=== PATIENT | male | born 1955 | race African-American/Black ===

== ENCOUNTER 2017-02-22 09:25 | Inpatient (IN) | payer MEDICAID, OTHER ==
[2017-02-22] VITALS (8 sets, daily range): BP systolic 102–149; BP diastolic 75–90
[~2017-02-22] VITALS: Ht 188 cm; Wt 90.7 kg
[~2017-02-22 09:25] MED LIST: ACETAMINOPHEN120 MG RECTAL; ASPIR 8181 MG ORAL; COLACE100 MG ORAL; Mylanta ORAL
--- NOTE | 2017-02-22 09:38 | Emergency Room Report ---
History of Present Illness General Chief Complaint: Dyspnea/Respdistress Source: EMS Present Illness HPI 61-year-old male [facility] for alleged and hypoxia [facility] also states patient has "a lot of congestion." Per EMS, upon arrival the patient's O2 sat was 100% on submental oxygen Patient not providing the history of present illness, history of recent CVA However does respond to commands, but is nonverbal See ER and triage notes for list of medical problems Allergies: Coded Allergies: No Known Allergies (Unverified , 11/15/15) Patient History Past Medical History: see triage record, CVA/TIA - see history of present illness, other Past Surgical History: none, unable to obtain Pertinent Family History: none, unable to obtain Social History: Denies: smoking, alcohol use, drug use Immunizations: UTD Reviewed Nursing Documentation: PMH: Agreed, PSxH: Agreed Nursing Documentation-PMH Hx Pacemaker: Yes Hx Diabetes: Yes Hx Cerebrovascular Accident: Yes Review of Systems All Other Systems: negative except mentioned in HPI Physical Exam Vital Signs Date Time Temp Pulse Resp B/P (MAP) Pulse Ox O2 Delivery O2 Flow Rate FiO2 02/22/17 09:27 Non-Rebreather Sp02 EP Interpretation: reviewed, normal, abnormal General Appearance: normal inspection, well appearing, no apparent distress, alert, GCS 15, non-toxic Head: atraumatic Eyes: bilateral eye PERRL, bilateral eye EOMI ENT: normal ENT inspection, hearing grossly normal, normal voice Neck: normal inspection, full range of motion, supple, no bony tend Respiratory: other Cardiovascular #1: regular rate, rhythm, no edema Gastrointestinal: normal inspection, normal bowel sounds, non tender, soft, no guarding, no hernia Genitourinary: no CVA tenderness Musculoskeletal: normal inspection, back normal, normal range of motion, Layton' s Sign negative Neurologic: normal inspection, alert, responsive, target trimmer III-XII nml as tested, speech normal, other - right-sided atrophy, weakness Psychiatric: normal inspection, judgement/insight normal, mood/affect normal Skin: normal inspection, normal color, no rash Medical Decision Making Diagnostic Impression: Primary Impression: Hypoxia Additional Impressions: Sepsis Qualified Codes: A41.9 - Sepsis, unspecified organism Hypernatremia SHANTE (acute kidney injury) CKD (chronic kidney disease) Qualified Codes: N18.9 - Chronic kidney disease, unspecified Hyperglycemia Elevated troponin ER Course In [facility] with hypoxia and congestion congestion found to meet sepsis criteria Febrile, hypoxic, with history of hypoxia and chest congestion Patient has poor respiratory effort We'll treat empirically for pneumonia cause for sepsis Blood cultures pending 1 L NS given only as patient's ejection fraction and cardiac output unknown Rectal Tylenol given for fever Labs significant for leukocytosis of 13 and elevated lactate, consistent with sepsis diagnosis Chest x-ray negative for pneumonia however UA grossly infected In addition patient has hypernatremia and SHANTE on CKD Likely cause is dehydration, prerenal failure Elevated troponin likely demand ischemia as EKG does not show any ischemia Endorsed to as the primary care doctor Telemetry admission 11 AM EKG Diagnostic Results Rate: normal Rhythm: NSR ST Segments: no acute changes ASA given to the pt in ED: No Rhythm Strip Diag. Results EP Interpretation: yes Rate: 96 Rhythm: NSR, other - PVCs Chest X-Ray Diagnostic Results Chest X-Ray Diagnostic Results : Chest X-Ray Ordered: Yes # of Views/Limited/Complete: 1 View Indication: Shortness of Breath EP Interpretation: Yes Interpretation: no consolidation, no effusion, no pneumothorax, no acute cardiopulmonary disease Impression: No acute disease Electronically Signed by: Dr Karen Dolan MD Last Vital Signs Date Time Temp Pulse Resp B/P (MAP) Pulse Ox O2 Delivery O2 Flow Rate FiO2 02/22/17 09:27 Non-Rebreather Status: improved Disposition: ADMITTED INPATIENT Condition: Serious KAREN DOLAN M.D. Feb 22, 2017 09:38
[2017-02-22] MEDS ORDERED: Acetaminophen 650 MG SUPP RECTAL ONE (09:45)
[2017-02-22] MEDS ORDERED: Azithromycin 500 MG in NS 275 ML IV ONE (09:45)
[2017-02-22] MEDS: cefTRIAXone 2 GM in NS 110 ML IV SCH ×2 (10:04→23:28)
[2017-02-22] MEDS ORDERED: ACETAMINOPHEN325 M1 ORAL (10:12)
[2017-02-22] MEDS ORDERED: METFORMIN HCL1000 M1 ORAL (10:12)
[2017-02-22] MEDS ORDERED: COLACE100 MG ORAL (10:12)
[2017-02-22] MEDS ORDERED: ASPIR 8181 MG ORAL (10:12)
[2017-02-22] MEDS ORDERED: NOVOLOG SS (10:12)
[2017-02-22 10:19] LABS: MEAN CORPUSCULAR HEMOGLOBIN 27.5 PG (27.0-31.0); MEAN CORPUSCULAR HGB CONC 29.9 G/DL (32.0-36.0); MEAN CORPUSCULAR VOLUME 92 FL (80-99); MEAN PLATELET VOLUME 7.2 FL (6.5-10.1); PLATELET COUNT 290 K/UL (150-450); RED BLOOD COUNT 6.55 M/UL (4.70-6.10); RED CELL DISTRIBUTION WIDTH 13.8 % (11.6-14.8); WHITE BLOOD COUNT 13.3 K/UL (4.8-10.8)
[2017-02-22 10:26] LABS: APPEARANCE,URINE CLOUDY; KETONES,URINE 1+ (NEGATIVE); LEUKOCYTE ESTERASE ,URINE NEGATIVE (NEGATIVE); NITRITE,URINE NEGATIVE (NEGATIVE); PH,URINE 5 (4.5-8.0); PROTEIN,URINE 4+ (NEGATIVE); UROBILINOGEN,URINE 1 MG/DL (0.0-1.0)
[2017-02-22 10:36] LABS: ANISOCYTOSIS 2+; BAND NEUTROPHILS % (MANUAL) 0 % (0-8); BASOPHILS % (MANUAL) 1 % (0-2); EOSINOPHILS % (MANUAL) 0 % (0-3); LYMPHOCYTES % (MANUAL) 18 % (20-45); NEUTROPHILS % (MANUAL) 80 % (45-75); NUCLEATED RED BLOOD CELLS 4 /100 WBC; PLATELET ESTIMATE ADEQUATE; PLATELET MORPHOLOGY NORMAL; TOTAL CELLS COUNTED 100
[2017-02-22 10:43] LABS: SQUAMOUS EPITHELIAL CELL,UR MODERATE /LPF (NONE/OCC)
[2017-02-22 10:44] LABS: BACTERIA,URINE FEW /HPF; ICTOTEST NEGATIVE
[2017-02-22 10:45] LABS: ALANINE AMINOTRANSFERASE 12 U/L (12-78); ALBUMIN/GLOBULIN RATIO 0.3 (1.0-2.7); ANION GAP 15 mmol/L (5-15); ASPARTATE AMINO TRANSFERASE 14 U/L (15-37); CARBON DIOXIDE 21 MMOL/L (21-32); CHLORIDE 130 MMOL/L (98-107); CKMB 3.9 NG/ML (0.0-3.6); CREATININE 3.7 MG/DL (0.55-1.30); GLOMERULAR FILTRATION RATE 20.5 mL/min (>60); POTASSIUM 4.6 MMOL/L (3.5-5.1); TOTAL PROTEIN 7.2 G/DL (6.4-8.2)
[2017-02-22 10:45] LABS: MUCUS,URINE FEW /LPF (NONE/OCC)
[2017-02-22] MEDS ORDERED: Azithromycin 500mg Inj IV ONE (10:45)
[2017-02-22 10:46] LABS: SODIUM 165 MMOL/L (136-145)
[2017-02-22 10:53] LABS: REFLEX LACTIC ACID YES OR NO YES
--- NOTE | 2017-02-22 14:39 | Diagnostic Imaging Report ---
Indication: Shortness of breath Technique: One view of the chest Comparison: 11/15/2015 Findings: Left chest bifocal AICD is again demonstrated. There is some atelectasis at the left lung base. Lungs and pleural spaces are otherwise clear. Heart size is normal Impression: Left basilar atelectasis. No acute process otherwise
[2017-02-23] VITALS: BP 100/69
[2017-02-23] MEDS ORDERED: METFORMIN HCL500 M1 ORAL (00:26)
[2017-02-23 04:00] VITALS: BP 138/82
[2017-02-23] MEDS ORDERED: Albuterol/Ipratropium 3ml neb HHN PRN (06:30)
[2017-02-23] MEDS ORDERED: NovoLOG Insulin Flexpen SUBQ SCH ×2 (06:30→16:30)
[2017-02-23 08:00] VITALS: BP 125/51
[2017-02-23 08:46] LABS: MEAN CORPUSCULAR HEMOGLOBIN 28.4 PG (27.0-31.0); MEAN CORPUSCULAR HGB CONC 29.8 G/DL (32.0-36.0); MEAN CORPUSCULAR VOLUME 95 FL (80-99); MEAN PLATELET VOLUME 6.4 FL (6.5-10.1); PLATELET COUNT 208 K/UL (150-450); RED BLOOD COUNT 5.41 M/UL (4.70-6.10); RED CELL DISTRIBUTION WIDTH 14.2 % (11.6-14.8)
[2017-02-23 08:54] LABS: ANION GAP 20 mmol/L (5-15); CALCIUM 8.2 MG/DL (8.5-10.1); CARBON DIOXIDE 18 MMOL/L (21-32); CHLORIDE 131 MMOL/L (98-107); CREATININE 3.8 MG/DL (0.55-1.30); GLOMERULAR FILTRATION RATE 19.9 mL/min (>60)
[2017-02-23] MEDS ORDERED: metFORMIN 500mg tab ORAL SCH (09:00)
[2017-02-23 09:16] LABS: SODIUM 168 MMOL/L (136-145)
[2017-02-23] MEDS: Docusate 100mg cap ORAL SCH ×2 (10:52→18:18)
[2017-02-23] MEDS: Aspirin EC 81mg tab ORAL SCH (10:52)
[2017-02-23] MEDS: Cefepime HCl 1 GM in D5W 55 ML IVPB SCH (10:55)
[2017-02-23] MEDS: Heparin 5000 units/ml inj SUBQ SCH ×2 (11:12→20:29)
[2017-02-23 11:38] LABS: LYMPHOCYTES % (MANUAL) 8 % (20-45); NEUTROPHILS % (MANUAL) 89 % (45-75); TOTAL CELLS COUNTED 100
[2017-02-23 11:39] LABS: BAND NEUTROPHILS % (MANUAL) 0 % (0-8); BASOPHILS % (MANUAL) 0 % (0-2); EOSINOPHILS % (MANUAL) 0 % (0-3); PLATELET ESTIMATE ADEQUATE; PLATELET MORPHOLOGY NORMAL
[2017-02-23 12:00] VITALS: BP 114/60
[2017-02-23] MEDS: Levemir Flexpen SUBQ SCH ×2 (13:02→20:35)
[2017-02-23] MEDS: NovoLOG Insulin Flexpen SUBQ SCH ×3 (13:14→20:36)
--- NOTE | 2017-02-23 14:53 | Infectious Diseases Prog Note ---
Assessment/Plan Problems: (1) HCAP (healthcare-associated pneumonia) Assessment & Plan: with hypoxemia and leukocytosis , will continue cefepime and add clindamycin empiric coverage, and send blood culture (2) UTI (urinary tract infection) Assessment & Plan: continue cefepime and send urine culture (3) Sepsis Assessment & Plan: due to the above, will start clindamycin and continue cefepime pending culture result (4) Acute kidney injury Assessment & Plan: due to sepsis , continue hydrations, avoid nephrotoxic, monitor renal function (5) Hyperglycemia Assessment & Plan: due to sepsis, recomend tight glycemic control to keep blood glucose between 80-120 Subjective Allergies: Coded Allergies: No Known Allergies (Unverified , 11/15/15) Objective Vital Signs Last 24 Hour Vital Signs Date Time Temp Pulse Resp B/P (MAP) Pulse Ox O2 Delivery O2 Flow Rate FiO2 02/23/17 12:00 97.2 86 20 114/60 90 02/23/17 08:00 78 02/23/17 08:00 97.0 87 21 125/51 93 02/23/17 04:00 77 02/23/17 04:00 98.0 63 20 138/82 95 Non-Rebreather 02/23/17 00:05 24 98 Non-Rebreather 15.0 100 02/23/17 00:00 98.0 77 24 100/69 98 Non-Rebreather 02/23/17 00:00 80 02/22/17 20:00 97.5 78 22 122/86 97 Non-Rebreather 15.0 100 02/22/17 20:00 92 02/22/17 16:18 96.3 80 20 135/90 97 02/22/17 16:00 83 Height (Feet): 6 Height (Inches): 2.00 Weight (Pounds): 200 Laboratory Tests Test 02/23/17 07:50 White Blood Count 15.0 K/UL (4.8-10.8) H Red Blood Count 5.41 M/UL (4.70-6.10) Hemoglobin 15.4 G/DL (14.2-18.0) Hematocrit 51.7 % (42.0-52.0) Mean Corpuscular Volume 95 FL (80-99) Mean Corpuscular Hemoglobin 28.4 PG (27.0-31.0) Mean Corpuscular Hemoglobin Concent 29.8 G/DL (32.0-36.0) L Red Cell Distribution Width 14.2 % (11.6-14.8) Platelet Count 208 K/UL (150-450) Mean Platelet Volume 6.4 FL (6.5-10.1) L Neutrophils (%) (Auto) % (45.0-75.0) Lymphocytes (%) (Auto) % (20.0-45.0) Monocytes (%) (Auto) % (1.0-10.0) Eosinophils (%) (Auto) % (0.0-3.0) Basophils (%) (Auto) % (0.0-2.0) Differential Total Cells Counted 100 Neutrophils % (Manual) 89 % (45-75) H Lymphocytes % (Manual) 8 % (20-45) L Monocytes % (Manual) 3 % (1-10) Eosinophils % (Manual) 0 % (0-3) Basophils % (Manual) 0 % (0-2) Band Neutrophils 0 % (0-8) Platelet Estimate Adequate Platelet Morphology Normal Sodium Level 168 MMOL/L (136-145) *H Potassium Level 5.0 MMOL/L (3.5-5.1) Chloride Level 131 MMOL/L (98-107) H Carbon Dioxide Level 18 MMOL/L (21-32) L Anion Gap 20 mmol/L (5-15) H Blood Urea Nitrogen 112 mg/dL (7-18) H Creatinine 3.8 MG/DL (0.55-1.30) H Estimat Glomerular Filtration Rate 19.9 mL/min (>60) Glucose Level 560 MG/DL (74-106) *H Calcium Level 8.2 MG/DL (8.5-10.1) L Current Medications Medications (Trade) Dose Ordered Sig/Megan Route PRN Reason Start Time Stop Time Status Last Admin Dose Admin Acetaminophen (Tylenol) 650 mg Q4H PRN ORAL Mild Pain (Pain Scale 1-3) 02/23/17 06:30 03/25/17 06:29 Albuterol/ Ipratropium (Albuterol/ Ipratropium) 3 ml Q4HR PRN HHN Shortness of Breath 02/23/17 06:30 02/28/17 06:29 Aspirin (Ecotrin) 81 mg DAILY ORAL 02/23/17 09:00 03/25/17 08:59 02/23/17 10:52 Cefepime HCl 1 gm/ Dextrose 55 ml @ 110 mls/hr Q24H IVPB 02/23/17 09:00 03/02/17 08:59 02/23/17 10:55 Dextrose 1,000 ml @ 100 mls/hr Q10H IV 02/23/17 07:15 03/25/17 07:14 02/23/17 10:55 Dextrose (Dextrose 50%) STAT PRN IV Hypoglycemia 02/23/17 12:15 03/25/17 12:14 Docusate Sodium (Colace) 100 mg TWICE A DAY ORAL 02/23/17 09:00 03/25/17 08:59 02/23/17 10:52 Heparin Sodium (Porcine) (Heparin 5000 units/ml) 5,000 units EVERY 12 HOURS SUBQ 02/23/17 09:00 03/25/17 08:59 02/23/17 11:12 Insulin Aspart (NovoLOG) BEFORE MEALS AND HS SUBQ 02/23/17 13:30 03/25/17 13:29 02/23/17 13:14 Insulin Detemir (Levemir) 15 units Q12HR SUBQ 02/23/17 13:00 03/25/17 12:59 02/23/17 13:02 Kamala Leon M.D. Feb 23, 2017 14:53
[2017-02-23] MEDS ORDERED: NS 500ML ONE (15:46)
[2017-02-23] MEDS ORDERED: 1/2 NS 1000ml IV ONE (15:46)
[2017-02-23] MEDS ORDERED: Tubing IV Secondary IV ONE (15:46)
[2017-02-23 16:00] VITALS: BP 96/73
--- NOTE | 2017-02-23 16:15 | Consultation ---
DATE OF CONSULTATION: 02/23/2017 INFECTIOUS DISEASE CONSULTATION CONSULTING PHYSICIAN: Kamala Leon M.D. REQUESTING PHYSICIAN: Yoandy Zurita M.D. REASON FOR CONSULTATION: Healthcare-acquired pneumonia, sepsis, and urinary tract infection. Recommendation for antibiotics treatment HISTORY OF PRESENT ILLNESS: The patient is a 61-year-old male with past medical history of CVA, diabetes, status post pacemaker, and [facility] resident, was sent to [facility] emergency room for hypoxia and chest congestion. The patient was saturating 100% on supplemental oxygen mask when he arrived, but he drops his O2 saturation once he is off oxygen quickly. Chest x-ray in the emergency room showed basilar atelectases suspicious for pneumonia so, he was started on intravenous cefepime by the admitting physician and I was consulted for antibiotics treatment and further management of his sepsis, pneumonia, and urinary tract infection. As of note, the patient is a poor historian, demented, and cannot provide any history. History was mainly obtained from the medical record. PAST MEDICAL HISTORY: Significant for CVA, TIA, diabetes, and possible dementia. PAST SURGICAL HISTORY: He had a pacemaker placement. MEDICATIONS: He is on cefepime 1 g IV q.24 hours. For the rest of his medications, please refer to [facility]. ALLERGIES: No known drug allergy. SOCIAL HISTORY: The patient is a [facility] resident. No recent drugs, tobacco, or alcohol. FAMILY HISTORY: Unable to obtain at this point. REVIEW OF SYSTEMS: Unable to obtain at this point. The patient is a poor historian. PHYSICAL EXAMINATION: VITAL SIGNS: Temperature 97.2, pulse 86, respirations 20, blood pressure 114/60, and saturation 90% on non-rebreather mask with FiO2 of 100%. GENERAL: A middle-aged male, up in bed, alert, awake, nonverbal, does not follow command, not in acute distress. HEENT: Normocephalic and atraumatic. Pupils are reactive to light bilaterally. Dry oral mucosa. No exudate. With dry bloody secretion in his mouth and poor dental hygiene. NECK: Supple. No lymphadenopathy. CARDIOVASCULAR: Regular rate and rhythm. No murmur or gallop. LUNGS: He had crackles and wheezing at the bases. Normal breathing effort. No rales. ABDOMEN: Soft, nontender, and nondistended. Supraumbilical ventral hernia reducible. Normal bowel sounds. No rebound or ascites. EXTREMITY: No edema or cyanosis. LABORATORY DATA: Laboratories showed white count of 15,000 hemoglobin of 15.4, and platelet count of 208,000. BUN of 112, creatinine of 3.8, and glucose of 560. Lactic acid of 2.9. Troponin 0.091. Urinalysis showed negative leukocyte esterase, WBC 5 to 10, and few bacteria. IMAGING: Chest x-ray showed left basilar atelectasis, no acute process. ASSESSMENT AND RECOMMENDATION: 1. Healthcare-acquired pneumonia with hypoxemia and leukocytosis. We will continue cefepime empiric treatment and add clindamycin, empiric coverage for pneumonia and send blood culture. 2. Urinary tract infection. We will continue cefepime and send urine culture. 3. Sepsis due to the above. We will start clindamycin and continue cefepime pending culture results. 4. Acute kidney failure due to sepsis. Continue hydration. Avoid nephrotoxic medicine. Renal team is following already. 5. Hyperglycemia due to sepsis. Recommend tight glycemic control to keep blood glucose between 80 to 120. Thank you for the consult. ID will continue to follow. Kamala Leon M.D. DR: MESHA JOB#: [id number] CC:
[2017-02-23] MEDS: Clindamycin 600mg 50 ML IV SCH ×2 (16:58→23:06)
[2017-02-23 20:00] VITALS: BP 102/76
--- NOTE | 2017-02-23 22:18 | History and Physical ---
History of Present Illness General Date patient seen: Feb 23, 2017 Reason for Hospitalization: Dyspnea/Respdistress Present Illness HPI 61 y/o male with a history of DM and CVA who presented to the ED from [facility]F with SOB and chest congestion. History obtained from chart as patient is nonverbal. Patient noted to be severely dehydrated with Na 165 and elev BUN /Cr. He was admitted for further care. Allergies: Coded Allergies: No Known Allergies (Unverified , 11/15/15) Medication History Scheduled Aspirin* (Aspir 81*), 81 MG ORAL DAILY, (Reported) Docusate Sodium* (Colace*), 100 MG ORAL TWICE A DAY, (Reported) Metformin Hcl* (Metformin Hcl*), 1,000 MG ORAL BID, (Reported) Metformin Hcl* (Metformin Hcl*), 500 MG ORAL TWICE A DAY, (Reported) Scheduled PRN Acetaminophen* (Acetaminophen 325MG Tablet*), 650 MG ORAL Q6H PRN for Mild Pain (Pain Scale 1-3), (Reported) Miscellaneous Medications [Novolog SS], (Reported) Patient History History Provided By: Medical Record Healthcare decision maker Resuscitation status Advanced Directive on File No Past Medical/Surgical History Past Medical/Surgical History: (1) DM (diabetes mellitus) (2) CKD (chronic kidney disease) Review of Systems ROS Narrative limited due to patient's mental status. Physical Exam General Appearance: WD/WN, no apparent distress HEENT: normocephalic, atraumatic Respiratory/Chest: lungs clear Cardiovascular/Chest: normal rate, regular rhythm Abdomen: non tender, soft Neurologic: alert Last 24 Hour Vital Signs Date Time Temp Pulse Resp B/P (MAP) Pulse Ox O2 Delivery O2 Flow Rate FiO2 02/23/17 20:18 Venturi Mask 8.0 40 02/23/17 20:18 95 Venturi Mask 8.0 40 02/23/17 20:00 80 02/23/17 20:00 96.8 88 20 102/76 96 02/23/17 16:00 87 02/23/17 16:00 97.0 89 21 96/73 94 02/23/17 12:00 97.2 86 20 114/60 90 02/23/17 08:00 78 02/23/17 08:00 97.0 87 21 125/51 93 02/23/17 04:00 77 02/23/17 04:00 98.0 63 20 138/82 95 Non-Rebreather 02/23/17 00:05 24 98 Non-Rebreather 15.0 100 02/23/17 00:00 98.0 77 24 100/69 98 Non-Rebreather 02/23/17 00:00 80 Intake and Output 02/23/17 02/24/17 19:00 07:00 Output Total 700 ml Balance -700 ml Output Urine Total 700 ml Laboratory Tests Test 02/23/17 07:50 White Blood Count 15.0 K/UL (4.8-10.8) H Red Blood Count 5.41 M/UL (4.70-6.10) Hemoglobin 15.4 G/DL (14.2-18.0) Hematocrit 51.7 % (42.0-52.0) Mean Corpuscular Volume 95 FL (80-99) Mean Corpuscular Hemoglobin 28.4 PG (27.0-31.0) Mean Corpuscular Hemoglobin Concent 29.8 G/DL (32.0-36.0) L Red Cell Distribution Width 14.2 % (11.6-14.8) Platelet Count 208 K/UL (150-450) Mean Platelet Volume 6.4 FL (6.5-10.1) L Neutrophils (%) (Auto) % (45.0-75.0) Lymphocytes (%) (Auto) % (20.0-45.0) Monocytes (%) (Auto) % (1.0-10.0) Eosinophils (%) (Auto) % (0.0-3.0) Basophils (%) (Auto) % (0.0-2.0) Differential Total Cells Counted 100 Neutrophils % (Manual) 89 % (45-75) H Lymphocytes % (Manual) 8 % (20-45) L Monocytes % (Manual) 3 % (1-10) Eosinophils % (Manual) 0 % (0-3) Basophils % (Manual) 0 % (0-2) Band Neutrophils 0 % (0-8) Platelet Estimate Adequate Platelet Morphology Normal Sodium Level 168 MMOL/L (136-145) *H Potassium Level 5.0 MMOL/L (3.5-5.1) Chloride Level 131 MMOL/L (98-107) H Carbon Dioxide Level 18 MMOL/L (21-32) L Anion Gap 20 mmol/L (5-15) H Blood Urea Nitrogen 112 mg/dL (7-18) H Creatinine 3.8 MG/DL (0.55-1.30) H Estimat Glomerular Filtration Rate 19.9 mL/min (>60) Glucose Level 560 MG/DL (74-106) *H Calcium Level 8.2 MG/DL (8.5-10.1) L Height (Feet): 6 Height (Inches): 2.00 Weight (Pounds): 200 Medications Current Medications Medications (Trade) Dose Ordered Sig/Megan Route PRN Reason Start Time Stop Time Status Last Admin Dose Admin Acetaminophen (Tylenol) 650 mg Q4H PRN ORAL Mild Pain (Pain Scale 1-3) 02/23/17 06:30 03/25/17 06:29 Albuterol/ Ipratropium (Albuterol/ Ipratropium) 3 ml Q4HR PRN HHN Shortness of Breath 02/23/17 06:30 02/28/17 06:29 Aspirin (Ecotrin) 81 mg DAILY ORAL 02/23/17 09:00 03/25/17 08:59 02/23/17 10:52 Cefepime HCl 1 gm/ Dextrose 55 ml @ 110 mls/hr Q24H IVPB 02/23/17 09:00 03/02/17 08:59 02/23/17 10:55 Clindamycin HCl/ Dextrose 50 ml @ 100 mls/hr Q8HR IV 02/23/17 16:00 03/02/17 15:59 02/23/17 16:58 Dextrose 1,000 ml @ 100 mls/hr Q10H IV 02/23/17 07:15 03/25/17 07:14 02/23/17 16:58 Dextrose (Dextrose 50%) STAT PRN IV Hypoglycemia 02/23/17 12:15 03/25/17 12:14 Docusate Sodium (Colace) 100 mg TWICE A DAY ORAL 02/23/17 09:00 03/25/17 08:59 02/23/17 18:18 Heparin Sodium (Porcine) (Heparin 5000 units/ml) 5,000 units EVERY 12 HOURS SUBQ 02/23/17 09:00 03/25/17 08:59 02/23/17 20:29 Insulin Aspart (NovoLOG) BEFORE MEALS AND HS SUBQ 02/23/17 13:30 03/25/17 13:29 02/23/17 20:36 Insulin Detemir (Levemir) 15 units Q12HR SUBQ 02/23/17 13:00 03/25/17 12:59 02/23/17 20:35 Assessment/Plan Problem List: (1) Hyperglycemia due to type 2 diabetes mellitus ICD Codes: E11.65 - Type 2 diabetes mellitus with hyperglycemia SNOMED: 250240562585762 (2) Hypernatremia ICD Codes: E87.0 - Hyperosmolality and hypernatremia SNOMED: 74738776 (3) CKD (chronic kidney disease) ICD Codes: N18.9 - Chronic kidney disease, unspecified SNOMED: 033867522 Qualifiers: Qualified Codes: N18.9 - Chronic kidney disease, unspecified (4) SHANTE (acute kidney injury) ICD Codes: N17.9 - Acute kidney failure, unspecified SNOMED: 01369067, 575454515 (5) Hypoxia ICD Codes: R09.02 - Hypoxemia SNOMED: 840860278 (6) Sepsis ICD Codes: A41.9 - Sepsis, unspecified organism SNOMED: 21398221 Qualifiers: Qualified Codes: A41.9 - Sepsis, unspecified organism (7) UTI (urinary tract infection) ICD Codes: N39.0 - Urinary tract infection, site not specified SNOMED: 08119875 (8) HCAP (healthcare-associated pneumonia) ICD Codes: J18.9 - Pneumonia, unspecified organism SNOMED: 360516768 Assessment/Plan empiric abx. ID consult. BG control. IVF. CHange to d5w given higher Na. Monitor renal function. Monitor UOP. Consider HD if low UOP. DVT ppx. JJ RAYMOND Feb 23, 2017 22:18
[2017-02-24 00:20] VITALS: BP 111/84
[2017-02-24 04:15] VITALS: BP 100/78
[2017-02-24] MEDS: Clindamycin 600mg 50 ML IV SCH ×3 (06:00→22:10)
[2017-02-24] MEDS: NovoLOG Insulin Flexpen SUBQ SCH ×4 (06:46→21:00)
[2017-02-24 08:00] VITALS: BP 110/59
[2017-02-24 09:00] LABS: MEAN CORPUSCULAR HEMOGLOBIN 25.7 PG (27.0-31.0); MEAN CORPUSCULAR HGB CONC 28.2 G/DL (32.0-36.0); MEAN CORPUSCULAR VOLUME 91 FL (80-99); MEAN PLATELET VOLUME 6.8 FL (6.5-10.1); PLATELET COUNT 196 K/UL (150-450); RED BLOOD COUNT 5.77 M/UL (4.70-6.10); RED CELL DISTRIBUTION WIDTH 13.8 % (11.6-14.8); WHITE BLOOD COUNT 16.7 K/UL (4.8-10.8)
[2017-02-24 09:26] LABS: ANION GAP 12 mmol/L (5-15); CALCIUM 8.2 MG/DL (8.5-10.1); CARBON DIOXIDE 24 MMOL/L (21-32); CHLORIDE 133 MMOL/L (98-107); CREATININE 3.8 MG/DL (0.55-1.30); GLOMERULAR FILTRATION RATE 19.9 mL/min (>60); POTASSIUM 3.6 MMOL/L (3.5-5.1)
[2017-02-24 09:37] LABS: SODIUM 168 MMOL/L (136-145)
[2017-02-24 09:50] LABS: BAND NEUTROPHILS % (MANUAL) 0 % (0-8); BASOPHILS % (MANUAL) 0 % (0-2); EOSINOPHILS % (MANUAL) 0 % (0-3); LYMPHOCYTES % (MANUAL) 9 % (20-45); NEUTROPHILS % (MANUAL) 89 % (45-75); PLATELET ESTIMATE ADEQUATE; PLATELET MORPHOLOGY NORMAL; TOTAL CELLS COUNTED 100
[2017-02-24] MEDS: Docusate 100mg cap ORAL SCH ×2 (09:51→18:00)
[2017-02-24] MEDS: Cefepime HCl 1 GM in D5W 55 ML IVPB SCH (09:51)
[2017-02-24] MEDS: Aspirin EC 81mg tab ORAL SCH (09:51)
[2017-02-24] MEDS: Levemir Flexpen SUBQ SCH ×2 (09:58→21:00)
[2017-02-24] MEDS: Heparin 5000 units/ml inj SUBQ SCH ×2 (10:08→21:00)
[2017-02-24 12:00] VITALS: BP 99/71
--- NOTE | 2017-02-24 12:37 | Nephrology Progress Note ---
Assessment/Plan Problem List: (1) Hypernatremia (2) SHANTE (acute kidney injury) (3) Hyperglycemia (4) Hypoxia (5) Sepsis (6) UTI (urinary tract infection) (7) HCAP (healthcare-associated pneumonia) (8) DM (diabetes mellitus) (9) Dysphagia due to recent stroke Plan Continue d5w to correct sodium Free water flushes Renally dose meds, avoid nephrotoxins Strict glycemic control Dysphagia, NG tube inserted, GI consult Abx per ID DVT prophylaxis, PPI Subjective ROS Limited/Unobtainable: Yes Subjective In bed, in no apparent distress, non verbal Objective Objective Last 24 Hour Vital Signs Date Time Temp Pulse Resp B/P (MAP) Pulse Ox O2 Delivery O2 Flow Rate FiO2 02/24/17 08:00 97.0 86 20 110/59 94 02/24/17 08:00 91 02/24/17 07:49 94 Venturi Mask 8.0 40 02/24/17 07:49 87 20 Venturi Mask 8.0 40 02/24/17 07:49 Venturi Mask 8.0 40 02/24/17 04:15 99.0 92 20 100/78 90 02/24/17 04:00 91 02/24/17 00:20 97.0 84 20 111/84 94 02/24/17 00:00 81 02/23/17 20:18 Venturi Mask 8.0 40 02/23/17 20:18 95 Venturi Mask 8.0 40 02/23/17 20:00 80 02/23/17 20:00 96.8 88 20 102/76 96 02/23/17 16:00 87 02/23/17 16:00 97.0 89 21 96/73 94 Laboratory Tests 02/24/17 08:50: White Blood Count 16.7H, Red Blood Count 5.77, Hemoglobin 14.8, Hematocrit 52.7H , Mean Corpuscular Volume 91, Mean Corpuscular Hemoglobin 25.7L, Mean Corpuscular Hemoglobin Concent 28.2L, Red Cell Distribution Width 13.8, Platelet Count 196, Mean Platelet Volume 6.8, Neutrophils (%) (Auto) , Lymphocytes (%) (Auto) , Monocytes (%) (Auto) , Eosinophils (%) (Auto) , Basophils (%) (Auto) , Differential Total Cells Counted 100, Neutrophils % ( Manual) 89H, Lymphocytes % (Manual) 9L, Monocytes % (Manual) 2, Eosinophils % ( Manual) 0, Basophils % (Manual) 0, Band Neutrophils 0, Platelet Estimate Adequate, Platelet Morphology Normal, Red Blood Cell Morphology Normal, Sodium Level 168*H, Potassium Level 3.6, Chloride Level 133H, Carbon Dioxide Level 24, Anion Gap 12, Blood Urea Nitrogen 110H, Creatinine 3.8H, Estimat Glomerular Filtration Rate 19.9, Glucose Level 246#H, Calcium Level 8.2L, Pro-B-Type Natriuretic Peptide 967H Height (Feet): 6 Height (Inches): 2.00 Weight (Pounds): 200 General Appearance: no apparent distress EENT: normal ENT inspection Neck: normal alignment Cardiovascular: normal rate, no JVD Respiratory/Chest: decreased breath sounds Abdomen: non tender, soft Neurologic: motor weakness, disoriented Mary Barboza N.P. Feb 24, 2017 12:37
--- NOTE | 2017-02-24 12:48 | GI Initial Consult Note ---
History of Present Illness General Date patient seen: Feb 24, 2017 Time patient seen: 12:37 Reason for Hospitalization: Dyspnea/Respdistress Referring physician: JJ MILNER Reason for Consultation: DYSPHAGIA Present Illness HPI 61-year-old male brought in by EMS from [place] for alleged and hypoxia long-term also states patient has "a lot of congestion." Per EMS, upon arrival the patient's O2 sat was 100% on submental oxygen Patient not providing the history of present illness, history of recent CVA However does respond to commands, but is nonverbal GI consulted for dysphagia with possible PEG placement. HPI as noted above. ROS limited, patient non verbal NAD currently with NGTs. Pt presents today with leukocytosis, hypernatremia, elevated lactic acid Home Meds Reported Medications Metformin Hcl* (METFORMIN HCL*) 500 Mg Tablet, 500 MG ORAL TWICE A DAY, TAB 02/23/17 Acetaminophen* (ACETAMINOPHEN 325MG TABLET*) 325 Mg Tablet, 650 MG ORAL Q6H Y for Mild Pain (Pain Scale 1-3), TAB 02/22/17 Docusate Sodium* (COLACE*) 100 Mg Capsule, 100 MG ORAL TWICE A DAY, CAP 02/22/17 Aspirin* (ASPIR 81*) 81 Mg Tablet.dr, 81 MG ORAL DAILY, TAB 02/22/17 [Novolog SS] No Conflict Check 02/22/17 Metformin Hcl* (METFORMIN HCL*) 1,000 Mg Tablet, 1000 MG ORAL BID, TAB 02/22/17 Med list reviewed/reconciled: Yes Allergies: Coded Allergies: No Known Allergies (Unverified , 11/15/15) Patient History Limited by: medical condition History Provided By: Medical Record PMH Narrative Past Medical History: see triage record, CVA/TIA - see history of present illness, other Past Surgical History: none, unable to obtain Pertinent Family History: none, unable to obtain Social History: Denies: smoking, alcohol use, drug use Immunizations: UTD Reviewed Nursing Documentation: PMH: Agreed, PSxH: Agreed Nursing Documentation-PM Hx Pacemaker: Yes Hx Diabetes: Yes Hx Cerebrovascular Accident: Yes Review of Systems All Other Systems: limited Physical Exam Vital Signs Date Time Temp Pulse Resp B/P (MAP) Pulse Ox O2 Delivery O2 Flow Rate FiO2 02/22/17 09:27 101.5 91 28 101/86 93 Nasal Cannula 3.0 02/22/17 20:00 100 Sp02 EP Interpretation: reviewed, normal Labs Laboratory Tests Test 02/24/17 08:50 White Blood Count 16.7 K/UL (4.8-10.8) H Red Blood Count 5.77 M/UL (4.70-6.10) Hemoglobin 14.8 G/DL (14.2-18.0) Hematocrit 52.7 % (42.0-52.0) H Mean Corpuscular Volume 91 FL (80-99) Mean Corpuscular Hemoglobin 25.7 PG (27.0-31.0) L Mean Corpuscular Hemoglobin Concent 28.2 G/DL (32.0-36.0) L Red Cell Distribution Width 13.8 % (11.6-14.8) Platelet Count 196 K/UL (150-450) Mean Platelet Volume 6.8 FL (6.5-10.1) Neutrophils (%) (Auto) % (45.0-75.0) Lymphocytes (%) (Auto) % (20.0-45.0) Monocytes (%) (Auto) % (1.0-10.0) Eosinophils (%) (Auto) % (0.0-3.0) Basophils (%) (Auto) % (0.0-2.0) Differential Total Cells Counted 100 Neutrophils % (Manual) 89 % (45-75) H Lymphocytes % (Manual) 9 % (20-45) L Monocytes % (Manual) 2 % (1-10) Eosinophils % (Manual) 0 % (0-3) Basophils % (Manual) 0 % (0-2) Band Neutrophils 0 % (0-8) Platelet Estimate Adequate Platelet Morphology Normal Red Blood Cell Morphology Normal Sodium Level 168 MMOL/L (136-145) *H Potassium Level 3.6 MMOL/L (3.5-5.1) Chloride Level 133 MMOL/L (98-107) H Carbon Dioxide Level 24 MMOL/L (21-32) Anion Gap 12 mmol/L (5-15) Blood Urea Nitrogen 110 mg/dL (7-18) H Creatinine 3.8 MG/DL (0.55-1.30) H Estimat Glomerular Filtration Rate 19.9 mL/min (>60) Glucose Level 246 MG/DL (74-106) #H Calcium Level 8.2 MG/DL (8.5-10.1) L Pro-B-Type Natriuretic Peptide 967 pg/mL (0-125) H General Appearance: no apparent distress Head: normocephalic EENT: PERRL/EOMI, normal ENT inspection Neck: supple Respiratory: normal breath sounds, no respiratory distress Cardiovascular: normal rate Gastrointestinal: normal inspection, non tender, soft, normal bowel sounds, non -distended Rectal: deferred Genitourinary: deferred Musculoskeletal: normal inspection, back normal Neurologic: alert, responsive Skin: normal inspection, normal color, no rash, warm/dry, palpation normal, well hydrated Lymphatic: normal inspection, no adenopathy Current Medications Current Medications Medications (Trade) Dose Ordered Sig/Megan Route PRN Reason Start Time Stop Time Status Last Admin Dose Admin Acetaminophen (Tylenol) 650 mg Q4H PRN ORAL Mild Pain (Pain Scale 1-3) 02/23/17 06:30 03/25/17 06:29 Albuterol/ Ipratropium (Albuterol/ Ipratropium) 3 ml Q4HR PRN HHN Shortness of Breath 02/23/17 06:30 02/28/17 06:29 Aspirin (Ecotrin) 81 mg DAILY ORAL 02/23/17 09:00 03/25/17 08:59 02/24/17 09:51 Cefepime HCl 1 gm/ Dextrose 55 ml @ 110 mls/hr Q24H IVPB 02/23/17 09:00 03/02/17 08:59 02/24/17 09:51 Clindamycin HCl/ Dextrose 50 ml @ 100 mls/hr Q8HR IV 02/23/17 16:00 03/02/17 15:59 02/24/17 06:00 Dextrose 1,000 ml @ 100 mls/hr Q10H IV 02/23/17 07:15 03/25/17 07:14 02/24/17 12:26 Dextrose (Dextrose 50%) STAT PRN IV Hypoglycemia 02/23/17 12:15 03/25/17 12:14 Docusate Sodium (Colace) 100 mg TWICE A DAY ORAL 02/23/17 09:00 03/25/17 08:59 02/24/17 09:51 Heparin Sodium (Porcine) (Heparin 5000 units/ml) 5,000 units EVERY 12 HOURS SUBQ 02/23/17 09:00 03/25/17 08:59 02/24/17 10:08 Insulin Aspart (NovoLOG) BEFORE MEALS AND HS SUBQ 02/23/17 13:30 03/25/17 13:29 02/24/17 11:27 Insulin Detemir (Levemir) 15 units Q12HR SUBQ 02/23/17 13:00 03/25/17 12:59 02/24/17 09:58 GI: Plan Problems: (1) Encounter for PEG (percutaneous endoscopic gastrostomy) (2) Dysphagia due to recent stroke (3) DM (diabetes mellitus) (4) Hypernatremia Plan consider PEG after work up if indicated and stable. ST evaluation noted >> HOLD PO TRIALS UNTIL PATIENT READY FOR VIDEOSWALLOW STUDY. okay to start NGTFs after CXR confirmation. >> Glucerna 1.5 @ 65ml/hr ordered KUB r/o ischemia given elevated lactic acid ppi daily monitor H&H, prn transfusions. electrolyte correction bowel regime >> colace + miralax abx fu labs Discussed with Dr. Olmedo. Thank you for this patient referral, we will follow. Mariaa Winters N.P. Feb 24, 2017 12:48
--- NOTE | 2017-02-24 13:32 | Wound Care Consultation ---
Wound Assessment Wound Assessment : Wound Number: 1 Wound Present on Admission: Yes New Wound: No Status Change of Wound: No Wound Location Body Site Modif: mid Wound Location Body Site: other - sacrococcygeal Wound Type: pressure ulcer Ezio Test: Does not Ezio Pressure Ulcer Stage: II Wound Thickness: Partial Thickness Wound Length: 4.5 Wound Width: 4.0 Wound Depth: 0.1 Percent of Wound [place]/Red: 100 Wound Drainage Description: Serosanguineous Wound Drainage Amount: Moderate Wound Drainage Odor: None/Absent Tissue Surrounding Wound: Macerated Wound General Appearance: Reddened, Draining Wound Comment #1 Sacrococcygeal stage II pressure ulcer Recommendation -Local wound care per protocol -Optimize nutrition -Low air loss mattress -Heel protector on both heels -Offload both heels -Keep clean and dry -Turn and reposition -Assess and f/u accordingly for any changes MARIO VU RN Feb 24, 2017 13:32
--- NOTE | 2017-02-24 14:41 | Cardiac Electrophysiology PN ---
Subjective Subjective Cardiology consult dictated [id number] Objective Last 24 Hour Vital Signs Date Time Temp Pulse Resp B/P (MAP) Pulse Ox O2 Delivery O2 Flow Rate FiO2 02/24/17 12:00 97.2 96 21 99/71 94 02/24/17 08:00 97.0 86 20 110/59 94 02/24/17 08:00 91 02/24/17 07:49 94 Venturi Mask 8.0 40 02/24/17 07:49 87 20 Venturi Mask 8.0 40 02/24/17 07:49 Venturi Mask 8.0 40 02/24/17 04:15 99.0 92 20 100/78 90 02/24/17 04:00 91 02/24/17 00:20 97.0 84 20 111/84 94 02/24/17 00:00 81 02/23/17 20:18 Venturi Mask 8.0 40 02/23/17 20:18 95 Venturi Mask 8.0 40 02/23/17 20:00 80 02/23/17 20:00 96.8 88 20 102/76 96 02/23/17 16:00 87 02/23/17 16:00 97.0 89 21 96/73 94 Laboratory Tests Test 02/24/17 08:50 White Blood Count 16.7 K/UL (4.8-10.8) H Red Blood Count 5.77 M/UL (4.70-6.10) Hemoglobin 14.8 G/DL (14.2-18.0) Hematocrit 52.7 % (42.0-52.0) H Mean Corpuscular Volume 91 FL (80-99) Mean Corpuscular Hemoglobin 25.7 PG (27.0-31.0) L Mean Corpuscular Hemoglobin Concent 28.2 G/DL (32.0-36.0) L Red Cell Distribution Width 13.8 % (11.6-14.8) Platelet Count 196 K/UL (150-450) Mean Platelet Volume 6.8 FL (6.5-10.1) Neutrophils (%) (Auto) % (45.0-75.0) Lymphocytes (%) (Auto) % (20.0-45.0) Monocytes (%) (Auto) % (1.0-10.0) Eosinophils (%) (Auto) % (0.0-3.0) Basophils (%) (Auto) % (0.0-2.0) Differential Total Cells Counted 100 Neutrophils % (Manual) 89 % (45-75) H Lymphocytes % (Manual) 9 % (20-45) L Monocytes % (Manual) 2 % (1-10) Eosinophils % (Manual) 0 % (0-3) Basophils % (Manual) 0 % (0-2) Band Neutrophils 0 % (0-8) Platelet Estimate Adequate Platelet Morphology Normal Red Blood Cell Morphology Normal Sodium Level 168 MMOL/L (136-145) *H Potassium Level 3.6 MMOL/L (3.5-5.1) Chloride Level 133 MMOL/L (98-107) H Carbon Dioxide Level 24 MMOL/L (21-32) Anion Gap 12 mmol/L (5-15) Blood Urea Nitrogen 110 mg/dL (7-18) H Creatinine 3.8 MG/DL (0.55-1.30) H Estimat Glomerular Filtration Rate 19.9 mL/min (>60) Glucose Level 246 MG/DL (74-106) #H Calcium Level 8.2 MG/DL (8.5-10.1) L Pro-B-Type Natriuretic Peptide 967 pg/mL (0-125) H Microbiology Date/Time Source Procedure Growth Status 02/22/17 10:05 Blood Blood Culture - Preliminary NO GROWTH AFTER 24 HOURS Resulted 02/22/17 09:50 Blood Blood Culture - Preliminary NO GROWTH AFTER 24 HOURS Resulted GAGAN JUNIOR Feb 24, 2017 14:41
[2017-02-24 16:00] VITALS: BP 112/89
--- NOTE | 2017-02-24 16:02 | Diagnostic Imaging Report ---
Indication: Status post nasogastric tube placement Technique: Supine view of the abdomen Comparison: Produce Team Lead image from CT scan of 11/15/2015 Findings: No nasogastric tube is demonstrated. Bowel gas pattern is unremarkable. No unusual masses or calcifications. AICD wires are noted in the heart Impression: Nonvisualization of nasogastric tube. Presumably malpositioned, tip well above the distal esophagus Patient's nurse notified of this at the time of interpretation
--- NOTE | 2017-02-24 19:09 | General Progress Note ---
Assessment/Plan Problem List: (1) Encounter for PEG (percutaneous endoscopic gastrostomy) ICD Codes: Z43.1 - Encounter for attention to gastrostomy SNOMED: 394807316, 396185003 (2) Dysphagia due to recent stroke ICD Codes: I69.391 - Dysphagia following cerebral infarction SNOMED: 87377467, 906221936 (3) Hyperglycemia due to type 2 diabetes mellitus ICD Codes: E11.65 - Type 2 diabetes mellitus with hyperglycemia SNOMED: 733511498526821 (4) Hypernatremia ICD Codes: E87.0 - Hyperosmolality and hypernatremia SNOMED: 85663607 Assessment/Plan reduce Levemir 15 to 9 units bid continue SSI follow with GI recommendations Subjective ROS Limited/Unobtainable: Yes Allergies: Coded Allergies: No Known Allergies (Unverified , 11/15/15) Subjective events noted NPO - pending swallow evaluation Objective Last 24 Hour Vital Signs Date Time Temp Pulse Resp B/P (MAP) Pulse Ox O2 Delivery O2 Flow Rate FiO2 02/24/17 16:00 94 02/24/17 16:00 97.0 95 22 112/89 98 02/24/17 12:00 97.2 96 21 99/71 94 02/24/17 08:00 97.0 86 20 110/59 94 02/24/17 08:00 91 02/24/17 07:49 94 Venturi Mask 8.0 40 02/24/17 07:49 87 20 Venturi Mask 8.0 40 02/24/17 07:49 Venturi Mask 8.0 40 02/24/17 04:15 99.0 92 20 100/78 90 02/24/17 04:00 91 02/24/17 00:20 97.0 84 20 111/84 94 02/24/17 00:00 81 02/23/17 20:18 Venturi Mask 8.0 40 02/23/17 20:18 95 Venturi Mask 8.0 40 02/23/17 20:00 80 02/23/17 20:00 96.8 88 20 102/76 96 Intake and Output 02/24/17 02/25/17 19:00 07:00 Intake Total 605 ml Output Total 500 ml Balance 105 ml Intake IV Total 605 ml Output Urine Total 500 ml # Bowel Movements 1 Laboratory Tests 02/24/17 08:50: White Blood Count 16.7H, Red Blood Count 5.77, Hemoglobin 14.8, Hematocrit 52.7H , Mean Corpuscular Volume 91, Mean Corpuscular Hemoglobin 25.7L, Mean Corpuscular Hemoglobin Concent 28.2L, Red Cell Distribution Width 13.8, Platelet Count 196, Mean Platelet Volume 6.8, Neutrophils (%) (Auto) , Lymphocytes (%) (Auto) , Monocytes (%) (Auto) , Eosinophils (%) (Auto) , Basophils (%) (Auto) , Differential Total Cells Counted 100, Neutrophils % ( Manual) 89H, Lymphocytes % (Manual) 9L, Monocytes % (Manual) 2, Eosinophils % ( Manual) 0, Basophils % (Manual) 0, Band Neutrophils 0, Platelet Estimate Adequate, Platelet Morphology Normal, Red Blood Cell Morphology Normal, Sodium Level 168*H, Potassium Level 3.6, Chloride Level 133H, Carbon Dioxide Level 24, Anion Gap 12, Blood Urea Nitrogen 110H, Creatinine 3.8H, Estimat Glomerular Filtration Rate 19.9, Glucose Level 246#H, Calcium Level 8.2L, Pro-B-Type Natriuretic Peptide 967H Height (Feet): 6 Height (Inches): 2.00 Weight (Pounds): 200 General Appearance: lethargic Neck: normal alignment Cardiovascular: normal rate Respiratory/Chest: decreased breath sounds Abdomen: normal bowel sounds Objective Current Medications Medications (Trade) Dose Ordered Sig/Megan Route PRN Reason Start Time Stop Time Status Last Admin Dose Admin Acetaminophen (Tylenol) 650 mg Q4H PRN ORAL Mild Pain (Pain Scale 1-3) 02/23/17 06:30 03/25/17 06:29 Albuterol/ Ipratropium (Albuterol/ Ipratropium) 3 ml Q4HR PRN HHN Shortness of Breath 02/23/17 06:30 02/28/17 06:29 Aspirin (Ecotrin) 81 mg DAILY ORAL 02/23/17 09:00 03/25/17 08:59 02/24/17 09:51 Cefepime HCl 1 gm/ Dextrose 55 ml @ 110 mls/hr Q24H IVPB 02/23/17 09:00 03/02/17 08:59 02/24/17 09:51 Clindamycin HCl/ Dextrose 50 ml @ 100 mls/hr Q8HR IV 02/23/17 16:00 03/02/17 15:59 02/24/17 15:25 Dextrose 1,000 ml @ 100 mls/hr Q10H IV 02/23/17 07:15 03/25/17 07:14 02/24/17 12:26 Dextrose (Dextrose 50%) STAT PRN IV Hypoglycemia 02/23/17 12:15 03/25/17 12:14 Docusate Sodium (Colace) 100 mg TWICE A DAY ORAL 02/23/17 09:00 03/25/17 08:59 02/24/17 09:51 Heparin Sodium (Porcine) (Heparin 5000 units/ml) 5,000 units EVERY 12 HOURS SUBQ 02/23/17 09:00 03/25/17 08:59 02/24/17 10:08 Insulin Aspart (NovoLOG) BEFORE MEALS AND HS SUBQ 02/23/17 13:30 03/25/17 13:29 02/24/17 11:27 Insulin Detemir (Levemir) 15 units Q12HR SUBQ 02/23/17 13:00 03/25/17 12:59 02/24/17 09:58 Pantoprazole (Protonix) 40 mg DAILY ORAL 02/25/17 09:00 03/27/17 08:59 Polyethylene Glycol (Miralax) 17 gm BEDTIME ORAL 02/24/17 21:00 03/26/17 20:59 Item Value Date Time Bedside Blood Glucose 87 mg/dl 02/24/17 1600 Bedside Blood Glucose 207 mg/dl H 02/24/17 1127 Bedside Blood Glucose 169 mg/dl H 02/24/17 0958 Bedside Blood Glucose 211 mg/dl H 02/24/17 0646 Bedside Blood Glucose 153 mg/dl H 02/24/17 0000 MARIA VICTORIA GOMEZ Feb 24, 2017 19:09
--- NOTE | 2017-02-24 19:30 | Infectious Diseases Prog Note ---
Assessment/Plan Problems: (1) HCAP (healthcare-associated pneumonia) Assessment & Plan: with hypoxemia and leukocytosis , continue cefepime and add clindamycin empiric coverage, pending blood culture (2) UTI (urinary tract infection) Assessment & Plan: continue cefepime pending urine culture (3) Sepsis Assessment & Plan: due to the above, continue clindamycin and cefepime pending culture result (4) Acute kidney injury Assessment & Plan: due to sepsis , continue hydrations, avoid nephrotoxic, monitor renal function (5) Hyperglycemia Assessment & Plan: due to sepsis, recomend tight glycemic control to keep blood glucose between 80-120 Subjective ROS Limited/Unobtainable: Yes Allergies: Coded Allergies: No Known Allergies (Unverified , 11/15/15) Subjective he was up in bed, comfortable, not febrile, not in distress Objective Vital Signs Last 24 Hour Vital Signs Date Time Temp Pulse Resp B/P (MAP) Pulse Ox O2 Delivery O2 Flow Rate FiO2 02/24/17 16:00 94 02/24/17 16:00 97.0 95 22 112/89 98 02/24/17 12:00 97.2 96 21 99/71 94 02/24/17 08:00 97.0 86 20 110/59 94 02/24/17 08:00 91 02/24/17 07:49 94 Venturi Mask 8.0 40 02/24/17 07:49 87 20 Venturi Mask 8.0 40 02/24/17 07:49 Venturi Mask 8.0 40 02/24/17 04:15 99.0 92 20 100/78 90 02/24/17 04:00 91 02/24/17 00:20 97.0 84 20 111/84 94 02/24/17 00:00 81 02/23/17 20:18 Venturi Mask 8.0 40 02/23/17 20:18 95 Venturi Mask 8.0 40 02/23/17 20:00 80 02/23/17 20:00 96.8 88 20 102/76 96 Height (Feet): 6 Height (Inches): 2.00 Weight (Pounds): 200 General Appearance: WD/WN, no acute distress HEENT: normocephalic, atraumatic, anicteric, mucous membranes moist, PERRL Respiratory/Chest: chest wall non-tender, normal breath sounds, no respiratory distress, no accessory muscle use, decreased breath sounds, crackles/rales Cardiovascular: normal peripheral pulses, normal rate, regular rhythm, no gallop/murmur, no JVD Abdomen: normal bowel sounds, soft, non tender, no organomegaly, non distended , no mass, no scars Genitourinary: normal external genitalia Extremities: no cyanosis, no clubbing Skin: no rash, no lesions, ulcers Neurologic/Psychiatric: alert, responsive Lymphatic: no neck adenopathy, no groin adenopathy Microbiology Date/Time Source Procedure Growth Status 02/22/17 10:05 Blood Blood Culture - Preliminary NO GROWTH AFTER 24 HOURS Resulted 02/22/17 09:50 Blood Blood Culture - Preliminary NO GROWTH AFTER 24 HOURS Resulted Laboratory Tests Test 02/24/17 08:50 White Blood Count 16.7 K/UL (4.8-10.8) H Red Blood Count 5.77 M/UL (4.70-6.10) Hemoglobin 14.8 G/DL (14.2-18.0) Hematocrit 52.7 % (42.0-52.0) H Mean Corpuscular Volume 91 FL (80-99) Mean Corpuscular Hemoglobin 25.7 PG (27.0-31.0) L Mean Corpuscular Hemoglobin Concent 28.2 G/DL (32.0-36.0) L Red Cell Distribution Width 13.8 % (11.6-14.8) Platelet Count 196 K/UL (150-450) Mean Platelet Volume 6.8 FL (6.5-10.1) Neutrophils (%) (Auto) % (45.0-75.0) Lymphocytes (%) (Auto) % (20.0-45.0) Monocytes (%) (Auto) % (1.0-10.0) Eosinophils (%) (Auto) % (0.0-3.0) Basophils (%) (Auto) % (0.0-2.0) Differential Total Cells Counted 100 Neutrophils % (Manual) 89 % (45-75) H Lymphocytes % (Manual) 9 % (20-45) L Monocytes % (Manual) 2 % (1-10) Eosinophils % (Manual) 0 % (0-3) Basophils % (Manual) 0 % (0-2) Band Neutrophils 0 % (0-8) Platelet Estimate Adequate Platelet Morphology Normal Red Blood Cell Morphology Normal Sodium Level 168 MMOL/L (136-145) *H Potassium Level 3.6 MMOL/L (3.5-5.1) Chloride Level 133 MMOL/L (98-107) H Carbon Dioxide Level 24 MMOL/L (21-32) Anion Gap 12 mmol/L (5-15) Blood Urea Nitrogen 110 mg/dL (7-18) H Creatinine 3.8 MG/DL (0.55-1.30) H Estimat Glomerular Filtration Rate 19.9 mL/min (>60) Glucose Level 246 MG/DL (74-106) #H Calcium Level 8.2 MG/DL (8.5-10.1) L Pro-B-Type Natriuretic Peptide 967 pg/mL (0-125) H Current Medications Medications (Trade) Dose Ordered Sig/Megan Route PRN Reason Start Time Stop Time Status Last Admin Dose Admin Acetaminophen (Tylenol) 650 mg Q4H PRN ORAL Mild Pain (Pain Scale 1-3) 02/23/17 06:30 03/25/17 06:29 Albuterol/ Ipratropium (Albuterol/ Ipratropium) 3 ml Q4HR PRN HHN Shortness of Breath 02/23/17 06:30 02/28/17 06:29 Aspirin (Ecotrin) 81 mg DAILY ORAL 02/23/17 09:00 03/25/17 08:59 02/24/17 09:51 Cefepime HCl 1 gm/ Dextrose 55 ml @ 110 mls/hr Q24H IVPB 02/23/17 09:00 03/02/17 08:59 02/24/17 09:51 Clindamycin HCl/ Dextrose 50 ml @ 100 mls/hr Q8HR IV 02/23/17 16:00 03/02/17 15:59 02/24/17 15:25 Dextrose 1,000 ml @ 100 mls/hr Q10H IV 02/23/17 07:15 03/25/17 07:14 02/24/17 12:26 Dextrose (Dextrose 50%) STAT PRN IV Hypoglycemia 02/23/17 12:15 03/25/17 12:14 02/24/17 19:10 Docusate Sodium (Colace) 100 mg TWICE A DAY ORAL 02/23/17 09:00 03/25/17 08:59 02/24/17 09:51 Heparin Sodium (Porcine) (Heparin 5000 units/ml) 5,000 units EVERY 12 HOURS SUBQ 02/23/17 09:00 03/25/17 08:59 02/24/17 10:08 Insulin Aspart (NovoLOG) BEFORE MEALS AND HS SUBQ 02/23/17 13:30 03/25/17 13:29 02/24/17 11:27 Insulin Detemir (Levemir) 15 units Q12HR SUBQ 02/23/17 13:00 03/25/17 12:59 02/24/17 09:58 Pantoprazole (Protonix) 40 mg DAILY ORAL 02/25/17 09:00 03/27/17 08:59 Polyethylene Glycol (Miralax) 17 gm BEDTIME ORAL 02/24/17 21:00 03/26/17 20:59 Kamala Leon M.D. Feb 24, 2017 19:30
[2017-02-24 20:00] VITALS: BP 102/80
[2017-02-24] MEDS: Miralax 17gm pkt ORAL SCH (21:00)
[2017-02-25] VITALS: BP 110/54
--- NOTE | 2017-02-25 01:30 | Consultation ---
DATE OF CONSULTATION: 02/24/2017 CARDIOLOGY CONSULTATION CONSULTING PHYSICIAN: Raul Bradley M.D. REFERRING PHYSICIAN: Brian Barbosa M.D. REASON FOR CONSULTATION: Management of hypertension, congestive heart failure, as well as evaluation of the patient's defibrillator. HISTORY OF PRESENT ILLNESS: The patient is a 61-year-old gentleman with a history of hypertension, diabetes, CVA, and history of congestive heart failure and defibrillator implantation, who was brought from shelter facility for shortness of breath and chest congestion. The patient is nonverbal, although information was obtained from the patient's records. The patient noted to be severely dehydrated with sodium of 165 and elevated BUN and creatinine. The patient was admitted and Cardiology consultation was obtained for further evaluation and management. PAST MEDICAL HISTORY: As mentioned above, hypertension, diabetes, congestive heart failure, and defibrillator implantation. SOCIAL HISTORY: He lives in a intermediate. FAMILY HISTORY: Noncontributory. REVIEW OF SYSTEMS: Cannot be obtained. PHYSICAL EXAMINATION: VITAL SIGNS: Blood pressure 99/71, pulse 96, respirations 18, and he is afebrile. HEAD AND NECK: Shows mild JVD. LUNGS: Decreased breath sounds. CARDIOVASCULAR: Shows regular S1 and S2 with no gallop. The defibrillator is in the left subclavian. ABDOMEN: Soft. EXTREMITIES: Upper extremity contractions. LABORATORY DATA: Labs show white count of 16.2, hemoglobin 14.2, hematocrit 50.7, and platelet count 196. Sodium 168, potassium 3.6, BUN of 110, creatinine of 3.8, and glucose of 246. Lactic acid is 2.9. BNP is 967. Initial troponin was 0.091. ASSESSMENT AND PLAN: 1. Troponin elevation of 0.091. This is likely due to the patient's severe renal failure and dehydration with sodium of 165 and BUN of 100 and creatinine of 3.7. His BUN and creatinine in October 2015 was 69 and 1.5. We will continue to completely rule out myocardial infarction protocol. We will get an echocardiogram for further evaluation and management. In view of dehydration, we will hold off the patient on any blood pressure medication. 2. Status post dual chamber defibrillator implantation based on chest x-ray. We do not know the brand of the defibrillator. We will try to find the brand from the intermediate and interrogate ICD. 3. History of cardiomyopathy. Hold off on heart failure medication at this time since he is quite dehydrated. 4. Dehydration with hypernatremia and severe azotemia, on intravenous fluids per Dr. Zurita. Thank you very much, Dr. Zurita, for allowing me to participate in the care of this patient. Please do not hesitate to contact me for any questions regarding my evaluation. Raul Braldey M.D. DR: AKIL JOB#: [id number] CC:
[2017-02-25 04:00] VITALS: BP 101/69
[2017-02-25] MEDS: NovoLOG Insulin Flexpen SUBQ SCH ×3 (05:34→18:35)
[2017-02-25] MEDS: Clindamycin 600mg 50 ML IV SCH ×3 (05:34→22:05)
[2017-02-25 08:07] LABS: MEAN CORPUSCULAR HEMOGLOBIN 27.7 PG (27.0-31.0); MEAN CORPUSCULAR HGB CONC 30.5 G/DL (32.0-36.0); MEAN CORPUSCULAR VOLUME 91 FL (80-99); MEAN PLATELET VOLUME 8.9 FL (6.5-10.1); PLATELET COUNT 164 K/UL (150-450); RED BLOOD COUNT 5.36 M/UL (4.70-6.10); RED CELL DISTRIBUTION WIDTH 13.7 % (11.6-14.8); WHITE BLOOD COUNT 14.9 K/UL (4.8-10.8)
--- NOTE | 2017-02-25 08:33 | Diagnostic Imaging Report ---
Indication: 5 hours earlier Technique: Supine view of the abdomen Comparison: none Findings: Nasogastric tube tip now projects at the level of the gastric antrum and duodenum. Nonspecific prominence to small bowel loops is noted, without richa distention. AICD wires are again noted. Impression: Satisfactory position of nasogastric tube This agrees with the preliminary interpretation provided overnight by [facility] tel[facility]iology service.
[2017-02-25 08:34] LABS: ANION GAP 12 mmol/L (5-15); CALCIUM 8.3 MG/DL (8.5-10.1); CARBON DIOXIDE 22 MMOL/L (21-32); CHLORIDE 128 MMOL/L (98-107); CREATININE 4.1 MG/DL (0.55-1.30); GLOMERULAR FILTRATION RATE 18.2 mL/min (>60); POTASSIUM 3.6 MMOL/L (3.5-5.1); THYROID STIMULATING HORMONE 0.397 uiU/mL (0.358-3.740)
--- NOTE | 2017-02-25 08:34 | Diagnostic Imaging Report ---
Indication: Status post nasogastric tube repositioning Technique: Supine view of the abdomen Comparison: One hour earlier Findings: Previously demonstrated nasogastric tube is been pulled back slightly, straightening out the previously demonstrated redundancy, tip now well-positioned at the level gastric antrum. The findings are unchanged Impression: Satisfactory position of nasogastric tube This agrees with the preliminary interpretation provided overnight by [facility] service.
[2017-02-25 08:35] LABS: SODIUM 163 MMOL/L (136-145)
[2017-02-25 08:40] LABS: BAND NEUTROPHILS % (MANUAL) 14 % (0-8); BASOPHILS % (MANUAL) 0 % (0-2); EOSINOPHILS % (MANUAL) 0 % (0-3); LYMPHOCYTES % (MANUAL) 11 % (20-45); NEUTROPHILS % (MANUAL) 71 % (45-75); PLATELET ESTIMATE ADEQUATE; PLATELET MORPHOLOGY NORMAL; TOTAL CELLS COUNTED 100
[2017-02-25] MEDS ORDERED: Docusate 100mg/10ml Liq NG SCH (09:00)
[2017-02-25] MEDS: Aspirin Baby 81mg NG SCH (09:23)
[2017-02-25] MEDS: Pantoprazole Inj IVP SCH (09:23)
[2017-02-25] MEDS: Cefepime HCl 1 GM in D5W 55 ML IVPB SCH (09:25)
[2017-02-25] MEDS: Heparin 5000 units/ml inj SUBQ SCH ×2 (09:41→20:47)
[2017-02-25] MEDS: Levemir Flexpen SUBQ SCH ×2 (09:48→20:52)
--- NOTE | 2017-02-25 10:37 | GI Progress Note ---
Assessment/Plan Problems: (1) Dysphagia due to recent stroke ICD Codes: I69.391 - Dysphagia following cerebral infarction SNOMED: 26992178, 156931852 (2) Encounter for PEG (percutaneous endoscopic gastrostomy) ICD Codes: Z43.1 - Encounter for attention to gastrostomy SNOMED: 853409130, 884654759 (3) DM (diabetes mellitus) ICD Codes: E11.9 - Type 2 diabetes mellitus without complications SNOMED: 16752847 Status: unchanged Status Narrative Discussed with Dr. Olmedo. Assessment/Plan consider PEG after work up if indicated and when stable. ST evaluation noted >> HOLD PO TRIALS UNTIL PATIENT READY FOR VIDEOSWALLOW STUDY. start NGTFs per dietary >> Glucerna 1.5 @ 65ml/hr ppi daily monitor H&H, prn transfusions. electrolyte correction bowel regime >> colace + miralax abx fu labs, lactic acid Subjective Subjective limited Objective Last 24 Hour Vital Signs Date Time Temp Pulse Resp B/P (MAP) Pulse Ox O2 Delivery O2 Flow Rate FiO2 02/25/17 09:46 Venturi Mask 8.0 40 02/25/17 09:46 91 20 Venturi Mask 8.0 40 02/25/17 09:46 95 Venturi Mask 8.0 40 02/25/17 08:00 65 02/25/17 04:00 97.2 73 26 101/69 91 Venturi Mask 02/25/17 04:00 82 02/25/17 00:00 96.8 84 18 110/54 93 Venturi Mask 02/25/17 00:00 82 02/24/17 20:36 96 Venturi Mask 8.0 40 02/24/17 20:36 Venturi Mask 8.0 40 02/24/17 20:35 92 20 Venturi Mask 8.0 40 02/24/17 20:00 98.1 20 102/80 94 Venturi Mask 02/24/17 20:00 82 02/24/17 16:00 94 02/24/17 16:00 97.0 95 22 112/89 98 02/24/17 12:00 97.2 96 21 99/71 94 Laboratory Tests Test 02/25/17 07:40 White Blood Count 14.9 K/UL (4.8-10.8) H Red Blood Count 5.36 M/UL (4.70-6.10) Hemoglobin 14.9 G/DL (14.2-18.0) Hematocrit 48.6 % (42.0-52.0) Mean Corpuscular Volume 91 FL (80-99) Mean Corpuscular Hemoglobin 27.7 PG (27.0-31.0) Mean Corpuscular Hemoglobin Concent 30.5 G/DL (32.0-36.0) L Red Cell Distribution Width 13.7 % (11.6-14.8) Platelet Count 164 K/UL (150-450) Mean Platelet Volume 8.9 FL (6.5-10.1) Neutrophils (%) (Auto) % (45.0-75.0) Lymphocytes (%) (Auto) % (20.0-45.0) Monocytes (%) (Auto) % (1.0-10.0) Eosinophils (%) (Auto) % (0.0-3.0) Basophils (%) (Auto) % (0.0-2.0) Differential Total Cells Counted 100 Neutrophils % (Manual) 71 % (45-75) Lymphocytes % (Manual) 11 % (20-45) L Monocytes % (Manual) 4 % (1-10) Eosinophils % (Manual) 0 % (0-3) Basophils % (Manual) 0 % (0-2) Band Neutrophils 14 % (0-8) H Platelet Estimate Adequate Platelet Morphology Normal Red Blood Cell Morphology Normal Sodium Level 163 MMOL/L (136-145) *H Potassium Level 3.6 MMOL/L (3.5-5.1) Chloride Level 128 MMOL/L (98-107) H Carbon Dioxide Level 22 MMOL/L (21-32) Anion Gap 12 mmol/L (5-15) Blood Urea Nitrogen 112 mg/dL (7-18) H Creatinine 4.1 MG/DL (0.55-1.30) H Estimat Glomerular Filtration Rate 18.2 mL/min (>60) Glucose Level 120 MG/DL (74-106) #H Calcium Level 8.3 MG/DL (8.5-10.1) L Troponin I 0.099 ng/mL (0.000-0.056) Pro-B-Type Natriuretic Peptide 1312 pg/mL (0-125) H Thyroid Stimulating Hormone (TSH) 0.397 uiU/mL (0.358-3.740) Free Thyroxine 1.18 NG/DL (0.76-1.46) Height (Feet): 6 Height (Inches): 2.00 Weight (Pounds): 200 General Appearance: lethargic Cardiovascular: normal rate Respiratory/Chest: other - venturi mask Abdominal Exam: soft, other - NGT Mariaa Winters N.P. Feb 25, 2017 10:37
--- NOTE | 2017-02-25 11:07 | Cardiac Electrophysiology PN ---
Assessment/Plan Assessment/Plan 1. Troponin elevation of 0.091 and 0.099. This is likely due to the patient's severe renal failure and dehydration with sodium of 165 and BUN of 100 and creatinine of 3.7. His BUN and creatinine in October 2015 was 69 and 1.5. Echo EF 50% 2. Status post dual chamber defibrillator implantation based on chest x-ray. We do not know the brand of the defibrillator. We will try to find the brand from the skilled nursing and interrogate ICD. 3. History of cardiomyopathy. Hold off on heart failure medication at this time since he is quite dehydrated. 4. Dehydration with hypernatremia and severe azotemia, on intravenous fluids per Dr. Zurita.May need dialysis DW RN Subjective Subjective Comfortable in NAD. NA improving. Objective Last 24 Hour Vital Signs Date Time Temp Pulse Resp B/P (MAP) Pulse Ox O2 Delivery O2 Flow Rate FiO2 02/25/17 09:46 Venturi Mask 8.0 40 02/25/17 09:46 91 20 Venturi Mask 8.0 40 02/25/17 09:46 95 Venturi Mask 8.0 40 02/25/17 08:00 65 02/25/17 04:00 97.2 73 26 101/69 91 Venturi Mask 02/25/17 04:00 82 02/25/17 00:00 96.8 84 18 110/54 93 Venturi Mask 02/25/17 00:00 82 02/24/17 20:36 96 Venturi Mask 8.0 40 02/24/17 20:36 Venturi Mask 8.0 40 02/24/17 20:35 92 20 Venturi Mask 8.0 40 02/24/17 20:00 98.1 20 102/80 94 Venturi Mask 02/24/17 20:00 82 02/24/17 16:00 94 02/24/17 16:00 97.0 95 22 112/89 98 02/24/17 12:00 97.2 96 21 99/71 94 Laboratory Tests Test 02/25/17 07:40 White Blood Count 14.9 K/UL (4.8-10.8) H Red Blood Count 5.36 M/UL (4.70-6.10) Hemoglobin 14.9 G/DL (14.2-18.0) Hematocrit 48.6 % (42.0-52.0) Mean Corpuscular Volume 91 FL (80-99) Mean Corpuscular Hemoglobin 27.7 PG (27.0-31.0) Mean Corpuscular Hemoglobin Concent 30.5 G/DL (32.0-36.0) L Red Cell Distribution Width 13.7 % (11.6-14.8) Platelet Count 164 K/UL (150-450) Mean Platelet Volume 8.9 FL (6.5-10.1) Neutrophils (%) (Auto) % (45.0-75.0) Lymphocytes (%) (Auto) % (20.0-45.0) Monocytes (%) (Auto) % (1.0-10.0) Eosinophils (%) (Auto) % (0.0-3.0) Basophils (%) (Auto) % (0.0-2.0) Differential Total Cells Counted 100 Neutrophils % (Manual) 71 % (45-75) Lymphocytes % (Manual) 11 % (20-45) L Monocytes % (Manual) 4 % (1-10) Eosinophils % (Manual) 0 % (0-3) Basophils % (Manual) 0 % (0-2) Band Neutrophils 14 % (0-8) H Platelet Estimate Adequate Platelet Morphology Normal Red Blood Cell Morphology Normal Sodium Level 163 MMOL/L (136-145) *H Potassium Level 3.6 MMOL/L (3.5-5.1) Chloride Level 128 MMOL/L (98-107) H Carbon Dioxide Level 22 MMOL/L (21-32) Anion Gap 12 mmol/L (5-15) Blood Urea Nitrogen 112 mg/dL (7-18) H Creatinine 4.1 MG/DL (0.55-1.30) H Estimat Glomerular Filtration Rate 18.2 mL/min (>60) Glucose Level 120 MG/DL (74-106) #H Calcium Level 8.3 MG/DL (8.5-10.1) L Troponin I 0.099 ng/mL (0.000-0.056) Pro-B-Type Natriuretic Peptide 1312 pg/mL (0-125) H Thyroid Stimulating Hormone (TSH) 0.397 uiU/mL (0.358-3.740) Free Thyroxine 1.18 NG/DL (0.76-1.46) Microbiology Date/Time Source Procedure Growth Status 02/24/17 07:30 Indwelling Cath Urine Culture - Preliminary Resulted Objective HEAD AND NECK: Shows mild JVD. LUNGS: Decreased breath sounds. CARDIOVASCULAR: Shows regular S1 and S2 with no gallop. The defibrillator is in the left subclavian. ABDOMEN: Soft. EXTREMITIES: Upper extremity contractions. GAGAN JUNIOR Feb 25, 2017 11:06
[2017-02-25 13:34] VITALS: BP 111/79
--- NOTE | 2017-02-25 14:57 | Infectious Diseases Prog Note ---
Assessment/Plan Problems: (1) HCAP (healthcare-associated pneumonia) Assessment & Plan: with hypoxemia and leukocytosis , continue cefepime and clindamycin empiric coverage, pending blood culture , repeat CXR (2) UTI (urinary tract infection) Assessment & Plan: continue cefepime pending urine culture (3) Sepsis Assessment & Plan: due to the above, continue clindamycin and cefepime pending culture result (4) Acute kidney injury Assessment & Plan: due to sepsis , continue hydrations, avoid nephrotoxic, monitor renal function , may need HD , renal is following (5) Hyperglycemia Assessment & Plan: due to sepsis, recomend tight glycemic control to keep blood glucose between 80-120 Subjective ROS Limited/Unobtainable: Yes Allergies: Coded Allergies: No Known Allergies (Unverified , 11/15/15) Subjective he was up in bed, with NGT , and ventimask, comfortable, not febrile, not in distress Objective Vital Signs Last 24 Hour Vital Signs Date Time Temp Pulse Resp B/P (MAP) Pulse Ox O2 Delivery O2 Flow Rate FiO2 02/25/17 13:34 97.2 68 20 111/79 93 02/25/17 12:00 69 02/25/17 09:46 Venturi Mask 8.0 40 02/25/17 09:46 91 20 Venturi Mask 8.0 40 02/25/17 09:46 95 Venturi Mask 8.0 40 02/25/17 08:00 65 02/25/17 04:00 97.2 73 26 101/69 91 Venturi Mask 02/25/17 04:00 82 02/25/17 00:00 96.8 84 18 110/54 93 Venturi Mask 02/25/17 00:00 82 02/24/17 20:36 96 Venturi Mask 8.0 40 02/24/17 20:36 Venturi Mask 8.0 40 02/24/17 20:35 92 20 Venturi Mask 8.0 40 02/24/17 20:00 98.1 20 102/80 94 Venturi Mask 02/24/17 20:00 82 02/24/17 16:00 94 02/24/17 16:00 97.0 95 22 112/89 98 Height (Feet): 6 Height (Inches): 2.00 Weight (Pounds): 200 General Appearance: WD/WN, no acute distress HEENT: normocephalic, atraumatic, anicteric, mucous membranes moist, PERRL, EOMI, pharynx normal Respiratory/Chest: chest wall non-tender, no respiratory distress, no accessory muscle use, decreased breath sounds, crackles/rales Cardiovascular: normal peripheral pulses, normal rate, regular rhythm, no gallop/murmur, no JVD Abdomen: normal bowel sounds, soft, non tender, no organomegaly, non distended , no mass, no scars Extremities: no cyanosis, no clubbing Skin: no rash, no lesions, no ulcers Neurologic/Psychiatric: alert, responsive Microbiology Date/Time Source Procedure Growth Status 02/24/17 07:30 Indwelling Cath Urine Culture - Preliminary Resulted Laboratory Tests Test 02/25/17 07:40 White Blood Count 14.9 K/UL (4.8-10.8) H Red Blood Count 5.36 M/UL (4.70-6.10) Hemoglobin 14.9 G/DL (14.2-18.0) Hematocrit 48.6 % (42.0-52.0) Mean Corpuscular Volume 91 FL (80-99) Mean Corpuscular Hemoglobin 27.7 PG (27.0-31.0) Mean Corpuscular Hemoglobin Concent 30.5 G/DL (32.0-36.0) L Red Cell Distribution Width 13.7 % (11.6-14.8) Platelet Count 164 K/UL (150-450) Mean Platelet Volume 8.9 FL (6.5-10.1) Neutrophils (%) (Auto) % (45.0-75.0) Lymphocytes (%) (Auto) % (20.0-45.0) Monocytes (%) (Auto) % (1.0-10.0) Eosinophils (%) (Auto) % (0.0-3.0) Basophils (%) (Auto) % (0.0-2.0) Differential Total Cells Counted 100 Neutrophils % (Manual) 71 % (45-75) Lymphocytes % (Manual) 11 % (20-45) L Monocytes % (Manual) 4 % (1-10) Eosinophils % (Manual) 0 % (0-3) Basophils % (Manual) 0 % (0-2) Band Neutrophils 14 % (0-8) H Platelet Estimate Adequate Platelet Morphology Normal Red Blood Cell Morphology Normal Sodium Level 163 MMOL/L (136-145) *H Potassium Level 3.6 MMOL/L (3.5-5.1) Chloride Level 128 MMOL/L (98-107) H Carbon Dioxide Level 22 MMOL/L (21-32) Anion Gap 12 mmol/L (5-15) Blood Urea Nitrogen 112 mg/dL (7-18) H Creatinine 4.1 MG/DL (0.55-1.30) H Estimat Glomerular Filtration Rate 18.2 mL/min (>60) Glucose Level 120 MG/DL (74-106) #H Calcium Level 8.3 MG/DL (8.5-10.1) L Troponin I 0.099 ng/mL (0.000-0.056) Pro-B-Type Natriuretic Peptide 1312 pg/mL (0-125) H Thyroid Stimulating Hormone (TSH) 0.397 uiU/mL (0.358-3.740) Free Thyroxine 1.18 NG/DL (0.76-1.46) Current Medications Medications (Trade) Dose Ordered Sig/Megan Route PRN Reason Start Time Stop Time Status Last Admin Dose Admin Acetaminophen (Tylenol) 650 mg Q4H PRN ORAL Mild Pain (Pain Scale 1-3) 02/23/17 06:30 03/25/17 06:29 02/25/17 05:34 Albuterol/ Ipratropium (Albuterol/ Ipratropium) 3 ml Q4HR PRN HHN Shortness of Breath 02/23/17 06:30 02/28/17 06:29 Aspirin (ASA) 81 mg DAILY NG 02/25/17 09:00 03/27/17 08:59 02/25/17 09:23 Cefepime HCl 1 gm/ Dextrose 55 ml @ 110 mls/hr Q24H IVPB 02/23/17 09:00 03/02/17 08:59 02/25/17 09:25 Clindamycin HCl/ Dextrose 50 ml @ 100 mls/hr Q8HR IV 02/23/17 16:00 03/02/17 15:59 02/25/17 14:05 Dextrose 1,000 ml @ 100 mls/hr Q10H IV 02/23/17 07:15 03/25/17 07:14 02/25/17 09:25 Dextrose (Dextrose 50%) STAT PRN IV Hypoglycemia 02/23/17 12:15 03/25/17 12:14 02/24/17 19:10 Heparin Sodium (Porcine) (Heparin 5000 units/ml) 5,000 units EVERY 12 HOURS SUBQ 02/23/17 09:00 03/25/17 08:59 02/25/17 09:41 Insulin Aspart (NovoLOG) EVERY 6 HOURS SUBQ 02/25/17 18:00 03/25/17 13:29 Insulin Detemir (Levemir) 15 units Q12HR SUBQ 02/23/17 13:00 03/25/17 12:59 02/25/17 09:48 Pantoprazole (Protonix) 40 mg DAILY IVP 02/25/17 09:00 03/27/17 08:59 02/25/17 09:23 Polyethylene Glycol (Miralax) 17 gm BEDTIME ORAL 02/24/17 21:00 03/26/17 20:59 02/24/17 21:00 Kamala Leon M.D. Feb 25, 2017 14:57
--- NOTE | 2017-02-25 15:27 | Cardiology Report ---
APPROVED REPORT EXAM: Two-dimensional and M-mode echocardiogram with Doppler and color Doppler. M-Mode DIMENSIONS IVSd1.1 (0.7-1.1cm)Left Atrium (MM)3.8 (1.6-4.0cm) LVDd5.3 (3.5-5.6cm)Aortic Root3.6 (2.0-3.7cm) PWd0.8 (0.7-1.1cm)Aortic Cusp Exc.2.0 (1.5-2.0cm) IVSs1.8 cm LVDs4.0 (2.5-4.0cm) PWs1.3 cm Technically difficult study due to poor acoustical windows. Normal left ventricular chamber size. This study precludes full analysis of LV wall motion. Left ventricular ejection fraction estimated to be 50%. No evidence of pericardial effusion All other cardiac chamber sizes are within normal limits. Focal aortic valve sclerosis with adequate cusp excursion. Thickened mitral valve leaflets with normal excursion. Mitral annulus and aortic root calcification. Pulmonic valve not well visualized. Normal tricuspid valve structure. IVC dilated at 2.2 cm with slight physiologic collapse A color flow and spectral Doppler study was performed and revealed: No aortic regurgitation. Trace mitral regurgitation. Mitral diastolic velocities suggest reduced left ventricular relaxation c/w mild LV diastolic dysfunction (Grade I ). Trace tricuspid regurgitation. Tricuspid systolic velocities suggests peak right ventricular systolic pressure of 15 mmHg. No Pulmonic regurgitation present.
[2017-02-25 20:00] VITALS: BP 109/56
[2017-02-25] MEDS: Miralax 17gm pkt ORAL SCH (20:45)
--- NOTE | 2017-02-25 22:47 | Nephrology Progress Note ---
Assessment/Plan Problem List: (1) Hyperglycemia due to type 2 diabetes mellitus Assessment: better (2) Hypernatremia (3) CKD (chronic kidney disease) (4) SHANTE (acute kidney injury) Assessment: may need HD. (5) Hypoxia (6) Sepsis (7) UTI (urinary tract infection) (8) HCAP (healthcare-associated pneumonia) Plan cont IVF D5W. Monitor BG. On levemir and SSI. GI eval for possible PEG. Vasc surg consult for dialysis catheter. monitor labs. Subjective Subjective appears comfortable. Objective Objective Last 24 Hour Vital Signs Date Time Temp Pulse Resp B/P (MAP) Pulse Ox O2 Delivery O2 Flow Rate FiO2 02/25/17 19:38 95 Venturi Mask 8.0 40 02/25/17 19:38 79 20 Venturi Mask 8.0 40 02/25/17 19:38 Venturi Mask 8.0 40 02/25/17 16:00 62 02/25/17 13:34 97.2 68 20 111/79 93 02/25/17 12:00 69 02/25/17 09:46 Venturi Mask 8.0 40 02/25/17 09:46 91 20 Venturi Mask 8.0 40 02/25/17 09:46 95 Venturi Mask 8.0 40 02/25/17 08:00 65 02/25/17 04:00 97.2 73 26 101/69 91 Venturi Mask 02/25/17 04:00 82 02/25/17 00:00 96.8 84 18 110/54 93 Venturi Mask 02/25/17 00:00 82 Intake and Output 02/25/17 02/26/17 19:00 07:00 # Voids 2 # Bowel Movements 1 Laboratory Tests 02/25/17 07:40: White Blood Count 14.9H, Red Blood Count 5.36, Hemoglobin 14.9, Hematocrit 48.6 , Mean Corpuscular Volume 91, Mean Corpuscular Hemoglobin 27.7, Mean Corpuscular Hemoglobin Concent 30.5L, Red Cell Distribution Width 13.7, Platelet Count 164, Mean Platelet Volume 8.9, Neutrophils (%) (Auto) , Lymphocytes (%) (Auto) , Monocytes (%) (Auto) , Eosinophils (%) (Auto) , Basophils (%) (Auto) , Differential Total Cells Counted 100, Neutrophils % ( Manual) 71, Lymphocytes % (Manual) 11L, Monocytes % (Manual) 4, Eosinophils % ( Manual) 0, Basophils % (Manual) 0, Band Neutrophils 14H, Platelet Estimate Adequate, Platelet Morphology Normal, Red Blood Cell Morphology Normal, Sodium Level 163*H, Potassium Level 3.6, Chloride Level 128H, Carbon Dioxide Level 22, Anion Gap 12, Blood Urea Nitrogen 112H, Creatinine 4.1H, Estimat Glomerular Filtration Rate 18.2, Glucose Level 120#H, Calcium Level 8.3L, Troponin I 0.099H , Pro-B-Type Natriuretic Peptide 1312H, Thyroid Stimulating Hormone (TSH) 0.397 , Free Thyroxine 1.18 Height (Feet): 6 Height (Inches): 2.00 Weight (Pounds): 200 General Appearance: no apparent distress Cardiovascular: normal rate, regular rhythm Respiratory/Chest: lungs clear Abdomen: non tender, soft JJ RAYMOND Feb 25, 2017 22:47
[2017-02-26] VITALS (9 sets, daily range): BP systolic 98–148; BP diastolic 67–99
[2017-02-26] MEDS: NovoLOG Insulin Flexpen SUBQ SCH ×4 (00:29→16:52)
[2017-02-26] MEDS: Clindamycin 600mg 50 ML IV SCH ×3 (06:14→21:58)
[2017-02-26] MEDS: Heparin 5000 units/ml inj SUBQ SCH ×2 (09:00→21:58)
[2017-02-26] MEDS: Aspirin Baby 81mg NG SCH (09:00)
[2017-02-26 10:19] LABS: MEAN CORPUSCULAR HEMOGLOBIN 27.6 PG (27.0-31.0); MEAN CORPUSCULAR HGB CONC 30.6 G/DL (32.0-36.0); MEAN CORPUSCULAR VOLUME 90 FL (80-99); MEAN PLATELET VOLUME 9.7 FL (6.5-10.1); PLATELET COUNT 150 K/UL (150-450); RED CELL DISTRIBUTION WIDTH 13.8 % (11.6-14.8); WHITE BLOOD COUNT 13.6 K/UL (4.8-10.8)
[2017-02-26 10:29] LABS: PROTHROMBIN TIME 10.3 SEC (9.30-11.50)
[2017-02-26 10:38] LABS: REFLEX LACTIC ACID YES OR NO YES
[2017-02-26 10:46] LABS: ANION GAP 13 mmol/L (5-15); CARBON DIOXIDE 19 MMOL/L (21-32); CHLORIDE 117 MMOL/L (98-107); CREATININE 4.4 MG/DL (0.55-1.30); GLOMERULAR FILTRATION RATE 16.7 mL/min (>60); MAGNESIUM 2.8 MG/DL (1.8-2.4); PHOSPHORUS 5.5 MG/DL (2.5-4.9); POTASSIUM 3.6 MMOL/L (3.5-5.1); SODIUM 149 MMOL/L (136-145)
[2017-02-26 10:53] LABS: BAND NEUTROPHILS % (MANUAL) 1 % (0-8); BASOPHILS % (MANUAL) 0 % (0-2); EOSINOPHILS % (MANUAL) 2 % (0-3); LYMPHOCYTES % (MANUAL) 7 % (20-45); NEUTROPHILS % (MANUAL) 87 % (45-75); PLATELET ESTIMATE ADEQUATE; PLATELET MORPHOLOGY NORMAL; TOTAL CELLS COUNTED 100
[2017-02-26] MEDS: Pantoprazole Inj IVP SCH (11:15)
[2017-02-26] MEDS: Cefepime HCl 1 GM in D5W 55 ML IVPB SCH (11:15)
[2017-02-26] MEDS: Levemir Flexpen SUBQ SCH ×2 (11:17→22:06)
[2017-02-26] MEDS ORDERED: Heparin 2000 units/Ns 1000ml 1,000 ML ONE (12:24)
[2017-02-26] MEDS ORDERED: Heparin Sod 1000 units/ml 10ml ONE (12:24)
[2017-02-26] MEDS ORDERED: Lidocaine 1% Plain 30 ml INJ ONE (12:24)
--- NOTE | 2017-02-26 13:03 | Pre-Procedure Note/Attestation ---
Pre-Procedure Note/Attestation Complete Prior to Procedure Planned Procedure: bilateral Procedure Narrative: need access for HD. Will place non-tunneled dialysis catheter. Likely right IJ , possibly left IJ if right occluded. Possibly common femorals if IJs occluded. Indications for Procedure Pre-Operative Diagnosis: renal failure needing HD Attestation I attest that I discussed the nature of the procedure; its benefits; risks and complications; and alternatives (and the risks and benefits of such alternatives ), prior to the procedure, with the patient (or the patient's legal medical field representative). I attest that, if there was a reasonable possibility of needing a blood transfusion, the patient (or the patient's legal medical field representative) was given the [place] [employer] [facility] [employer] [facility] standardized written summary, pursuant to the [place] Blood Safety Act ([place] Health and Safety Code # 1645, as amended). I attest that I re-evaluated the patient just prior to the surgery and that there has been no change in the patient's H&P, except as documented below: Naman Evans M.D. Feb 26, 2017 13:03
--- NOTE | 2017-02-26 14:13 | Diagnostic Imaging Report ---
Indication: Needing access for hemodialysis. Technique: Informed consent was obtained. Patient placed supine on the intervertebral. Procedural timeout performed. Total sterile technique, including sterile probe cover and sterile gel, sterile gloves, hand hygiene, hat, mask, sterile gown, large sterile drape, and preparation with 2% chlorhexidine utilized. Local anesthesia with 1% lidocaine. Under real-time ultrasound guidance, puncture right internal jugular vein using 18-gauge needle, passage 0.035 guidewire into the IVC, over which was passed serial dilators and then a 13 [place] 15 cm triple-lumen temporary dialysis catheter. Guidewire was removed. Final image obtained documenting catheter tip in lower SVC. Catheter ports were aspirated and flushed. The catheter was fixed to the skin. Patient tolerated procedure well. 'Flouroscopy Time 0.2 minutes. Fluoroscopy dose 11 dGy-cm2 Findings: As above Impression: Successful placement of right transjugular temporary dialysis catheter, as described.
--- NOTE | 2017-02-26 14:13 | Infectious Diseases Prog Note ---
Assessment/Plan Problems: (1) HCAP (healthcare-associated pneumonia) Assessment & Plan: with hypoxemia and leukocytosis , continue cefepime and clindamycin empiric coverage, pending blood culture , repeat CXR (2) UTI (urinary tract infection) Assessment & Plan: with gram negative rods , already on cefepime pending identification and sensitivity (3) Sepsis Assessment & Plan: due to the above, continue clindamycin and cefepime pending culture result (4) Acute kidney injury Assessment & Plan: due to sepsis , not improving with hydrations, avoid nephrotoxic, monitor renal function , had dialysis catheter placed for HD , renal is following (5) Hyperglycemia Assessment & Plan: due to sepsis, recomend tight glycemic control to keep blood glucose between 80-120 Subjective ROS Limited/Unobtainable: Yes Allergies: Coded Allergies: No Known Allergies (Unverified , 11/15/15) Subjective he was up in bed, with NGT , and ventimask, comfortable, not febrile, not in distress, no diarrhea Objective Vital Signs Last 24 Hour Vital Signs Date Time Temp Pulse Resp B/P (MAP) Pulse Ox O2 Delivery O2 Flow Rate FiO2 02/26/17 12:39 17 17 6.0 02/26/17 11:59 96.4 75 20 98/74 95 02/26/17 08:14 96.2 61 20 133/77 96 02/26/17 08:05 Venturi Mask 8.0 40 02/26/17 08:05 64 20 Venturi Mask 8.0 40 02/26/17 08:05 99 Venturi Mask 8.0 40 02/26/17 04:00 97.5 70 18 102/67 Venturi Mask 02/26/17 04:00 70 02/26/17 00:00 70 02/26/17 00:00 97.9 72 18 148/71 99 Venturi Mask 10.0 40 02/25/17 20:00 96.7 64 18 109/56 96 Venturi Mask 10.0 40 02/25/17 20:00 67 02/25/17 19:38 95 Venturi Mask 8.0 40 02/25/17 19:38 79 20 Venturi Mask 8.0 40 02/25/17 19:38 Venturi Mask 8.0 40 02/25/17 16:00 62 Height (Feet): 6 Height (Inches): 2.00 Weight (Pounds): 200 General Appearance: WD/WN, no acute distress HEENT: normocephalic, atraumatic, anicteric, mucous membranes moist, PERRL, EOMI, pharynx normal, supple, no JVD Respiratory/Chest: chest wall non-tender, lungs clear, normal breath sounds, no respiratory distress, no accessory muscle use Cardiovascular: normal peripheral pulses, normal rate, regular rhythm, no gallop/murmur, no JVD Abdomen: normal bowel sounds, soft, non tender, no organomegaly, non distended , no mass, no scars Extremities: no cyanosis, no clubbing Skin: no rash, no lesions Neurologic/Psychiatric: alert, responsive Lymphatic: no neck adenopathy, no groin adenopathy Microbiology Date/Time Source Procedure Growth Status 02/25/17 14:30 Stool Clostridium difficile Toxin Assay - Final Complete 02/24/17 07:30 Indwelling Cath Urine Culture - Preliminary Gram Negative Bacillus 1 Gram Negative Bacillus 2 Resulted Laboratory Tests Test 02/26/17 09:55 White Blood Count 13.6 K/UL (4.8-10.8) H Red Blood Count 5.00 M/UL (4.70-6.10) Hemoglobin 13.8 G/DL (14.2-18.0) L Hematocrit 45.2 % (42.0-52.0) Mean Corpuscular Volume 90 FL (80-99) Mean Corpuscular Hemoglobin 27.6 PG (27.0-31.0) Mean Corpuscular Hemoglobin Concent 30.6 G/DL (32.0-36.0) L Red Cell Distribution Width 13.8 % (11.6-14.8) Platelet Count 150 K/UL (150-450) Mean Platelet Volume 9.7 FL (6.5-10.1) Neutrophils (%) (Auto) % (45.0-75.0) Lymphocytes (%) (Auto) % (20.0-45.0) Monocytes (%) (Auto) % (1.0-10.0) Eosinophils (%) (Auto) % (0.0-3.0) Basophils (%) (Auto) % (0.0-2.0) Differential Total Cells Counted 100 Neutrophils % (Manual) 87 % (45-75) H Lymphocytes % (Manual) 7 % (20-45) L Monocytes % (Manual) 3 % (1-10) Eosinophils % (Manual) 2 % (0-3) Basophils % (Manual) 0 % (0-2) Band Neutrophils 1 % (0-8) Platelet Estimate Adequate Platelet Morphology Normal Red Blood Cell Morphology Normal Prothrombin Time 10.3 SEC (9.30-11.50) Prothromb Time International Ratio 1.0 (0.9-1.1) Activated Partial Thromboplast Time 29 SEC (23-33) Sodium Level 149 MMOL/L (136-145) H Potassium Level 3.6 MMOL/L (3.5-5.1) Chloride Level 117 MMOL/L (98-107) H Carbon Dioxide Level 19 MMOL/L (21-32) L Anion Gap 13 mmol/L (5-15) Blood Urea Nitrogen 120 mg/dL (7-18) H Creatinine 4.4 MG/DL (0.55-1.30) H Estimat Glomerular Filtration Rate 16.7 mL/min (>60) Glucose Level 358 MG/DL (74-106) #H Lactic Acid Level 2.20 mmol/L (0.66-2.22) Calcium Level 8.0 MG/DL (8.5-10.1) L Phosphorus Level 5.5 MG/DL (2.5-4.9) H Magnesium Level 2.8 MG/DL (1.8-2.4) H Hepatitis B Surface Antigen Pending Hepatitis B Surface Antibody, Quant Pending Hepatitis C Antibody Pending Current Medications Medications (Trade) Dose Ordered Sig/Megan Route PRN Reason Start Time Stop Time Status Last Admin Dose Admin Acetaminophen (Tylenol) 650 mg Q4H PRN ORAL Mild Pain (Pain Scale 1-3) 02/23/17 06:30 03/25/17 06:29 02/25/17 05:34 Albuterol/ Ipratropium (Albuterol/ Ipratropium) 3 ml Q4HR PRN HHN Shortness of Breath 02/23/17 06:30 02/28/17 06:29 Aspirin (ASA) 81 mg DAILY NG 02/25/17 09:00 03/27/17 08:59 02/25/17 09:23 Cefepime HCl 1 gm/ Dextrose 55 ml @ 110 mls/hr Q24H IVPB 02/23/17 09:00 03/02/17 08:59 02/26/17 11:15 Clindamycin HCl/ Dextrose 50 ml @ 100 mls/hr Q8HR IV 02/23/17 16:00 03/02/17 15:59 02/26/17 14:03 Dextrose 1,000 ml @ 100 mls/hr Q10H IV 02/23/17 07:15 03/25/17 07:14 02/26/17 05:32 Dextrose (Dextrose 50%) STAT PRN IV Hypoglycemia 02/23/17 12:15 03/25/17 12:14 02/24/17 19:10 Heparin Sodium (Porcine) (Heparin 5000 units/ml) 5,000 units EVERY 12 HOURS SUBQ 02/23/17 09:00 03/25/17 08:59 02/25/17 20:47 Insulin Aspart (NovoLOG) EVERY 6 HOURS SUBQ 02/25/17 18:00 03/25/17 13:29 02/26/17 14:01 Insulin Detemir (Levemir) 15 units Q12HR SUBQ 02/23/17 13:00 03/25/17 12:59 02/26/17 11:17 Pantoprazole (Protonix) 40 mg DAILY IVP 02/25/17 09:00 03/27/17 08:59 02/26/17 11:15 Polyethylene Glycol (Miralax) 17 gm BEDTIME ORAL 02/24/17 21:00 03/26/17 20:59 02/24/17 21:00 Kamala Leon M.D. Feb 26, 2017 14:13
--- NOTE | 2017-02-26 14:22 | GI Progress Note ---
Assessment/Plan Problems: (1) Dysphagia due to recent stroke ICD Codes: I69.391 - Dysphagia following cerebral infarction SNOMED: 89951110, 004219990 (2) Encounter for PEG (percutaneous endoscopic gastrostomy) ICD Codes: Z43.1 - Encounter for attention to gastrostomy SNOMED: 592720131, 755624075 (3) DM (diabetes mellitus) ICD Codes: E11.9 - Type 2 diabetes mellitus without complications SNOMED: 80884378 Status: progressing Status Narrative Discussed with Dr. Olmedo. Assessment/Plan POLST reviewed >> FULL treatment - primary decision maker would be the Brother >> Gigi Lepe @ [phone] or [phone] lactic acid >> now normal ST evaluation noted >> trial period NGTFs since new onset CVA >> PEG if family agrees. NGTFs per dietary >> Glucerna 1.5 @ 65ml/hr ppi daily monitor H&H, prn transfusions. electrolyte correction bowel regime >> colace + miralax abx fu labs Subjective Subjective limited, more awake and alert Objective Last 24 Hour Vital Signs Date Time Temp Pulse Resp B/P (MAP) Pulse Ox O2 Delivery O2 Flow Rate FiO2 02/26/17 12:39 17 17 6.0 02/26/17 11:59 96.4 75 20 98/74 95 02/26/17 08:14 96.2 61 20 133/77 96 02/26/17 08:05 Venturi Mask 8.0 40 02/26/17 08:05 64 20 Venturi Mask 8.0 40 02/26/17 08:05 99 Venturi Mask 8.0 40 02/26/17 04:00 97.5 70 18 102/67 Venturi Mask 02/26/17 04:00 70 02/26/17 00:00 70 02/26/17 00:00 97.9 72 18 148/71 99 Venturi Mask 10.0 40 02/25/17 20:00 96.7 64 18 109/56 96 Venturi Mask 10.0 40 02/25/17 20:00 67 02/25/17 19:38 95 Venturi Mask 8.0 40 02/25/17 19:38 79 20 Venturi Mask 8.0 40 02/25/17 19:38 Venturi Mask 8.0 40 02/25/17 16:00 62 Intake and Output 02/26/17 02/27/17 19:00 07:00 # Voids 2 Laboratory Tests Test 02/26/17 09:55 White Blood Count 13.6 K/UL (4.8-10.8) H Red Blood Count 5.00 M/UL (4.70-6.10) Hemoglobin 13.8 G/DL (14.2-18.0) L Hematocrit 45.2 % (42.0-52.0) Mean Corpuscular Volume 90 FL (80-99) Mean Corpuscular Hemoglobin 27.6 PG (27.0-31.0) Mean Corpuscular Hemoglobin Concent 30.6 G/DL (32.0-36.0) L Red Cell Distribution Width 13.8 % (11.6-14.8) Platelet Count 150 K/UL (150-450) Mean Platelet Volume 9.7 FL (6.5-10.1) Neutrophils (%) (Auto) % (45.0-75.0) Lymphocytes (%) (Auto) % (20.0-45.0) Monocytes (%) (Auto) % (1.0-10.0) Eosinophils (%) (Auto) % (0.0-3.0) Basophils (%) (Auto) % (0.0-2.0) Differential Total Cells Counted 100 Neutrophils % (Manual) 87 % (45-75) H Lymphocytes % (Manual) 7 % (20-45) L Monocytes % (Manual) 3 % (1-10) Eosinophils % (Manual) 2 % (0-3) Basophils % (Manual) 0 % (0-2) Band Neutrophils 1 % (0-8) Platelet Estimate Adequate Platelet Morphology Normal Red Blood Cell Morphology Normal Prothrombin Time 10.3 SEC (9.30-11.50) Prothromb Time International Ratio 1.0 (0.9-1.1) Activated Partial Thromboplast Time 29 SEC (23-33) Sodium Level 149 MMOL/L (136-145) H Potassium Level 3.6 MMOL/L (3.5-5.1) Chloride Level 117 MMOL/L (98-107) H Carbon Dioxide Level 19 MMOL/L (21-32) L Anion Gap 13 mmol/L (5-15) Blood Urea Nitrogen 120 mg/dL (7-18) H Creatinine 4.4 MG/DL (0.55-1.30) H Estimat Glomerular Filtration Rate 16.7 mL/min (>60) Glucose Level 358 MG/DL (74-106) #H Lactic Acid Level 2.20 mmol/L (0.66-2.22) Calcium Level 8.0 MG/DL (8.5-10.1) L Phosphorus Level 5.5 MG/DL (2.5-4.9) H Magnesium Level 2.8 MG/DL (1.8-2.4) H Hepatitis B Surface Antigen Pending Hepatitis B Surface Antibody, Quant Pending Hepatitis C Antibody Pending Microbiology Date/Time Source Procedure Growth Status 02/25/17 14:30 Stool Clostridium difficile Toxin Assay - Final Complete Height (Feet): 6 Height (Inches): 2.00 Weight (Pounds): 200 General Appearance: alert Cardiovascular: normal rate Respiratory/Chest: normal breath sounds, no respiratory distress Abdominal Exam: normal bowel sounds, non tender, soft, other - NGT Mariaa Winters NRox Feb 26, 2017 14:22
--- NOTE | 2017-02-26 14:33 | Nephrology Progress Note ---
Assessment/Plan Problem List: (1) Hypernatremia (2) Hyperglycemia (3) Hypoxia (4) Sepsis (5) UTI (urinary tract infection) (6) HCAP (healthcare-associated pneumonia) (7) DM (diabetes mellitus) (8) Dysphagia due to recent stroke (9) CKD (chronic kidney disease) Plan Continue d5w to correct sodium Free water flushes Renally dose meds, avoid nephrotoxins Strict glycemic control Dysphagia, NG tube inserted, GI consult Abx per ID DVT prophylaxis, PPI Subjective ROS Limited/Unobtainable: Yes Subjective In bed, in no apparent distress, non verbal Objective Objective Last 24 Hour Vital Signs Date Time Temp Pulse Resp B/P (MAP) Pulse Ox O2 Delivery O2 Flow Rate FiO2 02/26/17 12:39 17 17 6.0 02/26/17 11:59 96.4 75 20 98/74 95 02/26/17 08:14 96.2 61 20 133/77 96 02/26/17 08:05 Venturi Mask 8.0 40 02/26/17 08:05 64 20 Venturi Mask 8.0 40 02/26/17 08:05 99 Venturi Mask 8.0 40 02/26/17 04:00 97.5 70 18 102/67 Venturi Mask 02/26/17 04:00 70 02/26/17 00:00 70 02/26/17 00:00 97.9 72 18 148/71 99 Venturi Mask 10.0 40 02/25/17 20:00 96.7 64 18 109/56 96 Venturi Mask 10.0 40 02/25/17 20:00 67 02/25/17 19:38 95 Venturi Mask 8.0 40 02/25/17 19:38 79 20 Venturi Mask 8.0 40 02/25/17 19:38 Venturi Mask 8.0 40 02/25/17 16:00 62 Intake and Output 02/26/17 02/27/17 18:59 06:59 # Voids 2 Laboratory Tests 02/26/17 09:55: White Blood Count 13.6H, Red Blood Count 5.00, Hemoglobin 13.8L, Hematocrit 45.2 , Mean Corpuscular Volume 90, Mean Corpuscular Hemoglobin 27.6, Mean Corpuscular Hemoglobin Concent 30.6L, Red Cell Distribution Width 13.8, Platelet Count 150, Mean Platelet Volume 9.7, Neutrophils (%) (Auto) , Lymphocytes (%) (Auto) , Monocytes (%) (Auto) , Eosinophils (%) (Auto) , Basophils (%) (Auto) , Differential Total Cells Counted 100, Neutrophils % ( Manual) 87H, Lymphocytes % (Manual) 7L, Monocytes % (Manual) 3, Eosinophils % ( Manual) 2, Basophils % (Manual) 0, Band Neutrophils 1, Platelet Estimate Adequate, Platelet Morphology Normal, Red Blood Cell Morphology Normal, Prothrombin Time 10.3, Prothromb Time International Ratio 1.0, Activated Partial Thromboplast Time 29, Sodium Level 149H, Potassium Level 3.6, Chloride Level 117H, Carbon Dioxide Level 19L, Anion Gap 13, Blood Urea Nitrogen 120H, Creatinine 4.4H, Estimat Glomerular Filtration Rate 16.7, Glucose Level 358#H, Lactic Acid Level 2.20, Calcium Level 8.0L, Phosphorus Level 5.5H, Magnesium Level 2.8H, Hepatitis B Surface Antigen [Pending], Hepatitis B Surface Antibody , Quant [Pending], Hepatitis C Antibody [Pending] Height (Feet): 6 Height (Inches): 2.00 Weight (Pounds): 200 General Appearance: no apparent distress, alert EENT: normal ENT inspection Neck: non-tender, normal alignment Cardiovascular: normal rate, regular rhythm Respiratory/Chest: decreased breath sounds Abdomen: soft Extremities: non-tender Neurologic: alert, normal mood/affect Mary Barboza N.P. Feb 26, 2017 14:33
--- NOTE | 2017-02-26 15:40 | Cardiac Electrophysiology PN ---
Assessment/Plan Assessment/Plan 1. Troponin elevation of 0.091 and 0.099, likely due to severe dehydration with sodium of 165 and BUN of 100 and creatinine of 3.7. His BUN and creatinine in October 2015 was 69 and 1.5. Echo EF 50%. No chest pain 2. Status post dual chamber [employer] defibrillator implantation Interrogated and normal fx. 3. History of cardiomyopathy. EF normal now. 4. Dehydration with hypernatremia and severe azotemia, per Dr. Zurita.May need dialysis Na 163 to 149 but Still has ARF DW RN Subjective Subjective Comfortable in NAD.More alert with no arrhythmias. Had video swallow today. Objective Last 24 Hour Vital Signs Date Time Temp Pulse Resp B/P (MAP) Pulse Ox O2 Delivery O2 Flow Rate FiO2 02/26/17 12:39 17 17 6.0 02/26/17 11:59 96.4 75 20 98/74 95 02/26/17 08:14 96.2 61 20 133/77 96 02/26/17 08:05 Venturi Mask 8.0 40 02/26/17 08:05 64 20 Venturi Mask 8.0 40 02/26/17 08:05 99 Venturi Mask 8.0 40 02/26/17 04:00 97.5 70 18 102/67 Venturi Mask 02/26/17 04:00 70 02/26/17 00:00 70 02/26/17 00:00 97.9 72 18 148/71 99 Venturi Mask 10.0 40 02/25/17 20:00 96.7 64 18 109/56 96 Venturi Mask 10.0 40 02/25/17 20:00 67 02/25/17 19:38 95 Venturi Mask 8.0 40 02/25/17 19:38 79 20 Venturi Mask 8.0 40 02/25/17 19:38 Venturi Mask 8.0 40 02/25/17 16:00 62 Intake and Output 02/26/17 02/27/17 19:00 07:00 # Voids 2 Laboratory Tests Test 02/26/17 09:55 White Blood Count 13.6 K/UL (4.8-10.8) H Red Blood Count 5.00 M/UL (4.70-6.10) Hemoglobin 13.8 G/DL (14.2-18.0) L Hematocrit 45.2 % (42.0-52.0) Mean Corpuscular Volume 90 FL (80-99) Mean Corpuscular Hemoglobin 27.6 PG (27.0-31.0) Mean Corpuscular Hemoglobin Concent 30.6 G/DL (32.0-36.0) L Red Cell Distribution Width 13.8 % (11.6-14.8) Platelet Count 150 K/UL (150-450) Mean Platelet Volume 9.7 FL (6.5-10.1) Neutrophils (%) (Auto) % (45.0-75.0) Lymphocytes (%) (Auto) % (20.0-45.0) Monocytes (%) (Auto) % (1.0-10.0) Eosinophils (%) (Auto) % (0.0-3.0) Basophils (%) (Auto) % (0.0-2.0) Differential Total Cells Counted 100 Neutrophils % (Manual) 87 % (45-75) H Lymphocytes % (Manual) 7 % (20-45) L Monocytes % (Manual) 3 % (1-10) Eosinophils % (Manual) 2 % (0-3) Basophils % (Manual) 0 % (0-2) Band Neutrophils 1 % (0-8) Platelet Estimate Adequate Platelet Morphology Normal Red Blood Cell Morphology Normal Prothrombin Time 10.3 SEC (9.30-11.50) Prothromb Time International Ratio 1.0 (0.9-1.1) Activated Partial Thromboplast Time 29 SEC (23-33) Sodium Level 149 MMOL/L (136-145) H Potassium Level 3.6 MMOL/L (3.5-5.1) Chloride Level 117 MMOL/L (98-107) H Carbon Dioxide Level 19 MMOL/L (21-32) L Anion Gap 13 mmol/L (5-15) Blood Urea Nitrogen 120 mg/dL (7-18) H Creatinine 4.4 MG/DL (0.55-1.30) H Estimat Glomerular Filtration Rate 16.7 mL/min (>60) Glucose Level 358 MG/DL (74-106) #H Lactic Acid Level 2.20 mmol/L (0.66-2.22) Calcium Level 8.0 MG/DL (8.5-10.1) L Phosphorus Level 5.5 MG/DL (2.5-4.9) H Magnesium Level 2.8 MG/DL (1.8-2.4) H Hepatitis B Surface Antigen Pending Hepatitis B Surface Antibody, Quant Pending Hepatitis C Antibody Pending Microbiology Date/Time Source Procedure Growth Status 02/25/17 14:30 Stool Clostridium difficile Toxin Assay - Final Complete 02/24/17 07:30 Indwelling Cath Urine Culture - Preliminary Gram Negative Bacillus 1 Gram Negative Bacillus 2 Resulted Objective HEAD AND NECK: Shows mild JVD. LUNGS: Decreased breath sounds. CARDIOVASCULAR: Shows regular S1 and S2 with no gallop. ICD left subclavian. ABDOMEN: Soft. EXTREMITIES: Upper extremity contractions. GAGAN JUNIOR Feb 26, 2017 15:40
--- NOTE | 2017-02-26 15:45 | General Progress Note ---
Assessment/Plan Problem List: (1) Encounter for PEG (percutaneous endoscopic gastrostomy) ICD Codes: Z43.1 - Encounter for attention to gastrostomy SNOMED: 567277116, 138706623 (2) Dysphagia due to recent stroke ICD Codes: I69.391 - Dysphagia following cerebral infarction SNOMED: 06015284, 615813773 (3) Hyperglycemia due to type 2 diabetes mellitus ICD Codes: E11.65 - Type 2 diabetes mellitus with hyperglycemia SNOMED: 195991121411150 (4) Hypernatremia ICD Codes: E87.0 - Hyperosmolality and hypernatremia SNOMED: 70028739 Assessment/Plan increase Levemir to 18 units bid continue SSI q 6 hours Subjective ROS Limited/Unobtainable: Yes Allergies: Coded Allergies: No Known Allergies (Unverified , 11/15/15) Subjective events noted on TF and D5W Objective Last 24 Hour Vital Signs Date Time Temp Pulse Resp B/P (MAP) Pulse Ox O2 Delivery O2 Flow Rate FiO2 02/26/17 12:39 17 17 6.0 02/26/17 11:59 96.4 75 20 98/74 95 02/26/17 08:14 96.2 61 20 133/77 96 02/26/17 08:05 Venturi Mask 8.0 40 02/26/17 08:05 64 20 Venturi Mask 8.0 40 02/26/17 08:05 99 Venturi Mask 8.0 40 02/26/17 04:00 97.5 70 18 102/67 Venturi Mask 02/26/17 04:00 70 02/26/17 00:00 70 02/26/17 00:00 97.9 72 18 148/71 99 Venturi Mask 10.0 40 02/25/17 20:00 96.7 64 18 109/56 96 Venturi Mask 10.0 40 02/25/17 20:00 67 02/25/17 19:38 95 Venturi Mask 8.0 40 02/25/17 19:38 79 20 Venturi Mask 8.0 40 02/25/17 19:38 Venturi Mask 8.0 40 02/25/17 16:00 62 Intake and Output 02/26/17 02/27/17 19:00 07:00 # Voids 2 Laboratory Tests 02/26/17 09:55: White Blood Count 13.6H, Red Blood Count 5.00, Hemoglobin 13.8L, Hematocrit 45.2 , Mean Corpuscular Volume 90, Mean Corpuscular Hemoglobin 27.6, Mean Corpuscular Hemoglobin Concent 30.6L, Red Cell Distribution Width 13.8, Platelet Count 150, Mean Platelet Volume 9.7, Neutrophils (%) (Auto) , Lymphocytes (%) (Auto) , Monocytes (%) (Auto) , Eosinophils (%) (Auto) , Basophils (%) (Auto) , Differential Total Cells Counted 100, Neutrophils % ( Manual) 87H, Lymphocytes % (Manual) 7L, Monocytes % (Manual) 3, Eosinophils % ( Manual) 2, Basophils % (Manual) 0, Band Neutrophils 1, Platelet Estimate Adequate, Platelet Morphology Normal, Red Blood Cell Morphology Normal, Prothrombin Time 10.3, Prothromb Time International Ratio 1.0, Activated Partial Thromboplast Time 29, Sodium Level 149H, Potassium Level 3.6, Chloride Level 117H, Carbon Dioxide Level 19L, Anion Gap 13, Blood Urea Nitrogen 120H, Creatinine 4.4H, Estimat Glomerular Filtration Rate 16.7, Glucose Level 358#H, Lactic Acid Level 2.20, Calcium Level 8.0L, Phosphorus Level 5.5H, Magnesium Level 2.8H, Hepatitis B Surface Antigen [Pending], Hepatitis B Surface Antibody , Quant [Pending], Hepatitis C Antibody [Pending] Height (Feet): 6 Height (Inches): 2.00 Weight (Pounds): 200 General Appearance: lethargic EENT: pale conjunctivae Neck: normal alignment Cardiovascular: normal rate Respiratory/Chest: lungs clear Abdomen: normal bowel sounds Edema: 1+ Arm (L), 1+ Arm (R), 1+ Leg (L), 1+ Leg (R), 1+ Pedal (L), 1+ Pedal ( R), 1+ Generalized Objective Current Medications Medications (Trade) Dose Ordered Sig/Megan Route PRN Reason Start Time Stop Time Status Last Admin Dose Admin Acetaminophen (Tylenol) 650 mg Q4H PRN ORAL Mild Pain (Pain Scale 1-3) 02/23/17 06:30 03/25/17 06:29 02/25/17 05:34 Albuterol/ Ipratropium (Albuterol/ Ipratropium) 3 ml Q4HR PRN HHN Shortness of Breath 02/23/17 06:30 02/28/17 06:29 Aspirin (ASA) 81 mg DAILY NG 02/25/17 09:00 03/27/17 08:59 02/25/17 09:23 Cefepime HCl 1 gm/ Dextrose 55 ml @ 110 mls/hr Q24H IVPB 02/23/17 09:00 03/02/17 08:59 02/26/17 11:15 Clindamycin HCl/ Dextrose 50 ml @ 100 mls/hr Q8HR IV 02/23/17 16:00 03/02/17 15:59 02/26/17 14:03 Dextrose 1,000 ml @ 100 mls/hr Q10H IV 02/23/17 07:15 03/25/17 07:14 02/26/17 05:32 Dextrose (Dextrose 50%) STAT PRN IV Hypoglycemia 02/23/17 12:15 03/25/17 12:14 02/24/17 19:10 Heparin Sodium (Porcine) (Heparin 5000 units/ml) 5,000 units EVERY 12 HOURS SUBQ 02/23/17 09:00 03/25/17 08:59 02/25/17 20:47 Insulin Aspart (NovoLOG) EVERY 6 HOURS SUBQ 02/25/17 18:00 03/25/17 13:29 02/26/17 14:01 Insulin Detemir (Levemir) 15 units Q12HR SUBQ 02/23/17 13:00 03/25/17 12:59 02/26/17 11:17 Pantoprazole (Protonix) 40 mg DAILY IVP 02/25/17 09:00 03/27/17 08:59 02/26/17 11:15 Polyethylene Glycol (Miralax) 17 gm BEDTIME ORAL 02/24/17 21:00 03/26/17 20:59 02/24/17 21:00 Item Value Date Time Bedside Blood Glucose 210 mg/dl H 02/26/17 1401 Bedside Blood Glucose 232 mg/dl H 02/26/17 0800 Bedside Blood Glucose 224 mg/dl H 02/26/17 0625 Bedside Blood Glucose 172 mg/dl H 02/26/17 0029 Bedside Blood Glucose 171 mg/dl H 02/25/172051 Bedside Blood Glucose 162 mg/dl H 02/25/17 183 MARIA VICTORIA GOMEZ 8, 2017 15:45
[2017-02-26] MEDS: Miralax 17gm pkt ORAL SCH (21:58)
[2017-02-27] VITALS: BP 114/93
[2017-02-27] MEDS: NovoLOG Insulin Flexpen SUBQ SCH ×4 (00:23→17:35)
[2017-02-27 04:00] VITALS: BP 130/91
[2017-02-27] MEDS: Clindamycin 600mg 50 ML IV SCH ×3 (05:14→22:23)
--- NOTE | 2017-02-27 07:24 | General Progress Note ---
Assessment/Plan Problem List: (1) Encounter for PEG (percutaneous endoscopic gastrostomy) ICD Codes: Z43.1 - Encounter for attention to gastrostomy SNOMED: 543571734, 095966713 (2) DM (diabetes mellitus) ICD Codes: E11.9 - Type 2 diabetes mellitus without complications SNOMED: 65067491 (3) Acute kidney injury ICD Codes: N17.9 - Acute kidney failure, unspecified SNOMED: 24471861 (4) Elevated troponin ICD Codes: R74.8 - Abnormal levels of other serum enzymes SNOMED: 315568035, 063150208 (5) Cholelithiasis ICD Codes: K80.20 - Calculus of gallbladder without cholecystitis without obstruction SNOMED: 859874622 Assessment/Plan ngtf>>> will decrease the rate to 55 fu nephrology DM control DVT prophylaxis PEG this week if needed Subjective ROS Limited/Unobtainable: No Allergies: Coded Allergies: No Known Allergies (Unverified , 11/15/15) Objective Last 24 Hour Vital Signs Date Time Temp Pulse Resp B/P (MAP) Pulse Ox O2 Delivery O2 Flow Rate FiO2 02/27/17 06:50 69 02/27/17 04:00 97.6 72 19 130/91 97 Room Air 02/27/17 00:00 97.9 67 20 114/93 95 Venturi Mask 8.0 40 02/26/17 23:46 73 02/26/17 20:47 Venturi Mask 6.0 35 02/26/17 20:46 100 Venturi Mask 6.0 35 02/26/17 20:44 69 02/26/17 20:43 73 20 Venturi Mask 6.0 40 02/26/17 20:00 95 Venturi Mask 8.0 40 02/26/17 20:00 97.8 75 21 114/93 95 02/26/17 15:46 96.3 73 20 117/92 95 02/26/17 13:10 68 18 137/99 97 Room Air 02/26/17 13:05 71 18 134/97 97 Room Air 02/26/17 12:39 17 17 6.0 02/26/17 11:59 96.4 75 20 98/74 95 02/26/17 08:14 96.2 61 20 133/77 96 02/26/17 08:05 Venturi Mask 8.0 40 02/26/17 08:05 64 20 Venturi Mask 8.0 40 02/26/17 08:05 99 Venturi Mask 8.0 40 Laboratory Tests 02/26/17 09:55: White Blood Count 13.6H, Red Blood Count 5.00, Hemoglobin 13.8L, Hematocrit 45.2 , Mean Corpuscular Volume 90, Mean Corpuscular Hemoglobin 27.6, Mean Corpuscular Hemoglobin Concent 30.6L, Red Cell Distribution Width 13.8, Platelet Count 150, Mean Platelet Volume 9.7, Neutrophils (%) (Auto) , Lymphocytes (%) (Auto) , Monocytes (%) (Auto) , Eosinophils (%) (Auto) , Basophils (%) (Auto) , Differential Total Cells Counted 100, Neutrophils % ( Manual) 87H, Lymphocytes % (Manual) 7L, Monocytes % (Manual) 3, Eosinophils % ( Manual) 2, Basophils % (Manual) 0, Band Neutrophils 1, Platelet Estimate Adequate, Platelet Morphology Normal, Red Blood Cell Morphology Normal, Prothrombin Time 10.3, Prothromb Time International Ratio 1.0, Activated Partial Thromboplast Time 29, Sodium Level 149H, Potassium Level 3.6, Chloride Level 117H, Carbon Dioxide Level 19L, Anion Gap 13, Blood Urea Nitrogen 120H, Creatinine 4.4H, Estimat Glomerular Filtration Rate 16.7, Glucose Level 358#H, Lactic Acid Level 2.20, Calcium Level 8.0L, Phosphorus Level 5.5H, Magnesium Level 2.8H, Hepatitis B Surface Antigen [Pending], Hepatitis B Surface Antibody , Quant [Pending], Hepatitis C Antibody [Pending] Height (Feet): 6 Height (Inches): 2.00 Weight (Pounds): 200 General Appearance: lethargic EENT: normal ENT inspection Neck: supple Cardiovascular: normal rate Respiratory/Chest: decreased breath sounds Abdomen: normal bowel sounds, non tender, soft Extremities: non-tender SARINA MCLEAN Feb 27, 2017 07:24
[2017-02-27 08:00] VITALS: BP 123/87
[2017-02-27] MEDS: Levemir Flexpen SUBQ SCH (09:00)
[2017-02-27] MEDS: Aspirin Baby 81mg NG SCH (09:16)
[2017-02-27] MEDS: Cefepime HCl 1 GM in D5W 55 ML IVPB SCH (09:16)
[2017-02-27] MEDS: Pantoprazole Inj IVP SCH (09:16)
[2017-02-27] MEDS: Heparin 5000 units/ml inj SUBQ SCH ×2 (09:32→21:30)
[2017-02-27 12:00] VITALS: BP 127/87
[2017-02-27 16:00] VITALS: BP 114/81
--- NOTE | 2017-02-27 16:13 | Cardiac Electrophysiology PN ---
Assessment/Plan Assessment/Plan 1. Troponin elevation of 0.091 and 0.099, likely due to severe dehydration with sodium of 165 and BUN of 100 and creatinine of 3.7. His BUN and creatinine in October 2015 was 69 and 1.5. Echo EF 50%. No chest pain 2. Status post dual chamber [employer] defibrillator implantation Interrogated and normal fx. 3. History of cardiomyopathy. EF normal now. 4.Hypernatremia and ARF, per Dr. Zurita.Had Taran catheter placement for dialysis DW RN Subjective Subjective Comfortable in NAD. Failed video swallow. Objective Last 24 Hour Vital Signs Date Time Temp Pulse Resp B/P (MAP) Pulse Ox O2 Delivery O2 Flow Rate FiO2 02/27/17 12:00 97.1 67 20 127/87 98 02/27/17 12:00 70 02/27/17 08:26 100 Venturi Mask 6.0 35 02/27/17 08:17 68 02/27/17 08:10 Venturi Mask 6.0 35 02/27/17 08:10 72 22 Venturi Mask 6.0 40 02/27/17 08:00 97.1 71 19 123/87 97 02/27/17 06:50 69 02/27/17 04:00 97.6 72 19 130/91 97 Room Air 02/27/17 00:00 97.9 67 20 114/93 95 Venturi Mask 8.0 40 02/26/17 23:46 73 02/26/17 20:47 Venturi Mask 6.0 35 02/26/17 20:46 100 Venturi Mask 6.0 35 02/26/17 20:44 69 02/26/17 20:43 73 20 Venturi Mask 6.0 40 02/26/17 20:00 95 Venturi Mask 8.0 40 02/26/17 20:00 97.8 75 21 114/93 95 Intake and Output 02/27/17 02/28/17 19:00 07:00 Intake Total 55 ml Balance 55 ml IV Total 55 ml Microbiology Date/Time Source Procedure Growth Status 02/25/17 14:30 Stool Clostridium difficile Toxin Assay - Final Complete Objective HEAD AND NECK: Shows mild JVD.Right IG Taran catheter LUNGS: Decreased breath sounds. CARDIOVASCULAR: Shows regular S1 and S2 with no gallop. ICD left subclavian. ABDOMEN: Soft. EXTREMITIES: Upper extremity contractions. GAGAN JUNIOR Feb 27, 2017 16:13
[2017-02-27 17:32] LABS: CREATININE 3.9 MG/DL (0.55-1.30); GLOMERULAR FILTRATION RATE 19.3 mL/min (>60)
[2017-02-27 20:27] VITALS: BP 142/90
--- NOTE | 2017-02-27 20:31 | Infectious Diseases Prog Note ---
Assessment/Plan Problems: (1) HCAP (healthcare-associated pneumonia) Assessment & Plan: with hypoxemia and leukocytosis , continue cefepime and clindamycin empiric coverage, pending blood culture , repeat CXR (2) UTI (urinary tract infection) Assessment & Plan: with pseudomonas , already on cefepime , will treat for two weeks (3) Sepsis Assessment & Plan: due to the above, continue clindamycin and cefepime pending blood culture result (4) Acute kidney injury Assessment & Plan: due to sepsis , not improving with hydrations, avoid nephrotoxic, monitor renal function , had dialysis catheter placed for HD , renal is following (5) Hyperglycemia Assessment & Plan: improving due to sepsis, recommend tight glycemic control to keep blood glucose between 80-120 Subjective ROS Limited/Unobtainable: Yes Allergies: Coded Allergies: No Known Allergies (Unverified , 11/15/15) Subjective he was up in bed, with NGT , and ventimask, comfortable, not febrile, not in distress, no diarrhea Objective Vital Signs Last 24 Hour Vital Signs Date Time Temp Pulse Resp B/P (MAP) Pulse Ox O2 Delivery O2 Flow Rate FiO2 02/27/17 19:42 Venturi Mask 8.0 40 02/27/17 19:42 99 Venturi Mask 8.0 40 02/27/17 19:42 71 20 Venturi Mask 8.0 40 02/27/17 16:00 75 02/27/17 16:00 97.0 71 19 114/81 98 02/27/17 12:00 97.1 67 20 127/87 98 02/27/17 12:00 70 02/27/17 08:26 100 Venturi Mask 6.0 35 02/27/17 08:17 68 02/27/17 08:10 Venturi Mask 6.0 35 02/27/17 08:10 72 22 Venturi Mask 6.0 40 02/27/17 08:00 97.1 71 19 123/87 97 02/27/17 06:50 69 02/27/17 04:00 97.6 72 19 130/91 97 Room Air 02/27/17 00:00 97.9 67 20 114/93 95 Venturi Mask 8.0 40 02/26/17 23:46 73 02/26/17 20:47 Venturi Mask 6.0 35 02/26/17 20:46 100 Venturi Mask 6.0 35 02/26/17 20:44 69 02/26/17 20:43 73 20 Venturi Mask 6.0 40 Height (Feet): 6 Height (Inches): 2.00 Weight (Pounds): 200 General Appearance: WD/WN, no acute distress HEENT: normocephalic, atraumatic, anicteric, mucous membranes moist, PERRL Respiratory/Chest: chest wall non-tender, no respiratory distress, no accessory muscle use, decreased breath sounds, crackles/rales Cardiovascular: normal peripheral pulses, normal rate, regular rhythm, no gallop/murmur, no JVD Abdomen: normal bowel sounds, soft, non tender, no organomegaly, non distended , no mass, no scars Extremities: no cyanosis, no clubbing Skin: no rash, no lesions Neurologic/Psychiatric: alert, responsive Microbiology Date/Time Source Procedure Growth Status 02/25/17 14:30 Stool Clostridium difficile Toxin Assay - Final Complete Laboratory Tests Test 02/27/17 16:45 Potassium Level 4.0 MMOL/L (3.5-5.1) Blood Urea Nitrogen 113 mg/dL (7-18) H Creatinine 3.9 MG/DL (0.55-1.30) H Estimat Glomerular Filtration Rate 19.3 mL/min (>60) Current Medications Medications (Trade) Dose Ordered Sig/Megan Route PRN Reason Start Time Stop Time Status Last Admin Dose Admin Acetaminophen (Tylenol) 650 mg Q4H PRN ORAL Mild Pain (Pain Scale 1-3) 02/23/17 06:30 03/25/17 06:29 02/25/17 05:34 Albuterol/ Ipratropium (Albuterol/ Ipratropium) 3 ml Q4HR PRN HHN Shortness of Breath 02/23/17 06:30 02/28/17 06:29 Aspirin (ASA) 81 mg DAILY NG 02/25/17 09:00 03/27/17 08:59 02/27/17 09:16 Cefepime HCl 1 gm/ Dextrose 55 ml @ 110 mls/hr Q24H IVPB 02/23/17 09:00 03/02/17 08:59 02/27/17 09:16 Clindamycin HCl/ Dextrose 50 ml @ 100 mls/hr Q8HR IV 02/23/17 16:00 03/02/17 15:59 02/27/17 14:29 Dextrose (Dextrose 50%) STAT PRN IV Hypoglycemia 02/23/17 12:15 03/25/17 12:14 02/24/17 19:10 Heparin Sodium (Porcine) (Heparin 5000 units/ml) 5,000 units EVERY 12 HOURS SUBQ 02/23/17 09:00 03/25/17 08:59 02/27/17 09:32 Insulin Aspart (NovoLOG) EVERY 6 HOURS SUBQ 02/25/17 18:00 03/25/17 13:29 02/27/17 17:35 Insulin Detemir (Levemir) 18 units Q12HR SUBQ 02/26/17 21:00 03/28/17 20:59 02/27/17 09:00 Pantoprazole (Protonix) 40 mg DAILY IVP 02/25/17 09:00 03/27/17 08:59 02/27/17 09:16 Polyethylene Glycol (Miralax) 17 gm BEDTIME ORAL 02/24/17 21:00 03/26/17 20:59 02/26/17 21:58 Kamala Leon M.D. Feb 27, 2017 20:31
--- NOTE | 2017-02-27 20:51 | General Progress Note ---
Assessment/Plan Problem List: (1) Encounter for PEG (percutaneous endoscopic gastrostomy) ICD Codes: Z43.1 - Encounter for attention to gastrostomy SNOMED: 263894198, 137135798 (2) Dysphagia due to recent stroke ICD Codes: I69.391 - Dysphagia following cerebral infarction SNOMED: 67522223, 826537090 (3) Hyperglycemia due to type 2 diabetes mellitus ICD Codes: E11.65 - Type 2 diabetes mellitus with hyperglycemia SNOMED: 414556769723863 (4) Hypernatremia ICD Codes: E87.0 - Hyperosmolality and hypernatremia SNOMED: 69766560 Assessment/Plan increase Levemir to 20 units bid continue SSI q 6 hours Subjective ROS Limited/Unobtainable: Yes Allergies: Coded Allergies: No Known Allergies (Unverified , 11/15/15) Subjective events noted Objective Last 24 Hour Vital Signs Date Time Temp Pulse Resp B/P (MAP) Pulse Ox O2 Delivery O2 Flow Rate FiO2 02/27/17 20:27 97.4 74 18 142/90 96 Venturi Mask 02/27/17 19:42 Venturi Mask 8.0 40 02/27/17 19:42 99 Venturi Mask 8.0 40 02/27/17 19:42 71 20 Venturi Mask 8.0 40 02/27/17 16:00 75 02/27/17 16:00 97.0 71 19 114/81 98 02/27/17 12:00 97.1 67 20 127/87 98 02/27/17 12:00 70 02/27/17 08:26 100 Venturi Mask 6.0 35 02/27/17 08:17 68 02/27/17 08:10 Venturi Mask 6.0 35 02/27/17 08:10 72 22 Venturi Mask 6.0 40 02/27/17 08:00 97.1 71 19 123/87 97 02/27/17 06:50 69 02/27/17 04:00 97.6 72 19 130/91 97 Room Air 02/27/17 00:00 97.9 67 20 114/93 95 Venturi Mask 8.0 40 02/26/17 23:46 73 Intake and Output 02/27/17 02/28/17 19:00 07:00 Intake Total 105 ml Balance 105 ml IV Total 105 ml # Voids 4 # Bowel Movements 1 Laboratory Tests 02/27/17 16:45: Potassium Level 4.0, Blood Urea Nitrogen 113H, Creatinine 3.9H, Estimat Glomerular Filtration Rate 19.3 Height (Feet): 6 Height (Inches): 2.00 Weight (Pounds): 200 General Appearance: lethargic Neck: non-tender Cardiovascular: normal rate Respiratory/Chest: decreased breath sounds Abdomen: normal bowel sounds Edema: no edema noted Arm (L), no edema noted Arm (R), no edema noted Leg (L), no edema noted Leg (R), no edema noted Pedal (L), no edema noted Pedal (R), no edema noted Generalized Objective Current Medications Medications (Trade) Dose Ordered Sig/Megan Route PRN Reason Start Time Stop Time Status Last Admin Dose Admin Acetaminophen (Tylenol) 650 mg Q4H PRN ORAL Mild Pain (Pain Scale 1-3) 02/23/17 06:30 03/25/17 06:29 02/25/17 05:34 Albuterol/ Ipratropium (Albuterol/ Ipratropium) 3 ml Q4HR PRN HHN Shortness of Breath 02/23/17 06:30 02/28/17 06:29 Aspirin (ASA) 81 mg DAILY NG 02/25/17 09:00 03/27/17 08:59 02/27/17 09:16 Cefepime HCl 1 gm/ Dextrose 55 ml @ 110 mls/hr Q24H IVPB 02/23/17 09:00 03/02/17 08:59 02/27/17 09:16 Clindamycin HCl/ Dextrose 50 ml @ 100 mls/hr Q8HR IV 02/23/17 16:00 03/02/17 15:59 02/27/17 14:29 Dextrose (Dextrose 50%) STAT PRN IV Hypoglycemia 02/23/17 12:15 03/25/17 12:14 02/24/17 19:10 Heparin Sodium (Porcine) (Heparin 5000 units/ml) 5,000 units EVERY 12 HOURS SUBQ 02/23/17 09:00 03/25/17 08:59 02/27/17 09:32 Insulin Aspart (NovoLOG) EVERY 6 HOURS SUBQ 02/25/17 18:00 03/25/17 13:29 02/27/17 17:35 Insulin Detemir (Levemir) 18 units Q12HR SUBQ 02/26/17 21:00 03/28/17 20:59 02/27/17 09:00 Pantoprazole (Protonix) 40 mg DAILY IVP 02/25/17 09:00 03/27/17 08:59 02/27/17 09:16 Polyethylene Glycol (Miralax) 17 gm BEDTIME ORAL 02/24/17 21:00 03/26/17 20:59 02/26/17 21:58 Item Value Date Time Bedside Blood Glucose 253 mg/dl H 02/27/17 0900 Bedside Blood Glucose 251 mg/dl H 02/27/17 0628 Bedside Blood Glucose 246 mg/dl H 02/27/17 0023 Bedside Blood Glucose 123 mg/dl H 02/26/17 2206 Bedside Blood Glucose 187 mg/dl H 02/26/17 1652 Bedside Blood Glucose 210 mg/dl H 02/26/17 1401 Bedside Blood Glucose 232 mg/dl H 02/26/17 0800 Bedside Blood Glucose 224 mg/dl H 02/26/17 0625 Bedside Blood Glucose 220 mg/dl H 02/27/17 1735 Bedside Blood Glucose 295 mg/dl H 02/27/17 1205 MARIA VICTORIA GOMEZ Feb 27, 2017 20:51
[2017-02-27] MEDS: Miralax 17gm pkt ORAL SCH (21:00)
--- NOTE | 2017-02-27 23:01 | General Progress Note ---
Progress Note Progress Note Dictated consult to follow Asked by Dr Newton to eval for HD access Renal failure Left chest ICD CVA DM HTN [employer] PAD Rec HD via right IJ Taran cath arm leg duplex ordered Permcath +/- right arm av shunt if needs detention HD access per renal Optimize nutrition swallow eval ? need for PEG Decub and DVT precautions d/w nurse RINA FIGUEROA Feb 27, 2017 23:01
--- NOTE | 2017-02-27 23:58 | Nephrology Progress Note ---
Assessment/Plan Problem List: (1) Hyperglycemia due to type 2 diabetes mellitus Assessment: better (2) Hypernatremia (3) CKD (chronic kidney disease) (4) SHANTE (acute kidney injury) Assessment: may need HD. (5) Hypoxia (6) Sepsis (7) UTI (urinary tract infection) (8) HCAP (healthcare-associated pneumonia) Plan cont IVF D5W. Monitor BG. On levemir and SSI. GI eval for possible PEG. Vasc surg consult for dialysis catheter. monitor labs. Subjective Subjective appears comfortable. Objective Objective Last 24 Hour Vital Signs Date Time Temp Pulse Resp B/P (MAP) Pulse Ox O2 Delivery O2 Flow Rate FiO2 02/27/17 20:27 97.4 74 18 142/90 96 Venturi Mask 02/27/17 19:42 Venturi Mask 8.0 40 02/27/17 19:42 99 Venturi Mask 8.0 40 02/27/17 19:42 71 20 Venturi Mask 8.0 40 02/27/17 16:00 75 02/27/17 16:00 97.0 71 19 114/81 98 02/27/17 12:00 97.1 67 20 127/87 98 02/27/17 12:00 70 02/27/17 08:26 100 Venturi Mask 6.0 35 02/27/17 08:17 68 02/27/17 08:10 Venturi Mask 6.0 35 02/27/17 08:10 72 22 Venturi Mask 6.0 40 02/27/17 08:00 97.1 71 19 123/87 97 02/27/17 06:50 69 02/27/17 04:00 97.6 72 19 130/91 97 Room Air 02/27/17 00:00 97.9 67 20 114/93 95 Venturi Mask 8.0 40 Intake and Output 02/27/17 02/28/17 19:00 07:00 Intake Total 105 ml Balance 105 ml IV Total 105 ml # Voids 4 # Bowel Movements 1 Laboratory Tests 02/27/17 16:45: Potassium Level 4.0, Blood Urea Nitrogen 113H, Creatinine 3.9H, Estimat Glomerular Filtration Rate 19.3 Height (Feet): 6 Height (Inches): 2.00 Weight (Pounds): 200 JJ RAYMOND Feb 27, 2017 23:58
[2017-02-28] MEDS: Levemir Flexpen SUBQ SCH ×3 (00:09→21:06)
[2017-02-28] MEDS: NovoLOG Insulin Flexpen SUBQ SCH ×4 (00:10→18:01)
[2017-02-28 00:11] VITALS: BP 115/84
[2017-02-28 04:26] VITALS: BP 116/78
--- NOTE | 2017-02-28 05:44 | General Progress Note ---
Assessment/Plan Problem List: (1) Encounter for PEG (percutaneous endoscopic gastrostomy) ICD Codes: Z43.1 - Encounter for attention to gastrostomy SNOMED: 016827171, 014197472 (2) Dysphagia due to recent stroke ICD Codes: I69.391 - Dysphagia following cerebral infarction SNOMED: 38352483, 375545293 (3) Hyperglycemia due to type 2 diabetes mellitus ICD Codes: E11.65 - Type 2 diabetes mellitus with hyperglycemia SNOMED: 173555032180464 (4) Hypernatremia ICD Codes: E87.0 - Hyperosmolality and hypernatremia SNOMED: 88346758 Assessment/Plan continue Levemir 20 units bid continue SSI q 6 hours Subjective ROS Limited/Unobtainable: Yes Allergies: Coded Allergies: No Known Allergies (Unverified , 11/15/15) Subjective events noted Objective Last 24 Hour Vital Signs Date Time Temp Pulse Resp B/P (MAP) Pulse Ox O2 Delivery O2 Flow Rate FiO2 02/28/17 04:26 97.1 74 20 116/78 98 Venturi Mask 02/28/17 04:00 77 02/28/17 00:11 97.1 65 18 115/84 96 Venturi Mask 8.0 40 02/28/17 00:00 77 02/27/17 20:27 97.4 74 18 142/90 96 Venturi Mask 02/27/17 20:00 75 02/27/17 19:42 Venturi Mask 8.0 40 02/27/17 19:42 99 Venturi Mask 8.0 40 02/27/17 19:42 71 20 Venturi Mask 8.0 40 02/27/17 16:00 75 02/27/17 16:00 97.0 71 19 114/81 98 02/27/17 12:00 97.1 67 20 127/87 98 02/27/17 12:00 70 02/27/17 08:26 100 Venturi Mask 6.0 35 02/27/17 08:17 68 02/27/17 08:10 Venturi Mask 6.0 35 02/27/17 08:10 72 22 Venturi Mask 6.0 40 02/27/17 08:00 97.1 71 19 123/87 97 02/27/17 06:50 69 Laboratory Tests 02/27/17 16:45: Potassium Level 4.0, Blood Urea Nitrogen 113H, Creatinine 3.9H, Estimat Glomerular Filtration Rate 19.3 Height (Feet): 6 Height (Inches): 2.00 Weight (Pounds): 200 General Appearance: lethargic Neck: normal alignment Cardiovascular: regular rhythm Respiratory/Chest: decreased breath sounds Abdomen: normal bowel sounds Edema: no edema noted Arm (L), no edema noted Arm (R), no edema noted Leg (L), no edema noted Leg (R), no edema noted Pedal (L), no edema noted Pedal (R), no edema noted Generalized Objective Current Medications Medications (Trade) Dose Ordered Sig/Megan Route PRN Reason Start Time Stop Time Status Last Admin Dose Admin Acetaminophen (Tylenol) 650 mg Q4H PRN ORAL Mild Pain (Pain Scale 1-3) 02/23/17 06:30 03/25/17 06:29 02/25/17 05:34 Albuterol/ Ipratropium (Albuterol/ Ipratropium) 3 ml Q4HR PRN HHN Shortness of Breath 02/23/17 06:30 02/28/17 06:29 Aspirin (ASA) 81 mg DAILY NG 02/25/17 09:00 03/27/17 08:59 02/27/17 09:16 Cefepime HCl 1 gm/ Dextrose 55 ml @ 110 mls/hr Q24H IVPB 02/23/17 09:00 03/02/17 08:59 02/27/17 09:16 Clindamycin HCl/ Dextrose 50 ml @ 100 mls/hr Q8HR IV 02/23/17 16:00 03/02/17 15:59 02/27/17 22:23 Dextrose (Dextrose 50%) STAT PRN IV Hypoglycemia 02/23/17 12:15 03/25/17 12:14 02/24/17 19:10 Heparin Sodium (Porcine) (Heparin 5000 units/ml) 5,000 units EVERY 12 HOURS SUBQ 02/23/17 09:00 03/25/17 08:59 02/27/17 21:30 Insulin Aspart (NovoLOG) EVERY 6 HOURS SUBQ 02/25/17 18:00 03/25/17 13:29 02/28/17 00:10 Insulin Detemir (Levemir) 20 units Q12HR SUBQ 02/27/17 22:00 03/29/17 21:59 02/28/17 00:09 Pantoprazole (Protonix) 40 mg DAILY IVP 02/25/17 09:00 03/27/17 08:59 02/27/17 09:16 Polyethylene Glycol (Miralax) 17 gm BEDTIME ORAL 02/24/17 21:00 03/26/17 20:59 02/26/17 21:58 Item Value Date Time Bedside Blood Glucose 152 mg/dl H 02/28/17 0010 Bedside Blood Glucose 181 mg/dl H 02/27/171999 Bedside Blood Glucose 220 mg/dl H 02/27/17 1735 Bedside Blood Glucose 295 mg/dl H 02/27/17 1205 MARIA VICTORIA GOMEZ Feb 28, 2017 05:44
[2017-02-28] MEDS: Clindamycin 600mg 50 ML IV SCH ×3 (06:30→21:23)
[2017-02-28 07:33] LABS: BASOPHILS % (AUTO) 0.5 % (0.0-2.0); EOSINOPHILS % (AUTO) 1.4 % (0.0-3.0); LYMPHOCYTES % (AUTO) 10.6 % (20.0-45.0); MEAN CORPUSCULAR HEMOGLOBIN 29.1 PG (27.0-31.0); MEAN CORPUSCULAR HGB CONC 32.8 G/DL (32.0-36.0); MEAN CORPUSCULAR VOLUME 89 FL (80-99); MEAN PLATELET VOLUME 8.4 FL (6.5-10.1); MONOCYTES % (AUTO) 4.3 % (1.0-10.0); NEUTROPHILS % (AUTO) 83.3 % (45.0-75.0); PLATELET COUNT 178 K/UL (150-450); RED BLOOD COUNT 4.58 M/UL (4.70-6.10); RED CELL DISTRIBUTION WIDTH 13.4 % (11.6-14.8); WHITE BLOOD COUNT 11.2 K/UL (4.8-10.8)
--- NOTE | 2017-02-28 07:54 | General Progress Note ---
Assessment/Plan Problem List: (1) Encounter for PEG (percutaneous endoscopic gastrostomy) ICD Codes: Z43.1 - Encounter for attention to gastrostomy SNOMED: 162505871, 992521476 (2) DM (diabetes mellitus) ICD Codes: E11.9 - Type 2 diabetes mellitus without complications SNOMED: 54709222 (3) Acute kidney injury ICD Codes: N17.9 - Acute kidney failure, unspecified SNOMED: 58331036 (4) Elevated troponin ICD Codes: R74.8 - Abnormal levels of other serum enzymes SNOMED: 211443115, 407145489 (5) Cholelithiasis ICD Codes: K80.20 - Calculus of gallbladder without cholecystitis without obstruction SNOMED: 797882217 Assessment/Plan ngtf fu nephrology DM control DVT prophylaxis PEG this week if needed repeat swallow tomorrow Subjective ROS Limited/Unobtainable: No Allergies: Coded Allergies: No Known Allergies (Unverified , 11/15/15) Objective Last 24 Hour Vital Signs Date Time Temp Pulse Resp B/P (MAP) Pulse Ox O2 Delivery O2 Flow Rate FiO2 02/28/17 04:26 97.1 74 20 116/78 98 Venturi Mask 02/28/17 04:00 77 02/28/17 00:11 97.1 65 18 115/84 96 Venturi Mask 8.0 40 02/28/17 00:00 77 02/27/17 20:27 97.4 74 18 142/90 96 Venturi Mask 02/27/17 20:00 75 02/27/17 19:42 Venturi Mask 8.0 40 02/27/17 19:42 99 Venturi Mask 8.0 40 02/27/17 19:42 71 20 Venturi Mask 8.0 40 02/27/17 16:00 75 02/27/17 16:00 97.0 71 19 114/81 98 02/27/17 12:00 97.1 67 20 127/87 98 02/27/17 12:00 70 02/27/17 08:26 100 Venturi Mask 6.0 35 02/27/17 08:17 68 02/27/17 08:10 Venturi Mask 6.0 35 02/27/17 08:10 72 22 Venturi Mask 6.0 40 02/27/17 08:00 97.1 71 19 123/87 97 Laboratory Tests 02/27/17 16:45: Potassium Level 4.0, Blood Urea Nitrogen 113H, Creatinine 3.9H, Estimat Glomerular Filtration Rate 19.3 02/28/17 06:59: Potassium Level [Pending], Blood Urea Nitrogen [Pending], Creatinine [Pending], Estimat Glomerular Filtration Rate [Pending], White Blood Count 11.2H, Red Blood Count 4.58L, Hemoglobin 13.3L, Hematocrit 40.6L, Mean Corpuscular Volume 89, Mean Corpuscular Hemoglobin 29.1, Mean Corpuscular Hemoglobin Concent 32.8, Red Cell Distribution Width 13.4, Platelet Count 178, Mean Platelet Volume 8.4, Neutrophils (%) (Auto) 83.3H, Lymphocytes (%) (Auto) 10.6L, Monocytes (%) (Auto ) 4.3, Eosinophils (%) (Auto) 1.4, Basophils (%) (Auto) 0.5, Sodium Level [ Pending], Chloride Level [Pending], Carbon Dioxide Level [Pending], Glucose Level [Pending], Calcium Level [Pending] Height (Feet): 6 Height (Inches): 2.00 Weight (Pounds): 200 General Appearance: no apparent distress EENT: normal ENT inspection Neck: supple Cardiovascular: normal rate Respiratory/Chest: decreased breath sounds Abdomen: normal bowel sounds, non tender, soft Extremities: non-tender SARINA MCLEAN Feb 28, 2017 07:54
[2017-02-28 07:55] LABS: ANION GAP 11 mmol/L (5-15); CALCIUM 7.9 MG/DL (8.5-10.1); CARBON DIOXIDE 23 MMOL/L (21-32); CHLORIDE 118 MMOL/L (98-107); CREATININE 3.9 MG/DL (0.55-1.30); GLOMERULAR FILTRATION RATE 19.3 mL/min (>60); POTASSIUM 4.4 MMOL/L (3.5-5.1); SODIUM 152 MMOL/L (136-145)
[2017-02-28 08:00] VITALS: BP 129/83
[2017-02-28] MEDS: Pantoprazole Inj IVP SCH (08:55)
[2017-02-28] MEDS: Cefepime HCl 1 GM in D5W 55 ML IVPB SCH (08:56)
[2017-02-28] MEDS: Aspirin Baby 81mg NG SCH (08:56)
[2017-02-28] MEDS: Heparin 5000 units/ml inj SUBQ SCH ×2 (09:08→21:00)
[2017-02-28 12:00] VITALS: BP 127/77
--- NOTE | 2017-02-28 14:01 | Infectious Diseases Prog Note ---
Assessment/Plan Problems: (1) HCAP (healthcare-associated pneumonia) Assessment & Plan: with hypoxemia and leukocytosis , improving on cefepime and clindamycin empiric coverage, blood culture is negative , monitor CXR (2) UTI (urinary tract infection) Assessment & Plan: with pseudomonas , already on cefepime , will treat for two weeks (3) Sepsis Assessment & Plan: due to the above, continue clindamycin and cefepime pending blood culture result (4) Acute kidney injury Assessment & Plan: due to sepsis , not improving with hydrations, avoid nephrotoxic, monitor renal function , had dialysis catheter placed for HD , renal is following (5) Hyperglycemia Assessment & Plan: improving due to sepsis, recommend tight glycemic control to keep blood glucose between 80-120 Subjective ROS Limited/Unobtainable: Yes Allergies: Coded Allergies: No Known Allergies (Unverified , 11/15/15) Subjective he was up in bed, more awake and alert, has NGT in , and ventimask, comfortable , not febrile, not in distress, no diarrhea Objective Vital Signs Last 24 Hour Vital Signs Date Time Temp Pulse Resp B/P (MAP) Pulse Ox O2 Delivery O2 Flow Rate FiO2 02/28/17 12:00 65 02/28/17 12:00 97.2 67 21 127/77 98 02/28/17 08:00 74 02/28/17 08:00 97.9 77 22 129/83 99 02/28/17 07:59 Venturi Mask 8.0 40 02/28/17 07:59 97 Venturi Mask 8.0 40 02/28/17 07:58 74 18 Venturi Mask 8.0 40 02/28/17 04:26 97.1 74 20 116/78 98 Venturi Mask 02/28/17 04:00 77 02/28/17 00:11 97.1 65 18 115/84 96 Venturi Mask 8.0 40 02/28/17 00:00 77 02/27/17 20:27 97.4 74 18 142/90 96 Venturi Mask 02/27/17 20:00 75 02/27/17 19:42 Venturi Mask 8.0 40 02/27/17 19:42 99 Venturi Mask 8.0 40 02/27/17 19:42 71 20 Venturi Mask 8.0 40 02/27/17 16:00 75 02/27/17 16:00 97.0 71 19 114/81 98 Height (Feet): 6 Height (Inches): 2.00 Weight (Pounds): 200 General Appearance: WD/WN, no acute distress HEENT: normocephalic, atraumatic, anicteric, mucous membranes moist, EOMI, pharynx normal, supple, no JVD Respiratory/Chest: chest wall non-tender, lungs clear, normal breath sounds, no respiratory distress, no accessory muscle use Cardiovascular: normal peripheral pulses, normal rate, regular rhythm, no gallop/murmur, no JVD Abdomen: normal bowel sounds, soft, non tender, no organomegaly, non distended , no mass, no scars Extremities: no cyanosis, no clubbing Skin: no rash, no lesions, no ulcers Neurologic/Psychiatric: alert, responsive Lymphatic: no neck adenopathy, no groin adenopathy Microbiology Date/Time Source Procedure Growth Status 02/25/17 14:30 Stool Clostridium difficile Toxin Assay - Final Complete Laboratory Tests Test 02/27/17 16:45 02/28/17 06:59 Potassium Level 4.0 MMOL/L (3.5-5.1) 4.4 MMOL/L (3.5-5.1) Blood Urea Nitrogen 113 mg/dL (7-18) H 107 mg/dL (7-18) H Creatinine 3.9 MG/DL (0.55-1.30) H 3.9 MG/DL (0.55-1.30) H Estimat Glomerular Filtration Rate 19.3 mL/min (>60) 19.3 mL/min (>60) White Blood Count 11.2 K/UL (4.8-10.8) H Red Blood Count 4.58 M/UL (4.70-6.10) L Hemoglobin 13.3 G/DL (14.2-18.0) L Hematocrit 40.6 % (42.0-52.0) L Mean Corpuscular Volume 89 FL (80-99) Mean Corpuscular Hemoglobin 29.1 PG (27.0-31.0) Mean Corpuscular Hemoglobin Concent 32.8 G/DL (32.0-36.0) Red Cell Distribution Width 13.4 % (11.6-14.8) Platelet Count 178 K/UL (150-450) Mean Platelet Volume 8.4 FL (6.5-10.1) Neutrophils (%) (Auto) 83.3 % (45.0-75.0) H Lymphocytes (%) (Auto) 10.6 % (20.0-45.0) L Monocytes (%) (Auto) 4.3 % (1.0-10.0) Eosinophils (%) (Auto) 1.4 % (0.0-3.0) Basophils (%) (Auto) 0.5 % (0.0-2.0) Sodium Level 152 MMOL/L (136-145) H Chloride Level 118 MMOL/L (98-107) H Carbon Dioxide Level 23 MMOL/L (21-32) Anion Gap 11 mmol/L (5-15) Glucose Level 186 MG/DL (74-106) H Calcium Level 7.9 MG/DL (8.5-10.1) L Current Medications Medications (Trade) Dose Ordered Sig/Megan Route PRN Reason Start Time Stop Time Status Last Admin Dose Admin Acetaminophen (Tylenol) 650 mg Q4H PRN ORAL Mild Pain (Pain Scale 1-3) 02/23/17 06:30 03/25/17 06:29 02/25/17 05:34 Aspirin (ASA) 81 mg DAILY NG 02/25/17 09:00 03/27/17 08:59 02/28/17 08:56 Cefepime HCl 1 gm/ Dextrose 55 ml @ 110 mls/hr Q24H IVPB 02/23/17 09:00 03/02/17 08:59 02/28/17 08:56 Clindamycin HCl/ Dextrose 50 ml @ 100 mls/hr Q8HR IV 02/23/17 16:00 03/02/17 15:59 02/28/17 13:52 Dextrose (Dextrose 50%) STAT PRN IV Hypoglycemia 02/23/17 12:15 03/25/17 12:14 02/24/17 19:10 Heparin Sodium (Porcine) (Heparin 5000 units/ml) 5,000 units EVERY 12 HOURS SUBQ 02/23/17 09:00 03/25/17 08:59 02/28/17 09:08 Insulin Aspart (NovoLOG) EVERY 6 HOURS SUBQ 02/25/17 18:00 03/25/17 13:29 02/28/17 12:23 Insulin Detemir (Levemir) 20 units Q12HR SUBQ 02/27/17 22:00 03/29/17 21:59 02/28/17 09:40 Pantoprazole (Protonix) 40 mg DAILY IVP 02/25/17 09:00 03/27/17 08:59 02/28/17 08:55 Polyethylene Glycol (Miralax) 17 gm BEDTIME ORAL 02/24/17 21:00 03/26/17 20:59 02/26/17 21:58 Kamala Leon M.D. Feb 28, 2017 14:01
[2017-02-28 16:00] VITALS: BP 121/75
[2017-02-28] MEDS ORDERED: Sterile Water Irrig 1000ml IRRIG ONE ×2 (16:21→16:52)
[2017-02-28] MEDS ORDERED: NS 500ML ONE ×2 (16:21→16:52)
[2017-02-28] MEDS ORDERED: Tubing IV Secondary IV ONE ×2 (16:52)
[2017-02-28 20:25] VITALS: BP 113/76
[2017-02-28] MEDS: Dyna-Hex 2% Top Sol 2oz TOPIC SCH (20:31)
[2017-02-28] MEDS: Miralax 17gm pkt ORAL SCH (21:06)
[2017-03-01 00:34] VITALS: BP 115/62
[2017-03-01 04:19] VITALS: BP 108/59
[2017-03-01 05:20] LABS: BASOPHILS % (AUTO) 0.3 % (0.0-2.0); LYMPHOCYTES % (AUTO) 15.4 % (20.0-45.0); MEAN CORPUSCULAR HEMOGLOBIN 28.1 PG (27.0-31.0); MEAN CORPUSCULAR HGB CONC 31.9 G/DL (32.0-36.0); MEAN CORPUSCULAR VOLUME 88 FL (80-99); MEAN PLATELET VOLUME 8.6 FL (6.5-10.1); MONOCYTES % (AUTO) 4.8 % (1.0-10.0); NEUTROPHILS % (AUTO) 78.4 % (45.0-75.0); PLATELET COUNT 204 K/UL (150-450); RED BLOOD COUNT 4.87 M/UL (4.70-6.10); RED CELL DISTRIBUTION WIDTH 13.5 % (11.6-14.8); WHITE BLOOD COUNT 12.8 K/UL (4.8-10.8)
[2017-03-01 05:27] LABS: ANION GAP 8 mmol/L (5-15); CALCIUM 8.2 MG/DL (8.5-10.1); CARBON DIOXIDE 29 MMOL/L (21-32); CHLORIDE 111 MMOL/L (98-107); CREATININE 2.9 MG/DL (0.55-1.30); GLOMERULAR FILTRATION RATE 27.1 mL/min (>60); POTASSIUM 3.9 MMOL/L (3.5-5.1); SODIUM 148 MMOL/L (136-145)
[2017-03-01 05:32] LABS: PROTHROMBIN TIME 10.2 SEC (9.30-11.50)
[2017-03-01] MEDS: Clindamycin 600mg 50 ML IV SCH (05:38)
[2017-03-01] MEDS: NovoLOG Insulin Flexpen SUBQ SCH ×5 (06:00→23:55)
[2017-03-01 08:47] VITALS: BP 106/76
[2017-03-01] MEDS: Aspirin Baby 81mg NG SCH (09:00)
[2017-03-01] MEDS: Levemir Flexpen SUBQ SCH ×2 (09:00→21:18)
[2017-03-01] MEDS: Heparin 5000 units/ml inj SUBQ SCH ×2 (09:00→21:19)
[2017-03-01] MEDS: Pantoprazole Inj IVP SCH (09:38)
[2017-03-01] MEDS: Cefepime HCl 1 GM in D5W 55 ML IVPB SCH (09:39)
--- NOTE | 2017-03-01 10:39 | GI Progress Note ---
Assessment/Plan Problems: (1) Dysphagia due to recent stroke ICD Codes: I69.391 - Dysphagia following cerebral infarction SNOMED: 43272670, 390793528 (2) Encounter for PEG (percutaneous endoscopic gastrostomy) ICD Codes: Z43.1 - Encounter for attention to gastrostomy SNOMED: 135256828, 345595984 (3) DM (diabetes mellitus) ICD Codes: E11.9 - Type 2 diabetes mellitus without complications SNOMED: 28533795 Status: progressing Status Narrative Discussed with Dr. Olmedo. Assessment/Plan POLST reviewed >> FULL treatment - primary decision maker would be the Brother >> Gigi Lepe @ [phone] or [phone] lactic acid >> now normal video swallow cancelled, pt will be scheduled for PEG tomorrow. - NGTFs now, NPO @ NE. - hold all blood thinners tonight. fu nephrology DM control DVT prophylaxis ppi daily monitor H&H, prn transfusions. electrolyte correction bowel regime >> colace + miralax abx fu labs Subjective Subjective limited, more awake and alert Objective Last 24 Hour Vital Signs Date Time Temp Pulse Resp B/P (MAP) Pulse Ox O2 Delivery O2 Flow Rate FiO2 03/01/17 08:47 97.0 69 20 106/76 97 03/01/17 04:19 98.0 69 18 108/59 98 Venturi Mask 03/01/17 04:00 75 03/01/17 00:34 97.1 86 18 115/62 98 Venturi Mask 02/28/17 21:00 65 02/28/17 20:25 96.3 92 18 113/76 96 Venturi Mask 02/28/17 19:00 Venturi Mask 8.0 40 02/28/17 19:00 72 18 Venturi Mask 8.0 40 02/28/17 19:00 98 Venturi Mask 8.0 40 02/28/17 16:20 Simple Mask 02/28/17 16:00 62 02/28/17 16:00 98.0 64 21 121/75 98 02/28/17 12:00 65 02/28/17 12:00 98 Venturi Mask 8.0 40 02/28/17 12:00 97.2 67 21 127/77 98 Laboratory Tests Test 03/01/17 04:00 White Blood Count 12.8 K/UL (4.8-10.8) H Red Blood Count 4.87 M/UL (4.70-6.10) Hemoglobin 13.7 G/DL (14.2-18.0) L Hematocrit 42.9 % (42.0-52.0) Mean Corpuscular Volume 88 FL (80-99) Mean Corpuscular Hemoglobin 28.1 PG (27.0-31.0) Mean Corpuscular Hemoglobin Concent 31.9 G/DL (32.0-36.0) L Red Cell Distribution Width 13.5 % (11.6-14.8) Platelet Count 204 K/UL (150-450) Mean Platelet Volume 8.6 FL (6.5-10.1) Neutrophils (%) (Auto) 78.4 % (45.0-75.0) H Lymphocytes (%) (Auto) 15.4 % (20.0-45.0) L Monocytes (%) (Auto) 4.8 % (1.0-10.0) Eosinophils (%) (Auto) 1.0 % (0.0-3.0) Basophils (%) (Auto) 0.3 % (0.0-2.0) Prothrombin Time 10.2 SEC (9.30-11.50) Prothromb Time International Ratio 1.0 (0.9-1.1) Activated Partial Thromboplast Time 30 SEC (23-33) Sodium Level 148 MMOL/L (136-145) H Potassium Level 3.9 MMOL/L (3.5-5.1) Chloride Level 111 MMOL/L (98-107) H Carbon Dioxide Level 29 MMOL/L (21-32) Anion Gap 8 mmol/L (5-15) Blood Urea Nitrogen 67 mg/dL (7-18) H Creatinine 2.9 MG/DL (0.55-1.30) H Estimat Glomerular Filtration Rate 27.1 mL/min (>60) Glucose Level 68 MG/DL (74-106) #L Calcium Level 8.2 MG/DL (8.5-10.1) L Height (Feet): 6 Height (Inches): 2.00 Weight (Pounds): 200 General Appearance: no apparent distress, alert Cardiovascular: normal rate Respiratory/Chest: other - venturi mask Abdominal Exam: other - NGTFS Winters,Mariaa Pete N.P. Mar 01, 2017 10:39
--- NOTE | 2017-03-01 11:24 | Cardiac Electrophysiology PN ---
Assessment/Plan Assessment/Plan 1. Troponin elevation of 0.091 and 0.099, likely due to renal failure. Echo EF 50%. No chest pain 2. Status post DDD [employer] ICD implantation with normal fx. 3. History of cardiomyopathy. EF normal now. 4.Hypernatremia and ARF, per Dr. Zurita. Had dialysis yesterday Going for fistula placement by Dr. Paredes in am. 5. Dysphagia. PEG placement today if fails swallow eval again. PARKER RN Subjective Subjective Comfortable in NAD.NPO for swallow eval again and if fails PEG today per Dr Olmedo. Objective Last 24 Hour Vital Signs Date Time Temp Pulse Resp B/P (MAP) Pulse Ox O2 Delivery O2 Flow Rate FiO2 03/01/17 08:47 97.0 69 20 106/76 97 03/01/17 08:00 67 03/01/17 04:19 98.0 69 18 108/59 98 Venturi Mask 03/01/17 04:00 75 03/01/17 00:34 97.1 86 18 115/62 98 Venturi Mask 02/28/17 21:00 65 02/28/17 20:25 96.3 92 18 113/76 96 Venturi Mask 02/28/17 19:00 Venturi Mask 8.0 40 02/28/17 19:00 72 18 Venturi Mask 8.0 40 02/28/17 19:00 98 Venturi Mask 8.0 40 02/28/17 16:20 Simple Mask 02/28/17 16:00 62 02/28/17 16:00 98.0 64 21 121/75 98 02/28/17 12:00 65 02/28/17 12:00 98 Venturi Mask 8.0 40 02/28/17 12:00 97.2 67 21 127/77 98 Laboratory Tests Test 03/01/17 04:00 White Blood Count 12.8 K/UL (4.8-10.8) H Red Blood Count 4.87 M/UL (4.70-6.10) Hemoglobin 13.7 G/DL (14.2-18.0) L Hematocrit 42.9 % (42.0-52.0) Mean Corpuscular Volume 88 FL (80-99) Mean Corpuscular Hemoglobin 28.1 PG (27.0-31.0) Mean Corpuscular Hemoglobin Concent 31.9 G/DL (32.0-36.0) L Red Cell Distribution Width 13.5 % (11.6-14.8) Platelet Count 204 K/UL (150-450) Mean Platelet Volume 8.6 FL (6.5-10.1) Neutrophils (%) (Auto) 78.4 % (45.0-75.0) H Lymphocytes (%) (Auto) 15.4 % (20.0-45.0) L Monocytes (%) (Auto) 4.8 % (1.0-10.0) Eosinophils (%) (Auto) 1.0 % (0.0-3.0) Basophils (%) (Auto) 0.3 % (0.0-2.0) Prothrombin Time 10.2 SEC (9.30-11.50) Prothromb Time International Ratio 1.0 (0.9-1.1) Activated Partial Thromboplast Time 30 SEC (23-33) Sodium Level 148 MMOL/L (136-145) H Potassium Level 3.9 MMOL/L (3.5-5.1) Chloride Level 111 MMOL/L (98-107) H Carbon Dioxide Level 29 MMOL/L (21-32) Anion Gap 8 mmol/L (5-15) Blood Urea Nitrogen 67 mg/dL (7-18) H Creatinine 2.9 MG/DL (0.55-1.30) H Estimat Glomerular Filtration Rate 27.1 mL/min (>60) Glucose Level 68 MG/DL (74-106) #L Calcium Level 8.2 MG/DL (8.5-10.1) L Objective HEAD AND NECK: Shows mild JVD.Right IG Taran catheter. NG tube is in. LUNGS: Decreased breath sounds. CARDIOVASCULAR: Shows regular S1 and S2 with no gallop. ICD left subclavian. ABDOMEN: Soft. EXTREMITIES: Upper extremity contractions. GAGAN JUNIOR Mar 01, 2017 11:23
[2017-03-01 11:45] VITALS: BP 107/67
--- NOTE | 2017-03-01 12:17 | Nephrology Progress Note ---
Assessment/Plan Problem List: (1) Hypernatremia (2) Hyperglycemia (3) Hypoxia (4) Sepsis (5) UTI (urinary tract infection) (6) HCAP (healthcare-associated pneumonia) (7) DM (diabetes mellitus) (8) Dysphagia due to recent stroke (9) CKD (chronic kidney disease) Plan S/p HD 02/28/17, net loss 2500cc Renally dose meds, avoid nephrotoxins Strict glycemic control Continue o2 therapy Swallow eval scheduled today, f/u with GI Abx per ID DVT prophylaxis, PPI Subjective ROS Limited/Unobtainable: Yes Subjective In bed, in no apparent distress, non verbal, moans when touched, on O2 via face mask Objective Objective Last 24 Hour Vital Signs Date Time Temp Pulse Resp B/P (MAP) Pulse Ox O2 Delivery O2 Flow Rate FiO2 03/01/17 11:45 97.2 68 20 107/67 96 03/01/17 08:47 97.0 69 20 106/76 97 03/01/17 08:00 67 03/01/17 04:19 98.0 69 18 108/59 98 Venturi Mask 03/01/17 04:00 75 03/01/17 00:34 97.1 86 18 115/62 98 Venturi Mask 02/28/17 21:00 65 02/28/17 20:25 96.3 92 18 113/76 96 Venturi Mask 02/28/17 19:00 Venturi Mask 8.0 40 02/28/17 19:00 72 18 Venturi Mask 8.0 40 02/28/17 19:00 98 Venturi Mask 8.0 40 02/28/17 16:20 Simple Mask 02/28/17 16:00 62 02/28/17 16:00 98.0 64 21 121/75 98 Laboratory Tests 03/01/17 04:00: White Blood Count 12.8H, Red Blood Count 4.87, Hemoglobin 13.7L, Hematocrit 42.9 , Mean Corpuscular Volume 88, Mean Corpuscular Hemoglobin 28.1, Mean Corpuscular Hemoglobin Concent 31.9L, Red Cell Distribution Width 13.5, Platelet Count 204, Mean Platelet Volume 8.6, Neutrophils (%) (Auto) 78.4H, Lymphocytes (%) (Auto) 15.4L, Monocytes (%) (Auto) 4.8, Eosinophils (%) (Auto) 1.0, Basophils (%) (Auto) 0.3, Prothrombin Time 10.2, Prothromb Time International Ratio 1.0, Activated Partial Thromboplast Time 30, Sodium Level 148H, Potassium Level 3.9, Chloride Level 111H, Carbon Dioxide Level 29, Anion Gap 8, Blood Urea Nitrogen 67H, Creatinine 2.9H, Estimat Glomerular Filtration Rate 27.1, Glucose Level 68#L, Calcium Level 8.2L Height (Feet): 6 Height (Inches): 2.00 Weight (Pounds): 200 General Appearance: no apparent distress EENT: PERRL/EOMI, normal ENT inspection Neck: non-tender, normal alignment, other - right saul cath Cardiovascular: normal rate, no JVD Respiratory/Chest: decreased breath sounds Abdomen: non tender, soft Extremities: non-tender, moderate edema, pitting Neurologic: motor weakness Mary Barboza N.P. Mar 01, 2017 12:17
--- NOTE | 2017-03-01 13:55 | Infectious Diseases Prog Note ---
Assessment/Plan Problems: (1) HCAP (healthcare-associated pneumonia) Assessment & Plan: with hypoxemia and leukocytosis , improving on cefepime and clindamycin empiric coverage, blood culture is negative , will stop clindamycin , repeat CXR (2) UTI (urinary tract infection) Assessment & Plan: with pseudomonas , already on cefepime , will treat for two weeks total . EOT 03/09/17 (3) Sepsis Assessment & Plan: ruled out with negative blood culture , on cefepime for UTI due to pseudomonas for two weeks (4) Acute kidney injury Assessment & Plan: due to sepsis , not improving with hydrations, avoid nephrotoxic, monitor renal function , had dialysis catheter placed for HD , renal is following (5) Hyperglycemia Assessment & Plan: improving due to sepsis, recommend tight glycemic control to keep blood glucose between 80-120 Subjective Constitutional: Reports: no symptoms HEENT: Reports: no symptoms Respiratory: Reports: dry cough Breasts: Reports: no symptoms Cardiovascular: Reports: no symptoms Gastrointestinal/Abdominal: Reports: no symptoms Genitourinary: Reports: no symptoms Neurologic: Reports: no symptoms Psychiatric: Reports: no symptoms Skin: Reports: no symptoms Endocrine: Reports: no symptoms Hematologic: Reports: no symptoms Musculoskeletal: Reports: no symptoms Allergies: Coded Allergies: No Known Allergies (Unverified , 11/15/15) Subjective he was up in bed, more awake and alert, has NGT in , and ventimask, comfortable , not febrile, not in distress, no diarrhea Objective Vital Signs Last 24 Hour Vital Signs Date Time Temp Pulse Resp B/P (MAP) Pulse Ox O2 Delivery O2 Flow Rate FiO2 03/01/17 11:45 97.2 68 20 107/67 96 03/01/17 08:47 97.0 69 20 106/76 97 03/01/17 08:00 67 03/01/17 04:19 98.0 69 18 108/59 98 Venturi Mask 03/01/17 04:00 75 03/01/17 00:34 97.1 86 18 115/62 98 Venturi Mask 02/28/17 21:00 65 02/28/17 20:25 96.3 92 18 113/76 96 Venturi Mask 02/28/17 19:00 Venturi Mask 8.0 40 02/28/17 19:00 72 18 Venturi Mask 8.0 40 02/28/17 19:00 98 Venturi Mask 8.0 40 02/28/17 16:20 Simple Mask 02/28/17 16:00 62 02/28/17 16:00 98.0 64 21 121/75 98 Height (Feet): 6 Height (Inches): 2.00 Weight (Pounds): 200 General Appearance: WD/WN, no acute distress HEENT: normocephalic, atraumatic, anicteric, mucous membranes moist, PERRL, EOMI, pharynx normal, supple, no JVD Respiratory/Chest: chest wall non-tender, lungs clear, normal breath sounds, no respiratory distress, no accessory muscle use Cardiovascular: normal peripheral pulses, normal rate, regular rhythm, no gallop/murmur, no JVD Abdomen: normal bowel sounds, soft, non tender, no organomegaly, non distended , no mass, no scars Extremities: no cyanosis, no clubbing Skin: no rash, no lesions Neurologic/Psychiatric: alert, oriented x 3, responsive Lymphatic: no neck adenopathy, no groin adenopathy Musculoskeletal: normal muscle bulk Laboratory Tests Test 03/01/17 04:00 White Blood Count 12.8 K/UL (4.8-10.8) H Red Blood Count 4.87 M/UL (4.70-6.10) Hemoglobin 13.7 G/DL (14.2-18.0) L Hematocrit 42.9 % (42.0-52.0) Mean Corpuscular Volume 88 FL (80-99) Mean Corpuscular Hemoglobin 28.1 PG (27.0-31.0) Mean Corpuscular Hemoglobin Concent 31.9 G/DL (32.0-36.0) L Red Cell Distribution Width 13.5 % (11.6-14.8) Platelet Count 204 K/UL (150-450) Mean Platelet Volume 8.6 FL (6.5-10.1) Neutrophils (%) (Auto) 78.4 % (45.0-75.0) H Lymphocytes (%) (Auto) 15.4 % (20.0-45.0) L Monocytes (%) (Auto) 4.8 % (1.0-10.0) Eosinophils (%) (Auto) 1.0 % (0.0-3.0) Basophils (%) (Auto) 0.3 % (0.0-2.0) Prothrombin Time 10.2 SEC (9.30-11.50) Prothromb Time International Ratio 1.0 (0.9-1.1) Activated Partial Thromboplast Time 30 SEC (23-33) Sodium Level 148 MMOL/L (136-145) H Potassium Level 3.9 MMOL/L (3.5-5.1) Chloride Level 111 MMOL/L (98-107) H Carbon Dioxide Level 29 MMOL/L (21-32) Anion Gap 8 mmol/L (5-15) Blood Urea Nitrogen 67 mg/dL (7-18) H Creatinine 2.9 MG/DL (0.55-1.30) H Estimat Glomerular Filtration Rate 27.1 mL/min (>60) Glucose Level 68 MG/DL (74-106) #L Calcium Level 8.2 MG/DL (8.5-10.1) L Current Medications Medications (Trade) Dose Ordered Sig/Megan Route PRN Reason Start Time Stop Time Status Last Admin Dose Admin Acetaminophen (Tylenol) 650 mg Q4H PRN ORAL Mild Pain (Pain Scale 1-3) 02/23/17 06:30 03/25/17 06:29 02/25/17 05:34 Aspirin (ASA) 81 mg DAILY NG 02/25/17 09:00 03/27/17 08:59 02/28/17 08:56 Cefepime HCl 1 gm/ Dextrose 55 ml @ 110 mls/hr Q24H IVPB 02/23/17 09:00 03/06/17 08:59 03/01/17 09:39 Chlorhexidine Gluconate (Iman-Hex 2%) 1 applic DAILY@2000 TOPIC 02/28/17 20:15 03/30/17 20:14 02/28/17 20:31 Clindamycin HCl/ Dextrose 50 ml @ 100 mls/hr Q8HR IV 02/23/17 16:00 03/06/17 15:59 03/01/17 05:38 Dextrose (Dextrose 50%) STAT PRN IV Hypoglycemia 02/23/17 12:15 03/25/17 12:14 02/24/17 19:10 Heparin Sodium (Porcine) (Heparin 5000 units/ml) 5,000 units EVERY 12 HOURS SUBQ 02/23/17 09:00 03/25/17 08:59 02/28/17 09:08 Insulin Aspart (NovoLOG) EVERY 6 HOURS SUBQ 02/25/17 18:00 03/25/17 13:29 02/28/17 18:01 Insulin Detemir (Levemir) 20 units Q12HR SUBQ 02/27/17 22:00 03/29/17 21:59 02/28/17 21:06 Pantoprazole (Protonix) 40 mg DAILY IVP 02/25/17 09:00 03/27/17 08:59 03/01/17 09:38 Polyethylene Glycol (Miralax) 17 gm BEDTIME ORAL 02/24/17 21:00 03/26/17 20:59 02/28/17 21:06 Kamala Leon M.D. Mar 01, 2017 13:55
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
[2017-03-01 15:41] VITALS: BP 107/78
[2017-03-01] MEDS ORDERED: Tubing IV Secondary IV ONE (16:59)
[2017-03-01] MEDS ORDERED: Sterile Water Irrig 1000ml IRRIG ONE (16:59)
[2017-03-01 20:00] VITALS: BP 124/88
[2017-03-01] MEDS: Dyna-Hex 2% Top Sol 2oz TOPIC SCH (21:15)
[2017-03-01] MEDS: Miralax 17gm pkt ORAL SCH (21:15)
[2017-03-02] VITALS (14 sets, daily range): BP systolic 98–128; BP diastolic 62–95
--- NOTE | 2017-03-02 05:58 | General Progress Note ---
Assessment/Plan Problem List: (1) Encounter for PEG (percutaneous endoscopic gastrostomy) ICD Codes: Z43.1 - Encounter for attention to gastrostomy SNOMED: 132696186, 931295225 (2) Dysphagia due to recent stroke ICD Codes: I69.391 - Dysphagia following cerebral infarction SNOMED: 50775958, 874689548 (3) Hyperglycemia due to type 2 diabetes mellitus ICD Codes: E11.65 - Type 2 diabetes mellitus with hyperglycemia SNOMED: 482318718662586 (4) Hypernatremia ICD Codes: E87.0 - Hyperosmolality and hypernatremia SNOMED: 28622427 Assessment/Plan low glucose noted yesterday am reduce Levemir to 15 units bid continue SSI q 6 hours Subjective ROS Limited/Unobtainable: Yes Allergies: Coded Allergies: No Known Allergies (Unverified , 11/15/15) Subjective events noted Objective Last 24 Hour Vital Signs Date Time Temp Pulse Resp B/P (MAP) Pulse Ox O2 Delivery O2 Flow Rate FiO2 03/02/17 04:00 65 03/02/17 00:00 87 03/02/17 00:00 97.0 66 22 122/85 98 Nasal Cannula 6.0 03/01/17 20:00 97.2 69 20 124/88 98 03/01/17 20:00 68 03/01/17 19:32 98 Venturi Mask 8.0 40 03/01/17 19:32 Venturi Mask 8.0 40 03/01/17 16:35 99 Venturi Mask 8.0 40 03/01/17 16:35 Venturi Mask 8.0 40 03/01/17 16:33 73 16 Venturi Mask 8.0 40 03/01/17 16:00 75 03/01/17 15:41 97.3 73 20 107/78 95 03/01/17 12:00 67 03/01/17 11:45 97.2 68 20 107/67 96 03/01/17 08:47 97.0 69 20 106/76 97 03/01/17 08:00 67 Height (Feet): 6 Height (Inches): 2.00 Weight (Pounds): 200 General Appearance: no apparent distress Neck: normal alignment Cardiovascular: normal rate Respiratory/Chest: lungs clear Abdomen: normal bowel sounds Objective Current Medications Medications (Trade) Dose Ordered Sig/Megan Route PRN Reason Start Time Stop Time Status Last Admin Dose Admin Acetaminophen (Tylenol) 650 mg Q4H PRN ORAL Mild Pain (Pain Scale 1-3) 02/23/17 06:30 03/25/17 06:29 02/25/17 05:34 Aspirin (ASA) 81 mg DAILY NG 02/25/17 09:00 03/27/17 08:59 02/28/17 08:56 Cefepime HCl 1 gm/ Dextrose 55 ml @ 110 mls/hr Q24H IVPB 02/23/17 09:00 03/06/17 08:59 03/01/17 09:39 Chlorhexidine Gluconate (Iman-Hex 2%) 1 applic DAILY@2000 TOPIC 02/28/17 20:15 03/30/17 20:14 03/01/17 21:15 Clotrimazole (Lotrimin) 1 applic EVERY 12 HOURS TOPIC 03/01/17 21:00 03/31/17 20:59 03/01/17 21:18 Dextrose (Dextrose 50%) STAT PRN IV Hypoglycemia 02/23/17 12:15 03/25/17 12:14 02/24/17 19:10 Heparin Sodium (Porcine) (Heparin 5000 units/ml) 5,000 units EVERY 12 HOURS SUBQ 02/23/17 09:00 03/25/17 08:59 03/01/17 21:19 Insulin Aspart (NovoLOG) EVERY 6 HOURS SUBQ 02/25/17 18:00 03/25/17 13:29 03/01/17 23:55 Insulin Detemir (Levemir) 20 units Q12HR SUBQ 02/27/17 22:00 03/29/17 21:59 03/01/17 21:18 Pantoprazole (Protonix) 40 mg DAILY IVP 02/25/17 09:00 03/27/17 08:59 03/01/17 09:38 Polyethylene Glycol (Miralax) 17 gm BEDTIME ORAL 02/24/17 21:00 03/26/17 20:59 03/01/17 21:15 Item Value Date Time Bedside Blood Glucose 218 mg/dl H 03/02/17 0000 Bedside Blood Glucose 190 mg/dl H 03/01/17 2118 Bedside Blood Glucose 174 mg/dl H 03/01/17 1804 Bedside Blood Glucose 70 mg/dl 03/01/17 1200 Bedside Blood Glucose 71 mg/dl 03/01/17 0900 Bedside Blood Glucose 71 mg/dl 03/01/17 0600 MARIA VICTORIA GOMEZ Mar 02, 2017 05:58
[2017-03-02] MEDS: NovoLOG Insulin Flexpen SUBQ SCH ×3 (06:00→17:51)
[2017-03-02 06:35] LABS: BASOPHILS % (AUTO) 0.5 % (0.0-2.0); EOSINOPHILS % (AUTO) 1.2 % (0.0-3.0); LYMPHOCYTES % (AUTO) 21.6 % (20.0-45.0); MEAN CORPUSCULAR HEMOGLOBIN 29.5 PG (27.0-31.0); MEAN CORPUSCULAR HGB CONC 33.5 G/DL (32.0-36.0); MEAN CORPUSCULAR VOLUME 88 FL (80-99); MEAN PLATELET VOLUME 7.9 FL (6.5-10.1); MONOCYTES % (AUTO) 4.8 % (1.0-10.0); NEUTROPHILS % (AUTO) 71.9 % (45.0-75.0); PLATELET COUNT 245 K/UL (150-450); RED BLOOD COUNT 4.63 M/UL (4.70-6.10); RED CELL DISTRIBUTION WIDTH 13.6 % (11.6-14.8); WHITE BLOOD COUNT 12.3 K/UL (4.8-10.8)
[2017-03-02 06:40] LABS: PROTHROMBIN TIME 10.2 SEC (9.30-11.50)
[2017-03-02 07:28] LABS: ALANINE AMINOTRANSFERASE 26 U/L (12-78); ALBUMIN/GLOBULIN RATIO 0.2 (1.0-2.7); ANION GAP 8 mmol/L (5-15); ASPARTATE AMINO TRANSFERASE 28 U/L (15-37); CALCIUM 8.6 MG/DL (8.5-10.1); CARBON DIOXIDE 30 MMOL/L (21-32); CHLORIDE 113 MMOL/L (98-107); CREATININE 3.2 MG/DL (0.55-1.30); GLOMERULAR FILTRATION RATE 24.2 mL/min (>60); POTASSIUM 3.9 MMOL/L (3.5-5.1); SODIUM 151 MMOL/L (136-145); TOTAL PROTEIN 6.7 G/DL (6.4-8.2)
[2017-03-02] MEDS: Aspirin Baby 81mg NG SCH ×2 (09:00→09:27)
[2017-03-02] MEDS: Heparin 5000 units/ml inj SUBQ SCH ×2 (09:00→21:00)
[2017-03-02] MEDS: Levemir Flexpen SUBQ SCH ×2 (09:25→21:00)
[2017-03-02] MEDS: Pantoprazole Inj IVP SCH (09:27)
[2017-03-02] MEDS: Cefepime HCl 1 GM in D5W 55 ML IVPB SCH (09:33)
[2017-03-02 11:19] LABS: PROTHROMBIN TIME 10.1 SEC (9.30-11.50)
[2017-03-02 11:47] LABS: ANION GAP 6 mmol/L (5-15); CALCIUM 8.5 MG/DL (8.5-10.1); CARBON DIOXIDE 32 MMOL/L (21-32); CHLORIDE 105 MMOL/L (98-107); GLOMERULAR FILTRATION RATE 41.7 mL/min (>60); POTASSIUM 4.3 MMOL/L (3.5-5.1); SODIUM 143 MMOL/L (136-145)
[2017-03-02 11:51] LABS: ALANINE AMINOTRANSFERASE 24 U/L (12-78); ALBUMIN/GLOBULIN RATIO 0.2 (1.0-2.7); ASPARTATE AMINO TRANSFERASE 31 U/L (15-37); TOTAL PROTEIN 7.1 G/DL (6.4-8.2)
--- NOTE | 2017-03-02 12:18 | Pre-Procedure Note/Attestation ---
Pre-Procedure Note/Attestation Complete Prior to Procedure Planned Procedure: not applicable Procedure Narrative: egd/peg Indications for Procedure Pre-Operative Diagnosis: dysphagia Attestation I attest that I discussed the nature of the procedure; its benefits; risks and complications; and alternatives (and the risks and benefits of such alternatives ), prior to the procedure, with the patient (or the patient's legal product support sales representative). I attest that, if there was a reasonable possibility of needing a blood transfusion, the patient (or the patient's legal product support sales representative) was given the [facility] standardized written summary, pursuant to the Jefe Jamel Blood Safety Act ([place] Health and Safety Code # 1645, as amended). I attest that I re-evaluated the patient just prior to the surgery and that there has been no change in the patient's H&P, except as documented below: SARINA MCLEAN Mar 02, 2017 12:18
--- NOTE | 2017-03-02 12:19 | Anethesia Preoperative Eval ---
Anesthesia Pre-op PMH/ROS General Date of Evaluation: Mar 02, 2017 Time of Evaluation: 12:00 Anesthesiologist: Gary ASA Score: ASA 4 Mallampati Score Class I : Soft palate, uvula, fauces, pillars visible Class II: Soft palate, uvula, fauces visible Class III: Soft palate, base of uvula visible Class IV: Only hard plate visible Mallampati Classification: Class II Surgeon: Shara Diagnosis: Failure to thrive Surgical Procedure: EGD, PEG Allergies: Coded Allergies: No Known Allergies (Unverified , 11/15/15) Medications: see eMAR Past Medical History Cardiovascular: Reports: arrhythmia, other - Cardiomyopathy Pulmonary: Reports: other - Pneumonia, Denies: asthma, COPD, LUCIAN Gastrointestinal/Genitourinary: Reports: CRI, other - Acute renal disease, Denies: GERD, ESRD Neurologic/Psychiatric: Reports: dementia, CVA, TIA, Denies: depression/anxiety, other Endocrine: Reports: DM, Denies: hypothyroidism, steroids, other HEENT: Denies: cataract (L), cataract (R), glaucoma, DIOMEDE (L), DIOMEDE (R), other Hematology/Immune: Denies: anemia, DVT, bleeding disorder, other Musculoskeletal/Integumentary: Denies: OA, RA, DJD, DDD, edema, other PMH Narrative: CVA, dementia,DM, dysrhythmia, (s/p ICD), cardiomyopathy (EF now 50%), pneumonia , sepsis PSxH Narrative: GA, TIVA Anesthesia Pre-op Phys. Exam Physician Exam Last Vital Signs Date Time Temp Pulse Resp B/P (MAP) Pulse Ox O2 Delivery O2 Flow Rate FiO2 03/02/17 11:39 96.9 75 20 110/88 97 03/02/17 09:09 Venturi Mask 10.0 03/01/17 19:32 40 Constitutional: NAD Neurologic: other - Cannot obtain hystory from patient Cardiovascular: RRR, no M/R/G Respiratory: CTA Gastrointestinal: S/NT/ND Airway Exam Mallampati Score: Class II MO: full ROM: full Anesthesia Pre-op A/P Labs Hematology Test 03/02/17 05:35 White Blood Count 12.3 K/UL (4.8-10.8) H Red Blood Count 4.63 M/UL (4.70-6.10) L Hemoglobin 13.7 G/DL (14.2-18.0) L Hematocrit 40.8 % (42.0-52.0) L Mean Corpuscular Volume 88 FL (80-99) Mean Corpuscular Hemoglobin 29.5 PG (27.0-31.0) Mean Corpuscular Hemoglobin Concent 33.5 G/DL (32.0-36.0) Red Cell Distribution Width 13.6 % (11.6-14.8) Platelet Count 245 K/UL (150-450) Mean Platelet Volume 7.9 FL (6.5-10.1) Neutrophils (%) (Auto) 71.9 % (45.0-75.0) Lymphocytes (%) (Auto) 21.6 % (20.0-45.0) Monocytes (%) (Auto) 4.8 % (1.0-10.0) Eosinophils (%) (Auto) 1.2 % (0.0-3.0) Basophils (%) (Auto) 0.5 % (0.0-2.0) Coagulation Test 03/02/17 05:35 03/02/17 10:55 Prothrombin Time 10.2 SEC (9.30-11.50) 10.1 SEC (9.30-11.50) Prothromb Time International Ratio 1.0 (0.9-1.1) 1.0 (0.9-1.1) Activated Partial Thromboplast Time 29 SEC (23-33) 29 SEC (23-33) Chemistry Test 03/02/17 05:35 03/02/17 10:55 Sodium Level 151 MMOL/L (136-145) H 143 MMOL/L (136-145) Potassium Level 3.9 MMOL/L (3.5-5.1) 4.3 MMOL/L (3.5-5.1) Chloride Level 113 MMOL/L (98-107) H 105 MMOL/L (98-107) Carbon Dioxide Level 30 MMOL/L (21-32) 32 MMOL/L (21-32) Anion Gap 8 mmol/L (5-15) 6 mmol/L (5-15) Blood Urea Nitrogen 71 mg/dL (7-18) H 29 mg/dL (7-18) H Creatinine 3.2 MG/DL (0.55-1.30) H 2.0 MG/DL (0.55-1.30) H Estimat Glomerular Filtration Rate 24.2 mL/min (>60) 41.7 mL/min (>60) Glucose Level 55 MG/DL (74-106) L 114 MG/DL (74-106) H Calcium Level 8.6 MG/DL (8.5-10.1) 8.5 MG/DL (8.5-10.1) Total Bilirubin 0.2 MG/DL (0.2-1.0) 0.3 MG/DL (0.2-1.0) Aspartate Amino Transf (AST/SGOT) 28 U/L (15-37) 31 U/L (15-37) Alanine Aminotransferase (ALT/SGPT) 26 U/L (12-78) 24 U/L (12-78) Alkaline Phosphatase 99 U/L (46-116) 100 U/L (46-116) Total Protein 6.7 G/DL (6.4-8.2) 7.1 G/DL (6.4-8.2) Albumin 1.2 G/DL (3.4-5.0) L 1.3 G/DL (3.4-5.0) L Globulin 5.5 g/dL 5.8 g/dL Albumin/Globulin Ratio 0.2 (1.0-2.7) L 0.2 (1.0-2.7) L Studies Pre-op Studies: echo - EF now 50% Risk Assessment & Plan Assessment: 61 yo male with multiple organ disease now for PEG. Plan: GA, TIVA Pre-Antibiotics Drug: None SAMI GIORDANO M.D. Mar 02, 2017 12:19
[2017-03-02] MEDS ORDERED: NS 500ML IV ONE (12:20)
--- NOTE | 2017-03-02 12:21 | Immediate Post-Op Evaluation ---
Immediate Post-Op Evalulation Immediate Post-Op Evalulation Procedure: EGD, PEG Date of Evaluation: Mar 02, 2017 Time of Evaluation: 13:13 IV Fluids: 100 Blood Pressure Systolic: 109 Blood Pressure Diastolic: 84 Pulse Rate: 76 Respiratory Rate: 13 O2 Sat by Pulse Oximetry: 94 Temperature (Fahrenheit): 97.0 Pain Score (1-10): 0 Nausea: No Vomiting: No Complications No complication Patient Status: reacts, patent, none Hydration Status: adequate Drug: None SAMI GIORDANO M.D. Mar 02, 2017 12:21
--- NOTE | 2017-03-02 13:34 | Endoscopy Procedure Note ---
Endoscopy Procedure Note Indication for Procedure: ftt Procedures Performed: EGD, PEG Operative Findings/Diagnosis: same Specimen: none Pt Tolerated Procedure Well: Yes Estimated Blood Loss: none Anesthesiologist: serg Anesthesia: MAC Implant(s) used?: No 50 yrs or older w/o bx or poly: Not Applicable 10yrs. F/U not recommended: Not Applicable SARINA MCLEAN Mar 02, 2017 13:34
--- NOTE | 2017-03-02 14:20 | Infectious Diseases Prog Note ---
Assessment/Plan Problems: (1) HCAP (healthcare-associated pneumonia) Assessment & Plan: improved on cefepime and clindamycin empiric coverage, blood culture is negative , now off clindamycin , monitor CXR (2) UTI (urinary tract infection) Assessment & Plan: with pseudomonas , already on cefepime , will treat for two weeks total . EOT 03/09/17 (3) Sepsis Assessment & Plan: ruled out with negative blood culture , on cefepime for UTI due to pseudomonas for two weeks (4) Acute kidney injury Assessment & Plan: due to sepsis , not improving with hydrations, avoid nephrotoxic, monitor renal function , had dialysis catheter placed for HD , renal is following (5) Hyperglycemia Assessment & Plan: improving due to sepsis, recommend tight glycemic control to keep blood glucose between 80-120 (6) Dysphagia due to recent stroke Assessment & Plan: S/P PEG tube placement today by GI Subjective Constitutional: Reports: no symptoms HEENT: Reports: no symptoms Respiratory: Reports: no symptoms Breasts: Reports: no symptoms Cardiovascular: Reports: no symptoms Gastrointestinal/Abdominal: Reports: no symptoms Genitourinary: Reports: no symptoms Neurologic: Reports: no symptoms Psychiatric: Reports: no symptoms Skin: Reports: no symptoms Endocrine: Reports: no symptoms Hematologic: Reports: no symptoms Musculoskeletal: Reports: no symptoms Allergies: Coded Allergies: No Known Allergies (Unverified , 11/15/15) Subjective he just came back from PEG tube placement , was up in bed, awake and alert, on ventimask, comfortable, not febrile. not in distress Objective Vital Signs Last 24 Hour Vital Signs Date Time Temp Pulse Resp B/P (MAP) Pulse Ox O2 Delivery O2 Flow Rate FiO2 03/02/17 13:50 97.3 74 15 112/78 97 Venturi Mask 8.0 40 03/02/17 13:30 97.0 76 18 106/85 97 Venturi Mask 8.0 40 03/02/17 13:19 76 18 112/87 96 Venturi Mask 8.0 40 03/02/17 13:13 76 18 114/86 96 Venturi Mask 8.0 40 03/02/17 13:08 76 18 126/95 96 Venturi Mask 8.0 40 03/02/17 13:07 76 13 94 03/02/17 13:03 97.0 73 18 109/84 96 Venturi Mask 8.0 40 03/02/17 11:40 20 97 Venturi Mask 6.0 03/02/17 11:39 96.9 75 20 110/88 97 03/02/17 09:19 70 03/02/17 09:09 Venturi Mask 10.0 03/02/17 09:08 96.2 87 22 108/66 97 Venturi Mask 10.0 03/02/17 08:31 96.6 78 18 105/62 93 03/02/17 05:20 Venturi Mask 10.0 03/02/17 05:10 96.1 68 24 128/79 97 Venturi Mask 10.0 03/02/17 04:00 97.0 68 20 98/69 94 Bi-pap 6.0 03/02/17 04:00 65 03/02/17 00:00 87 03/02/17 00:00 97.0 66 22 122/85 98 Nasal Cannula 6.0 03/01/17 20:00 97.2 69 20 124/88 98 03/01/17 20:00 68 03/01/17 19:32 98 Venturi Mask 8.0 40 03/01/17 19:32 Venturi Mask 8.0 40 03/01/17 16:35 99 Venturi Mask 8.0 40 03/01/17 16:35 Venturi Mask 8.0 40 03/01/17 16:33 73 16 Venturi Mask 8.0 40 03/01/17 16:00 75 03/01/17 15:41 97.3 73 20 107/78 95 Height (Feet): 6 Height (Inches): 2.00 Weight (Pounds): 200 General Appearance: WD/WN, no acute distress HEENT: normocephalic, atraumatic, anicteric, mucous membranes moist Respiratory/Chest: chest wall non-tender, normal breath sounds, no respiratory distress, no accessory muscle use, decreased breath sounds, crackles/rales Cardiovascular: normal peripheral pulses, normal rate, regular rhythm, no gallop/murmur, no JVD Abdomen: normal bowel sounds, soft, non tender, no organomegaly, non distended , no mass, no scars Extremities: no cyanosis, no clubbing Skin: no rash, no lesions, no ulcers Neurologic/Psychiatric: alert, responsive Laboratory Tests Test 03/02/17 05:35 03/02/17 10:55 White Blood Count 12.3 K/UL (4.8-10.8) H Red Blood Count 4.63 M/UL (4.70-6.10) L Hemoglobin 13.7 G/DL (14.2-18.0) L Hematocrit 40.8 % (42.0-52.0) L Mean Corpuscular Volume 88 FL (80-99) Mean Corpuscular Hemoglobin 29.5 PG (27.0-31.0) Mean Corpuscular Hemoglobin Concent 33.5 G/DL (32.0-36.0) Red Cell Distribution Width 13.6 % (11.6-14.8) Platelet Count 245 K/UL (150-450) Mean Platelet Volume 7.9 FL (6.5-10.1) Neutrophils (%) (Auto) 71.9 % (45.0-75.0) Lymphocytes (%) (Auto) 21.6 % (20.0-45.0) Monocytes (%) (Auto) 4.8 % (1.0-10.0) Eosinophils (%) (Auto) 1.2 % (0.0-3.0) Basophils (%) (Auto) 0.5 % (0.0-2.0) Prothrombin Time 10.2 SEC (9.30-11.50) 10.1 SEC (9.30-11.50) Prothromb Time International Ratio 1.0 (0.9-1.1) 1.0 (0.9-1.1) Activated Partial Thromboplast Time 29 SEC (23-33) 29 SEC (23-33) Sodium Level 151 MMOL/L (136-145) H 143 MMOL/L (136-145) Potassium Level 3.9 MMOL/L (3.5-5.1) 4.3 MMOL/L (3.5-5.1) Chloride Level 113 MMOL/L (98-107) H 105 MMOL/L (98-107) Carbon Dioxide Level 30 MMOL/L (21-32) 32 MMOL/L (21-32) Anion Gap 8 mmol/L (5-15) 6 mmol/L (5-15) Blood Urea Nitrogen 71 mg/dL (7-18) H 29 mg/dL (7-18) H Creatinine 3.2 MG/DL (0.55-1.30) H 2.0 MG/DL (0.55-1.30) H Estimat Glomerular Filtration Rate 24.2 mL/min (>60) 41.7 mL/min (>60) Glucose Level 55 MG/DL (74-106) L 114 MG/DL (74-106) H Calcium Level 8.6 MG/DL (8.5-10.1) 8.5 MG/DL (8.5-10.1) Total Bilirubin 0.2 MG/DL (0.2-1.0) 0.3 MG/DL (0.2-1.0) Aspartate Amino Transf (AST/SGOT) 28 U/L (15-37) 31 U/L (15-37) Alanine Aminotransferase (ALT/SGPT) 26 U/L (12-78) 24 U/L (12-78) Alkaline Phosphatase 99 U/L (46-116) 100 U/L (46-116) Total Protein 6.7 G/DL (6.4-8.2) 7.1 G/DL (6.4-8.2) Albumin 1.2 G/DL (3.4-5.0) L 1.3 G/DL (3.4-5.0) L Globulin 5.5 g/dL 5.8 g/dL Albumin/Globulin Ratio 0.2 (1.0-2.7) L 0.2 (1.0-2.7) L Current Medications Medications (Trade) Dose Ordered Sig/Megan Route PRN Reason Start Time Stop Time Status Last Admin Dose Admin Acetaminophen (Tylenol) 650 mg Q4H PRN ORAL Mild Pain (Pain Scale 1-3) 02/23/17 06:30 03/25/17 06:29 02/25/17 05:34 Aspirin (ASA) 81 mg DAILY NG 02/25/17 09:00 03/27/17 08:59 02/28/17 08:56 Cefepime HCl 1 gm/ Dextrose 55 ml @ 110 mls/hr Q24H IVPB 02/23/17 09:00 03/06/17 08:59 03/02/17 09:33 Chlorhexidine Gluconate (Iman-Hex 2%) 1 applic DAILY@2000 TOPIC 02/28/17 20:15 03/30/17 20:14 03/01/17 21:15 Clotrimazole (Lotrimin) 1 applic EVERY 12 HOURS TOPIC 03/01/17 21:00 03/31/17 20:59 03/02/17 09:27 Dextrose (Dextrose 50%) STAT PRN IV Hypoglycemia 02/23/17 12:15 03/25/17 12:14 03/02/17 08:04 Heparin Sodium (Porcine) (Heparin 5000 units/ml) 5,000 units EVERY 12 HOURS SUBQ 02/23/17 09:00 03/25/17 08:59 03/01/17 21:19 Insulin Aspart (NovoLOG) EVERY 6 HOURS SUBQ 02/25/17 18:00 03/25/17 13:29 03/01/17 23:55 Insulin Detemir (Levemir) 15 units Q12HR SUBQ 03/02/17 09:00 04/01/17 08:59 03/02/17 09:25 Pantoprazole (Protonix) 40 mg DAILY IVP 02/25/17 09:00 03/27/17 08:59 03/02/17 09:27 Polyethylene Glycol (Miralax) 17 gm BEDTIME ORAL 02/24/17 21:00 03/26/17 20:59 03/01/17 21:15 Kamala Leon M.D. Mar 02, 2017 14:20
--- NOTE | 2017-03-02 15:15 | Procedure Note ---
DATE OF PROCEDURE: 03/02/2017 SURGEON: Radu Olmedo M.D. PROCEDURE: Upper endoscopy with PEG placement. ANESTHESIOLOGIST: Jefe Vega M.D. INSTRUMENT: Olympus adult flexible upper endoscope. INDICATION: Dysphagia and failure to thrive. REASON FOR PROCEDURE: The procedure, risks, benefits, and possible consequences, including hemorrhage, aspiration, perforation and infection, and alternative treatments, were explained to the patient/legal guardian by Dr. Radu Olmedo and the patient/legal guardian understood and accepted these risks. DESCRIPTION OF PROCEDURE: After informed consent was obtained and the patient was adequately sedated, Olympus upper endoscope was advanced from mouth into the second portion of duodenum and retroflexion was performed in the stomach. Then under endoscopic guidance and under sterile condition, a 20-[place] pull type of G-tube was successfully placed in epigastric area. The distance from the tip of the tube to skin was about 3 cm in size. The patient tolerated the procedure well without any complication. SUMMARY OF FINDINGS: Status post successful percutaneous endoscopic gastrostomy placement. RECOMMENDATIONS: 1. Abdominal binder. 2. Elevate the head of the bed at all times. 3. G-tube flush. 4. G-tube care. 5. Start tube feeding later today. 6. The patient was currently on antibiotics and no antibiotics was added. Radu Olmedo M.D. DR: STANISLAV JOB#: [id number] CC:
--- NOTE | 2017-03-02 15:58 | Cardiac Electrophysiology PN ---
Assessment/Plan Assessment/Plan 1. Troponin elevation of 0.091 and 0.099, likely due to renal failure. Echo EF 50%. No chest pain 2. Status post DDD [employer] ICD implantation with normal fx. 3. History of cardiomyopathy. EF normal now. 4.Hypernatremia and ARF, on HD per Dr. Zurita. AV fistula placement by Dr. Paredes pending. 5. Dysphagia. S/P PEG placement today . PARKER RN Subjective Subjective Comfortable in NAD.Had EGD and PEG by Dr Olmedo. Objective Last 24 Hour Vital Signs Date Time Temp Pulse Resp B/P (MAP) Pulse Ox O2 Delivery O2 Flow Rate FiO2 03/02/17 15:41 96.7 71 20 112/85 99 03/02/17 13:50 97.3 74 15 112/78 97 Venturi Mask 8.0 40 03/02/17 13:30 97.0 76 18 106/85 97 Venturi Mask 8.0 40 03/02/17 13:19 76 18 112/87 96 Venturi Mask 8.0 40 03/02/17 13:13 76 18 114/86 96 Venturi Mask 8.0 40 03/02/17 13:08 76 18 126/95 96 Venturi Mask 8.0 40 03/02/17 13:07 76 13 94 03/02/17 13:03 97.0 73 18 109/84 96 Venturi Mask 8.0 40 03/02/17 11:40 20 97 Venturi Mask 6.0 03/02/17 11:39 96.9 75 20 110/88 97 03/02/17 09:19 70 03/02/17 09:09 Venturi Mask 10.0 03/02/17 09:08 96.2 87 22 108/66 97 Venturi Mask 10.0 03/02/17 08:31 96.6 78 18 105/62 93 03/02/17 05:20 Venturi Mask 10.0 03/02/17 05:10 96.1 68 24 128/79 97 Venturi Mask 10.0 03/02/17 04:00 97.0 68 20 98/69 94 Bi-pap 6.0 03/02/17 04:00 65 03/02/17 00:00 87 03/02/17 00:00 97.0 66 22 122/85 98 Nasal Cannula 6.0 03/01/17 20:00 97.2 69 20 124/88 98 03/01/17 20:00 68 03/01/17 19:32 98 Venturi Mask 8.0 40 03/01/17 19:32 Venturi Mask 8.0 40 03/01/17 16:35 99 Venturi Mask 8.0 40 03/01/17 16:35 Venturi Mask 8.0 40 03/01/17 16:33 73 16 Venturi Mask 8.0 40 03/01/17 16:00 75 Intake and Output 03/02/17 03/03/17 19:00 07:00 Intake Total 305 ml Output Total 1200 ml Balance -895 ml IV Total 305 ml Hemodialysis UF 1200 ml # Voids 1 # Bowel Movements 1 Laboratory Tests Test 03/02/17 05:35 03/02/17 10:55 White Blood Count 12.3 K/UL (4.8-10.8) H Red Blood Count 4.63 M/UL (4.70-6.10) L Hemoglobin 13.7 G/DL (14.2-18.0) L Hematocrit 40.8 % (42.0-52.0) L Mean Corpuscular Volume 88 FL (80-99) Mean Corpuscular Hemoglobin 29.5 PG (27.0-31.0) Mean Corpuscular Hemoglobin Concent 33.5 G/DL (32.0-36.0) Red Cell Distribution Width 13.6 % (11.6-14.8) Platelet Count 245 K/UL (150-450) Mean Platelet Volume 7.9 FL (6.5-10.1) Neutrophils (%) (Auto) 71.9 % (45.0-75.0) Lymphocytes (%) (Auto) 21.6 % (20.0-45.0) Monocytes (%) (Auto) 4.8 % (1.0-10.0) Eosinophils (%) (Auto) 1.2 % (0.0-3.0) Basophils (%) (Auto) 0.5 % (0.0-2.0) Prothrombin Time 10.2 SEC (9.30-11.50) 10.1 SEC (9.30-11.50) Prothromb Time International Ratio 1.0 (0.9-1.1) 1.0 (0.9-1.1) Activated Partial Thromboplast Time 29 SEC (23-33) 29 SEC (23-33) Sodium Level 151 MMOL/L (136-145) H 143 MMOL/L (136-145) Potassium Level 3.9 MMOL/L (3.5-5.1) 4.3 MMOL/L (3.5-5.1) Chloride Level 113 MMOL/L (98-107) H 105 MMOL/L (98-107) Carbon Dioxide Level 30 MMOL/L (21-32) 32 MMOL/L (21-32) Anion Gap 8 mmol/L (5-15) 6 mmol/L (5-15) Blood Urea Nitrogen 71 mg/dL (7-18) H 29 mg/dL (7-18) H Creatinine 3.2 MG/DL (0.55-1.30) H 2.0 MG/DL (0.55-1.30) H Estimat Glomerular Filtration Rate 24.2 mL/min (>60) 41.7 mL/min (>60) Glucose Level 55 MG/DL (74-106) L 114 MG/DL (74-106) H Calcium Level 8.6 MG/DL (8.5-10.1) 8.5 MG/DL (8.5-10.1) Total Bilirubin 0.2 MG/DL (0.2-1.0) 0.3 MG/DL (0.2-1.0) Aspartate Amino Transf (AST/SGOT) 28 U/L (15-37) 31 U/L (15-37) Alanine Aminotransferase (ALT/SGPT) 26 U/L (12-78) 24 U/L (12-78) Alkaline Phosphatase 99 U/L (46-116) 100 U/L (46-116) Total Protein 6.7 G/DL (6.4-8.2) 7.1 G/DL (6.4-8.2) Albumin 1.2 G/DL (3.4-5.0) L 1.3 G/DL (3.4-5.0) L Globulin 5.5 g/dL 5.8 g/dL Albumin/Globulin Ratio 0.2 (1.0-2.7) L 0.2 (1.0-2.7) L Objective HEAD AND NECK: Shows mild JVD.Right IG Taran catheter. NG tube is in. LUNGS: Decreased breath sounds. CARDIOVASCULAR: Shows regular S1 and S2 with no gallop. ICD left subclavian. ABDOMEN: Soft.PEG in place EXTREMITIES: Upper extremity contractions. GAGAN JUNIOR Mar 02, 2017 15:57
[2017-03-02] MEDS: Dyna-Hex 2% Top Sol 2oz TOPIC SCH (21:00)
[2017-03-02] MEDS: Miralax 17gm pkt ORAL SCH (21:00)
[2017-03-03] VITALS: BP 111/79
[2017-03-03 04:00] VITALS: BP 130/79
[2017-03-03] MEDS: NovoLOG Insulin Flexpen SUBQ SCH ×4 (07:00→18:00)
[2017-03-03 08:13] VITALS: BP 117/89
[2017-03-03] MEDS: Cefepime HCl 1 GM in D5W 55 ML IVPB SCH (09:22)
[2017-03-03] MEDS: Pantoprazole Inj IVP SCH (09:22)
[2017-03-03] MEDS: Aspirin Baby 81mg NG SCH (09:22)
[2017-03-03] MEDS: Levemir Flexpen SUBQ SCH ×2 (09:33→21:50)
[2017-03-03] MEDS: Heparin 5000 units/ml inj SUBQ SCH ×2 (09:34→21:42)
--- NOTE | 2017-03-03 10:30 | GI Progress Note ---
Assessment/Plan Problems: (1) Dysphagia due to recent stroke ICD Codes: I69.391 - Dysphagia following cerebral infarction SNOMED: 11868074, 755995844 (2) Encounter for PEG (percutaneous endoscopic gastrostomy) ICD Codes: Z43.1 - Encounter for attention to gastrostomy SNOMED: 630921318, 382101917 (3) DM (diabetes mellitus) ICD Codes: E11.9 - Type 2 diabetes mellitus without complications SNOMED: 70262311 Status: stable, progressing Status Narrative Discussed with Dr. Olmedo. Assessment/Plan POLST reviewed >> FULL treatment - primary decision maker would be the Brother >> Gigi Lepe @ [phone] or [phone] lactic acid >> now normal SUMMARY OF FINDINGS: Status post successful percutaneous endoscopic gastrostomy placement. RECOMMENDATIONS: 1. Abdominal binder. 2. Elevate the head of the bed at all times. 3. G-tube flush. 4. G-tube care. 5. Start tube feeding later today. 6. The patient was currently on antibiotics and no antibiotics was added. fu nephrology DM control DVT prophylaxis ppi daily monitor H&H, prn transfusions. electrolyte correction bowel regime >> colace + miralax abx fu labs Subjective Subjective limited, more awake and alert Objective Last 24 Hour Vital Signs Date Time Temp Pulse Resp B/P (MAP) Pulse Ox O2 Delivery O2 Flow Rate FiO2 03/03/17 08:13 96.3 70 20 117/89 95 03/03/17 04:00 97.0 68 19 130/79 98 Nasal Cannula 2.0 03/03/17 04:00 67 03/03/17 00:00 69 03/03/17 00:00 97.0 73 21 111/79 95 Nasal Cannula 2.0 03/02/17 20:07 97.0 72 20 111/81 98 Nasal Cannula 6.0 03/02/17 20:00 70 03/02/17 19:47 98 Venturi Mask 8.0 40 03/02/17 19:47 Venturi Mask 8.0 40 03/02/17 16:00 70 03/02/17 15:42 20 99 Venturi Mask 4.0 03/02/17 15:41 96.7 71 20 112/85 99 03/02/17 13:50 97.3 74 15 112/78 97 Venturi Mask 8.0 40 03/02/17 13:30 97.0 76 18 106/85 97 Venturi Mask 8.0 40 03/02/17 13:19 76 18 112/87 96 Venturi Mask 8.0 40 03/02/17 13:13 76 18 114/86 96 Venturi Mask 8.0 40 03/02/17 13:08 76 18 126/95 96 Venturi Mask 8.0 40 03/02/17 13:07 76 13 94 03/02/17 13:03 97.0 73 18 109/84 96 Venturi Mask 8.0 40 03/02/17 12:00 70 03/02/17 11:40 20 97 Venturi Mask 6.0 03/02/17 11:39 96.9 75 20 110/88 97 Intake and Output 03/03/17 03/04/17 19:00 07:00 # Voids 1 Laboratory Tests Test 03/02/17 10:55 Prothrombin Time 10.1 SEC (9.30-11.50) Prothromb Time International Ratio 1.0 (0.9-1.1) Activated Partial Thromboplast Time 29 SEC (23-33) Sodium Level 143 MMOL/L (136-145) Potassium Level 4.3 MMOL/L (3.5-5.1) Chloride Level 105 MMOL/L (98-107) Carbon Dioxide Level 32 MMOL/L (21-32) Anion Gap 6 mmol/L (5-15) Blood Urea Nitrogen 29 mg/dL (7-18) H Creatinine 2.0 MG/DL (0.55-1.30) H Estimat Glomerular Filtration Rate 41.7 mL/min (>60) Glucose Level 114 MG/DL (74-106) H Calcium Level 8.5 MG/DL (8.5-10.1) Total Bilirubin 0.3 MG/DL (0.2-1.0) Aspartate Amino Transf (AST/SGOT) 31 U/L (15-37) Alanine Aminotransferase (ALT/SGPT) 24 U/L (12-78) Alkaline Phosphatase 100 U/L (46-116) Total Protein 7.1 G/DL (6.4-8.2) Albumin 1.3 G/DL (3.4-5.0) L Globulin 5.8 g/dL Albumin/Globulin Ratio 0.2 (1.0-2.7) L Height (Feet): 6 Height (Inches): 2.00 Weight (Pounds): 200 General Appearance: WD/WN, no apparent distress, alert, overweight Cardiovascular: normal rate Respiratory/Chest: normal breath sounds, no respiratory distress, other - 2LNC Abdominal Exam: normal bowel sounds, non tender, soft Extremities: non-tender Mariaa Winters N.P. Mar 03, 2017 10:30
[2017-03-03 10:52] LABS: BASOPHILS % (AUTO) 0.7 % (0.0-2.0); EOSINOPHILS % (AUTO) 1.1 % (0.0-3.0); LYMPHOCYTES % (AUTO) 17.7 % (20.0-45.0); MEAN CORPUSCULAR HEMOGLOBIN 26.7 PG (27.0-31.0); MEAN CORPUSCULAR HGB CONC 29.5 G/DL (32.0-36.0); MEAN CORPUSCULAR VOLUME 90 FL (80-99); MEAN PLATELET VOLUME 7.3 FL (6.5-10.1); MONOCYTES % (AUTO) 4.6 % (1.0-10.0); NEUTROPHILS % (AUTO) 75.8 % (45.0-75.0); PLATELET COUNT 248 K/UL (150-450); RED BLOOD COUNT 4.51 M/UL (4.70-6.10); RED CELL DISTRIBUTION WIDTH 13.2 % (11.6-14.8); WHITE BLOOD COUNT 9.5 K/UL (4.8-10.8)
[2017-03-03 11:08] LABS: ANION GAP 6 mmol/L (5-15); CALCIUM 8.3 MG/DL (8.5-10.1); CARBON DIOXIDE 31 MMOL/L (21-32); CHLORIDE 105 MMOL/L (98-107); CREATININE 2.8 MG/DL (0.55-1.30); GLOMERULAR FILTRATION RATE 28.2 mL/min (>60); POTASSIUM 4.4 MMOL/L (3.5-5.1); SODIUM 142 MMOL/L (136-145)
[2017-03-03 11:28] VITALS: BP 115/85
--- NOTE | 2017-03-03 11:33 | Cardiac Electrophysiology PN ---
Assessment/Plan Assessment/Plan 1. Troponin Leak of 0.091 and 0.099 due to renal failure. Echo EF 50%. No chest pain 2. Status post DDD [employer] ICD implantation with normal fx. 3. History of cardiomyopathy. EF normal now. 4. Hypernatremia and ARF, on HD per Dr. Zurita. Permcath +/- right arm av shunt if needs fpc HD access by Dr. Paredes 5. Dysphagia. S/P PEG placement DW RN Subjective Subjective Comfortable in NAD.Getting PEG feeding. No arrhythmias on tele. Objective Last 24 Hour Vital Signs Date Time Temp Pulse Resp B/P (MAP) Pulse Ox O2 Delivery O2 Flow Rate FiO2 03/03/17 08:13 96.3 70 20 117/89 95 03/03/17 04:00 97.0 68 19 130/79 98 Nasal Cannula 2.0 03/03/17 04:00 67 03/03/17 00:00 69 03/03/17 00:00 97.0 73 21 111/79 95 Nasal Cannula 2.0 03/02/17 20:07 97.0 72 20 111/81 98 Nasal Cannula 6.0 03/02/17 20:00 70 03/02/17 19:47 98 Venturi Mask 8.0 40 03/02/17 19:47 Venturi Mask 8.0 40 03/02/17 16:00 70 03/02/17 15:42 20 99 Venturi Mask 4.0 03/02/17 15:41 96.7 71 20 112/85 99 03/02/17 13:50 97.3 74 15 112/78 97 Venturi Mask 8.0 40 03/02/17 13:30 97.0 76 18 106/85 97 Venturi Mask 8.0 40 03/02/17 13:19 76 18 112/87 96 Venturi Mask 8.0 40 03/02/17 13:13 76 18 114/86 96 Venturi Mask 8.0 40 03/02/17 13:08 76 18 126/95 96 Venturi Mask 8.0 40 03/02/17 13:07 76 13 94 03/02/17 13:03 97.0 73 18 109/84 96 Venturi Mask 8.0 40 03/02/17 12:00 70 03/02/17 11:40 20 97 Venturi Mask 6.0 03/02/17 11:39 96.9 75 20 110/88 97 Intake and Output 03/03/17 03/04/17 19:00 07:00 # Voids 1 Laboratory Tests Test 03/03/17 10:25 White Blood Count 9.5 K/UL (4.8-10.8) Red Blood Count 4.51 M/UL (4.70-6.10) L Hemoglobin 12.1 G/DL (14.2-18.0) L Hematocrit 40.8 % (42.0-52.0) L Mean Corpuscular Volume 90 FL (80-99) Mean Corpuscular Hemoglobin 26.7 PG (27.0-31.0) L Mean Corpuscular Hemoglobin Concent 29.5 G/DL (32.0-36.0) L Red Cell Distribution Width 13.2 % (11.6-14.8) Platelet Count 248 K/UL (150-450) Mean Platelet Volume 7.3 FL (6.5-10.1) Neutrophils (%) (Auto) 75.8 % (45.0-75.0) H Lymphocytes (%) (Auto) 17.7 % (20.0-45.0) L Monocytes (%) (Auto) 4.6 % (1.0-10.0) Eosinophils (%) (Auto) 1.1 % (0.0-3.0) Basophils (%) (Auto) 0.7 % (0.0-2.0) Sodium Level 142 MMOL/L (136-145) Potassium Level 4.4 MMOL/L (3.5-5.1) Chloride Level 105 MMOL/L (98-107) Carbon Dioxide Level 31 MMOL/L (21-32) Anion Gap 6 mmol/L (5-15) Blood Urea Nitrogen 40 mg/dL (7-18) H Creatinine 2.8 MG/DL (0.55-1.30) H Estimat Glomerular Filtration Rate 28.2 mL/min (>60) Glucose Level 193 MG/DL (74-106) H Calcium Level 8.3 MG/DL (8.5-10.1) L Objective HEAD AND NECK: Shows mild JVD.Right IG Taran catheter. LUNGS: Decreased breath sounds. CARDIOVASCULAR: Shows regular S1 and S2 with no gallop. ICD left subclavian. ABDOMEN: Soft.PEG in place EXTREMITIES: Upper extremity contractions. GAGAN JUNIOR Mar 03, 2017 11:33
--- NOTE | 2017-03-03 14:39 | Infectious Diseases Prog Note ---
Assessment/Plan Problems: (1) HCAP (healthcare-associated pneumonia) Assessment & Plan: improved on cefepime and clindamycin empiric coverage, blood culture is negative , monitor CXR (2) UTI (urinary tract infection) Assessment & Plan: with pseudomonas , on cefepime , will treat for two weeks total. EOT 03/09/17 (3) Sepsis Assessment & Plan: ruled out with negative blood culture , on cefepime for UTI due to pseudomonas aeruginosa for two weeks (4) Acute kidney injury Assessment & Plan: due to sepsis , didn't improve with hydrations, avoid nephrotoxic, had dialysis catheter placed and started on HD , renal is following (5) Hyperglycemia Assessment & Plan: improving due to sepsis, recommend tight glycemic control to keep blood glucose between 80-120 (6) Dysphagia due to recent stroke Assessment & Plan: S/P PEG tube placement today by GI Subjective Constitutional: Reports: no symptoms HEENT: Reports: no symptoms Respiratory: Reports: no symptoms Breasts: Reports: no symptoms Cardiovascular: Reports: no symptoms Gastrointestinal/Abdominal: Reports: no symptoms Genitourinary: Reports: no symptoms Neurologic: Reports: no symptoms Psychiatric: Reports: no symptoms Skin: Reports: no symptoms Endocrine: Reports: no symptoms Hematologic: Reports: no symptoms Musculoskeletal: Reports: no symptoms Allergies: Coded Allergies: No Known Allergies (Unverified , 11/15/15) Subjective he was more awake and alert,pleasant , up in bed, had PEG tube placement , on high flow oxygen via ventimask, comfortable, not febrile. not in distress Objective Vital Signs Last 24 Hour Vital Signs Date Time Temp Pulse Resp B/P (MAP) Pulse Ox O2 Delivery O2 Flow Rate FiO2 03/03/17 11:28 96.1 74 20 115/85 94 03/03/17 08:13 96.3 70 20 117/89 95 03/03/17 04:00 97.0 68 19 130/79 98 Nasal Cannula 2.0 03/03/17 04:00 67 03/03/17 00:00 69 03/03/17 00:00 97.0 73 21 111/79 95 Nasal Cannula 2.0 03/02/17 20:07 97.0 72 20 111/81 98 Nasal Cannula 6.0 03/02/17 20:00 70 03/02/17 19:47 98 Venturi Mask 8.0 40 03/02/17 19:47 Venturi Mask 8.0 40 03/02/17 16:00 70 03/02/17 15:42 20 99 Venturi Mask 4.0 03/02/17 15:41 96.7 71 20 112/85 99 Height (Feet): 6 Height (Inches): 2.00 Weight (Pounds): 200 General Appearance: WD/WN, no acute distress HEENT: normocephalic, atraumatic, anicteric, mucous membranes moist, EOMI, pharynx normal Respiratory/Chest: chest wall non-tender, lungs clear, normal breath sounds, no respiratory distress, no accessory muscle use, decreased breath sounds, crackles/rales Cardiovascular: normal peripheral pulses, normal rate, regular rhythm, no gallop/murmur, no JVD Abdomen: normal bowel sounds, soft, non tender, no organomegaly, non distended , no mass, no scars Extremities: no cyanosis, no clubbing Skin: no rash, no lesions, no ulcers Neurologic/Psychiatric: alert, oriented x 3, responsive Musculoskeletal: normal muscle bulk, no effusion Laboratory Tests Test 03/03/17 10:25 White Blood Count 9.5 K/UL (4.8-10.8) Red Blood Count 4.51 M/UL (4.70-6.10) L Hemoglobin 12.1 G/DL (14.2-18.0) L Hematocrit 40.8 % (42.0-52.0) L Mean Corpuscular Volume 90 FL (80-99) Mean Corpuscular Hemoglobin 26.7 PG (27.0-31.0) L Mean Corpuscular Hemoglobin Concent 29.5 G/DL (32.0-36.0) L Red Cell Distribution Width 13.2 % (11.6-14.8) Platelet Count 248 K/UL (150-450) Mean Platelet Volume 7.3 FL (6.5-10.1) Neutrophils (%) (Auto) 75.8 % (45.0-75.0) H Lymphocytes (%) (Auto) 17.7 % (20.0-45.0) L Monocytes (%) (Auto) 4.6 % (1.0-10.0) Eosinophils (%) (Auto) 1.1 % (0.0-3.0) Basophils (%) (Auto) 0.7 % (0.0-2.0) Sodium Level 142 MMOL/L (136-145) Potassium Level 4.4 MMOL/L (3.5-5.1) Chloride Level 105 MMOL/L (98-107) Carbon Dioxide Level 31 MMOL/L (21-32) Anion Gap 6 mmol/L (5-15) Blood Urea Nitrogen 40 mg/dL (7-18) H Creatinine 2.8 MG/DL (0.55-1.30) H Estimat Glomerular Filtration Rate 28.2 mL/min (>60) Glucose Level 193 MG/DL (74-106) H Calcium Level 8.3 MG/DL (8.5-10.1) L Current Medications Medications (Trade) Dose Ordered Sig/Megan Route PRN Reason Start Time Stop Time Status Last Admin Dose Admin Acetaminophen (Tylenol) 650 mg Q4H PRN ORAL Mild Pain (Pain Scale 1-3) 02/23/17 06:30 03/25/17 06:29 02/25/17 05:34 Aspirin (ASA) 81 mg DAILY NG 02/25/17 09:00 03/27/17 08:59 03/03/17 09:22 Cefepime HCl 1 gm/ Dextrose 55 ml @ 110 mls/hr Q24H IVPB 02/23/17 09:00 03/09/17 23:59 03/03/17 09:22 Chlorhexidine Gluconate (Iman-Hex 2%) 1 applic DAILY@2000 TOPIC 02/28/17 20:15 03/30/17 20:14 03/02/17 21:00 Clotrimazole (Lotrimin) 1 applic EVERY 12 HOURS TOPIC 03/01/17 21:00 03/31/17 20:59 03/03/17 09:22 Dextrose (Dextrose 50%) STAT PRN IV Hypoglycemia 02/23/17 12:15 03/25/17 12:14 03/02/17 08:04 Heparin Sodium (Porcine) (Heparin 5000 units/ml) 5,000 units EVERY 12 HOURS SUBQ 02/23/17 09:00 03/25/17 08:59 03/03/17 09:34 Insulin Aspart (NovoLOG) EVERY 6 HOURS SUBQ 02/25/17 18:00 03/25/17 13:29 03/03/17 11:57 Insulin Detemir (Levemir) 15 units Q12HR SUBQ 03/02/17 09:00 04/01/17 08:59 03/03/17 09:33 Pantoprazole (Protonix) 40 mg DAILY IVP 02/25/17 09:00 03/27/17 08:59 03/03/17 09:22 Polyethylene Glycol (Miralax) 17 gm BEDTIME ORAL 02/24/17 21:00 03/26/17 20:59 03/01/17 21:15 Kamala Leon M.D. Mar 03, 2017 14:39
[2017-03-03 15:32] VITALS: BP 115/86
[2017-03-03 20:05] VITALS: BP 120/60
--- NOTE | 2017-03-03 21:14 | Nephrology Progress Note ---
Assessment/Plan Problem List: (1) Hyperglycemia due to type 2 diabetes mellitus Assessment: better (2) Hypernatremia (3) CKD (chronic kidney disease) (4) SHANTE (acute kidney injury) Assessment: may need HD. (5) Hypoxia (6) Sepsis (7) UTI (urinary tract infection) (8) HCAP (healthcare-associated pneumonia) Plan cont IVF D5W. Monitor BG. On levemir and SSI. GI eval for possible PEG. Vasc surg consult for dialysis catheter. monitor labs. Subjective Subjective appears comfortable. Objective Objective Last 24 Hour Vital Signs Date Time Temp Pulse Resp B/P (MAP) Pulse Ox O2 Delivery O2 Flow Rate FiO2 03/03/17 20:05 97.0 76 22 120/60 99 Bi-pap 4.0 03/03/17 19:40 Nasal Cannula 2.0 28 03/03/17 19:39 96 Nasal Cannula 2.0 28 03/03/17 16:00 76 03/03/17 15:32 96.3 79 20 115/86 96 03/03/17 12:00 74 03/03/17 11:28 96.1 74 20 115/85 94 03/03/17 08:13 96.3 70 20 117/89 95 03/03/17 08:00 67 03/03/17 04:00 97.0 68 19 130/79 98 Nasal Cannula 2.0 03/03/17 04:00 67 03/03/17 00:00 69 03/03/17 00:00 97.0 73 21 111/79 95 Nasal Cannula 2.0 Intake and Output 03/03/17 03/04/17 19:00 07:00 # Voids 2 # Bowel Movements 2 Laboratory Tests 03/03/17 10:25: White Blood Count 9.5, Red Blood Count 4.51L, Hemoglobin 12.1L, Hematocrit 40.8L , Mean Corpuscular Volume 90, Mean Corpuscular Hemoglobin 26.7L, Mean Corpuscular Hemoglobin Concent 29.5L, Red Cell Distribution Width 13.2, Platelet Count 248, Mean Platelet Volume 7.3, Neutrophils (%) (Auto) 75.8H, Lymphocytes (%) (Auto) 17.7L, Monocytes (%) (Auto) 4.6, Eosinophils (%) (Auto) 1.1, Basophils (%) (Auto) 0.7, Sodium Level 142, Potassium Level 4.4, Chloride Level 105, Carbon Dioxide Level 31, Anion Gap 6, Blood Urea Nitrogen 40H, Creatinine 2.8H, Estimat Glomerular Filtration Rate 28.2, Glucose Level 193H, Calcium Level 8.3L Height (Feet): 6 Height (Inches): 2.00 Weight (Pounds): 200 JJ RAYMOND Mar 03, 2017 21:14
[2017-03-03] MEDS: Dyna-Hex 2% Top Sol 2oz TOPIC SCH (21:39)
[2017-03-03] MEDS: Miralax 17gm pkt ORAL SCH (21:40)
[2017-03-04] VITALS (7 sets, daily range): BP systolic 101–137; BP diastolic 60–99
[2017-03-04] MEDS: NovoLOG Insulin Flexpen SUBQ SCH ×4 (02:09→18:00)
[2017-03-04] MEDS: Cefepime HCl 1 GM in D5W 55 ML IVPB SCH (09:52)
[2017-03-04] MEDS: Aspirin Baby 81mg NG SCH (09:53)
[2017-03-04] MEDS: Pantoprazole Inj IVP SCH (09:53)
[2017-03-04] MEDS: Levemir Flexpen SUBQ SCH ×2 (09:59→21:48)
--- NOTE | 2017-03-04 09:59 | Cardiac Electrophysiology PN ---
Assessment/Plan Assessment/Plan 1. Troponin Leak of 0.091 and 0.099 due to renal failure. Echo EF 50%. No chest pain 2. Status post DDD [employer] ICD implantation with normal fx. 3. History of cardiomyopathy. EF normal now. 4. Hypernatremia and ARF, on HD per Dr. Zurita. Permcath +/- right arm av shunt if needs assisted HD access by Dr. Paredes 5. Dysphagia. S/P PEG placement DW RN Subjective Subjective Comfortable in NAD.Getting PEG feeding. No arrhythmias on tele.HD today pending. Objective Last 24 Hour Vital Signs Date Time Temp Pulse Resp B/P (MAP) Pulse Ox O2 Delivery O2 Flow Rate FiO2 03/04/17 08:43 97.0 67 20 117/91 96 03/04/17 08:01 Venturi Mask 8.0 40 03/04/17 08:00 97 Venturi Mask 8.0 40 03/04/17 04:00 97.0 80 20 120/69 100 Nasal Cannula 2.0 03/04/17 04:00 72 03/04/17 00:00 97.0 83 23 127/67 100 Room Air 03/04/17 00:00 75 03/03/17 20:05 97.0 76 22 120/60 99 Bi-pap 4.0 03/03/17 20:00 78 03/03/17 19:40 Nasal Cannula 2.0 28 03/03/17 19:39 96 Nasal Cannula 2.0 28 03/03/17 16:00 76 03/03/17 15:32 96.3 79 20 115/86 96 03/03/17 12:00 74 03/03/17 11:28 96.1 74 20 115/85 94 Laboratory Tests Test 03/03/17 10:25 03/04/17 09:30 White Blood Count 9.5 K/UL (4.8-10.8) Pending Red Blood Count 4.51 M/UL (4.70-6.10) L Pending Hemoglobin 12.1 G/DL (14.2-18.0) L Pending Hematocrit 40.8 % (42.0-52.0) L Pending Mean Corpuscular Volume 90 FL (80-99) Pending Mean Corpuscular Hemoglobin 26.7 PG (27.0-31.0) L Pending Mean Corpuscular Hemoglobin Concent 29.5 G/DL (32.0-36.0) L Pending Red Cell Distribution Width 13.2 % (11.6-14.8) Pending Platelet Count 248 K/UL (150-450) Pending Mean Platelet Volume 7.3 FL (6.5-10.1) Pending Neutrophils (%) (Auto) 75.8 % (45.0-75.0) H Pending Lymphocytes (%) (Auto) 17.7 % (20.0-45.0) L Pending Monocytes (%) (Auto) 4.6 % (1.0-10.0) Pending Eosinophils (%) (Auto) 1.1 % (0.0-3.0) Pending Basophils (%) (Auto) 0.7 % (0.0-2.0) Pending Sodium Level 142 MMOL/L (136-145) Pending Potassium Level 4.4 MMOL/L (3.5-5.1) Pending Chloride Level 105 MMOL/L (98-107) Pending Carbon Dioxide Level 31 MMOL/L (21-32) Pending Anion Gap 6 mmol/L (5-15) Blood Urea Nitrogen 40 mg/dL (7-18) H Pending Creatinine 2.8 MG/DL (0.55-1.30) H Pending Estimat Glomerular Filtration Rate 28.2 mL/min (>60) Pending Glucose Level 193 MG/DL (74-106) H Pending Calcium Level 8.3 MG/DL (8.5-10.1) L Pending Objective HEAD AND NECK: Shows mild JVD. Right IG Taran catheter. LUNGS: Decreased breath sounds. CARDIOVASCULAR: Shows regular S1 and S2 with no gallop. ICD left subclavian. ABDOMEN: Soft.PEG in place EXTREMITIES: Upper extremity contractions. GAGAN JUNIOR Mar 04, 2017 09:59
[2017-03-04] MEDS: Heparin 5000 units/ml inj SUBQ SCH ×2 (10:00→21:36)
[2017-03-04 10:11] LABS: ANION GAP 5 mmol/L (5-15); BASOPHILS % (AUTO) 0.6 % (0.0-2.0); CALCIUM 8.8 MG/DL (8.5-10.1); CARBON DIOXIDE 31 MMOL/L (21-32); CHLORIDE 107 MMOL/L (98-107); CREATININE 2.9 MG/DL (0.55-1.30); EOSINOPHILS % (AUTO) 1.1 % (0.0-3.0); GLOMERULAR FILTRATION RATE 27.1 mL/min (>60); LYMPHOCYTES % (AUTO) 16.2 % (20.0-45.0); MEAN CORPUSCULAR HGB CONC 31.5 G/DL (32.0-36.0); MEAN CORPUSCULAR VOLUME 89 FL (80-99); MEAN PLATELET VOLUME 7.1 FL (6.5-10.1); MONOCYTES % (AUTO) 3.9 % (1.0-10.0); NEUTROPHILS % (AUTO) 78.2 % (45.0-75.0); PLATELET COUNT 273 K/UL (150-450); RED BLOOD COUNT 4.68 M/UL (4.70-6.10); RED CELL DISTRIBUTION WIDTH 13.2 % (11.6-14.8); SODIUM 142 MMOL/L (136-145); WHITE BLOOD COUNT 9.2 K/UL (4.8-10.8)
--- NOTE | 2017-03-04 11:01 | Diagnostic Imaging Report ---
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 The remaining segments are within normal limits. There is no evidence of thrombus within the subclavian, axillary and brachial veins. The basilic vein is also patent. The cephalic vein was not well visualized. LEFT UPPER EXTREMITY: Venous imaging reveals patency of the internal jugular, subclavian, axillary and brachial veins. The cephalic and basilic veins are also patent. Doppler indicates normal spontaneous flow within these venous segments.
--- NOTE | 2017-03-04 11:01 | Diagnostic Imaging Report ---
APPROVED REPORT CPT Code: 04686 Symptoms Comments: R/O Occlusion RIGHT LEG: Common femoral artery waveform analysis is waveform analysis is abnormal, suggestive of iliac arterial occlusive disease. Color flow duplex sonography reveals an occlusion in the superficial femoral artery at the junction of the bifurcation to the popliteal artery. The tibioperoneal trunk was not well visualized. The proximal posterior tibilal artery and anterior tibial artery are appears to be occluded. The dorsalis pedis, and distal posterior tibial arteries are patent . Doppler waveform analysis is monophasic consistent, with critical ischemia at rest. LEFT LEG: Common femoral artery waveform analysis is within normal limits at rest. A mild (20-30%) stenosis is seen in the proximal superficial femoral artery. Color flow duplex sonography reveals an occlusion in the mid superficial femoral artery to the popliteal artery. The tibioperoneal trunk was not well visualized. The proximal posterior tibilal artery and anterior tibial artery are appears to be occluded. The dorsalis pedis, and distal posterior tibial arteries are patent . Doppler waveform analysis is monophasic consistent, with critical ischemia at rest. RN was notified of abnormal results at 1040 hours.
--- NOTE | 2017-03-04 11:02 | Diagnostic Imaging Report ---
Indications: DYSPHAGIA Technique: Patient ingested multiple substances under the supervision of speech pathology. Video fluoroscopic recording performed. Total fluoroscopy time 241 seconds. Total dose area product [id number] mGycm2 Comparison: none Findings: Supraglottic laryngeal penetration of thin liquid barium is noted, with possible aspiration. There is delay in initiation of deglutition, significant early pooling of contrast in the vallecula and piriform sinuses. With ingestion of nectar thick liquid barium, there is significant delay in initiation of dictation, pulling of contrast in the vallecula and piriform sinuses. Trace supraglottic laryngeal penetration. Impression: Positive for penetration of thin and nectar thick liquid barium, possible aspiration of thin liquid barium. Please refer to speech pathology report for more detailed analysis
--- NOTE | 2017-03-04 11:08 | GI Progress Note ---
Assessment/Plan Problems: (1) Dysphagia due to recent stroke ICD Codes: I69.391 - Dysphagia following cerebral infarction SNOMED: 90044730, 400857024 (2) Encounter for PEG (percutaneous endoscopic gastrostomy) ICD Codes: Z43.1 - Encounter for attention to gastrostomy SNOMED: 075927364, 394981582 (3) DM (diabetes mellitus) ICD Codes: E11.9 - Type 2 diabetes mellitus without complications SNOMED: 80713512 Status: unchanged Status Narrative Discussed with Dr. Olmedo. Assessment/Plan POLST reviewed >> FULL treatment - primary decision maker would be the Brother >> Gigi Lepe @ [phone] or [phone] lactic acid >> now normal SUMMARY OF FINDINGS: Status post successful percutaneous endoscopic gastrostomy placement. RECOMMENDATIONS: 1. Abdominal binder. 2. Elevate the head of the bed at all times. 3. G-tube flush. 4. G-tube care. 5. Start tube feeding later today. 6. The patient was currently on antibiotics and no antibiotics was added. fu nephrology DM control DVT prophylaxis ppi daily monitor H&H, prn transfusions. electrolyte correction bowel regime >> colace + miralax abx fu labs Subjective Subjective limited, more awake and alert Objective Last 24 Hour Vital Signs Date Time Temp Pulse Resp B/P (MAP) Pulse Ox O2 Delivery O2 Flow Rate FiO2 03/04/17 08:43 97.0 67 20 117/91 96 03/04/17 08:01 Venturi Mask 8.0 40 03/04/17 08:00 97 Venturi Mask 8.0 40 03/04/17 04:00 97.0 80 20 120/69 100 Nasal Cannula 2.0 03/04/17 04:00 72 03/04/17 00:00 97.0 83 23 127/67 100 Room Air 03/04/17 00:00 75 03/03/17 20:05 97.0 76 22 120/60 99 Bi-pap 4.0 03/03/17 20:00 78 03/03/17 19:40 Nasal Cannula 2.0 28 03/03/17 19:39 96 Nasal Cannula 2.0 28 03/03/17 16:00 76 03/03/17 15:32 96.3 79 20 115/86 96 03/03/17 12:00 74 03/03/17 11:28 96.1 74 20 115/85 94 Laboratory Tests Test 03/04/17 09:30 White Blood Count 9.2 K/UL (4.8-10.8) Red Blood Count 4.68 M/UL (4.70-6.10) L Hemoglobin 13.1 G/DL (14.2-18.0) L Hematocrit 41.6 % (42.0-52.0) L Mean Corpuscular Volume 89 FL (80-99) Mean Corpuscular Hemoglobin 28.0 PG (27.0-31.0) Mean Corpuscular Hemoglobin Concent 31.5 G/DL (32.0-36.0) L Red Cell Distribution Width 13.2 % (11.6-14.8) Platelet Count 273 K/UL (150-450) Mean Platelet Volume 7.1 FL (6.5-10.1) Neutrophils (%) (Auto) 78.2 % (45.0-75.0) H Lymphocytes (%) (Auto) 16.2 % (20.0-45.0) L Monocytes (%) (Auto) 3.9 % (1.0-10.0) Eosinophils (%) (Auto) 1.1 % (0.0-3.0) Basophils (%) (Auto) 0.6 % (0.0-2.0) Sodium Level 142 MMOL/L (136-145) Potassium Level 5.0 MMOL/L (3.5-5.1) Chloride Level 107 MMOL/L (98-107) Carbon Dioxide Level 31 MMOL/L (21-32) Anion Gap 5 mmol/L (5-15) Blood Urea Nitrogen 46 mg/dL (7-18) H Creatinine 2.9 MG/DL (0.55-1.30) H Estimat Glomerular Filtration Rate 27.1 mL/min (>60) Glucose Level 171 MG/DL (74-106) H Calcium Level 8.8 MG/DL (8.5-10.1) Height (Feet): 6 Height (Inches): 2.00 Weight (Pounds): 200 General Appearance: alert Cardiovascular: normal rate Respiratory/Chest: normal breath sounds, no respiratory distress, other - venturi Abdominal Exam: normal bowel sounds, non tender, soft, GT site - c/d/i Extremities: non-tender Mariaa Winters N.P. Mar 04, 2017 11:08
--- NOTE | 2017-03-04 13:54 | Infectious Diseases Prog Note ---
Assessment/Plan Problems: (1) HCAP (healthcare-associated pneumonia) Assessment & Plan: improved on cefepime and clindamycin empiric coverage, blood culture is negative , monitor CXR (2) UTI (urinary tract infection) Assessment & Plan: with pseudomonas , on cefepime , will treat for two weeks total. EOT 03/09/17 (3) Sepsis Assessment & Plan: ruled out with negative blood culture , on cefepime for UTI due to pseudomonas aeruginosa for two weeks (4) Acute kidney injury Assessment & Plan: due to sepsis , didn't improve with hydrations, avoid nephrotoxic, had dialysis catheter placed and started on HD , renal is following (5) Hyperglycemia Assessment & Plan: improving due to sepsis, recommend tight glycemic control to keep blood glucose between 80-120 (6) Dysphagia due to recent stroke Assessment & Plan: S/P PEG tube placement today by GI Subjective Constitutional: Reports: no symptoms HEENT: Reports: no symptoms Respiratory: Reports: no symptoms Breasts: Reports: no symptoms Cardiovascular: Reports: no symptoms Gastrointestinal/Abdominal: Reports: no symptoms Genitourinary: Reports: no symptoms Neurologic: Reports: no symptoms Psychiatric: Reports: no symptoms Skin: Reports: no symptoms Endocrine: Reports: no symptoms Hematologic: Reports: no symptoms Musculoskeletal: Reports: no symptoms Allergies: Coded Allergies: No Known Allergies (Unverified , 11/15/15) Subjective he was awake and alert, up in bed, on high flow oxygen via venti mask, comfortable, not febrile. not in distress Objective Vital Signs Last 24 Hour Vital Signs Date Time Temp Pulse Resp B/P (MAP) Pulse Ox O2 Delivery O2 Flow Rate FiO2 03/04/17 12:17 97.2 74 20 137/99 97 03/04/17 08:43 97.0 67 20 117/91 96 03/04/17 08:01 Venturi Mask 8.0 40 03/04/17 08:00 97 Venturi Mask 8.0 40 03/04/17 04:00 97.0 80 20 120/69 100 Nasal Cannula 2.0 03/04/17 04:00 72 03/04/17 00:00 97.0 83 23 127/67 100 Room Air 03/04/17 00:00 75 03/03/17 20:05 97.0 76 22 120/60 99 Bi-pap 4.0 03/03/17 20:00 78 03/03/17 19:40 Nasal Cannula 2.0 28 03/03/17 19:39 96 Nasal Cannula 2.0 28 03/03/17 16:00 76 03/03/17 15:32 96.3 79 20 115/86 96 Height (Feet): 6 Height (Inches): 2.00 Weight (Pounds): 200 General Appearance: WD/WN, no acute distress HEENT: normocephalic, atraumatic, anicteric, mucous membranes moist, PERRL, EOMI, pharynx normal, supple, no JVD Respiratory/Chest: chest wall non-tender, lungs clear, normal breath sounds, no respiratory distress, no accessory muscle use Cardiovascular: normal peripheral pulses, normal rate, regular rhythm, no gallop/murmur, no JVD Abdomen: normal bowel sounds, soft, non tender, no organomegaly, non distended , no mass, no scars Extremities: no cyanosis, no clubbing Skin: no rash, no lesions, no ulcers Neurologic/Psychiatric: alert, responsive Lymphatic: no neck adenopathy, no groin adenopathy Musculoskeletal: normal muscle bulk Laboratory Tests Test 03/04/17 09:30 White Blood Count 9.2 K/UL (4.8-10.8) Red Blood Count 4.68 M/UL (4.70-6.10) L Hemoglobin 13.1 G/DL (14.2-18.0) L Hematocrit 41.6 % (42.0-52.0) L Mean Corpuscular Volume 89 FL (80-99) Mean Corpuscular Hemoglobin 28.0 PG (27.0-31.0) Mean Corpuscular Hemoglobin Concent 31.5 G/DL (32.0-36.0) L Red Cell Distribution Width 13.2 % (11.6-14.8) Platelet Count 273 K/UL (150-450) Mean Platelet Volume 7.1 FL (6.5-10.1) Neutrophils (%) (Auto) 78.2 % (45.0-75.0) H Lymphocytes (%) (Auto) 16.2 % (20.0-45.0) L Monocytes (%) (Auto) 3.9 % (1.0-10.0) Eosinophils (%) (Auto) 1.1 % (0.0-3.0) Basophils (%) (Auto) 0.6 % (0.0-2.0) Sodium Level 142 MMOL/L (136-145) Potassium Level 5.0 MMOL/L (3.5-5.1) Chloride Level 107 MMOL/L (98-107) Carbon Dioxide Level 31 MMOL/L (21-32) Anion Gap 5 mmol/L (5-15) Blood Urea Nitrogen 46 mg/dL (7-18) H Creatinine 2.9 MG/DL (0.55-1.30) H Estimat Glomerular Filtration Rate 27.1 mL/min (>60) Glucose Level 171 MG/DL (74-106) H Calcium Level 8.8 MG/DL (8.5-10.1) Current Medications Medications (Trade) Dose Ordered Sig/Megan Route PRN Reason Start Time Stop Time Status Last Admin Dose Admin Acetaminophen (Tylenol) 650 mg Q4H PRN ORAL Mild Pain (Pain Scale 1-3) 02/23/17 06:30 03/25/17 06:29 02/25/17 05:34 Aspirin (ASA) 81 mg DAILY NG 02/25/17 09:00 03/27/17 08:59 03/04/17 09:53 Cefepime HCl 1 gm/ Dextrose 55 ml @ 110 mls/hr Q24H IVPB 02/23/17 09:00 03/09/17 23:59 03/04/17 09:52 Chlorhexidine Gluconate (Iman-Hex 2%) 1 applic DAILY@2000 TOPIC 02/28/17 20:15 03/30/17 20:14 03/03/17 21:39 Clotrimazole (Lotrimin) 1 applic EVERY 12 HOURS TOPIC 03/01/17 21:00 03/31/17 20:59 03/04/17 10:03 Dextrose (Dextrose 50%) STAT PRN IV Hypoglycemia 02/23/17 12:15 03/25/17 12:14 03/02/17 08:04 Heparin Sodium (Porcine) (Heparin 5000 units/ml) 5,000 units EVERY 12 HOURS SUBQ 02/23/17 09:00 03/25/17 08:59 03/04/17 10:00 Insulin Aspart (NovoLOG) EVERY 6 HOURS SUBQ 02/25/17 18:00 03/25/17 13:29 03/04/17 12:14 Insulin Detemir (Levemir) 15 units Q12HR SUBQ 03/02/17 09:00 04/01/17 08:59 03/04/17 09:59 Pantoprazole (Protonix) 40 mg DAILY IVP 02/25/17 09:00 03/27/17 08:59 03/04/17 09:53 Polyethylene Glycol (Miralax) 17 gm BEDTIME ORAL 02/24/17 21:00 03/26/17 20:59 03/03/17 21:40 Kamala Leon M.D. Mar 04, 2017 13:54
[2017-03-04 14:39] LABS: HEPATITIS BE ANTIGEN/CEDARS NONREACTIVE (NONREACTIVE)
[2017-03-04] MEDS: Miralax 17gm pkt ORAL SCH (21:00)
[2017-03-04] MEDS: Dyna-Hex 2% Top Sol 2oz TOPIC SCH (21:33)
--- NOTE | 2017-03-04 23:08 | Nephrology Progress Note ---
Assessment/Plan Problem List: (1) Hyperglycemia due to type 2 diabetes mellitus Assessment: better (2) Hypernatremia (3) CKD (chronic kidney disease) Assessment: on HD now. (4) SHANTE (acute kidney injury) Assessment: now on HD. (5) Hypoxia (6) Sepsis (7) UTI (urinary tract infection) (8) HCAP (healthcare-associated pneumonia) Plan cont current management. abx per ID. HD as scheduled. d/c planning. Subjective Subjective SOB. Objective Objective Last 24 Hour Vital Signs Date Time Temp Pulse Resp B/P (MAP) Pulse Ox O2 Delivery O2 Flow Rate FiO2 03/04/17 21:34 Venturi Mask 8.0 40 03/04/17 21:33 94 Venturi Mask 8.0 40 03/04/17 20:10 97.0 84 20 111/86 94 03/04/17 17:36 97.5 82 20 101/60 92 Venturi Mask 8.0 40 03/04/17 17:33 8.0 40 03/04/17 16:00 91 03/04/17 16:00 97.5 82 20 101/60 92 03/04/17 13:00 Venturi Mask 8.0 40 03/04/17 12:17 97.2 74 20 137/99 97 03/04/17 12:00 74 03/04/17 08:43 97.0 67 20 117/91 96 03/04/17 08:01 Venturi Mask 8.0 40 03/04/17 08:00 97 Venturi Mask 8.0 40 03/04/17 08:00 72 03/04/17 04:00 97.0 80 20 120/69 100 Nasal Cannula 2.0 03/04/17 04:00 72 03/04/17 00:00 97.0 83 23 127/67 100 Room Air 03/04/17 00:00 75 Intake and Output 03/04/17 03/05/17 19:00 07:00 Intake Total 375 ml Output Total 2400 ml Balance -2025 ml Intake Free Water 100 ml IV Total 250 ml Tube Feeding 25 ml Output Urine Total 300 ml Hemodialysis UF 2100 ml # Voids 2 # Bowel Movements 2 Laboratory Tests 03/04/17 09:30: White Blood Count 9.2, Red Blood Count 4.68L, Hemoglobin 13.1L, Hematocrit 41.6L , Mean Corpuscular Volume 89, Mean Corpuscular Hemoglobin 28.0, Mean Corpuscular Hemoglobin Concent 31.5L, Red Cell Distribution Width 13.2, Platelet Count 273, Mean Platelet Volume 7.1, Neutrophils (%) (Auto) 78.2H, Lymphocytes (%) (Auto) 16.2L, Monocytes (%) (Auto) 3.9, Eosinophils (%) (Auto) 1.1, Basophils (%) (Auto) 0.6, Sodium Level 142, Potassium Level 5.0, Chloride Level 107, Carbon Dioxide Level 31, Anion Gap 5, Blood Urea Nitrogen 46H, Creatinine 2.9H, Estimat Glomerular Filtration Rate 27.1, Glucose Level 171H, Calcium Level 8.8 Height (Feet): 6 Height (Inches): 2.00 Weight (Pounds): 200 General Appearance: no apparent distress Cardiovascular: normal rate, regular rhythm Respiratory/Chest: decreased breath sounds Abdomen: non tender, soft JJ RAYMOND Mar 04, 2017 23:08
[2017-03-05 00:15] VITALS: BP 116/86
[2017-03-05] MEDS: NovoLOG Insulin Flexpen SUBQ SCH ×4 (00:58→18:16)
[2017-03-05 04:25] VITALS: BP 119/88
[2017-03-05 08:00] VITALS: BP 107/82
[2017-03-05 08:33] LABS: BASOPHILS % (AUTO) 0.6 % (0.0-2.0); EOSINOPHILS % (AUTO) 0.7 % (0.0-3.0); LYMPHOCYTES % (AUTO) 16.2 % (20.0-45.0); MEAN CORPUSCULAR HEMOGLOBIN 28.4 PG (27.0-31.0); MEAN CORPUSCULAR HGB CONC 31.8 G/DL (32.0-36.0); MEAN CORPUSCULAR VOLUME 89 FL (80-99); MEAN PLATELET VOLUME 6.9 FL (6.5-10.1); MONOCYTES % (AUTO) 4.1 % (1.0-10.0); NEUTROPHILS % (AUTO) 78.6 % (45.0-75.0); PLATELET COUNT 298 K/UL (150-450); RED BLOOD COUNT 4.93 M/UL (4.70-6.10); RED CELL DISTRIBUTION WIDTH 13.4 % (11.6-14.8); WHITE BLOOD COUNT 11.9 K/UL (4.8-10.8)
[2017-03-05 08:43] LABS: ANION GAP 5 mmol/L (5-15); CALCIUM 8.8 MG/DL (8.5-10.1); CARBON DIOXIDE 33 MMOL/L (21-32); CHLORIDE 104 MMOL/L (98-107); CREATININE 2.5 MG/DL (0.55-1.30); GLOMERULAR FILTRATION RATE 32.2 mL/min (>60); POTASSIUM 4.9 MMOL/L (3.5-5.1); SODIUM 142 MMOL/L (136-145)
[2017-03-05] MEDS: Pantoprazole Inj IVP SCH (09:54)
[2017-03-05] MEDS: Aspirin Baby 81mg NG SCH (09:55)
[2017-03-05] MEDS: Cefepime HCl 1 GM in D5W 55 ML IVPB SCH (09:55)
[2017-03-05] MEDS: Heparin 5000 units/ml inj SUBQ SCH ×2 (10:06→21:37)
[2017-03-05] MEDS: Levemir Flexpen SUBQ SCH ×2 (10:08→21:00)
--- NOTE | 2017-03-05 10:46 | GI Progress Note ---
Assessment/Plan Problems: (1) Dysphagia due to recent stroke ICD Codes: I69.391 - Dysphagia following cerebral infarction SNOMED: 71245470, 012636730 (2) Encounter for PEG (percutaneous endoscopic gastrostomy) ICD Codes: Z43.1 - Encounter for attention to gastrostomy SNOMED: 570157547, 039572668 (3) DM (diabetes mellitus) ICD Codes: E11.9 - Type 2 diabetes mellitus without complications SNOMED: 39437623 Status: unchanged Status Narrative Discussed with Dr. Olmedo. Assessment/Plan POLST reviewed >> FULL treatment - primary decision maker would be the Brother >> Gigi Lepe @ [phone] or [phone] lactic acid >> now normal hep panel >> negative SUMMARY OF FINDINGS: Status post successful percutaneous endoscopic gastrostomy placement. RECOMMENDATIONS: 1. Abdominal binder. 2. Elevate the head of the bed at all times. 3. G-tube flush. 4. G-tube care. 5. Start tube feeding later today. 6. The patient was currently on antibiotics and no antibiotics was added. fu nephrology DM control DVT prophylaxis ppi daily monitor H&H, prn transfusions. electrolyte correction bowel regime >> colace + miralax abx fu labs Subjective Subjective limited Objective Last 24 Hour Vital Signs Date Time Temp Pulse Resp B/P (MAP) Pulse Ox O2 Delivery O2 Flow Rate FiO2 03/05/17 08:00 97.2 88 20 107/82 97 03/05/17 04:25 97.7 81 20 119/88 95 03/05/17 04:00 86 03/05/17 00:15 97.0 84 20 116/86 96 03/05/17 00:00 83 03/04/17 21:34 Venturi Mask 8.0 40 03/04/17 21:33 94 Venturi Mask 8.0 40 03/04/17 20:10 97.0 84 20 111/86 94 03/04/17 20:00 85 03/04/17 17:36 97.5 82 20 101/60 92 Venturi Mask 8.0 40 03/04/17 17:33 8.0 40 03/04/17 16:00 91 03/04/17 16:00 97.5 82 20 101/60 92 03/04/17 13:00 Venturi Mask 8.0 40 03/04/17 12:17 97.2 74 20 137/99 97 03/04/17 12:00 74 Laboratory Tests Test 03/05/17 07:57 White Blood Count 11.9 K/UL (4.8-10.8) H Red Blood Count 4.93 M/UL (4.70-6.10) Hemoglobin 14.0 G/DL (14.2-18.0) L Hematocrit 44.0 % (42.0-52.0) Mean Corpuscular Volume 89 FL (80-99) Mean Corpuscular Hemoglobin 28.4 PG (27.0-31.0) Mean Corpuscular Hemoglobin Concent 31.8 G/DL (32.0-36.0) L Red Cell Distribution Width 13.4 % (11.6-14.8) Platelet Count 298 K/UL (150-450) Mean Platelet Volume 6.9 FL (6.5-10.1) Neutrophils (%) (Auto) 78.6 % (45.0-75.0) H Lymphocytes (%) (Auto) 16.2 % (20.0-45.0) L Monocytes (%) (Auto) 4.1 % (1.0-10.0) Eosinophils (%) (Auto) 0.7 % (0.0-3.0) Basophils (%) (Auto) 0.6 % (0.0-2.0) Sodium Level 142 MMOL/L (136-145) Potassium Level 4.9 MMOL/L (3.5-5.1) Chloride Level 104 MMOL/L (98-107) Carbon Dioxide Level 33 MMOL/L (21-32) H Anion Gap 5 mmol/L (5-15) Blood Urea Nitrogen 34 mg/dL (7-18) H Creatinine 2.5 MG/DL (0.55-1.30) H Estimat Glomerular Filtration Rate 32.2 mL/min (>60) Glucose Level 117 MG/DL (74-106) H Calcium Level 8.8 MG/DL (8.5-10.1) Height (Feet): 6 Height (Inches): 2.00 Weight (Pounds): 200 General Appearance: no apparent distress Cardiovascular: normal rate Respiratory/Chest: other - venturi mask Abdominal Exam: GT site - c/d/i Mariaa Winters N.P. Mar 05, 2017 10:46
[2017-03-05 12:00] VITALS: BP 118/81
--- NOTE | 2017-03-05 12:20 | Cardiac Electrophysiology PN ---
Assessment/Plan Assessment/Plan 1. Troponin Leak of 0.091 and 0.099 due to renal failure. Echo EF 50%. No chest pain 2. Status post DDD [employer] ICD implantation with normal fx. 3. History of cardiomyopathy. EF normal now. 4. Hypernatremia and ARF, on HD per Dr. Zurita. Permcath +/- right arm av shunt by Dr. Paredes on Wednesday OK to proceed with surgery 5. Dysphagia. S/P PEG placement DW RN Subjective Subjective Comfortable in NAD. No arrhythmias on tele. Objective Last 24 Hour Vital Signs Date Time Temp Pulse Resp B/P (MAP) Pulse Ox O2 Delivery O2 Flow Rate FiO2 03/05/17 08:00 97.2 88 20 107/82 97 03/05/17 08:00 89 03/05/17 04:25 97.7 81 20 119/88 95 03/05/17 04:00 86 03/05/17 00:15 97.0 84 20 116/86 96 03/05/17 00:00 83 03/04/17 21:34 Venturi Mask 8.0 40 03/04/17 21:33 94 Venturi Mask 8.0 40 03/04/17 20:10 97.0 84 20 111/86 94 03/04/17 20:00 85 03/04/17 17:36 97.5 82 20 101/60 92 Venturi Mask 8.0 40 03/04/17 17:33 8.0 40 03/04/17 16:00 91 03/04/17 16:00 97.5 82 20 101/60 92 03/04/17 13:00 Venturi Mask 8.0 40 Laboratory Tests Test 03/05/17 07:57 White Blood Count 11.9 K/UL (4.8-10.8) H Red Blood Count 4.93 M/UL (4.70-6.10) Hemoglobin 14.0 G/DL (14.2-18.0) L Hematocrit 44.0 % (42.0-52.0) Mean Corpuscular Volume 89 FL (80-99) Mean Corpuscular Hemoglobin 28.4 PG (27.0-31.0) Mean Corpuscular Hemoglobin Concent 31.8 G/DL (32.0-36.0) L Red Cell Distribution Width 13.4 % (11.6-14.8) Platelet Count 298 K/UL (150-450) Mean Platelet Volume 6.9 FL (6.5-10.1) Neutrophils (%) (Auto) 78.6 % (45.0-75.0) H Lymphocytes (%) (Auto) 16.2 % (20.0-45.0) L Monocytes (%) (Auto) 4.1 % (1.0-10.0) Eosinophils (%) (Auto) 0.7 % (0.0-3.0) Basophils (%) (Auto) 0.6 % (0.0-2.0) Sodium Level 142 MMOL/L (136-145) Potassium Level 4.9 MMOL/L (3.5-5.1) Chloride Level 104 MMOL/L (98-107) Carbon Dioxide Level 33 MMOL/L (21-32) H Anion Gap 5 mmol/L (5-15) Blood Urea Nitrogen 34 mg/dL (7-18) H Creatinine 2.5 MG/DL (0.55-1.30) H Estimat Glomerular Filtration Rate 32.2 mL/min (>60) Glucose Level 117 MG/DL (74-106) H Calcium Level 8.8 MG/DL (8.5-10.1) Objective HEAD AND NECK: Shows mild JVD. Right IG Taran catheter. LUNGS: Decreased breath sounds. CARDIOVASCULAR: Shows regular S1 and S2 with no gallop. ICD left subclavian. ABDOMEN: Soft.PEG in place EXTREMITIES: Upper extremity contractions. GAGAN JUNIOR Mar 05, 2017 12:20
--- NOTE | 2017-03-05 14:39 | Infectious Diseases Prog Note ---
Assessment/Plan Problems: (1) HCAP (healthcare-associated pneumonia) Assessment & Plan: improved on cefepime and clindamycin empiric coverage, blood culture is negative , monitor CXR (2) UTI (urinary tract infection) Assessment & Plan: with pseudomonas , on cefepime , will treat for two weeks total. EOT 03/09/17 (3) Sepsis Assessment & Plan: ruled out with negative blood culture , on cefepime for UTI due to pseudomonas aeruginosa for two weeks (4) Acute kidney injury Assessment & Plan: due to sepsis , didn't improve with hydrations, avoid nephrotoxic, had dialysis catheter placed and started on HD , he is going to have fistula for HD next week . renal is following (5) Hyperglycemia Assessment & Plan: improving due to sepsis, recommend tight glycemic control to keep blood glucose between 80-120 (6) Dysphagia due to recent stroke Assessment & Plan: S/P PEG tube placement today by GI Subjective Constitutional: Reports: no symptoms HEENT: Reports: no symptoms Respiratory: Reports: no symptoms Breasts: Reports: no symptoms Cardiovascular: Reports: no symptoms Gastrointestinal/Abdominal: Reports: no symptoms Genitourinary: Reports: no symptoms Neurologic: Reports: no symptoms Psychiatric: Reports: no symptoms Skin: Reports: no symptoms Endocrine: Reports: no symptoms Hematologic: Reports: no symptoms Musculoskeletal: Reports: no symptoms Allergies: Coded Allergies: No Known Allergies (Unverified , 11/15/15) Subjective he was awake and alert, up in bed, on high flow oxygen via venti mask, comfortable, not febrile. not in distress Objective Vital Signs Last 24 Hour Vital Signs Date Time Temp Pulse Resp B/P (MAP) Pulse Ox O2 Delivery O2 Flow Rate FiO2 03/05/17 12:00 97.7 94 20 118/81 96 03/05/17 08:00 97.2 88 20 107/82 97 03/05/17 08:00 89 03/05/17 04:25 97.7 81 20 119/88 95 03/05/17 04:00 86 03/05/17 00:15 97.0 84 20 116/86 96 03/05/17 00:00 83 03/04/17 21:34 Venturi Mask 8.0 40 03/04/17 21:33 94 Venturi Mask 8.0 40 03/04/17 20:10 97.0 84 20 111/86 94 03/04/17 20:00 85 03/04/17 17:36 97.5 82 20 101/60 92 Venturi Mask 8.0 40 03/04/17 17:33 8.0 40 03/04/17 16:00 91 03/04/17 16:00 97.5 82 20 101/60 92 Height (Feet): 6 Height (Inches): 2.00 Weight (Pounds): 200 General Appearance: WD/WN, no acute distress HEENT: normocephalic, atraumatic, anicteric, mucous membranes moist, PERRL, EOMI, pharynx normal, supple, no JVD Respiratory/Chest: chest wall non-tender, lungs clear, normal breath sounds, no respiratory distress, no accessory muscle use Cardiovascular: normal peripheral pulses, normal rate, regular rhythm, no gallop/murmur, no JVD Abdomen: normal bowel sounds, soft, non tender, no organomegaly, non distended , no mass, no scars Extremities: no cyanosis, no clubbing Skin: no rash, no lesions, no ulcers Neurologic/Psychiatric: alert, responsive Laboratory Tests Test 03/05/17 07:57 White Blood Count 11.9 K/UL (4.8-10.8) H Red Blood Count 4.93 M/UL (4.70-6.10) Hemoglobin 14.0 G/DL (14.2-18.0) L Hematocrit 44.0 % (42.0-52.0) Mean Corpuscular Volume 89 FL (80-99) Mean Corpuscular Hemoglobin 28.4 PG (27.0-31.0) Mean Corpuscular Hemoglobin Concent 31.8 G/DL (32.0-36.0) L Red Cell Distribution Width 13.4 % (11.6-14.8) Platelet Count 298 K/UL (150-450) Mean Platelet Volume 6.9 FL (6.5-10.1) Neutrophils (%) (Auto) 78.6 % (45.0-75.0) H Lymphocytes (%) (Auto) 16.2 % (20.0-45.0) L Monocytes (%) (Auto) 4.1 % (1.0-10.0) Eosinophils (%) (Auto) 0.7 % (0.0-3.0) Basophils (%) (Auto) 0.6 % (0.0-2.0) Sodium Level 142 MMOL/L (136-145) Potassium Level 4.9 MMOL/L (3.5-5.1) Chloride Level 104 MMOL/L (98-107) Carbon Dioxide Level 33 MMOL/L (21-32) H Anion Gap 5 mmol/L (5-15) Blood Urea Nitrogen 34 mg/dL (7-18) H Creatinine 2.5 MG/DL (0.55-1.30) H Estimat Glomerular Filtration Rate 32.2 mL/min (>60) Glucose Level 117 MG/DL (74-106) H Calcium Level 8.8 MG/DL (8.5-10.1) Current Medications Medications (Trade) Dose Ordered Sig/Megan Route PRN Reason Start Time Stop Time Status Last Admin Dose Admin Acetaminophen (Tylenol) 650 mg Q4H PRN ORAL Mild Pain (Pain Scale 1-3) 02/23/17 06:30 03/25/17 06:29 02/25/17 05:34 Aspirin (ASA) 81 mg DAILY NG 02/25/17 09:00 03/27/17 08:59 03/05/17 09:55 Cefepime HCl 1 gm/ Dextrose 55 ml @ 110 mls/hr Q24H IVPB 02/23/17 09:00 03/09/17 23:59 03/05/17 09:55 Chlorhexidine Gluconate (Iman-Hex 2%) 1 applic DAILY@2000 TOPIC 02/28/17 20:15 03/30/17 20:14 03/04/17 21:33 Clotrimazole (Lotrimin) 1 applic EVERY 12 HOURS TOPIC 03/01/17 21:00 03/31/17 20:59 03/05/17 09:55 Dextrose (Dextrose 50%) STAT PRN IV Hypoglycemia 02/23/17 12:15 03/25/17 12:14 03/02/17 08:04 Heparin Sodium (Porcine) (Heparin 5000 units/ml) 5,000 units EVERY 12 HOURS SUBQ 02/23/17 09:00 03/25/17 08:59 03/05/17 10:06 Insulin Aspart (NovoLOG) EVERY 6 HOURS SUBQ 02/25/17 18:00 03/25/17 13:29 03/05/17 14:03 Insulin Detemir (Levemir) 15 units Q12HR SUBQ 03/02/17 09:00 04/01/17 08:59 03/05/17 10:08 Pantoprazole (Protonix) 40 mg DAILY IVP 02/25/17 09:00 03/27/17 08:59 03/05/17 09:54 Polyethylene Glycol (Miralax) 17 gm BEDTIME ORAL 02/24/17 21:00 03/26/17 20:59 03/03/17 21:40 Kamala Leon M.D. Mar 05, 2017 14:39
[2017-03-05 16:00] VITALS: BP 108/62
[2017-03-05 20:00] VITALS: BP 126/89
[2017-03-05] MEDS: Dyna-Hex 2% Top Sol 2oz TOPIC SCH (20:22)
[2017-03-05] MEDS: Miralax 17gm pkt ORAL SCH (21:35)
--- NOTE | 2017-03-05 23:25 | Nephrology Progress Note ---
Assessment/Plan Problem List: (1) Hyperglycemia due to type 2 diabetes mellitus Assessment: better (2) Hypernatremia (3) CKD (chronic kidney disease) Assessment: on HD now. (4) SHANTE (acute kidney injury) Assessment: now on HD. (5) Hypoxia (6) Sepsis (7) UTI (urinary tract infection) (8) HCAP (healthcare-associated pneumonia) Plan cont current management. abx per ID. HD as scheduled. d/c planning. Subjective Subjective SOB. Objective Objective Last 24 Hour Vital Signs Date Time Temp Pulse Resp B/P (MAP) Pulse Ox O2 Delivery O2 Flow Rate FiO2 03/05/17 20:00 97.0 80 20 126/89 96 03/05/17 19:59 96 Venturi Mask 8.0 40 03/05/17 19:59 Venturi Mask 8.0 40 03/05/17 16:00 97.0 88 22 108/62 97 03/05/17 16:00 Venturi Mask 3.0 03/05/17 12:00 Venturi Mask 3.0 03/05/17 12:00 92 03/05/17 12:00 97.7 94 20 118/81 96 03/05/17 08:00 97.2 88 20 107/82 97 03/05/17 08:00 Venturi Mask 5.0 03/05/17 08:00 89 03/05/17 04:25 97.7 81 20 119/88 95 03/05/17 04:00 86 03/05/17 00:15 97.0 84 20 116/86 96 03/05/17 00:00 83 Intake and Output 03/05/17 03/06/17 19:00 07:00 Intake Total 55 ml Balance 55 ml IV Total 55 ml # Voids 3 # Bowel Movements 1 Laboratory Tests 03/05/17 07:57: White Blood Count 11.9H, Red Blood Count 4.93, Hemoglobin 14.0L, Hematocrit 44.0 , Mean Corpuscular Volume 89, Mean Corpuscular Hemoglobin 28.4, Mean Corpuscular Hemoglobin Concent 31.8L, Red Cell Distribution Width 13.4, Platelet Count 298, Mean Platelet Volume 6.9, Neutrophils (%) (Auto) 78.6H, Lymphocytes (%) (Auto) 16.2L, Monocytes (%) (Auto) 4.1, Eosinophils (%) (Auto) 0.7, Basophils (%) (Auto) 0.6, Sodium Level 142, Potassium Level 4.9, Chloride Level 104, Carbon Dioxide Level 33H, Anion Gap 5, Blood Urea Nitrogen 34H, Creatinine 2.5H, Estimat Glomerular Filtration Rate 32.2, Glucose Level 117H, Calcium Level 8.8 Height (Feet): 6 Height (Inches): 2.00 Weight (Pounds): 200 JJ RAYMOND Mar 05, 2017 23:25
[2017-03-06] VITALS: BP 126/89
[2017-03-06] MEDS: NovoLOG Insulin Flexpen SUBQ SCH ×4 (00:26→17:15)
[2017-03-06] MEDS ORDERED: Acetaminophen 650mg/20.3ml GT PRN (02:45)
[2017-03-06 04:00] VITALS: BP 123/98
--- NOTE | 2017-03-06 07:08 | General Progress Note ---
Assessment/Plan Problem List: (1) Encounter for PEG (percutaneous endoscopic gastrostomy) ICD Codes: Z43.1 - Encounter for attention to gastrostomy SNOMED: 878578927, 101868299 (2) Dysphagia due to recent stroke ICD Codes: I69.391 - Dysphagia following cerebral infarction SNOMED: 60886830, 575000920 (3) Hyperglycemia due to type 2 diabetes mellitus ICD Codes: E11.65 - Type 2 diabetes mellitus with hyperglycemia SNOMED: 368035716275466 (4) Hypernatremia ICD Codes: E87.0 - Hyperosmolality and hypernatremia SNOMED: 64856232 Assessment/Plan low glucose noted yesterday reduce Levemir to 11 units bid continue SSI q 6 hours Subjective ROS Limited/Unobtainable: Yes Allergies: Coded Allergies: No Known Allergies (Unverified , 11/15/15) Subjective events noted calm in bed on continuous TF Objective Last 24 Hour Vital Signs Date Time Temp Pulse Resp B/P (MAP) Pulse Ox O2 Delivery O2 Flow Rate FiO2 03/06/17 04:00 97.0 82 18 123/98 98 03/06/17 04:00 78 03/06/17 00:00 97.3 83 20 126/89 98 03/06/17 00:00 84 03/05/17 20:00 97.0 80 20 126/89 96 03/05/17 20:00 88 03/05/17 19:59 96 Venturi Mask 8.0 40 03/05/17 19:59 Venturi Mask 8.0 40 03/05/17 16:00 97.0 88 22 108/62 97 03/05/17 16:00 Venturi Mask 3.0 03/05/17 12:00 Venturi Mask 3.0 03/05/17 12:00 92 03/05/17 12:00 97.7 94 20 118/81 96 03/05/17 08:00 97.2 88 20 107/82 97 03/05/17 08:00 Venturi Mask 5.0 03/05/17 08:00 89 Laboratory Tests 03/05/17 07:57: White Blood Count 11.9H, Red Blood Count 4.93, Hemoglobin 14.0L, Hematocrit 44.0 , Mean Corpuscular Volume 89, Mean Corpuscular Hemoglobin 28.4, Mean Corpuscular Hemoglobin Concent 31.8L, Red Cell Distribution Width 13.4, Platelet Count 298, Mean Platelet Volume 6.9, Neutrophils (%) (Auto) 78.6H, Lymphocytes (%) (Auto) 16.2L, Monocytes (%) (Auto) 4.1, Eosinophils (%) (Auto) 0.7, Basophils (%) (Auto) 0.6, Sodium Level 142, Potassium Level 4.9, Chloride Level 104, Carbon Dioxide Level 33H, Anion Gap 5, Blood Urea Nitrogen 34H, Creatinine 2.5H, Estimat Glomerular Filtration Rate 32.2, Glucose Level 117H, Calcium Level 8.8 Height (Feet): 6 Height (Inches): 2.00 Weight (Pounds): 200 General Appearance: no apparent distress Neck: normal alignment Cardiovascular: normal rate Respiratory/Chest: decreased breath sounds Abdomen: normal bowel sounds Objective Current Medications Medications (Trade) Dose Ordered Sig/Megan Route PRN Reason Start Time Stop Time Status Last Admin Dose Admin Acetaminophen (Tylenol) 650 mg Q4H PRN GT Mild Pain (Pain Scale 1-3) 03/06/17 02:45 04/05/17 02:44 Aspirin (ASA) 81 mg DAILY GT 03/06/17 09:00 04/05/17 08:59 Cefepime HCl 1 gm/ Dextrose 55 ml @ 110 mls/hr Q24H IVPB 02/23/17 09:00 03/09/17 23:59 03/05/17 09:55 Chlorhexidine Gluconate (Iman-Hex 2%) 1 applic DAILY@1999 TOPIC 02/28/17 20:15 03/30/17 20:14 03/05/17 20:22 Clotrimazole (Lotrimin) 1 applic EVERY 12 HOURS TOPIC 03/01/17 21:00 03/31/17 20:59 03/05/17 21:46 Dextrose (Dextrose 50%) STAT PRN IV Hypoglycemia 02/23/17 12:15 03/25/17 12:14 03/02/17 08:04 Heparin Sodium (Porcine) (Heparin 5000 units/ml) 5,000 units EVERY 12 HOURS SUBQ 02/23/17 09:00 03/25/17 08:59 03/05/17 21:37 Insulin Aspart (NovoLOG) EVERY 6 HOURS SUBQ 02/25/17 18:00 03/25/17 13:29 03/06/17 05:47 Insulin Detemir (Levemir) 15 units Q12HR SUBQ 03/02/17 09:00 04/01/17 08:59 03/05/17 10:08 Pantoprazole (Protonix) 40 mg DAILY IVP 02/25/17 09:00 03/27/17 08:59 03/05/17 09:54 Polyethylene Glycol (Miralax) 17 gm BEDTIME GT 03/06/17 21:00 04/05/17 20:59 Item Value Date Time Bedside Blood Glucose 161 mg/dl H 03/06/17 0547 Bedside Blood Glucose 119 mg/dl 03/06/17 0026 Bedside Blood Glucose 78 mg/dl 03/05/17 2100 Bedside Blood Glucose 137 mg/dl H 03/05/17 1816 Bedside Blood Glucose 193 mg/dl H 03/05/17 1403 Bedside Blood Glucose 144 mg/dl H 03/05/17 1008 MARIA VICTORIA GOMEZ Mar 06, 2017 07:08
[2017-03-06 08:00] VITALS: BP 134/96
[2017-03-06] MEDS: Heparin 5000 units/ml inj SUBQ SCH ×2 (09:00→22:33)
[2017-03-06] MEDS: Pantoprazole Inj IVP SCH (09:41)
[2017-03-06] MEDS: Cefepime HCl 1 GM in D5W 55 ML IVPB SCH (09:41)
[2017-03-06] MEDS: Aspirin Baby 81mg GT SCH (09:42)
[2017-03-06] MEDS: Levemir Flexpen SUBQ SCH ×2 (09:44→22:31)
[2017-03-06 12:00] VITALS: BP 130/98
[2017-03-06 16:00] VITALS: BP 118/54
--- NOTE | 2017-03-06 17:29 | Infectious Diseases Prog Note ---
Assessment/Plan Problems: (1) HCAP (healthcare-associated pneumonia) Assessment & Plan: improved on cefepime and clindamycin empiric coverage, blood culture is negative , will start vancomycin with HD , monitor CXR (2) UTI (urinary tract infection) Assessment & Plan: with pseudomonas , on cefepime , will treat for two weeks total. EOT 03/09/17 (3) Sepsis Assessment & Plan: with wbc went up after clindamycin was stopped , will add vancomycin empiric coverage , and repeat blood culture , continue cefepime for UTI due to pseudomonas aeruginosa for two weeks (4) Acute kidney injury Assessment & Plan: due to sepsis , didn't improve with hydrations, avoid nephrotoxic, had dialysis catheter placed and started on HD , he is going to have fistula for HD next week . renal is following (5) Hyperglycemia Assessment & Plan: improving due to sepsis, recommend tight glycemic control to keep blood glucose between 80-120 (6) Dysphagia due to recent stroke Assessment & Plan: S/P PEG tube placement today by GI Subjective Constitutional: Reports: no symptoms HEENT: Reports: no symptoms Respiratory: Reports: no symptoms Breasts: Reports: no symptoms Cardiovascular: Reports: no symptoms Gastrointestinal/Abdominal: Reports: no symptoms Genitourinary: Reports: no symptoms Neurologic: Reports: no symptoms Psychiatric: Reports: no symptoms Skin: Reports: no symptoms Endocrine: Reports: no symptoms Hematologic: Reports: no symptoms Allergies: Coded Allergies: No Known Allergies (Unverified , 11/15/15) Subjective he was awake and alert, up in bed, on high flow oxygen via venti mask, comfortable, not febrile. not in distress Objective Vital Signs Last 24 Hour Vital Signs Date Time Temp Pulse Resp B/P (MAP) Pulse Ox O2 Delivery O2 Flow Rate FiO2 03/06/17 16:21 Room Air 3.0 32 03/06/17 16:00 97.3 99 18 118/54 97 Room Air 03/06/17 12:50 Room Air 3.0 32 03/06/17 12:00 98.1 83 18 130/98 95 Room Air 03/06/17 12:00 86 03/06/17 08:00 83 03/06/17 08:00 97.2 87 18 134/96 98 Nasal Cannula 3.0 03/06/17 07:17 84 Nasal Cannula 3.0 32 12/16/17 07:17 Nasal Cannula 3.0 32 03/06/17 04:00 97.0 82 18 123/98 98 03/06/17 04:00 78 03/06/17 00:00 97.3 83 20 126/89 98 03/06/17 00:00 84 03/05/17 20:00 97.0 80 20 126/89 96 03/05/17 20:00 88 03/05/17 19:59 96 Venturi Mask 8.0 40 03/05/17 19:59 Venturi Mask 8.0 40 Height (Feet): 6 Height (Inches): 2.00 Weight (Pounds): 200 General Appearance: WD/WN, no acute distress HEENT: normocephalic, atraumatic, anicteric, mucous membranes moist, EOMI, pharynx normal, supple, no JVD Respiratory/Chest: chest wall non-tender, lungs clear, normal breath sounds, no respiratory distress, no accessory muscle use Cardiovascular: normal peripheral pulses, normal rate, regular rhythm, no gallop/murmur, no JVD Abdomen: normal bowel sounds, soft, non tender, no organomegaly, non distended , no mass, no scars Genitourinary: normal external genitalia Extremities: no cyanosis, no clubbing Skin: no rash, no lesions, no ulcers 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, alert, responsive Current Medications Medications (Trade) Dose Ordered Sig/Megan Route PRN Reason Start Time Stop Time Status Last Admin Dose Admin Acetaminophen (Tylenol) 650 mg Q4H PRN GT Mild Pain (Pain Scale 1-3) 03/06/17 02:45 04/05/17 02:44 Aspirin (ASA) 81 mg DAILY GT 03/06/17 09:00 04/05/17 08:59 03/06/17 09:42 Cefepime HCl 1 gm/ Dextrose 55 ml @ 110 mls/hr Q24H IVPB 02/23/17 09:00 03/09/17 23:59 03/06/17 09:41 Chlorhexidine Gluconate (Iman-Hex 2%) 1 applic DAILY@1999 TOPIC 02/28/17 20:15 03/30/17 20:14 03/05/17 20:22 Clotrimazole (Lotrimin) 1 applic EVERY 12 HOURS TOPIC 03/01/17 21:00 03/31/17 20:59 03/06/17 09:00 Dextrose (Dextrose 50%) STAT PRN IV Hypoglycemia 02/23/17 12:15 03/25/17 12:14 03/02/17 08:04 Heparin Sodium (Porcine) (Heparin 5000 units/ml) 5,000 units EVERY 12 HOURS SUBQ 02/23/17 09:00 03/25/17 08:59 03/05/17 21:37 Insulin Aspart (NovoLOG) EVERY 6 HOURS SUBQ 02/25/17 18:00 03/25/17 13:29 03/06/17 17:15 Insulin Detemir (Levemir) 11 units Q12HR SUBQ 03/06/17 09:00 04/05/17 08:59 03/06/17 09:44 Pantoprazole (Protonix) 40 mg DAILY IVP 02/25/17 09:00 03/27/17 08:59 03/06/17 09:41 Polyethylene Glycol (Miralax) 17 gm BEDTIME GT 03/06/17 21:00 04/05/17 20:59 Kamala Leon M.D. Mar 06, 2017 17:29
--- NOTE | 2017-03-06 17:57 | Nephrology Progress Note ---
Assessment/Plan Problem List: (1) Hypernatremia (2) Hyperglycemia (3) Hypoxia (4) Sepsis (5) UTI (urinary tract infection) (6) HCAP (healthcare-associated pneumonia) (7) DM (diabetes mellitus) (8) Dysphagia due to recent stroke (9) CKD (chronic kidney disease) Plan S/p HD 03/06/17, net loss 2500cc Renally dose meds, avoid nephrotoxins Strict glycemic control Continue o2 therapy Tube feeding ongoing Abx per ID DVT prophylaxis, PPI Monitor neuro status AM labs Subjective ROS Limited/Unobtainable: Yes Subjective In bed, in no apparent distress, non verbal, on O2 via nasal cannula. Objective Objective Last 24 Hour Vital Signs Date Time Temp Pulse Resp B/P (MAP) Pulse Ox O2 Delivery O2 Flow Rate FiO2 03/06/17 16:21 Room Air 3.0 32 03/06/17 16:00 97.3 99 18 118/54 97 Room Air 03/06/17 16:00 101 03/06/17 12:50 Room Air 3.0 32 03/06/17 12:00 98.1 83 18 130/98 95 Room Air 03/06/17 12:00 86 03/06/17 08:00 83 03/06/17 08:00 97.2 87 18 134/96 98 Nasal Cannula 3.0 03/06/17 07:17 84 Nasal Cannula 3.0 32 03/06/17 07:17 Nasal Cannula 3.0 32 03/06/17 04:00 97.0 82 18 123/98 98 03/06/17 04:00 78 03/06/17 00:00 97.3 83 20 126/89 98 03/06/17 00:00 84 03/05/17 20:00 97.0 80 20 126/89 96 03/05/17 20:00 88 03/05/17 19:59 96 Venturi Mask 8.0 40 03/05/17 19:59 Venturi Mask 8.0 40 Intake and Output 03/06/17 03/07/17 19:00 07:00 Output Total 2300 ml Balance -2300 ml Hemodialysis UF 2300 ml # Voids 2 # Bowel Movements 1 Height (Feet): 6 Height (Inches): 2.00 Weight (Pounds): 200 General Appearance: no apparent distress EENT: normal ENT inspection Neck: normal alignment Cardiovascular: normal rate, no JVD Respiratory/Chest: decreased breath sounds Abdomen: soft Extremities: moderate edema, pitting Neurologic: motor weakness Mary Barboza N.P. Mar 06, 2017 17:57
[2017-03-06 20:00] VITALS: BP 122/95
[2017-03-06] MEDS ORDERED: Vancomycin 1.5 GM/D5W 250ML IVPB ONE (20:00)
[2017-03-06] MEDS: Miralax 17gm pkt GT SCH (22:26)
[2017-03-06] MEDS: Dyna-Hex 2% Top Sol 2oz TOPIC SCH (22:26)
--- NOTE | 2017-03-06 23:12 | Cardiology Progress Note ---
Assessment/Plan Assessment/Plan 1. NSTEMI vs Troponin leak due to renal failure. Echo EF 50%. No chest pain 2. Status post DDD [employer] ICD implantation with normal fx. 3. History of cardiomyopathy. EF normal now. Subjective Cardiovascular: Reports: no symptoms Respiratory: Reports: no symptoms Gastrointestinal/Abdominal: Reports: no symptoms Genitourinary: Reports: no symptoms Subjective Sinus rhythm at 93. Objective Last 24 Hour Vital Signs Date Time Temp Pulse Resp B/P (MAP) Pulse Ox O2 Delivery O2 Flow Rate FiO2 03/06/17 20:00 97.1 93 18 122/95 94 Room Air 03/06/17 19:30 Nasal Cannula 3.0 32 03/06/17 19:30 94 Nasal Cannula 3.0 32 03/06/17 16:21 Room Air 3.0 32 03/06/17 16:00 97.3 99 18 118/54 97 Room Air 03/06/17 16:00 101 03/06/17 12:50 Room Air 3.0 32 03/06/17 12:00 98.1 83 18 130/98 95 Room Air 03/06/17 12:00 86 03/06/17 08:00 83 03/06/17 08:00 97.2 87 18 134/96 98 Nasal Cannula 3.0 03/06/17 07:17 84 Nasal Cannula 3.0 32 03/06/17 07:17 Nasal Cannula 3.0 32 03/06/17 04:00 97.0 82 18 123/98 98 03/06/17 04:00 78 03/06/17 00:00 97.3 83 20 126/89 98 03/06/17 00:00 84 Intake and Output 03/06/17 03/07/17 19:00 07:00 Output Total 2300 ml Balance -2300 ml Hemodialysis UF 2300 ml # Voids 2 # Bowel Movements 1 Objective HEAD AND NECK: Shows mild JVD. Right IG Taran catheter. LUNGS: Decreased breath sounds. CARDIOVASCULAR: Shows regular S1 and S2 with no gallop. ICD left subclavian. ABDOMEN: Soft.PEG in place EXTREMITIES: Upper extremity contractions GAGAN UGALDE Mar 06, 2017 23:12
[2017-03-07] VITALS: BP 117/94
[2017-03-07] MEDS: NovoLOG Insulin Flexpen SUBQ SCH ×4 (00:42→18:43)
[2017-03-07 04:00] VITALS: BP 121/90
[2017-03-07 08:00] VITALS: BP 108/86
[2017-03-07] MEDS: Heparin 5000 units/ml inj SUBQ SCH ×2 (09:00→21:00)
[2017-03-07] MEDS: Aspirin Baby 81mg GT SCH (09:00)
[2017-03-07] MEDS: Cefepime HCl 1 GM in D5W 55 ML IVPB SCH (09:28)
[2017-03-07] MEDS: Pantoprazole Inj IVP SCH (09:28)
[2017-03-07] MEDS: Levemir Flexpen SUBQ SCH ×2 (09:31→21:46)
[2017-03-07 12:00] VITALS: BP 121/93
[2017-03-07 16:00] VITALS: BP 111/91
--- NOTE | 2017-03-07 16:50 | General Progress Note ---
Assessment/Plan Problem List: (1) Encounter for PEG (percutaneous endoscopic gastrostomy) ICD Codes: Z43.1 - Encounter for attention to gastrostomy SNOMED: 447358189, 930872663 (2) Dysphagia due to recent stroke ICD Codes: I69.391 - Dysphagia following cerebral infarction SNOMED: 61198087, 265211296 (3) Hyperglycemia due to type 2 diabetes mellitus ICD Codes: E11.65 - Type 2 diabetes mellitus with hyperglycemia SNOMED: 411633603925136 (4) Hypernatremia ICD Codes: E87.0 - Hyperosmolality and hypernatremia SNOMED: 19680575 Assessment/Plan continue Levemir 11 units bid continue SSI q 6 hours Subjective ROS Limited/Unobtainable: Yes Allergies: Coded Allergies: No Known Allergies (Unverified , 11/15/15) Subjective events noted calm in bed on continuous TF Objective Last 24 Hour Vital Signs Date Time Temp Pulse Resp B/P (MAP) Pulse Ox O2 Delivery O2 Flow Rate FiO2 03/07/17 08:00 82 03/07/17 07:35 Nasal Cannula 3.0 32 03/07/17 07:35 95 Nasal Cannula 3.0 32 03/07/17 04:00 97.3 81 18 121/90 91 Room Air 03/07/17 04:00 86 03/07/17 00:00 97.1 86 18 117/94 93 Room Air 03/07/17 00:00 87 03/06/17 20:00 97.1 93 18 122/95 94 Room Air 03/06/17 20:00 92 03/06/17 19:30 Nasal Cannula 3.0 32 03/06/17 19:30 94 Nasal Cannula 3.0 32 Height (Feet): 6 Height (Inches): 2.00 Weight (Pounds): 200 General Appearance: no apparent distress Neck: normal alignment Cardiovascular: normal rate Respiratory/Chest: lungs clear Abdomen: normal bowel sounds Objective Current Medications Medications (Trade) Dose Ordered Sig/Megan Route PRN Reason Start Time Stop Time Status Last Admin Dose Admin Acetaminophen (Tylenol) 650 mg Q4H PRN GT Mild Pain (Pain Scale 1-3) 03/06/17 02:45 04/05/17 02:44 Aspirin (ASA) 81 mg DAILY GT 03/06/17 09:00 04/05/17 08:59 03/06/17 09:42 Cefepime HCl 1 gm/ Dextrose 55 ml @ 110 mls/hr Q24H IVPB 02/23/17 09:00 03/09/17 23:59 03/07/17 09:28 Chlorhexidine Gluconate (Iman-Hex 2%) 1 applic DAILY@1999 TOPIC 02/28/17 20:15 03/30/17 20:14 03/06/17 22:26 Clotrimazole (Lotrimin) 1 applic EVERY 12 HOURS TOPIC 03/01/17 21:00 03/31/17 20:59 03/07/17 09:34 Dextrose (Dextrose 50%) STAT PRN IV Hypoglycemia 02/23/17 12:15 03/25/17 12:14 03/02/17 08:04 Heparin Sodium (Porcine) (Heparin 5000 units/ml) 5,000 units EVERY 12 HOURS SUBQ 02/23/17 09:00 03/25/17 08:59 03/06/17 22:33 Insulin Aspart (NovoLOG) EVERY 6 HOURS SUBQ 02/25/17 18:00 03/25/17 13:29 03/07/17 12:48 Insulin Detemir (Levemir) 11 units Q12HR SUBQ 03/06/17 09:00 04/05/17 08:59 03/07/17 09:31 Pantoprazole (Protonix) 40 mg DAILY IVP 02/25/17 09:00 03/27/17 08:59 03/07/17 09:28 Polyethylene Glycol (Miralax) 17 gm BEDTIME GT 03/06/17 21:00 04/05/17 20:59 03/06/17 22:26 Vancomycin HCl (Vanco rx to dose) 1 ea DAILY PRN MISC Per rx protocol 03/06/17 18:00 04/05/17 17:59 Item Value Date Time Bedside Blood Glucose 196 mg/dl H 03/07/17 1248 Bedside Blood Glucose 140 mg/dl H 03/07/17 0931 Bedside Blood Glucose 140 mg/dl H 03/07/17 0627 Bedside Blood Glucose 167 mg/dl H 03/07/17 0042 MARIA VICTORIA GOMEZ Mar 07, 2017 16:50
--- NOTE | 2017-03-07 17:44 | Nephrology Progress Note ---
Assessment/Plan Problem List: (1) Hypernatremia (2) Hyperglycemia (3) Hypoxia (4) Sepsis (5) UTI (urinary tract infection) (6) HCAP (healthcare-associated pneumonia) (7) DM (diabetes mellitus) (8) Dysphagia due to recent stroke (9) CKD (chronic kidney disease) Plan S/p HD 03/06/17, net loss 2500cc Renally dose meds, avoid nephrotoxins Strict glycemic control Continue o2 therapy Tube feeding ongoing Abx per ID DVT prophylaxis, PPI Monitor neuro status AM labs Subjective ROS Limited/Unobtainable: Yes Subjective In bed, in no apparent distress, non verbal, on O2 via nasal cannula. Objective Objective Last 24 Hour Vital Signs Date Time Temp Pulse Resp B/P (MAP) Pulse Ox O2 Delivery O2 Flow Rate FiO2 03/07/17 08:00 82 03/07/17 07:35 Nasal Cannula 3.0 32 03/07/17 07:35 95 Nasal Cannula 3.0 32 03/07/17 04:00 97.3 81 18 121/90 91 Room Air 03/07/17 04:00 86 03/07/17 00:00 97.1 86 18 117/94 93 Room Air 03/07/17 00:00 87 03/06/17 20:00 97.1 93 18 122/95 94 Room Air 03/06/17 20:00 92 03/06/17 19:30 Nasal Cannula 3.0 32 03/06/17 19:30 94 Nasal Cannula 3.0 32 Height (Feet): 6 Height (Inches): 2.00 Weight (Pounds): 200 General Appearance: no apparent distress EENT: normal ENT inspection Neck: non-tender, normal alignment Cardiovascular: normal rate Respiratory/Chest: decreased breath sounds Abdomen: soft, other - PEG tube Extremities: non-tender, normal inspection Neurologic: motor weakness, disoriented Mary Barboza N.P. Mar 07, 2017 17:44
[2017-03-07 20:00] VITALS: BP 124/87
[2017-03-07] MEDS: Dyna-Hex 2% Top Sol 2oz TOPIC SCH (21:43)
[2017-03-07] MEDS: Miralax 17gm pkt GT SCH (21:52)
--- NOTE | 2017-03-07 23:16 | Infectious Diseases Prog Note ---
Assessment/Plan Problems: (1) HCAP (healthcare-associated pneumonia) Assessment & Plan: improved on cefepime and clindamycin empiric coverage, blood culture is negative , will continue vancomycin with HD , repeat CXR (2) UTI (urinary tract infection) Assessment & Plan: with pseudomonas , on cefepime , will treat for two weeks total. EOT 03/09/17 (3) Sepsis Assessment & Plan: with wbc went up after clindamycin was stopped , started on vancomycin empiric coverage , repeated blood culture is pending , continue cefepime for UTI due to pseudomonas aeruginosa for two weeks (4) Acute kidney injury Assessment & Plan: due to sepsis , didn't improve with hydrations, avoid nephrotoxic, had dialysis catheter placed and started on HD , he is going to have fistula for HD next week . renal is following (5) Hyperglycemia Assessment & Plan: improving due to sepsis, recommend tight glycemic control to keep blood glucose between 80-120 (6) Dysphagia due to recent stroke Assessment & Plan: S/P PEG tube placement today by GI Subjective ROS Limited/Unobtainable: Yes Allergies: Coded Allergies: No Known Allergies (Unverified , 11/15/15) Subjective he was alert, up in bed, responds to verbal commands , on high flow oxygen via venti mask, comfortable, not febrile. not in distress Objective Vital Signs Last 24 Hour Vital Signs Date Time Temp Pulse Resp B/P (MAP) Pulse Ox O2 Delivery O2 Flow Rate FiO2 03/07/17 20:00 97.2 79 18 124/87 95 Room Air 3.0 32 03/07/17 20:00 82 03/07/17 16:00 81 03/07/17 16:00 97.0 82 18 111/91 91 Room Air 03/07/17 12:00 81 03/07/17 12:00 97.2 80 18 121/93 91 Room Air 03/07/17 08:00 97.7 78 18 108/86 91 Room Air 03/07/17 08:00 82 03/07/17 07:35 Nasal Cannula 3.0 32 03/07/17 07:35 95 Nasal Cannula 3.0 32 03/07/17 04:00 97.3 81 18 121/90 91 Room Air 03/07/17 04:00 86 03/07/17 00:00 97.1 86 18 117/94 93 Room Air 03/07/17 00:00 87 Height (Feet): 6 Height (Inches): 2.00 Weight (Pounds): 200 General Appearance: WD/WN, no acute distress HEENT: normocephalic, atraumatic, anicteric, mucous membranes moist, PERRL Respiratory/Chest: chest wall non-tender, lungs clear, normal breath sounds, no respiratory distress, no accessory muscle use, decreased breath sounds Cardiovascular: normal peripheral pulses, normal rate, regular rhythm, no gallop/murmur, no JVD Abdomen: normal bowel sounds, soft, non tender, no organomegaly, non distended , no mass, no scars Genitourinary: normal external genitalia Extremities: no cyanosis, no clubbing Skin: no rash, no lesions, no ulcers Neurologic/Psychiatric: alert, responsive Current Medications Medications (Trade) Dose Ordered Sig/Megan Route PRN Reason Start Time Stop Time Status Last Admin Dose Admin Acetaminophen (Tylenol) 650 mg Q4H PRN GT Mild Pain (Pain Scale 1-3) 03/06/17 02:45 04/05/17 02:44 Aspirin (ASA) 81 mg DAILY GT 03/06/17 09:00 04/05/17 08:59 03/06/17 09:42 Cefepime HCl 1 gm/ Dextrose 55 ml @ 110 mls/hr Q24H IVPB 02/23/17 09:00 03/09/17 23:59 03/07/17 09:28 Chlorhexidine Gluconate (Iman-Hex 2%) 1 applic DAILY@1999 TOPIC 02/28/17 20:15 03/30/17 20:14 03/07/17 21:43 Clotrimazole (Lotrimin) 1 applic EVERY 12 HOURS TOPIC 03/01/17 21:00 03/31/17 20:59 03/07/17 21:43 Dextrose (Dextrose 50%) STAT PRN IV Hypoglycemia 02/23/17 12:15 03/25/17 12:14 03/02/17 08:04 Heparin Sodium (Porcine) (Heparin 5000 units/ml) 5,000 units EVERY 12 HOURS SUBQ 02/23/17 09:00 03/25/17 08:59 03/06/17 22:33 Insulin Aspart (NovoLOG) EVERY 6 HOURS SUBQ 02/25/17 18:00 03/25/17 13:29 03/07/17 18:43 Insulin Detemir (Levemir) 11 units Q12HR SUBQ 03/06/17 09:00 04/05/17 08:59 03/07/17 21:46 Pantoprazole (Protonix) 40 mg DAILY IVP 02/25/17 09:00 03/27/17 08:59 03/07/17 09:28 Polyethylene Glycol (Miralax) 17 gm BEDTIME GT 03/06/17 21:00 04/05/17 20:59 03/07/17 21:52 Vancomycin HCl (Vanco rx to dose) 1 ea DAILY PRN MISC Per rx protocol 03/06/17 18:00 04/05/17 17:59 Kamala Leon M.D. Mar 07, 2017 23:16
[2017-03-08] VITALS: BP 130/89
[2017-03-08 02:57] LABS: BASOPHILS % (AUTO) 0.8 % (0.0-2.0); EOSINOPHILS % (AUTO) 1.5 % (0.0-3.0); LYMPHOCYTES % (AUTO) 16.5 % (20.0-45.0); MEAN CORPUSCULAR HEMOGLOBIN 27.8 PG (27.0-31.0); MEAN CORPUSCULAR HGB CONC 31.8 G/DL (32.0-36.0); MEAN CORPUSCULAR VOLUME 88 FL (80-99); MEAN PLATELET VOLUME 6.1 FL (6.5-10.1); MONOCYTES % (AUTO) 5.9 % (1.0-10.0); NEUTROPHILS % (AUTO) 75.4 % (45.0-75.0); PLATELET COUNT 338 K/UL (150-450); RED BLOOD COUNT 4.81 M/UL (4.70-6.10); RED CELL DISTRIBUTION WIDTH 13.1 % (11.6-14.8); WHITE BLOOD COUNT 10.9 K/UL (4.8-10.8)
[2017-03-08 03:10] LABS: ANION GAP 6 mmol/L (5-15); CALCIUM 8.6 MG/DL (8.5-10.1); CARBON DIOXIDE 32 MMOL/L (21-32); CHLORIDE 102 MMOL/L (98-107); CREATININE 2.5 MG/DL (0.55-1.30); GLOMERULAR FILTRATION RATE 32.2 mL/min (>60); PROTHROMBIN TIME 10.5 SEC (9.30-11.50); SODIUM 140 MMOL/L (136-145)
[2017-03-08 04:00] VITALS: BP 119/83
[2017-03-08] MEDS ORDERED: Vancomycin 1.5 GM/D5W 250ML IVPB ONE (05:00)
[2017-03-08] MEDS: NovoLOG Insulin Flexpen SUBQ SCH ×4 (06:00→17:35)
[2017-03-08 08:00] VITALS: BP 127/97
[2017-03-08] MEDS: Aspirin Baby 81mg GT SCH (09:00)
[2017-03-08] MEDS: Heparin 5000 units/ml inj SUBQ SCH ×2 (09:00→21:00)
[2017-03-08] MEDS: Pantoprazole Inj IVP SCH (10:23)
[2017-03-08] MEDS: Cefepime HCl 1 GM in D5W 55 ML IVPB SCH (10:25)
[2017-03-08] MEDS: Levemir Flexpen SUBQ SCH ×2 (10:33→21:30)
--- NOTE | 2017-03-08 11:07 | GI Progress Note ---
Assessment/Plan Problems: (1) Dysphagia due to recent stroke ICD Codes: I69.391 - Dysphagia following cerebral infarction SNOMED: 94172666, 195173869 (2) Encounter for PEG (percutaneous endoscopic gastrostomy) ICD Codes: Z43.1 - Encounter for attention to gastrostomy SNOMED: 587509232, 947725079 (3) DM (diabetes mellitus) ICD Codes: E11.9 - Type 2 diabetes mellitus without complications SNOMED: 72547444 Status: stable, unchanged Status Narrative Discussed with Dr. Olmedo. Assessment/Plan POLST reviewed >> FULL treatment - primary decision maker would be the Brother >> Gigi Lepe @ [phone] or [phone] lactic acid >> now normal hep panel >> negative SUMMARY OF FINDINGS: Status post successful percutaneous endoscopic gastrostomy placement. RECOMMENDATIONS: 1. Abdominal binder. 2. Elevate the head of the bed at all times. 3. G-tube flush. 4. G-tube care. fu nephrology GTFs tolerated DM control DVT prophylaxis ppi daily monitor H&H, prn transfusions. electrolyte correction bowel regime >> colace + miralax abx fu labs Subjective Subjective limited Objective Last 24 Hour Vital Signs Date Time Temp Pulse Resp B/P (MAP) Pulse Ox O2 Delivery O2 Flow Rate FiO2 03/08/17 04:00 97.0 81 20 119/83 98 03/08/17 04:00 84 03/08/17 00:00 97.0 89 20 130/89 95 03/08/17 00:00 84 03/07/17 20:00 97.2 79 18 124/87 95 Room Air 3.0 32 03/07/17 20:00 82 03/07/17 16:00 81 03/07/17 16:00 97.0 82 18 111/91 91 Room Air 03/07/17 12:00 81 03/07/17 12:00 97.2 80 18 121/93 91 Room Air Laboratory Tests Test 03/08/17 02:45 03/08/17 03:05 White Blood Count 10.9 K/UL (4.8-10.8) H Red Blood Count 4.81 M/UL (4.70-6.10) Hemoglobin 13.4 G/DL (14.2-18.0) L Hematocrit 42.1 % (42.0-52.0) Mean Corpuscular Volume 88 FL (80-99) Mean Corpuscular Hemoglobin 27.8 PG (27.0-31.0) Mean Corpuscular Hemoglobin Concent 31.8 G/DL (32.0-36.0) L Red Cell Distribution Width 13.1 % (11.6-14.8) Platelet Count 338 K/UL (150-450) Mean Platelet Volume 6.1 FL (6.5-10.1) L Neutrophils (%) (Auto) 75.4 % (45.0-75.0) H Lymphocytes (%) (Auto) 16.5 % (20.0-45.0) L Monocytes (%) (Auto) 5.9 % (1.0-10.0) Eosinophils (%) (Auto) 1.5 % (0.0-3.0) Basophils (%) (Auto) 0.8 % (0.0-2.0) Prothrombin Time 10.5 SEC (9.30-11.50) Prothromb Time International Ratio 1.0 (0.9-1.1) Activated Partial Thromboplast Time 29 SEC (23-33) Sodium Level 140 MMOL/L (136-145) Potassium Level 4.0 MMOL/L (3.5-5.1) Chloride Level 102 MMOL/L (98-107) Carbon Dioxide Level 32 MMOL/L (21-32) Anion Gap 6 mmol/L (5-15) Blood Urea Nitrogen 38 mg/dL (7-18) H Creatinine 2.5 MG/DL (0.55-1.30) H Estimat Glomerular Filtration Rate 32.2 mL/min (>60) Glucose Level 198 MG/DL (74-106) H Calcium Level 8.6 MG/DL (8.5-10.1) Random Vancomycin Level 14.2 ug/mL Height (Feet): 6 Height (Inches): 2.00 Weight (Pounds): 200 General Appearance: no apparent distress, alert Cardiovascular: normal rate Respiratory/Chest: normal breath sounds, no respiratory distress Abdominal Exam: normal bowel sounds, non tender, soft, GT site - c/d/i Extremities: non-tender Mariaa Winters N.PSahil Mar 08, 2017 11:07
[2017-03-08 12:36] VITALS: BP 110/82
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
--- NOTE | 2017-03-08 14:28 | Infectious Diseases Prog Note ---
Assessment/Plan Problems: (1) HCAP (healthcare-associated pneumonia) Assessment & Plan: improved on cefepime and clindamycin empiric coverage, blood culture is negative , will continue vancomycin with HD , repeat CXR (2) UTI (urinary tract infection) Assessment & Plan: with pseudomonas , on cefepime , will treat for two weeks total. EOT 03/09/17 (3) Sepsis Assessment & Plan: with wbc went up after clindamycin was stopped , started on vancomycin empiric coverage , repeated blood culture is pending , continue cefepime for UTI due to pseudomonas aeruginosa for two weeks (4) Acute kidney injury Assessment & Plan: due to sepsis , didn't improve with hydrations, avoid nephrotoxic, had dialysis catheter placed and started on HD , he is going to have fistula for HD next week . renal is following (5) Hyperglycemia Assessment & Plan: improving due to sepsis, recommend tight glycemic control to keep blood glucose between 80-120 (6) Dysphagia due to recent stroke Assessment & Plan: S/P PEG tube placement by GI , continue tube feeding as per GI Subjective Constitutional: Reports: no symptoms HEENT: Reports: no symptoms Respiratory: Reports: no symptoms Breasts: Reports: no symptoms Cardiovascular: Reports: no symptoms Gastrointestinal/Abdominal: Reports: no symptoms Genitourinary: Reports: no symptoms Neurologic: Reports: no symptoms Psychiatric: Reports: no symptoms Skin: Reports: no symptoms Endocrine: Reports: no symptoms Hematologic: Reports: no symptoms Musculoskeletal: Reports: no symptoms Allergies: Coded Allergies: No Known Allergies (Unverified , 11/15/15) Subjective he was alert, up in bed, responds to verbal commands , on high flow oxygen via venti mask, comfortable, not febrile. not in distress Objective Vital Signs Last 24 Hour Vital Signs Date Time Temp Pulse Resp B/P (MAP) Pulse Ox O2 Delivery O2 Flow Rate FiO2 03/08/17 12:36 96.6 81 18 110/82 96 Room Air 03/08/17 08:00 74 03/08/17 08:00 96.5 76 20 127/97 94 Room Air 03/08/17 04:00 97.0 81 20 119/83 98 03/08/17 04:00 84 03/08/17 00:00 97.0 89 20 130/89 95 03/08/17 00:00 84 03/07/17 20:00 97.2 79 18 124/87 95 Room Air 3.0 32 03/07/17 20:00 82 03/07/17 16:00 81 03/07/17 16:00 97.0 82 18 111/91 91 Room Air Height (Feet): 6 Height (Inches): 2.00 Weight (Pounds): 200 General Appearance: WD/WN, no acute distress HEENT: normocephalic, atraumatic, anicteric, mucous membranes moist Respiratory/Chest: chest wall non-tender, lungs clear, normal breath sounds, no respiratory distress, no accessory muscle use, decreased breath sounds, crackles/rales Cardiovascular: normal peripheral pulses, normal rate, regular rhythm, no gallop/murmur, no JVD Abdomen: normal bowel sounds, soft, non tender, no organomegaly, non distended , no mass, no scars Extremities: no cyanosis, no clubbing Skin: no rash, no lesions, no ulcers Neurologic/Psychiatric: alert, responsive Microbiology Date/Time Source Procedure Growth Status 03/06/17 18:30 Blood Blood Culture - Preliminary NO GROWTH AFTER 24 HOURS Resulted 03/06/17 18:20 Blood Blood Culture - Preliminary NO GROWTH AFTER 24 HOURS Resulted Laboratory Tests Test 03/08/17 02:45 03/08/17 03:05 White Blood Count 10.9 K/UL (4.8-10.8) H Red Blood Count 4.81 M/UL (4.70-6.10) Hemoglobin 13.4 G/DL (14.2-18.0) L Hematocrit 42.1 % (42.0-52.0) Mean Corpuscular Volume 88 FL (80-99) Mean Corpuscular Hemoglobin 27.8 PG (27.0-31.0) Mean Corpuscular Hemoglobin Concent 31.8 G/DL (32.0-36.0) L Red Cell Distribution Width 13.1 % (11.6-14.8) Platelet Count 338 K/UL (150-450) Mean Platelet Volume 6.1 FL (6.5-10.1) L Neutrophils (%) (Auto) 75.4 % (45.0-75.0) H Lymphocytes (%) (Auto) 16.5 % (20.0-45.0) L Monocytes (%) (Auto) 5.9 % (1.0-10.0) Eosinophils (%) (Auto) 1.5 % (0.0-3.0) Basophils (%) (Auto) 0.8 % (0.0-2.0) Prothrombin Time 10.5 SEC (9.30-11.50) Prothromb Time International Ratio 1.0 (0.9-1.1) Activated Partial Thromboplast Time 29 SEC (23-33) Sodium Level 140 MMOL/L (136-145) Potassium Level 4.0 MMOL/L (3.5-5.1) Chloride Level 102 MMOL/L (98-107) Carbon Dioxide Level 32 MMOL/L (21-32) Anion Gap 6 mmol/L (5-15) Blood Urea Nitrogen 38 mg/dL (7-18) H Creatinine 2.5 MG/DL (0.55-1.30) H Estimat Glomerular Filtration Rate 32.2 mL/min (>60) Glucose Level 198 MG/DL (74-106) H Calcium Level 8.6 MG/DL (8.5-10.1) Random Vancomycin Level 14.2 ug/mL Current Medications Medications (Trade) Dose Ordered Sig/Megan Route PRN Reason Start Time Stop Time Status Last Admin Dose Admin Acetaminophen (Tylenol) 650 mg Q4H PRN GT Mild Pain (Pain Scale 1-3) 03/06/17 02:45 04/05/17 02:44 Aspirin (ASA) 81 mg DAILY GT 03/06/17 09:00 04/05/17 08:59 03/06/17 09:42 Cefepime HCl 1 gm/ Dextrose 55 ml @ 110 mls/hr Q24H IVPB 02/23/17 09:00 03/09/17 23:59 03/08/17 10:25 Chlorhexidine Gluconate (Iman-Hex 2%) 1 applic DAILY@1999 TOPIC 02/28/17 20:15 03/30/17 20:14 03/07/17 21:43 Clotrimazole (Lotrimin) 1 applic EVERY 12 HOURS TOPIC 03/01/17 21:00 03/31/17 20:59 03/08/17 10:24 Dextrose (Dextrose 50%) STAT PRN IV Hypoglycemia 02/23/17 12:15 03/25/17 12:14 03/02/17 08:04 Heparin Sodium (Porcine) (Heparin 5000 units/ml) 5,000 units EVERY 12 HOURS SUBQ 02/23/17 09:00 03/25/17 08:59 03/06/17 22:33 Insulin Aspart (NovoLOG) EVERY 6 HOURS SUBQ 02/25/17 18:00 03/25/17 13:29 03/08/17 12:30 Insulin Detemir (Levemir) 11 units Q12HR SUBQ 03/06/17 09:00 04/05/17 08:59 03/08/17 10:33 Pantoprazole (Protonix) 40 mg DAILY IVP 02/25/17 09:00 03/27/17 08:59 03/08/17 10:23 Polyethylene Glycol (Miralax) 17 gm BEDTIME GT 03/06/17 21:00 04/05/17 20:59 03/07/17 21:52 Vancomycin HCl (Vanco rx to dose) 1 ea DAILY PRN MISC Per rx protocol 03/06/17 18:00 04/05/17 17:59 Kamala Leon M.D. Mar 08, 2017 14:28
[2017-03-08 16:00] VITALS: BP 129/93
--- NOTE | 2017-03-08 19:07 | General Progress Note ---
Assessment/Plan Problem List: (1) Encounter for PEG (percutaneous endoscopic gastrostomy) ICD Codes: Z43.1 - Encounter for attention to gastrostomy SNOMED: 034600156, 920865116 (2) Dysphagia due to recent stroke ICD Codes: I69.391 - Dysphagia following cerebral infarction SNOMED: 56324026, 623317307 (3) Hyperglycemia due to type 2 diabetes mellitus ICD Codes: E11.65 - Type 2 diabetes mellitus with hyperglycemia SNOMED: 029974867621505 (4) Hypernatremia ICD Codes: E87.0 - Hyperosmolality and hypernatremia SNOMED: 09360678 Assessment/Plan continue Levemir 11 units bid continue SSI q 6 hours Subjective ROS Limited/Unobtainable: Yes Allergies: Coded Allergies: No Known Allergies (Unverified , 11/15/15) Subjective events noted Objective Last 24 Hour Vital Signs Date Time Temp Pulse Resp B/P (MAP) Pulse Ox O2 Delivery O2 Flow Rate FiO2 03/08/17 18:50 77 03/08/17 16:00 97.3 84 18 129/93 97 Room Air 03/08/17 16:00 82 03/08/17 12:36 96.6 81 18 110/82 96 Room Air 03/08/17 12:00 80 03/08/17 08:00 74 03/08/17 08:00 96.5 76 20 127/97 94 Room Air 03/08/17 04:00 97.0 81 20 119/83 98 03/08/17 04:00 84 03/08/17 00:00 97.0 89 20 130/89 95 03/08/17 00:00 84 03/07/17 20:00 97.2 79 18 124/87 95 Room Air 3.0 32 03/07/17 20:00 82 Intake and Output 03/08/17 03/09/17 19:00 07:00 Intake Total 155 ml Output Total 300 ml Balance -145 ml Intake Free Water 100 ml Tube Feeding 55 ml Output Urine Total 300 ml # Voids 2 Laboratory Tests 03/08/17 02:45: White Blood Count 10.9H, Red Blood Count 4.81, Hemoglobin 13.4L, Hematocrit 42.1 , Mean Corpuscular Volume 88, Mean Corpuscular Hemoglobin 27.8, Mean Corpuscular Hemoglobin Concent 31.8L, Red Cell Distribution Width 13.1, Platelet Count 338, Mean Platelet Volume 6.1L, Neutrophils (%) (Auto) 75.4H, Lymphocytes (%) (Auto) 16.5L, Monocytes (%) (Auto) 5.9, Eosinophils (%) (Auto) 1.5, Basophils (%) (Auto) 0.8, Prothrombin Time 10.5, Prothromb Time International Ratio 1.0, Activated Partial Thromboplast Time 29, Sodium Level 140, Potassium Level 4.0, Chloride Level 102, Carbon Dioxide Level 32, Anion Gap 6, Blood Urea Nitrogen 38H, Creatinine 2.5H, Estimat Glomerular Filtration Rate 32.2, Glucose Level 198H, Calcium Level 8.6 03/08/17 03:05: Random Vancomycin Level 14.2 Height (Feet): 6 Height (Inches): 2.00 Weight (Pounds): 200 General Appearance: no apparent distress Neck: normal alignment Cardiovascular: regular rhythm Respiratory/Chest: lungs clear Abdomen: normal bowel sounds Pelvis: normal external exam Edema: 1+ Arm (L), 1+ Arm (R), 1+ Leg (L), 1+ Leg (R), 1+ Pedal (L), 1+ Pedal ( R), 1+ Generalized Objective Current Medications Medications (Trade) Dose Ordered Sig/Megan Route PRN Reason Start Time Stop Time Status Last Admin Dose Admin Acetaminophen (Tylenol) 650 mg Q4H PRN GT Mild Pain (Pain Scale 1-3) 03/06/17 02:45 04/05/17 02:44 Aspirin (ASA) 81 mg DAILY GT 03/06/17 09:00 04/05/17 08:59 03/06/17 09:42 Cefepime HCl 1 gm/ Dextrose 55 ml @ 110 mls/hr Q24H IVPB 02/23/17 09:00 03/09/17 23:59 03/08/17 10:25 Chlorhexidine Gluconate (Iman-Hex 2%) 1 applic DAILY@1999 TOPIC 02/28/17 20:15 03/30/17 20:14 03/07/17 21:43 Clotrimazole (Lotrimin) 1 applic EVERY 12 HOURS TOPIC 03/01/17 21:00 03/31/17 20:59 03/08/17 10:24 Dextrose (Dextrose 50%) STAT PRN IV Hypoglycemia 02/23/17 12:15 03/25/17 12:14 03/02/17 08:04 Heparin Sodium (Porcine) (Heparin 5000 units/ml) 5,000 units EVERY 12 HOURS SUBQ 02/23/17 09:00 03/25/17 08:59 03/06/17 22:33 Insulin Aspart (NovoLOG) EVERY 6 HOURS SUBQ 02/25/17 18:00 03/25/17 13:29 03/08/17 17:35 Insulin Detemir (Levemir) 11 units Q12HR SUBQ 03/06/17 09:00 04/05/17 08:59 03/08/17 10:33 Pantoprazole (Protonix) 40 mg DAILY IVP 02/25/17 09:00 03/27/17 08:59 03/08/17 10:23 Polyethylene Glycol (Miralax) 17 gm BEDTIME GT 03/06/17 21:00 04/05/17 20:59 03/07/17 21:52 Vancomycin HCl (Vanco rx to dose) 1 ea DAILY PRN MISC Per rx protocol 03/06/17 18:00 04/05/17 17:59 Item Value Date Time Bedside Blood Glucose 119 mg/dl 03/08/17 1800 Bedside Blood Glucose 131 mg/dl H 03/08/17 1230 Bedside Blood Glucose 151 mg/dl H 03/08/17 1033 Bedside Blood Glucose 151 mg/dl H 03/08/17 0600 Bedside Blood Glucose 224 mg/dl H 03/08/17 0000 Bedside Blood Glucose 184 mg/dl H 03/07/17 2146 Bedside Blood Glucose 225 mg/dl H 03/07/17 1843 Bedside Blood Glucose 196 mg/dl H 03/07/17 1248 MARIA VICTORIA GOMEZ Mar 08, 2017 19:07
--- NOTE | 2017-03-08 19:21 | Cardiology Progress Note ---
Assessment/Plan Assessment/Plan 1. NSTEMI vs Troponin leak due to renal failure. Echo EF 50%. Chest pain free. Conservative management. 2. Status post DDD [employer] ICD implantation with normal fx. 3. History of cardiomyopathy with improvement of LVEF. Subjective Subjective Sinus rhythm at 84. Objective Last 24 Hour Vital Signs Date Time Temp Pulse Resp B/P (MAP) Pulse Ox O2 Delivery O2 Flow Rate FiO2 03/08/17 18:50 77 03/08/17 16:00 97.3 84 18 129/93 97 Room Air 03/08/17 16:00 82 03/08/17 12:36 96.6 81 18 110/82 96 Room Air 03/08/17 12:00 80 03/08/17 08:00 74 03/08/17 08:00 96.5 76 20 127/97 94 Room Air 03/08/17 04:00 97.0 81 20 119/83 98 03/08/17 04:00 84 03/08/17 00:00 97.0 89 20 130/89 95 03/08/17 00:00 84 03/07/17 20:00 97.2 79 18 124/87 95 Room Air 3.0 32 03/07/17 20:00 82 Intake and Output 03/08/17 03/09/17 19:00 07:00 Intake Total 155 ml Output Total 300 ml Balance -145 ml Intake Free Water 100 ml Tube Feeding 55 ml Output Urine Total 300 ml # Voids 2 2D Echo: LVEF 50%, RVSP 15 mmHg, Grade I LVDD Laboratory Tests Test 03/08/17 02:45 03/08/17 03:05 White Blood Count 10.9 K/UL (4.8-10.8) H Red Blood Count 4.81 M/UL (4.70-6.10) Hemoglobin 13.4 G/DL (14.2-18.0) L Hematocrit 42.1 % (42.0-52.0) Mean Corpuscular Volume 88 FL (80-99) Mean Corpuscular Hemoglobin 27.8 PG (27.0-31.0) Mean Corpuscular Hemoglobin Concent 31.8 G/DL (32.0-36.0) L Red Cell Distribution Width 13.1 % (11.6-14.8) Platelet Count 338 K/UL (150-450) Mean Platelet Volume 6.1 FL (6.5-10.1) L Neutrophils (%) (Auto) 75.4 % (45.0-75.0) H Lymphocytes (%) (Auto) 16.5 % (20.0-45.0) L Monocytes (%) (Auto) 5.9 % (1.0-10.0) Eosinophils (%) (Auto) 1.5 % (0.0-3.0) Basophils (%) (Auto) 0.8 % (0.0-2.0) Prothrombin Time 10.5 SEC (9.30-11.50) Prothromb Time International Ratio 1.0 (0.9-1.1) Activated Partial Thromboplast Time 29 SEC (23-33) Sodium Level 140 MMOL/L (136-145) Potassium Level 4.0 MMOL/L (3.5-5.1) Chloride Level 102 MMOL/L (98-107) Carbon Dioxide Level 32 MMOL/L (21-32) Anion Gap 6 mmol/L (5-15) Blood Urea Nitrogen 38 mg/dL (7-18) H Creatinine 2.5 MG/DL (0.55-1.30) H Estimat Glomerular Filtration Rate 32.2 mL/min (>60) Glucose Level 198 MG/DL (74-106) H Calcium Level 8.6 MG/DL (8.5-10.1) Random Vancomycin Level 14.2 ug/mL Microbiology Date/Time Source Procedure Growth Status 03/06/17 18:30 Blood Blood Culture - Preliminary NO GROWTH AFTER 24 HOURS Resulted 03/06/17 18:20 Blood Blood Culture - Preliminary NO GROWTH AFTER 24 HOURS Resulted Objective HEAD AND NECK: Shows mild JVD. Right IG Taran catheter. LUNGS: Decreased breath sounds. CARDIOVASCULAR: Shows regular S1 and S2 with no gallop. ICD left subclavian. ABDOMEN: Soft.PEG in place EXTREMITIES: Upper extremity contractions GAGAN UGALDE Mar 08, 2017 19:21
--- NOTE | 2017-03-08 19:30 | History and Physical Report ---
DATE OF ADMISSION: 02/22/2017 HISTORY OF PRESENT ILLNESS: This is an elderly 61-year-old male, came to the emergency room for having generalized weakness, possible CVA, acute COPD and pneumonia. The patient is currently alert, awake and comfortable. PAST MEDICAL HISTORY: History of pancreatitis, GERD, GI bleed, COPD and CHF. MEDICATIONS: See the list. ALLERGIES: NKA. PHYSICAL EXAMINATION: GENERAL: This is an elderly male, who is currently in bed, comfortable. VITAL SIGNS: Blood pressure 110/82, pulse 81, respirations 18, and temperature 96.6. SKIN: Good skin turgor. HEENT: NAD. CHEST: Bilaterally clear. CARDIOVASCULAR: Regular rhythm. No gallop. No murmur. ABDOMEN: Soft. EXTREMITIES: CCE. NEUROLOGICAL: Generalized weakness. LABORATORY DATA: White counts are 11,000, hemoglobin 13, hematocrit 42, and platelets are normal. Chemistry panel; sodium 140, potassium 4, BUN 38, creatinine 2.5 and glucose 198. ASSESSMENT: 1. Gastrointestinal bleed. 2. Acute renal failure. 3. Congestive heart failure. 4. Hypertension. 5. Dementia. PLAN: We will currently continue current medical treatment. Continue vancomycin and Levemir. Continue insulin, Protonix and heparin. The patient also came with diabetes uncontrolled. Diego Barbosa M.D. DR: DAMIAN JOB#: [id number] CC:
[2017-03-08] MEDS: Dyna-Hex 2% Top Sol 2oz TOPIC SCH (20:04)
[2017-03-08 20:18] VITALS: BP 111/88
[2017-03-08] MEDS: Miralax 17gm pkt GT SCH (21:25)
--- NOTE | 2017-03-08 22:04 | Nephrology Progress Note ---
Assessment/Plan Problem List: (1) Hyperglycemia due to type 2 diabetes mellitus Assessment: better (2) Hypernatremia (3) CKD (chronic kidney disease) Assessment: on HD now. (4) SHANTE (acute kidney injury) Assessment: now on HD. (5) Hypoxia (6) Sepsis (7) UTI (urinary tract infection) (8) HCAP (healthcare-associated pneumonia) Plan cont current management. abx per ID. HD as scheduled. d/c planning. Subjective Subjective SOB. Objective Objective Last 24 Hour Vital Signs Date Time Temp Pulse Resp B/P (MAP) Pulse Ox O2 Delivery O2 Flow Rate FiO2 03/08/17 20:37 97 Nasal Cannula 3.0 32 03/08/17 20:37 Nasal Cannula 3.0 32 03/08/17 20:18 97.0 82 20 111/88 95 Room Air 03/08/17 18:50 77 03/08/17 16:00 97.3 84 18 129/93 97 Room Air 03/08/17 16:00 82 03/08/17 12:36 96.6 81 18 110/82 96 Room Air 03/08/17 12:00 80 03/08/17 08:00 74 03/08/17 08:00 96.5 76 20 127/97 94 Room Air 03/08/17 04:00 97.0 81 20 119/83 98 03/08/17 04:00 84 03/08/17 00:00 97.0 89 20 130/89 95 03/08/17 00:00 84 Intake and Output 03/08/17 03/09/17 19:00 07:00 Intake Total 155 ml Output Total 300 ml Balance -145 ml Intake Free Water 100 ml Tube Feeding 55 ml Output Urine Total 300 ml # Voids 2 Laboratory Tests 03/08/17 02:45: White Blood Count 10.9H, Red Blood Count 4.81, Hemoglobin 13.4L, Hematocrit 42.1 , Mean Corpuscular Volume 88, Mean Corpuscular Hemoglobin 27.8, Mean Corpuscular Hemoglobin Concent 31.8L, Red Cell Distribution Width 13.1, Platelet Count 338, Mean Platelet Volume 6.1L, Neutrophils (%) (Auto) 75.4H, Lymphocytes (%) (Auto) 16.5L, Monocytes (%) (Auto) 5.9, Eosinophils (%) (Auto) 1.5, Basophils (%) (Auto) 0.8, Prothrombin Time 10.5, Prothromb Time International Ratio 1.0, Activated Partial Thromboplast Time 29, Sodium Level 140, Potassium Level 4.0, Chloride Level 102, Carbon Dioxide Level 32, Anion Gap 6, Blood Urea Nitrogen 38H, Creatinine 2.5H, Estimat Glomerular Filtration Rate 32.2, Glucose Level 198H, Calcium Level 8.6 03/08/17 03:05: Random Vancomycin Level 14.2 Height (Feet): 6 Height (Inches): 2.00 Weight (Pounds): 200 JJ RAYMOND Mar 08, 2017 22:04
[2017-03-09] VITALS (11 sets, daily range): BP systolic 106–140; BP diastolic 50–105
[2017-03-09] MEDS: NovoLOG Insulin Flexpen SUBQ SCH ×4 (00:17→17:41)
[2017-03-09 08:44] LABS: BASOPHILS % (AUTO) 0.7 % (0.0-2.0); EOSINOPHILS % (AUTO) 1.2 % (0.0-3.0); LYMPHOCYTES % (AUTO) 14.6 % (20.0-45.0); MEAN CORPUSCULAR HEMOGLOBIN 27.8 PG (27.0-31.0); MEAN CORPUSCULAR HGB CONC 31.6 G/DL (32.0-36.0); MEAN CORPUSCULAR VOLUME 88 FL (80-99); MEAN PLATELET VOLUME 6.1 FL (6.5-10.1); MONOCYTES % (AUTO) 5.6 % (1.0-10.0); NEUTROPHILS % (AUTO) 77.8 % (45.0-75.0); PLATELET COUNT 350 K/UL (150-450); WHITE BLOOD COUNT 10.4 K/UL (4.8-10.8)
[2017-03-09 08:50] LABS: ANION GAP 6 mmol/L (5-15); CALCIUM 8.9 MG/DL (8.5-10.1); CARBON DIOXIDE 31 MMOL/L (21-32); CHLORIDE 103 MMOL/L (98-107); CREATININE 2.5 MG/DL (0.55-1.30); GLOMERULAR FILTRATION RATE 32.2 mL/min (>60); POTASSIUM 3.7 MMOL/L (3.5-5.1); SODIUM 140 MMOL/L (136-145)
[2017-03-09] MEDS: Levemir Flexpen SUBQ SCH ×2 (09:00→21:00)
[2017-03-09] MEDS: Aspirin Baby 81mg GT SCH (09:00)
[2017-03-09] MEDS: Pantoprazole Inj IVP SCH ×2 (09:00→14:18)
[2017-03-09] MEDS: Heparin 5000 units/ml inj SUBQ SCH ×2 (09:00→23:49)
[2017-03-09] MEDS: Cefepime HCl 1 GM in D5W 55 ML IVPB SCH (10:04)
[2017-03-09] MEDS ORDERED: Heparin Sod 1000 units/ml 10ml INJ ONE (10:30)
[2017-03-09] MEDS ORDERED: Lidocaine 2% 20mg/ml/Epi 0.005mg/ml 20ml vial INJ ONE (10:30)
[2017-03-09] MEDS ORDERED: Heparin 2000 units/Ns 1000ml INJ ONE (10:30)
--- NOTE | 2017-03-09 14:23 | Infectious Diseases Prog Note ---
Assessment/Plan Problems: (1) HCAP (healthcare-associated pneumonia) Assessment & Plan: improved on cefepime and clindamycin empiric coverage, blood culture is negative , will continue vancomycin with HD. (2) UTI (urinary tract infection) Assessment & Plan: with pseudomonas , on cefepime , will treat for two weeks total. EOT 03/09/17 (3) Sepsis Assessment & Plan: with wbc went up after clindamycin was stopped , started on vancomycin empiric coverage , repeated blood culture is pending , continue cefepime for UTI due to pseudomonas aeruginosa for two weeks (4) Acute kidney injury Assessment & Plan: due to sepsis , didn't improve with hydrations, avoid nephrotoxic, had permanent tunneled dialysis catheter placed today and started on HD , renal is following (5) Hyperglycemia Assessment & Plan: improving due to sepsis, recommend tight glycemic control to keep blood glucose between 80-120 (6) Dysphagia due to recent stroke Assessment & Plan: S/P PEG tube placement by GI , continue tube feeding as per GI Subjective Constitutional: Reports: no symptoms HEENT: Reports: no symptoms Respiratory: Reports: no symptoms Breasts: Reports: no symptoms Cardiovascular: Reports: no symptoms Gastrointestinal/Abdominal: Reports: no symptoms Genitourinary: Reports: no symptoms Neurologic: Reports: no symptoms Psychiatric: Reports: no symptoms Skin: Reports: no symptoms Endocrine: Reports: no symptoms Hematologic: Reports: no symptoms Musculoskeletal: Reports: no symptoms Allergies: Coded Allergies: No Known Allergies (Unverified , 11/15/15) Subjective he was alert, up in bed, responds to verbal commands , not on oxygen , sating well on room air, not febrile. not in distress , had permanent tunneled HD catheter Objective Vital Signs Last 24 Hour Vital Signs Date Time Temp Pulse Resp B/P (MAP) Pulse Ox O2 Delivery O2 Flow Rate FiO2 03/09/17 12:00 78 18 114/92 99 Room Air 03/09/17 11:55 78 18 112/89 99 Room Air 03/09/17 11:50 76 20 106/85 99 Room Air 03/09/17 11:45 78 18 113/77 99 Room Air 03/09/17 11:40 78 18 114/68 98 Room Air 03/09/17 10:31 77 16 03/09/17 08:00 70 03/09/17 08:00 97.8 76 19 114/84 96 Room Air 03/09/17 04:30 97.0 77 20 115/84 98 03/09/17 04:00 62 03/09/17 00:28 97.0 98 20 117/91 97 Room Air 03/09/17 00:00 86 03/08/17 20:37 97 Nasal Cannula 3.0 32 03/08/17 20:37 Nasal Cannula 3.0 32 03/08/17 20:18 97.0 82 20 111/88 95 Room Air 03/08/17 20:00 75 03/08/17 18:50 77 03/08/17 16:00 97.3 84 18 129/93 97 Room Air 03/08/17 16:00 82 Height (Feet): 6 Height (Inches): 2.00 Weight (Pounds): 200 General Appearance: WD/WN, no acute distress HEENT: normocephalic, atraumatic, anicteric, mucous membranes moist, PERRL, EOMI, pharynx normal, supple, no JVD Respiratory/Chest: chest wall non-tender, lungs clear, normal breath sounds, no respiratory distress, no accessory muscle use Cardiovascular: normal peripheral pulses, normal rate, regular rhythm, no gallop/murmur, no JVD Abdomen: normal bowel sounds, soft, non tender, no organomegaly, non distended , no mass, no scars Extremities: no cyanosis, no clubbing Skin: no rash, no lesions, no ulcers Neurologic/Psychiatric: alert, oriented x 3 Lymphatic: no neck adenopathy, no groin adenopathy Microbiology Date/Time Source Procedure Growth Status 03/06/17 18:30 Blood Blood Culture - Preliminary NO GROWTH AFTER 48 HOURS Resulted 03/06/17 18:20 Blood Blood Culture - Preliminary NO GROWTH AFTER 48 HOURS Resulted Laboratory Tests Test 03/09/17 07:25 White Blood Count 10.4 K/UL (4.8-10.8) Red Blood Count 4.80 M/UL (4.70-6.10) Hemoglobin 13.3 G/DL (14.2-18.0) L Hematocrit 42.2 % (42.0-52.0) Mean Corpuscular Volume 88 FL (80-99) Mean Corpuscular Hemoglobin 27.8 PG (27.0-31.0) Mean Corpuscular Hemoglobin Concent 31.6 G/DL (32.0-36.0) L Red Cell Distribution Width 13.0 % (11.6-14.8) Platelet Count 350 K/UL (150-450) Mean Platelet Volume 6.1 FL (6.5-10.1) L Neutrophils (%) (Auto) 77.8 % (45.0-75.0) H Lymphocytes (%) (Auto) 14.6 % (20.0-45.0) L Monocytes (%) (Auto) 5.6 % (1.0-10.0) Eosinophils (%) (Auto) 1.2 % (0.0-3.0) Basophils (%) (Auto) 0.7 % (0.0-2.0) Sodium Level 140 MMOL/L (136-145) Potassium Level 3.7 MMOL/L (3.5-5.1) Chloride Level 103 MMOL/L (98-107) Carbon Dioxide Level 31 MMOL/L (21-32) Anion Gap 6 mmol/L (5-15) Blood Urea Nitrogen 39 mg/dL (7-18) H Creatinine 2.5 MG/DL (0.55-1.30) H Estimat Glomerular Filtration Rate 32.2 mL/min (>60) Glucose Level 65 MG/DL (74-106) #L Calcium Level 8.9 MG/DL (8.5-10.1) Current Medications Medications (Trade) Dose Ordered Sig/Megan Route PRN Reason Start Time Stop Time Status Last Admin Dose Admin Acetaminophen (Tylenol) 650 mg Q4H PRN GT Mild Pain (Pain Scale 1-3) 03/06/17 02:45 04/05/17 02:44 Aspirin (ASA) 81 mg DAILY GT 03/06/17 09:00 04/05/17 08:59 03/06/17 09:42 Cefepime HCl 1 gm/ Dextrose 55 ml @ 110 mls/hr Q24H IVPB 02/23/17 09:00 03/09/17 23:59 03/09/17 10:04 Chlorhexidine Gluconate (Iman-Hex 2%) 1 applic DAILY@1999 TOPIC 02/28/17 20:15 03/30/17 20:14 03/08/17 20:04 Clotrimazole (Lotrimin) 1 applic EVERY 12 HOURS TOPIC 03/01/17 21:00 03/31/17 20:59 03/09/17 13:11 Dextrose (Dextrose 50%) STAT PRN IV Hypoglycemia 02/23/17 12:15 03/25/17 12:14 03/02/17 08:04 Heparin Sodium (Porcine) (Heparin 5000 units/ml) 5,000 units EVERY 12 HOURS SUBQ 02/23/17 09:00 03/25/17 08:59 03/06/17 22:33 Insulin Aspart (NovoLOG) EVERY 6 HOURS SUBQ 02/25/17 18:00 03/25/17 13:29 03/09/17 00:17 Insulin Detemir (Levemir) 11 units Q12HR SUBQ 03/06/17 09:00 04/05/17 08:59 03/08/17 21:30 Pantoprazole (Protonix) 40 mg DAILY IVP 02/25/17 09:00 03/27/17 08:59 03/08/17 10:23 Polyethylene Glycol (Miralax) 17 gm BEDTIME GT 03/06/17 21:00 04/05/17 20:59 03/08/17 21:25 Vancomycin HCl (Vanco rx to dose) 1 ea DAILY PRN MISC Per rx protocol 03/06/17 18:00 04/05/17 17:59 Kamala Leon M.D. Mar 09, 2017 14:23
--- NOTE | 2017-03-09 14:30 | GI Progress Note ---
Assessment/Plan Problems: (1) Dysphagia due to recent stroke ICD Codes: I69.391 - Dysphagia following cerebral infarction SNOMED: 97751683, 050926689 (2) Encounter for PEG (percutaneous endoscopic gastrostomy) ICD Codes: Z43.1 - Encounter for attention to gastrostomy SNOMED: 496441665, 441484772 (3) DM (diabetes mellitus) ICD Codes: E11.9 - Type 2 diabetes mellitus without complications SNOMED: 86818680 Status: stable Status Narrative Discussed with Dr. Olmedo. Assessment/Plan POLST reviewed >> FULL treatment - primary decision maker would be the Brother >> Gigi Lepe @ [phone] or [phone] lactic acid >> now normal hep panel >> negative SUMMARY OF FINDINGS: Status post successful percutaneous endoscopic gastrostomy placement. RECOMMENDATIONS: okay for DC per GI standpoint 1. Abdominal binder. 2. Elevate the head of the bed at all times. 3. G-tube flush. 4. G-tube care. fu nephrology GTFs tolerated DM control DVT prophylaxis ppi daily monitor H&H, prn transfusions. electrolyte correction bowel regime >> colace + miralax abx fu labs Subjective Subjective limited Objective Last 24 Hour Vital Signs Date Time Temp Pulse Resp B/P (MAP) Pulse Ox O2 Delivery O2 Flow Rate FiO2 03/09/17 12:00 78 18 114/92 99 Room Air 03/09/17 11:55 78 18 112/89 99 Room Air 03/09/17 11:50 76 20 106/85 99 Room Air 03/09/17 11:45 78 18 113/77 99 Room Air 03/09/17 11:40 78 18 114/68 98 Room Air 03/09/17 10:31 77 16 03/09/17 08:00 70 03/09/17 08:00 97.8 76 19 114/84 96 Room Air 03/09/17 04:30 97.0 77 20 115/84 98 03/09/17 04:00 62 03/09/17 00:28 97.0 98 20 117/91 97 Room Air 03/09/17 00:00 86 03/08/17 20:37 97 Nasal Cannula 3.0 32 03/08/17 20:37 Nasal Cannula 3.0 32 03/08/17 20:18 97.0 82 20 111/88 95 Room Air 03/08/17 20:00 75 03/08/17 18:50 77 03/08/17 16:00 97.3 84 18 129/93 97 Room Air 03/08/17 16:00 82 Laboratory Tests Test 03/09/17 07:25 White Blood Count 10.4 K/UL (4.8-10.8) Red Blood Count 4.80 M/UL (4.70-6.10) Hemoglobin 13.3 G/DL (14.2-18.0) L Hematocrit 42.2 % (42.0-52.0) Mean Corpuscular Volume 88 FL (80-99) Mean Corpuscular Hemoglobin 27.8 PG (27.0-31.0) Mean Corpuscular Hemoglobin Concent 31.6 G/DL (32.0-36.0) L Red Cell Distribution Width 13.0 % (11.6-14.8) Platelet Count 350 K/UL (150-450) Mean Platelet Volume 6.1 FL (6.5-10.1) L Neutrophils (%) (Auto) 77.8 % (45.0-75.0) H Lymphocytes (%) (Auto) 14.6 % (20.0-45.0) L Monocytes (%) (Auto) 5.6 % (1.0-10.0) Eosinophils (%) (Auto) 1.2 % (0.0-3.0) Basophils (%) (Auto) 0.7 % (0.0-2.0) Sodium Level 140 MMOL/L (136-145) Potassium Level 3.7 MMOL/L (3.5-5.1) Chloride Level 103 MMOL/L (98-107) Carbon Dioxide Level 31 MMOL/L (21-32) Anion Gap 6 mmol/L (5-15) Blood Urea Nitrogen 39 mg/dL (7-18) H Creatinine 2.5 MG/DL (0.55-1.30) H Estimat Glomerular Filtration Rate 32.2 mL/min (>60) Glucose Level 65 MG/DL (74-106) #L Calcium Level 8.9 MG/DL (8.5-10.1) Height (Feet): 6 Height (Inches): 2.00 Weight (Pounds): 200 General Appearance: WD/WN, no apparent distress, alert Cardiovascular: normal rate Respiratory/Chest: normal breath sounds, no respiratory distress Abdominal Exam: normal bowel sounds, non tender, soft, GT site - c/d/i Extremities: non-tender Mariaa Winters N.P. Mar 09, 2017 14:30
--- NOTE | 2017-03-09 17:24 | Diagnostic Imaging Report ---
Indications: Needs long-term dialysis access Technique: No periprocedural IV antibiotics given as patient had been recently given a dose of antibiotics . Total sterile technique, including sterile probe cover and sterile gel, sterile gloves, hand hygiene, hat, mask,, sterile gown, large sterile drape, and preparation with 2% chlorhexidine utilized. Local anesthesia with 1% lidocaine. Under real-time ultrasound guidance, puncture right internal jugular vein using 21-gauge micropuncture needle, passage 0.018 guidewire, exchange for 4 Georgian micropuncture introducer. The guidewire was used to measure the appropriate catheter length, and was removed. The sheath was left in place. The subcutaneous tract was then anesthetized with 1% lidocaine. A chest dermatotomy was made . The tunneling device was used to pull a 14.5 Georgian 23 cm BioFlo catheter through the subcutaneous tunnel to the neck dermatotomy. A guidewire was passed through the neck introducer into the inferior vena cava, and serial dilators were passed over it, followed by the introduction of a 14.5 [place]ian AirGuard peel-away sheath. The catheter was then introduced into the sheath, the peel-away sheath was removed. Digital radiograph documents satisfactory catheter tip position in the high right atrium, no kinking at the insertion site. Both catheter ports aspirated and flushed. Catheter was fixed to the skin. Patient tolerated procedure well without immediate complication. Total fluoroscopy time 0.7 minutes. Total dose area product 26 dGycm2 Comparison: None. Findings: Completion radiograph documents satisfactory position and course of the catheter, catheter tip at the cavoatrial junction. Impression: Successful placement of right transjugular tunneled dialysis catheter, as described above
[2017-03-09] MEDS: Dyna-Hex 2% Top Sol 2oz TOPIC SCH (20:00)
[2017-03-09] MEDS: Miralax 17gm pkt GT SCH (21:00)
--- NOTE | 2017-03-09 21:09 | Cardiology Progress Note ---
Assessment/Plan Assessment/Plan 1. NSTEMI vs Troponin leak due to renal failure. Echo EF 50%. Chest pain free. Conservative management. 2. Status post DDD [employer] ICD implantation with normal fx. 3. History of cardiomyopathy with improvement of LVEF. Subjective Subjective Sinus rhythm at 81. Objective Last 24 Hour Vital Signs Date Time Temp Pulse Resp B/P (MAP) Pulse Ox O2 Delivery O2 Flow Rate FiO2 03/09/17 20:00 96.8 56 20 130/105 94 Room Air 03/09/17 16:46 Room Air 3.0 32 03/09/17 16:00 81 03/09/17 16:00 97.8 71 19 140/50 98 Room Air 03/09/17 12:50 Room Air 3.0 32 03/09/17 12:00 78 18 114/92 99 Room Air 03/09/17 11:55 78 18 112/89 99 Room Air 03/09/17 11:50 76 20 106/85 99 Room Air 03/09/17 11:45 78 18 113/77 99 Room Air 03/09/17 11:40 78 18 114/68 98 Room Air 03/09/17 10:31 77 16 03/09/17 08:00 70 03/09/17 08:00 97.8 76 19 114/84 96 Room Air 03/09/17 04:30 97.0 77 20 115/84 98 03/09/17 04:00 62 03/09/17 00:28 97.0 98 20 117/91 97 Room Air 03/09/17 00:00 86 Intake and Output 03/09/17 03/10/17 19:00 07:00 Intake Total 236 ml Output Total 2100 ml Balance -1864 ml Intake Oral 236 ml Output Urine Total 100 ml Hemodialysis UF 2000 ml # Voids 1 2D Echo: LVEF 50%, RVSP 15 mmHg, Grade I LVDD Laboratory Tests Test 03/09/17 07:25 White Blood Count 10.4 K/UL (4.8-10.8) Red Blood Count 4.80 M/UL (4.70-6.10) Hemoglobin 13.3 G/DL (14.2-18.0) L Hematocrit 42.2 % (42.0-52.0) Mean Corpuscular Volume 88 FL (80-99) Mean Corpuscular Hemoglobin 27.8 PG (27.0-31.0) Mean Corpuscular Hemoglobin Concent 31.6 G/DL (32.0-36.0) L Red Cell Distribution Width 13.0 % (11.6-14.8) Platelet Count 350 K/UL (150-450) Mean Platelet Volume 6.1 FL (6.5-10.1) L Neutrophils (%) (Auto) 77.8 % (45.0-75.0) H Lymphocytes (%) (Auto) 14.6 % (20.0-45.0) L Monocytes (%) (Auto) 5.6 % (1.0-10.0) Eosinophils (%) (Auto) 1.2 % (0.0-3.0) Basophils (%) (Auto) 0.7 % (0.0-2.0) Sodium Level 140 MMOL/L (136-145) Potassium Level 3.7 MMOL/L (3.5-5.1) Chloride Level 103 MMOL/L (98-107) Carbon Dioxide Level 31 MMOL/L (21-32) Anion Gap 6 mmol/L (5-15) Blood Urea Nitrogen 39 mg/dL (7-18) H Creatinine 2.5 MG/DL (0.55-1.30) H Estimat Glomerular Filtration Rate 32.2 mL/min (>60) Glucose Level 65 MG/DL (74-106) #L Calcium Level 8.9 MG/DL (8.5-10.1) Objective HEAD AND NECK: Shows mild JVD. PERRLA, EOMI. LUNGS: Decreased breath sounds. CARDIOVASCULAR: Shows regular S1 and S2 with no gallop. ICD pocket in the left subclavian area. ABDOMEN: Soft, NT/ND, + BS, PEG in place EXTREMITIES: Upper extremity contractions, no edema, clubbing or cyanosis. GAGAN UGALDE Mar 09, 2017 21:09
--- NOTE | 2017-03-09 23:36 | Nephrology Progress Note ---
Assessment/Plan Problem List: (1) Hyperglycemia due to type 2 diabetes mellitus Assessment: better (2) Hypernatremia (3) CKD (chronic kidney disease) Assessment: on HD now. (4) SHANTE (acute kidney injury) Assessment: now on HD. (5) Hypoxia (6) Sepsis (7) UTI (urinary tract infection) (8) HCAP (healthcare-associated pneumonia) Plan cont current management. abx per ID. HD as scheduled. d/c planning. Subjective Subjective SOB. Objective Objective Last 24 Hour Vital Signs Date Time Temp Pulse Resp B/P (MAP) Pulse Ox O2 Delivery O2 Flow Rate FiO2 03/09/17 20:00 96.8 56 20 130/105 94 Room Air 03/09/17 16:46 Room Air 3.0 32 03/09/17 16:00 81 03/09/17 16:00 97.8 71 19 140/50 98 Room Air 03/09/17 12:50 Room Air 3.0 32 03/09/17 12:00 78 18 114/92 99 Room Air 03/09/17 11:55 78 18 112/89 99 Room Air 03/09/17 11:50 76 20 106/85 99 Room Air 03/09/17 11:45 78 18 113/77 99 Room Air 03/09/17 11:40 78 18 114/68 98 Room Air 03/09/17 10:31 77 16 03/09/17 08:00 70 03/09/17 08:00 97.8 76 19 114/84 96 Room Air 03/09/17 04:30 97.0 77 20 115/84 98 03/09/17 04:00 62 03/09/17 00:28 97.0 98 20 117/91 97 Room Air 03/09/17 00:00 86 Intake and Output 03/09/17 03/10/17 19:00 07:00 Intake Total 236 ml Output Total 2100 ml Balance -1864 ml Intake Oral 236 ml Output Urine Total 100 ml Hemodialysis UF 2000 ml # Voids 1 Laboratory Tests 03/09/17 07:25: White Blood Count 10.4, Red Blood Count 4.80, Hemoglobin 13.3L, Hematocrit 42.2 , Mean Corpuscular Volume 88, Mean Corpuscular Hemoglobin 27.8, Mean Corpuscular Hemoglobin Concent 31.6L, Red Cell Distribution Width 13.0, Platelet Count 350, Mean Platelet Volume 6.1L, Neutrophils (%) (Auto) 77.8H, Lymphocytes (%) (Auto) 14.6L, Monocytes (%) (Auto) 5.6, Eosinophils (%) (Auto) 1.2, Basophils (%) (Auto) 0.7, Sodium Level 140, Potassium Level 3.7, Chloride Level 103, Carbon Dioxide Level 31, Anion Gap 6, Blood Urea Nitrogen 39H, Creatinine 2.5H, Estimat Glomerular Filtration Rate 32.2, Glucose Level 65#L, Calcium Level 8.9 Height (Feet): 6 Height (Inches): 2.00 Weight (Pounds): 200 JJ RAYMOND Mar 09, 2017 23:36
--- NOTE | 2017-03-09 23:47 | Progress Note ---
DATE: 03/09/2017 SUBJECTIVE: This is an elderly male, sitting in the bed, having hemodialysis, is clinically improving. OBJECTIVE: CHEST: Bilaterally clear. CARDIOVASCULAR: Regular rhythm. ABDOMEN: Soft. EXTREMITIES: CCE. ASSESSMENT: 1. Acute renal failure. 2. Congestive heart failure. 3. Pneumonia. 4. Diabetes. PLAN: We will currently continue hemodialysis. Continue medical treatment. Diego Barbosa M.D. DR: Laurence JOB#: [id number] CC:
[2017-03-10 00:13] VITALS: BP 121/91
[2017-03-10 04:25] VITALS: BP 128/92
[2017-03-10] MEDS: NovoLOG Insulin Flexpen SUBQ SCH ×5 (06:22→17:18)
--- NOTE | 2017-03-10 07:00 | General Progress Note ---
Assessment/Plan Problem List: (1) Encounter for PEG (percutaneous endoscopic gastrostomy) ICD Codes: Z43.1 - Encounter for attention to gastrostomy SNOMED: 663074698, 906011906 (2) Dysphagia due to recent stroke ICD Codes: I69.391 - Dysphagia following cerebral infarction SNOMED: 88738211, 765573403 (3) Hyperglycemia due to type 2 diabetes mellitus ICD Codes: E11.65 - Type 2 diabetes mellitus with hyperglycemia SNOMED: 017710594354566 (4) Hypernatremia ICD Codes: E87.0 - Hyperosmolality and hypernatremia SNOMED: 17516668 Assessment/Plan Levemir 11 units bid - hold while TF is on hold continue SSI q 6 hours Subjective ROS Limited/Unobtainable: Yes Allergies: Coded Allergies: No Known Allergies (Unverified , 11/15/15) Subjective events noted Objective Last 24 Hour Vital Signs Date Time Temp Pulse Resp B/P (MAP) Pulse Ox O2 Delivery O2 Flow Rate FiO2 03/10/17 04:25 97.0 86 20 128/92 96 Room Air 03/10/17 01:37 85 03/10/17 00:13 97.0 87 20 121/91 94 03/09/17 20:00 96.8 56 20 130/105 94 Room Air 03/09/17 16:46 Room Air 3.0 32 03/09/17 16:00 81 03/09/17 16:00 97.8 71 19 140/50 98 Room Air 03/09/17 12:50 Room Air 3.0 32 03/09/17 12:00 78 18 114/92 99 Room Air 03/09/17 11:55 78 18 112/89 99 Room Air 03/09/17 11:50 76 20 106/85 99 Room Air 03/09/17 11:45 78 18 113/77 99 Room Air 03/09/17 11:40 78 18 114/68 98 Room Air 03/09/17 10:31 77 16 03/09/17 08:00 70 03/09/17 08:00 97.8 76 19 114/84 96 Room Air Laboratory Tests 03/09/17 07:25: White Blood Count 10.4, Red Blood Count 4.80, Hemoglobin 13.3L, Hematocrit 42.2 , Mean Corpuscular Volume 88, Mean Corpuscular Hemoglobin 27.8, Mean Corpuscular Hemoglobin Concent 31.6L, Red Cell Distribution Width 13.0, Platelet Count 350, Mean Platelet Volume 6.1L, Neutrophils (%) (Auto) 77.8H, Lymphocytes (%) (Auto) 14.6L, Monocytes (%) (Auto) 5.6, Eosinophils (%) (Auto) 1.2, Basophils (%) (Auto) 0.7, Sodium Level 140, Potassium Level 3.7, Chloride Level 103, Carbon Dioxide Level 31, Anion Gap 6, Blood Urea Nitrogen 39H, Creatinine 2.5H, Estimat Glomerular Filtration Rate 32.2, Glucose Level 65#L, Calcium Level 8.9 Height (Feet): 6 Height (Inches): 2.00 Weight (Pounds): 200 Objective Current Medications Medications (Trade) Dose Ordered Sig/Megan Route PRN Reason Start Time Stop Time Status Last Admin Dose Admin Acetaminophen (Tylenol) 650 mg Q4H PRN GT Mild Pain (Pain Scale 1-3) 03/06/17 02:45 04/05/17 02:44 Aspirin (ASA) 81 mg DAILY GT 03/06/17 09:00 04/05/17 08:59 03/06/17 09:42 Chlorhexidine Gluconate (Iman-Hex 2%) 1 applic DAILY@1999 TOPIC 02/28/17 20:15 03/30/17 20:14 03/08/17 20:04 Clotrimazole (Lotrimin) 1 applic EVERY 12 HOURS TOPIC 03/01/17 21:00 03/31/17 20:59 03/09/17 23:47 Dextrose (Dextrose 50%) STAT PRN IV Hypoglycemia 02/23/17 12:15 03/25/17 12:14 03/02/17 08:04 Heparin Sodium (Porcine) (Heparin 5000 units/ml) 5,000 units EVERY 12 HOURS SUBQ 02/23/17 09:00 03/25/17 08:59 03/09/17 23:49 Insulin Aspart (NovoLOG) EVERY 6 HOURS SUBQ 02/25/17 18:00 03/25/17 13:29 03/10/17 06:29 Insulin Detemir (Levemir) 11 units Q12HR SUBQ 03/06/17 09:00 04/05/17 08:59 03/08/17 21:30 Pantoprazole (Protonix) 40 mg DAILY IVP 02/25/17 09:00 03/27/17 08:59 03/09/17 14:18 Polyethylene Glycol (Miralax) 17 gm BEDTIME GT 03/06/17 21:00 04/05/17 20:59 03/08/17 21:25 Vancomycin HCl (Vanco rx to dose) 1 ea DAILY PRN MISC Per rx protocol 03/06/17 18:00 04/05/17 17:59 Item Value Date Time Bedside Blood Glucose 182 mg/dl H 03/10/17 0629 Bedside Blood Glucose 114 mg/dl 03/10/17 0000 Bedside Blood Glucose 114 mg/dl 03/09/17 2100 Bedside Blood Glucose 104 mg/dl 03/09/17 1741 Bedside Blood Glucose 90 mg/dl 03/09/17 1200 Bedside Blood Glucose 83 mg/dl 03/09/17 0900 Bedside Blood Glucose 83 mg/dl 03/09/17 0600 Bedside Blood Glucose 168 mg/dl H 03/09/17 0017 MARIA VICTORIA GOMEZ Mar 10, 2017 07:00
[2017-03-10 08:00] VITALS: BP 128/77
[2017-03-10] MEDS: Pantoprazole Inj IVP SCH (08:10)
[2017-03-10] MEDS: Aspirin Baby 81mg GT SCH (08:11)
[2017-03-10] MEDS: Heparin 5000 units/ml inj SUBQ SCH ×2 (08:12→22:48)
[2017-03-10] MEDS: Levemir Flexpen SUBQ SCH ×2 (08:32→22:49)
[2017-03-10 08:46] LABS: EOSINOPHILS % (AUTO) 1.3 % (0.0-3.0); MEAN CORPUSCULAR HGB CONC 31.5 G/DL (32.0-36.0); MEAN CORPUSCULAR VOLUME 89 FL (80-99); MEAN PLATELET VOLUME 6.2 FL (6.5-10.1); MONOCYTES % (AUTO) 5.7 % (1.0-10.0); PLATELET COUNT 340 K/UL (150-450); RED BLOOD COUNT 4.55 M/UL (4.70-6.10); RED CELL DISTRIBUTION WIDTH 13.4 % (11.6-14.8); WHITE BLOOD COUNT 10.1 K/UL (4.8-10.8)
--- NOTE | 2017-03-10 08:59 | Diagnostic Imaging Report ---
Indication: Cough Technique: One view of the chest Comparison: 02/22/2017 Findings: Interim placement right jugular temporary dialysis catheter, in good position. Left chest AICD remains. Lungs and pleural spaces remain clear. Impression: No acute process
[2017-03-10 09:01] LABS: ANION GAP 11 mmol/L (5-15); CALCIUM 8.7 MG/DL (8.5-10.1); CARBON DIOXIDE 20 MMOL/L (21-32); CHLORIDE 105 MMOL/L (98-107); CREATININE 2.1 MG/DL (0.55-1.30); GLOMERULAR FILTRATION RATE 39.4 mL/min (>60); POTASSIUM 4.7 MMOL/L (3.5-5.1); SODIUM 136 MMOL/L (136-145)
[2017-03-10 12:00] VITALS: BP 124/75
--- NOTE | 2017-03-10 13:19 | GI Progress Note ---
Assessment/Plan Problems: (1) Dysphagia due to recent stroke ICD Codes: I69.391 - Dysphagia following cerebral infarction SNOMED: 25652170, 170863897 (2) Encounter for PEG (percutaneous endoscopic gastrostomy) ICD Codes: Z43.1 - Encounter for attention to gastrostomy SNOMED: 961051811, 961836820 (3) DM (diabetes mellitus) ICD Codes: E11.9 - Type 2 diabetes mellitus without complications SNOMED: 59524709 Status: stable Status Narrative Discussed with Dr. Olmedo. Assessment/Plan POLST reviewed >> FULL treatment - primary decision maker would be the Brother >> Gigi Lepe @ [phone] or [phone] lactic acid >> now normal hep panel >> negative SUMMARY OF FINDINGS: Status post successful percutaneous endoscopic gastrostomy placement. RECOMMENDATIONS: okay for DC per GI standpoint 1. Abdominal binder. 2. Elevate the head of the bed at all times. 3. G-tube flush. 4. G-tube care. fu nephrology GTFs tolerated DM control DVT prophylaxis ppi daily monitor H&H, prn transfusions. electrolyte correction bowel regime >> colace + miralax abx fu labs Subjective Subjective limited Objective Last 24 Hour Vital Signs Date Time Temp Pulse Resp B/P (MAP) Pulse Ox O2 Delivery O2 Flow Rate FiO2 03/10/17 08:00 96.6 88 20 128/77 95 Room Air 03/10/17 04:25 97.0 86 20 128/92 96 Room Air 03/10/17 04:00 80 03/10/17 04:00 80 03/10/17 01:37 85 03/10/17 00:13 97.0 87 20 121/91 94 03/09/17 20:00 96.8 56 20 130/105 94 Room Air 03/09/17 16:46 Room Air 3.0 32 03/09/17 16:00 81 03/09/17 16:00 97.8 71 19 140/50 98 Room Air Intake and Output 03/09/17 03/10/17 19:00 07:00 Intake Total 236 ml Output Total 2100 ml 400 ml Balance -1864 ml -400 ml Intake Oral 236 ml Output Urine Total 100 ml 400 ml Hemodialysis UF 2000 ml # Voids 1 Laboratory Tests Test 03/10/17 08:30 White Blood Count 10.1 K/UL (4.8-10.8) Red Blood Count 4.55 M/UL (4.70-6.10) L Hemoglobin 12.7 G/DL (14.2-18.0) L Hematocrit 40.5 % (42.0-52.0) L Mean Corpuscular Volume 89 FL (80-99) Mean Corpuscular Hemoglobin 28.0 PG (27.0-31.0) Mean Corpuscular Hemoglobin Concent 31.5 G/DL (32.0-36.0) L Red Cell Distribution Width 13.4 % (11.6-14.8) Platelet Count 340 K/UL (150-450) Mean Platelet Volume 6.2 FL (6.5-10.1) L Neutrophils (%) (Auto) 79.0 % (45.0-75.0) H Lymphocytes (%) (Auto) 13.0 % (20.0-45.0) L Monocytes (%) (Auto) 5.7 % (1.0-10.0) Eosinophils (%) (Auto) 1.3 % (0.0-3.0) Basophils (%) (Auto) 1.0 % (0.0-2.0) Sodium Level 136 MMOL/L (136-145) Potassium Level 4.7 MMOL/L (3.5-5.1) Chloride Level 105 MMOL/L (98-107) Carbon Dioxide Level 20 MMOL/L (21-32) L Anion Gap 11 mmol/L (5-15) Blood Urea Nitrogen 28 mg/dL (7-18) H Creatinine 2.1 MG/DL (0.55-1.30) H Estimat Glomerular Filtration Rate 39.4 mL/min (>60) Glucose Level 232 MG/DL (74-106) #H Calcium Level 8.7 MG/DL (8.5-10.1) Height (Feet): 6 Height (Inches): 2.00 Weight (Pounds): 200 General Appearance: no apparent distress Cardiovascular: normal rate Respiratory/Chest: normal breath sounds, no respiratory distress Abdominal Exam: normal bowel sounds, non tender, soft, GT site - C/D/I Extremities: non-tender Mariaa Winters N.Diana Mar 10, 2017 13:19
--- NOTE | 2017-03-10 14:08 | Nephrology Progress Note ---
Assessment/Plan Problem List: (1) Hypernatremia (2) Hyperglycemia (3) Hypoxia (4) Sepsis (5) UTI (urinary tract infection) (6) HCAP (healthcare-associated pneumonia) (7) DM (diabetes mellitus) (8) Dysphagia due to recent stroke (9) CKD (chronic kidney disease) Plan S/p HD 03/09/17, net loss 2000cc Renally dose meds, avoid nephrotoxins Strict glycemic control Continue o2 therapy Tube feeding ongoing per GI Abx per ID DVT prophylaxis PPI daily Monitor neuro status AM labs Subjective ROS Limited/Unobtainable: Yes Subjective In bed, in no apparent distress, G-tube feeding ongoing. Objective Objective Last 24 Hour Vital Signs Date Time Temp Pulse Resp B/P (MAP) Pulse Ox O2 Delivery O2 Flow Rate FiO2 03/10/17 13:39 Nasal Cannula 2.0 32 03/10/17 13:39 92 Nasal Cannula 2.0 28 03/10/17 08:00 96.6 88 20 128/77 95 Room Air 03/10/17 04:25 97.0 86 20 128/92 96 Room Air 03/10/17 04:00 80 03/10/17 04:00 80 03/10/17 01:37 85 03/10/17 00:13 97.0 87 20 121/91 94 03/09/17 20:00 96.8 56 20 130/105 94 Room Air 03/09/17 16:46 Room Air 3.0 32 03/09/17 16:00 81 03/09/17 16:00 97.8 71 19 140/50 98 Room Air Intake and Output 03/09/17 03/10/17 19:00 07:00 Intake Total 236 ml Output Total 2100 ml 400 ml Balance -1864 ml -400 ml Intake Oral 236 ml Output Urine Total 100 ml 400 ml Hemodialysis UF 2000 ml # Voids 1 Laboratory Tests 03/10/17 08:30: White Blood Count 10.1, Red Blood Count 4.55L, Hemoglobin 12.7L, Hematocrit 40.5L, Mean Corpuscular Volume 89, Mean Corpuscular Hemoglobin 28.0, Mean Corpuscular Hemoglobin Concent 31.5L, Red Cell Distribution Width 13.4, Platelet Count 340, Mean Platelet Volume 6.2L, Neutrophils (%) (Auto) 79.0H, Lymphocytes (%) (Auto) 13.0L, Monocytes (%) (Auto) 5.7, Eosinophils (%) (Auto) 1.3, Basophils (%) (Auto) 1.0, Sodium Level 136, Potassium Level 4.7, Chloride Level 105, Carbon Dioxide Level 20L, Anion Gap 11, Blood Urea Nitrogen 28H, Creatinine 2.1H, Estimat Glomerular Filtration Rate 39.4, Glucose Level 232#H, Calcium Level 8.7 Height (Feet): 6 Height (Inches): 2.00 Weight (Pounds): 200 General Appearance: no apparent distress EENT: normal ENT inspection Neck: normal alignment Cardiovascular: regular rhythm, no JVD Respiratory/Chest: decreased breath sounds Abdomen: non tender, soft, other - PEG Extremities: non-tender, normal inspection Neurologic: motor weakness Mary Barboza N.P. Mar 10, 2017 14:08
--- NOTE | 2017-03-10 15:35 | Infectious Diseases Prog Note ---
Assessment/Plan Problems: (1) HCAP (healthcare-associated pneumonia) Assessment & Plan: improved on cefepime and clindamycin empiric coverage, blood culture remains negative, will stop vancomycin , monitor off antibiotics (2) UTI (urinary tract infection) Assessment & Plan: with pseudomonas , S/P cefepime for two weeks total. done with it yesterday (3) Sepsis Assessment & Plan: resolved on vancomycin , repeated blood culture is negative , S/P cefepime for UTI due to pseudomonas aeruginosa for two weeks , will stop vancomycin (4) Acute kidney injury Assessment & Plan: due to sepsis , didn't improve with hydrations, avoid nephrotoxic, had permanent tunneled dialysis catheter placed today and started on HD , renal is following (5) Hyperglycemia Assessment & Plan: improving due to sepsis, recommend tight glycemic control to keep blood glucose between 80-120 (6) Dysphagia due to recent stroke Assessment & Plan: S/P PEG tube placement by GI , continue tube feeding as per GI Subjective Constitutional: Reports: no symptoms HEENT: Reports: no symptoms Respiratory: Reports: no symptoms Breasts: Reports: no symptoms Cardiovascular: Reports: no symptoms Gastrointestinal/Abdominal: Reports: no symptoms Genitourinary: Reports: no symptoms Neurologic: Reports: no symptoms Psychiatric: Reports: no symptoms Skin: Reports: no symptoms Endocrine: Reports: no symptoms Hematologic: Reports: no symptoms Allergies: Coded Allergies: No Known Allergies (Unverified , 11/15/15) Subjective he was alert, up in bed, responds to verbal commands , not on oxygen , sating well on room air, not febrile. not in distress , had permanent tunneled HD catheter Objective Vital Signs Last 24 Hour Vital Signs Date Time Temp Pulse Resp B/P (MAP) Pulse Ox O2 Delivery O2 Flow Rate FiO2 03/10/17 13:39 Nasal Cannula 2.0 32 03/10/17 13:39 92 Nasal Cannula 2.0 28 03/10/17 08:00 96.6 88 20 128/77 95 Room Air 03/10/17 04:25 97.0 86 20 128/92 96 Room Air 03/10/17 04:00 80 03/10/17 04:00 80 03/10/17 01:37 85 03/10/17 00:13 97.0 87 20 121/91 94 03/09/17 20:00 96.8 56 20 130/105 94 Room Air 03/09/17 16:46 Room Air 3.0 32 03/09/17 16:00 81 03/09/17 16:00 97.8 71 19 140/50 98 Room Air Height (Feet): 6 Height (Inches): 2.00 Weight (Pounds): 200 General Appearance: WD/WN, no acute distress HEENT: normocephalic, atraumatic, anicteric, mucous membranes moist, EOMI, pharynx normal, supple Respiratory/Chest: chest wall non-tender, lungs clear, normal breath sounds, no respiratory distress, no accessory muscle use Cardiovascular: normal peripheral pulses, normal rate, regular rhythm, no gallop/murmur, no JVD Abdomen: normal bowel sounds, soft, non tender, no organomegaly, non distended , no mass, no scars Extremities: no cyanosis, no clubbing Skin: no rash, no lesions, no ulcers Neurologic/Psychiatric: alert, responsive Laboratory Tests Test 03/10/17 08:30 White Blood Count 10.1 K/UL (4.8-10.8) Red Blood Count 4.55 M/UL (4.70-6.10) L Hemoglobin 12.7 G/DL (14.2-18.0) L Hematocrit 40.5 % (42.0-52.0) L Mean Corpuscular Volume 89 FL (80-99) Mean Corpuscular Hemoglobin 28.0 PG (27.0-31.0) Mean Corpuscular Hemoglobin Concent 31.5 G/DL (32.0-36.0) L Red Cell Distribution Width 13.4 % (11.6-14.8) Platelet Count 340 K/UL (150-450) Mean Platelet Volume 6.2 FL (6.5-10.1) L Neutrophils (%) (Auto) 79.0 % (45.0-75.0) H Lymphocytes (%) (Auto) 13.0 % (20.0-45.0) L Monocytes (%) (Auto) 5.7 % (1.0-10.0) Eosinophils (%) (Auto) 1.3 % (0.0-3.0) Basophils (%) (Auto) 1.0 % (0.0-2.0) Sodium Level 136 MMOL/L (136-145) Potassium Level 4.7 MMOL/L (3.5-5.1) Chloride Level 105 MMOL/L (98-107) Carbon Dioxide Level 20 MMOL/L (21-32) L Anion Gap 11 mmol/L (5-15) Blood Urea Nitrogen 28 mg/dL (7-18) H Creatinine 2.1 MG/DL (0.55-1.30) H Estimat Glomerular Filtration Rate 39.4 mL/min (>60) Glucose Level 232 MG/DL (74-106) #H Calcium Level 8.7 MG/DL (8.5-10.1) Current Medications Medications (Trade) Dose Ordered Sig/Megan Route PRN Reason Start Time Stop Time Status Last Admin Dose Admin Acetaminophen (Tylenol) 650 mg Q4H PRN GT Mild Pain (Pain Scale 1-3) 03/06/17 02:45 04/05/17 02:44 Aspirin (ASA) 81 mg DAILY GT 03/06/17 09:00 04/05/17 08:59 03/10/17 08:11 Chlorhexidine Gluconate (Iman-Hex 2%) 1 applic DAILY@1999 TOPIC 02/28/17 20:15 03/30/17 20:14 03/08/17 20:04 Clotrimazole (Lotrimin) 1 applic EVERY 12 HOURS TOPIC 03/01/17 21:00 03/31/17 20:59 03/10/17 08:23 Dextrose (Dextrose 50%) STAT PRN IV Hypoglycemia 02/23/17 12:15 03/25/17 12:14 03/02/17 08:04 Heparin Sodium (Porcine) (Heparin 5000 units/ml) 5,000 units EVERY 12 HOURS SUBQ 02/23/17 09:00 03/25/17 08:59 03/10/17 08:12 Insulin Aspart (NovoLOG) EVERY 6 HOURS SUBQ 02/25/17 18:00 03/25/17 13:29 03/10/17 11:41 Insulin Detemir (Levemir) 11 units Q12HR SUBQ 03/06/17 09:00 04/05/17 08:59 03/10/17 08:32 Pantoprazole (Protonix) 40 mg DAILY IVP 02/25/17 09:00 03/27/17 08:59 03/10/17 08:10 Polyethylene Glycol (Miralax) 17 gm BEDTIME GT 03/06/17 21:00 04/05/17 20:59 03/08/17 21:25 Vancomycin HCl (Vanco rx to dose) 1 ea DAILY PRN MISC Per rx protocol 03/06/17 18:00 04/05/17 17:59 Kamala Leon M.D. Mar 10, 2017 15:35
[2017-03-10 16:00] VITALS: BP 140/74
[2017-03-10 20:38] VITALS: BP 134/87
[2017-03-10] MEDS: Dyna-Hex 2% Top Sol 2oz TOPIC SCH (22:45)
[2017-03-10] MEDS: Miralax 17gm pkt GT SCH (22:46)
--- NOTE | 2017-03-10 23:15 | Progress Note ---
DATE: 03/10/2017 SUBJECTIVE: This is an elderly 61-year-old male, who is currently sitting in the bed comfortable. No fever. No chills. Short of breath is improved. OBJECTIVE: VITAL SIGNS: Blood pressure 130/70, pulse 60, respirations 18, no fever. SKIN: Good skin turgor. CHEST: Bilaterally clear. CARDIOVASCULAR: Regular rhythm. No gallop. No murmur. ABDOMEN: Soft. EXTREMITIES: No swelling. GENITOURINARY: Deferred. ASSESSMENT: 1. Acute renal failure. 2. Congestive heart failure. 3. Hypertension. 4. Diabetes. PLAN: We will continue current treatment. Continue sliding scale and Accu-Chek. Continue hemodialysis. Diego Barbosa M.D. DR: DAMIAN JOB#: [id number] CC:
--- NOTE | 2017-03-10 23:37 | Cardiology Progress Note ---
Assessment/Plan Assessment/Plan 1. NSTEMI vs Troponin leak due to renal failure. Echo EF 50%. Chest pain free. Conservative management. 2. Status post DDD [employer] ICD implantation with normal fx. 3. History of cardiomyopathy with improvement of LVEF. Subjective Subjective Sinus rhythm at 89. Objective Last 24 Hour Vital Signs Date Time Temp Pulse Resp B/P (MAP) Pulse Ox O2 Delivery O2 Flow Rate FiO2 03/10/17 20:46 Nasal Cannula 2.0 32 03/10/17 20:45 95 Nasal Cannula 2.0 28 03/10/17 20:38 97.4 89 18 134/87 96 Nasal Cannula 03/10/17 16:00 97.1 89 20 140/74 97 Room Air 03/10/17 16:00 78 03/10/17 13:39 Nasal Cannula 2.0 32 03/10/17 13:39 92 Nasal Cannula 2.0 28 03/10/17 12:00 97.3 81 20 124/75 100 Room Air 03/10/17 12:00 82 03/10/17 08:00 96.6 88 20 128/77 95 Room Air 03/10/17 08:00 75 03/10/17 04:25 97.0 86 20 128/92 96 Room Air 03/10/17 04:00 80 03/10/17 04:00 80 03/10/17 01:37 85 03/10/17 00:13 97.0 87 20 121/91 94 Intake and Output 03/09/17 03/10/17 19:00 07:00 Intake Total 291 ml Output Total 2100 ml 400 ml Balance -1809 ml -400 ml Intake Oral 236 ml IV Total 55 ml Output Urine Total 100 ml 400 ml Hemodialysis UF 2000 ml # Voids 1 2D Echo: LVEF 50%, RVSP 15 mmHg, Grade I LVDD Laboratory Tests Test 03/10/17 08:30 White Blood Count 10.1 K/UL (4.8-10.8) Red Blood Count 4.55 M/UL (4.70-6.10) L Hemoglobin 12.7 G/DL (14.2-18.0) L Hematocrit 40.5 % (42.0-52.0) L Mean Corpuscular Volume 89 FL (80-99) Mean Corpuscular Hemoglobin 28.0 PG (27.0-31.0) Mean Corpuscular Hemoglobin Concent 31.5 G/DL (32.0-36.0) L Red Cell Distribution Width 13.4 % (11.6-14.8) Platelet Count 340 K/UL (150-450) Mean Platelet Volume 6.2 FL (6.5-10.1) L Neutrophils (%) (Auto) 79.0 % (45.0-75.0) H Lymphocytes (%) (Auto) 13.0 % (20.0-45.0) L Monocytes (%) (Auto) 5.7 % (1.0-10.0) Eosinophils (%) (Auto) 1.3 % (0.0-3.0) Basophils (%) (Auto) 1.0 % (0.0-2.0) Sodium Level 136 MMOL/L (136-145) Potassium Level 4.7 MMOL/L (3.5-5.1) Chloride Level 105 MMOL/L (98-107) Carbon Dioxide Level 20 MMOL/L (21-32) L Anion Gap 11 mmol/L (5-15) Blood Urea Nitrogen 28 mg/dL (7-18) H Creatinine 2.1 MG/DL (0.55-1.30) H Estimat Glomerular Filtration Rate 39.4 mL/min (>60) Glucose Level 232 MG/DL (74-106) #H Calcium Level 8.7 MG/DL (8.5-10.1) Objective HEAD AND NECK: Shows mild JVD. Right IG Taran catheter. LUNGS: Decreased breath sounds. CARDIOVASCULAR: Shows regular S1 and S2 with no gallop. ICD left subclavian. ABDOMEN: Soft.PEG in place EXTREMITIES: Upper extremity contractions GAGAN UGALDE Mar 10, 2017 23:37
[2017-03-11 00:48] VITALS: BP 133/89
[2017-03-11] MEDS: NovoLOG Insulin Flexpen SUBQ SCH ×3 (01:03→12:00)
[2017-03-11 04:21] VITALS: BP 120/68
--- NOTE | 2017-03-11 06:54 | General Progress Note ---
Assessment/Plan Problem List: (1) Encounter for PEG (percutaneous endoscopic gastrostomy) ICD Codes: Z43.1 - Encounter for attention to gastrostomy SNOMED: 486450837, 410261232 (2) Dysphagia due to recent stroke ICD Codes: I69.391 - Dysphagia following cerebral infarction SNOMED: 15354225, 166195112 (3) Hyperglycemia due to type 2 diabetes mellitus ICD Codes: E11.65 - Type 2 diabetes mellitus with hyperglycemia SNOMED: 956146447747692 (4) Hypernatremia ICD Codes: E87.0 - Hyperosmolality and hypernatremia SNOMED: 29975062 Assessment/Plan Levemir 11 units bid continue SSI q 6 hours Subjective ROS Limited/Unobtainable: Yes Allergies: Coded Allergies: No Known Allergies (Unverified , 11/15/15) Subjective events noted Objective Last 24 Hour Vital Signs Date Time Temp Pulse Resp B/P (MAP) Pulse Ox O2 Delivery O2 Flow Rate FiO2 03/11/17 04:21 96.5 80 18 120/68 97 Nasal Cannula 03/11/17 04:00 89 03/11/17 00:48 97.8 95 18 133/89 96 Nasal Cannula 03/11/17 00:00 92 03/10/17 20:46 Nasal Cannula 2.0 32 03/10/17 20:45 95 Nasal Cannula 2.0 28 03/10/17 20:38 97.4 89 18 134/87 96 Nasal Cannula 03/10/17 20:00 97 03/10/17 16:00 97.1 89 20 140/74 97 Room Air 03/10/17 16:00 78 03/10/17 13:39 Nasal Cannula 2.0 32 03/10/17 13:39 92 Nasal Cannula 2.0 28 03/10/17 12:00 97.3 81 20 124/75 100 Room Air 03/10/17 12:00 82 03/10/17 08:00 96.6 88 20 128/77 95 Room Air 03/10/17 08:00 75 Intake and Output 03/10/17 03/11/17 19:00 07:00 Output Total 200 ml 200 ml Balance -200 ml -200 ml Output Urine Total 200 ml 200 ml # Bowel Movements 1 Laboratory Tests 03/10/17 08:30: White Blood Count 10.1, Red Blood Count 4.55L, Hemoglobin 12.7L, Hematocrit 40.5L, Mean Corpuscular Volume 89, Mean Corpuscular Hemoglobin 28.0, Mean Corpuscular Hemoglobin Concent 31.5L, Red Cell Distribution Width 13.4, Platelet Count 340, Mean Platelet Volume 6.2L, Neutrophils (%) (Auto) 79.0H, Lymphocytes (%) (Auto) 13.0L, Monocytes (%) (Auto) 5.7, Eosinophils (%) (Auto) 1.3, Basophils (%) (Auto) 1.0, Sodium Level 136, Potassium Level 4.7, Chloride Level 105, Carbon Dioxide Level 20L, Anion Gap 11, Blood Urea Nitrogen 28H, Creatinine 2.1H, Estimat Glomerular Filtration Rate 39.4, Glucose Level 232#H, Calcium Level 8.7 Height (Feet): 6 Height (Inches): 2.00 Weight (Pounds): 200 General Appearance: no apparent distress Neck: normal alignment Cardiovascular: regular rhythm Respiratory/Chest: decreased breath sounds Abdomen: normal bowel sounds Pelvis: normal external exam Edema: 1+ Arm (L), 1+ Arm (R), 1+ Leg (L), 1+ Leg (R), 1+ Pedal (L), 1+ Pedal ( R), 1+ Generalized Objective Current Medications Medications (Trade) Dose Ordered Sig/Megan Route PRN Reason Start Time Stop Time Status Last Admin Dose Admin Acetaminophen (Tylenol) 650 mg Q4H PRN GT Mild Pain (Pain Scale 1-3) 03/06/17 02:45 04/05/17 02:44 Aspirin (ASA) 81 mg DAILY GT 03/06/17 09:00 04/05/17 08:59 03/10/17 08:11 Chlorhexidine Gluconate (Iman-Hex 2%) 1 applic DAILY@1999 TOPIC 02/28/17 20:15 03/30/17 20:14 03/10/17 22:45 Clotrimazole (Lotrimin) 1 applic EVERY 12 HOURS TOPIC 03/01/17 21:00 03/31/17 20:59 03/10/17 22:46 Dextrose (Dextrose 50%) STAT PRN IV Hypoglycemia 02/23/17 12:15 03/25/17 12:14 03/02/17 08:04 Heparin Sodium (Porcine) (Heparin 5000 units/ml) 5,000 units EVERY 12 HOURS SUBQ 02/23/17 09:00 03/25/17 08:59 03/10/17 22:48 Insulin Aspart (NovoLOG) EVERY 6 HOURS SUBQ 02/25/17 18:00 03/25/17 13:29 03/11/17 06:39 Insulin Detemir (Levemir) 11 units Q12HR SUBQ 03/06/17 09:00 04/05/17 08:59 03/10/17 22:49 Pantoprazole (Protonix) 40 mg DAILY IVP 02/25/17 09:00 03/27/17 08:59 03/10/17 08:10 Polyethylene Glycol (Miralax) 17 gm BEDTIME GT 03/06/17 21:00 04/05/17 20:59 03/10/17 22:46 Item Value Date Time Bedside Blood Glucose 189 mg/dl H 03/11/17 0639 Bedside Blood Glucose 174 mg/dl H 03/11/17 0103 Bedside Blood Glucose 158 mg/dl H 03/10/17 2249 Bedside Blood Glucose 112 mg/dl 03/10/17 1735 Bedside Blood Glucose 183 mg/dl H 03/10/17 1141 Bedside Blood Glucose 205 mg/dl H 03/10/17 0832 Bedside Blood Glucose 182 mg/dl H 03/10/17 0629 Bedside Blood Glucose 114 mg/dl 03/10/17 0000 MARIA VICTORIA GOMEZ Mar 11, 2017 06:54
[2017-03-11 08:00] VITALS: BP 142/90
[2017-03-11 09:03] LABS: ANION GAP 11 mmol/L (5-15); CALCIUM 8.8 MG/DL (8.5-10.1); CARBON DIOXIDE 21 MMOL/L (21-32); CHLORIDE 107 MMOL/L (98-107); CREATININE 2.4 MG/DL (0.55-1.30); GLOMERULAR FILTRATION RATE 33.7 mL/min (>60); POTASSIUM 4.8 MMOL/L (3.5-5.1); SODIUM 139 MMOL/L (136-145)
[2017-03-11 09:10] LABS: BASOPHILS % (AUTO) 0.9 % (0.0-2.0); EOSINOPHILS % (AUTO) 1.3 % (0.0-3.0); LYMPHOCYTES % (AUTO) 15.9 % (20.0-45.0); MEAN CORPUSCULAR HEMOGLOBIN 27.8 PG (27.0-31.0); MEAN CORPUSCULAR HGB CONC 31.3 G/DL (32.0-36.0); MEAN CORPUSCULAR VOLUME 89 FL (80-99); MONOCYTES % (AUTO) 5.8 % (1.0-10.0); NEUTROPHILS % (AUTO) 76.1 % (45.0-75.0); PLATELET COUNT 335 K/UL (150-450); RED BLOOD COUNT 4.71 M/UL (4.70-6.10); RED CELL DISTRIBUTION WIDTH 13.1 % (11.6-14.8); WHITE BLOOD COUNT 10.2 K/UL (4.8-10.8)
--- NOTE | 2017-03-11 11:00 | GI Progress Note ---
Assessment/Plan Problems: (1) Dysphagia due to recent stroke ICD Codes: I69.391 - Dysphagia following cerebral infarction SNOMED: 43526249, 096532187 (2) Encounter for PEG (percutaneous endoscopic gastrostomy) ICD Codes: Z43.1 - Encounter for attention to gastrostomy SNOMED: 162524820, 123171037 (3) DM (diabetes mellitus) ICD Codes: E11.9 - Type 2 diabetes mellitus without complications SNOMED: 30983345 Status: stable Status Narrative Discussed with Dr. Olmedo. Assessment/Plan POLST reviewed >> FULL treatment - primary decision maker would be the Brother >> Gigi Lepe @ [phone] or [phone] lactic acid >> now normal hep panel >> negative SUMMARY OF FINDINGS: Status post successful percutaneous endoscopic gastrostomy placement. RECOMMENDATIONS: okay for DC per GI standpoint 1. Abdominal binder. 2. Elevate the head of the bed at all times. 3. G-tube flush. 4. G-tube care. fu nephrology GTFs tolerated DM control DVT prophylaxis ppi daily monitor H&H, prn transfusions. electrolyte correction bowel regime >> colace + miralax abx fu labs Subjective Subjective limited Objective Last 24 Hour Vital Signs Date Time Temp Pulse Resp B/P (MAP) Pulse Ox O2 Delivery O2 Flow Rate FiO2 03/11/17 08:00 97.0 89 21 142/90 98 Nasal Cannula 03/11/17 04:21 96.5 80 18 120/68 97 Nasal Cannula 03/11/17 04:00 89 03/11/17 00:48 97.8 95 18 133/89 96 Nasal Cannula 03/11/17 00:00 92 03/10/17 20:46 Nasal Cannula 2.0 32 03/10/17 20:45 95 Nasal Cannula 2.0 28 03/10/17 20:38 97.4 89 18 134/87 96 Nasal Cannula 03/10/17 20:00 97 03/10/17 16:00 97.1 89 20 140/74 97 Room Air 03/10/17 16:00 78 03/10/17 13:39 Nasal Cannula 2.0 32 03/10/17 13:39 92 Nasal Cannula 2.0 28 03/10/17 12:00 97.3 81 20 124/75 100 Room Air 03/10/17 12:00 82 Intake and Output 03/10/17 03/11/17 19:00 07:00 Output Total 200 ml 200 ml Balance -200 ml -200 ml Output Urine Total 200 ml 200 ml # Bowel Movements 1 Laboratory Tests Test 03/11/17 08:35 White Blood Count 10.2 K/UL (4.8-10.8) Red Blood Count 4.71 M/UL (4.70-6.10) Hemoglobin 13.1 G/DL (14.2-18.0) L Hematocrit 41.7 % (42.0-52.0) L Mean Corpuscular Volume 89 FL (80-99) Mean Corpuscular Hemoglobin 27.8 PG (27.0-31.0) Mean Corpuscular Hemoglobin Concent 31.3 G/DL (32.0-36.0) L Red Cell Distribution Width 13.1 % (11.6-14.8) Platelet Count 335 K/UL (150-450) Mean Platelet Volume 6.0 FL (6.5-10.1) L Neutrophils (%) (Auto) 76.1 % (45.0-75.0) H Lymphocytes (%) (Auto) 15.9 % (20.0-45.0) L Monocytes (%) (Auto) 5.8 % (1.0-10.0) Eosinophils (%) (Auto) 1.3 % (0.0-3.0) Basophils (%) (Auto) 0.9 % (0.0-2.0) Sodium Level 139 MMOL/L (136-145) Potassium Level 4.8 MMOL/L (3.5-5.1) Chloride Level 107 MMOL/L (98-107) Carbon Dioxide Level 21 MMOL/L (21-32) Anion Gap 11 mmol/L (5-15) Blood Urea Nitrogen 36 mg/dL (7-18) H Creatinine 2.4 MG/DL (0.55-1.30) H Estimat Glomerular Filtration Rate 33.7 mL/min (>60) Glucose Level 234 MG/DL (74-106) H Calcium Level 8.8 MG/DL (8.5-10.1) Height (Feet): 6 Height (Inches): 2.00 Weight (Pounds): 200 General Appearance: WD/WN, no apparent distress, alert Cardiovascular: normal rate Respiratory/Chest: normal breath sounds, no respiratory distress, other - 2LNC Abdominal Exam: normal bowel sounds, non tender, soft, GT site - c/d/i Extremities: non-tender Mariaa Winters N.P. Mar 11, 2017 11:00
[2017-03-11] MEDS: Aspirin Baby 81mg GT SCH (11:27)
[2017-03-11] MEDS: Pantoprazole Inj IVP SCH (11:27)
[2017-03-11] MEDS: Heparin 5000 units/ml inj SUBQ SCH (11:34)
[2017-03-11 12:00] VITALS: BP 128/58
[2017-03-11] MEDS: Levemir Flexpen SUBQ SCH (12:02)
--- NOTE | 2017-03-11 14:45 | Infectious Diseases Prog Note ---
Assessment/Plan Problems: (1) HCAP (healthcare-associated pneumonia) Assessment & Plan: improved on cefepime and clindamycin empiric coverage, blood culture remains negative, monitor off antibiotics (2) UTI (urinary tract infection) Assessment & Plan: with pseudomonas , S/P cefepime for two weeks total. done with it already, monitor off antibiotics (3) Sepsis Assessment & Plan: resolved on vancomycin , repeated blood culture is negative , S/P cefepime for UTI due to pseudomonas aeruginosa for two weeks. (4) Acute kidney injury Assessment & Plan: due to sepsis , didn't improve with hydrations, avoid nephrotoxic, had permanent tunneled dialysis catheter placed today and started on HD , renal is following (5) Hyperglycemia Assessment & Plan: improving due to sepsis, recommend tight glycemic control to keep blood glucose between 80-120 (6) Dysphagia due to recent stroke Assessment & Plan: S/P PEG tube placement by GI , continue tube feeding as per GI Subjective Constitutional: Reports: no symptoms HEENT: Reports: no symptoms Respiratory: Reports: no symptoms Breasts: Reports: no symptoms Cardiovascular: Reports: no symptoms Gastrointestinal/Abdominal: Reports: no symptoms Genitourinary: Reports: no symptoms Neurologic: Reports: no symptoms Psychiatric: Reports: no symptoms Skin: Reports: no symptoms Endocrine: Reports: no symptoms Hematologic: Reports: no symptoms Musculoskeletal: Reports: no symptoms Allergies: Coded Allergies: No Known Allergies (Unverified , 11/15/15) Subjective he was alert, up in bed, responds to verbal commands , not on oxygen , sating well on room air, not febrile. not in distress , had permanent tunneled HD catheter Objective Vital Signs Last 24 Hour Vital Signs Date Time Temp Pulse Resp B/P (MAP) Pulse Ox O2 Delivery O2 Flow Rate FiO2 03/11/17 12:30 Room Air 03/11/17 12:00 97.0 118 19 128/58 96 Nasal Cannula 2.0 03/11/17 12:00 111 03/11/17 09:20 Room Air 03/11/17 08:00 85 03/11/17 08:00 97.0 89 21 142/90 98 Nasal Cannula 2.0 03/11/17 04:21 96.5 80 18 120/68 97 Nasal Cannula 03/11/17 04:00 89 03/11/17 00:48 97.8 95 18 133/89 96 Nasal Cannula 03/11/17 00:00 92 03/10/17 20:46 Nasal Cannula 2.0 32 03/10/17 20:45 95 Nasal Cannula 2.0 28 03/10/17 20:38 97.4 89 18 134/87 96 Nasal Cannula 03/10/17 20:00 97 03/10/17 16:00 97.1 89 20 140/74 97 Room Air 03/10/17 16:00 78 Height (Feet): 6 Height (Inches): 2.00 Weight (Pounds): 200 General Appearance: WD/WN, no acute distress HEENT: normocephalic, atraumatic, anicteric, mucous membranes moist, PERRL Respiratory/Chest: chest wall non-tender, lungs clear, normal breath sounds, no respiratory distress, no accessory muscle use Cardiovascular: normal peripheral pulses, normal rate, regular rhythm, no gallop/murmur, no JVD Abdomen: normal bowel sounds, soft, non tender, no organomegaly, non distended , no mass, no scars Extremities: no cyanosis, no clubbing Skin: no rash, no lesions, no ulcers Neurologic/Psychiatric: alert, responsive Laboratory Tests Test 03/11/17 08:35 White Blood Count 10.2 K/UL (4.8-10.8) Red Blood Count 4.71 M/UL (4.70-6.10) Hemoglobin 13.1 G/DL (14.2-18.0) L Hematocrit 41.7 % (42.0-52.0) L Mean Corpuscular Volume 89 FL (80-99) Mean Corpuscular Hemoglobin 27.8 PG (27.0-31.0) Mean Corpuscular Hemoglobin Concent 31.3 G/DL (32.0-36.0) L Red Cell Distribution Width 13.1 % (11.6-14.8) Platelet Count 335 K/UL (150-450) Mean Platelet Volume 6.0 FL (6.5-10.1) L Neutrophils (%) (Auto) 76.1 % (45.0-75.0) H Lymphocytes (%) (Auto) 15.9 % (20.0-45.0) L Monocytes (%) (Auto) 5.8 % (1.0-10.0) Eosinophils (%) (Auto) 1.3 % (0.0-3.0) Basophils (%) (Auto) 0.9 % (0.0-2.0) Sodium Level 139 MMOL/L (136-145) Potassium Level 4.8 MMOL/L (3.5-5.1) Chloride Level 107 MMOL/L (98-107) Carbon Dioxide Level 21 MMOL/L (21-32) Anion Gap 11 mmol/L (5-15) Blood Urea Nitrogen 36 mg/dL (7-18) H Creatinine 2.4 MG/DL (0.55-1.30) H Estimat Glomerular Filtration Rate 33.7 mL/min (>60) Glucose Level 234 MG/DL (74-106) H Calcium Level 8.8 MG/DL (8.5-10.1) Current Medications Medications (Trade) Dose Ordered Sig/Megan Route PRN Reason Start Time Stop Time Status Last Admin Dose Admin Acetaminophen (Tylenol) 650 mg Q4H PRN GT Mild Pain (Pain Scale 1-3) 03/06/17 02:45 04/05/17 02:44 Aspirin (ASA) 81 mg DAILY GT 03/06/17 09:00 04/05/17 08:59 03/11/17 11:27 Chlorhexidine Gluconate (Iman-Hex 2%) 1 applic DAILY@1999 TOPIC 02/28/17 20:15 03/30/17 20:14 03/10/17 22:45 Clotrimazole (Lotrimin) 1 applic EVERY 12 HOURS TOPIC 03/01/17 21:00 03/31/17 20:59 03/11/17 11:27 Dextrose (Dextrose 50%) STAT PRN IV Hypoglycemia 02/23/17 12:15 03/25/17 12:14 03/02/17 08:04 Heparin Sodium (Porcine) (Heparin 5000 units/ml) 5,000 units EVERY 12 HOURS SUBQ 02/23/17 09:00 03/25/17 08:59 03/11/17 11:34 Insulin Aspart (NovoLOG) EVERY 6 HOURS SUBQ 02/25/17 18:00 03/25/17 13:29 03/11/17 06:39 Insulin Detemir (Levemir) 11 units Q12HR SUBQ 03/06/17 09:00 04/05/17 08:59 12/21/17 12:02 Pantoprazole (Protonix) 40 mg DAILY IVP 02/25/17 09:00 03/27/17 08:59 03/11/17 11:27 Polyethylene Glycol (Miralax) 17 gm BEDTIME GT 03/06/17 21:00 04/05/17 20:59 03/10/17 22:46 Kamala Leon M.D. Mar 11, 2017 14:45
[2017-03-11] MEDS ORDERED: NS Irrig 1000ml ONE (16:29)
[2017-03-11] MEDS ORDERED: Tubing IV Secondary IV ONE (16:29)
[2017-03-11] MEDS ORDERED: Sterile Water Irrig 1000ml IRRIG ONE (16:29)
[2017-03-11 16:37] VITALS: BP 114/88
--- NOTE | 2017-03-11 17:30 | Progress Note ---
DATE: 03/11/2017 SUBJECTIVE: This is an elderly male, who is currently awake, comfortable, and in no distress. OBJECTIVE: VITAL SIGNS: Stable. CHEST: Bilaterally clear. CARDIOVASCULAR: Regular rhythm. No gallop. No murmur. ABDOMEN: Soft. EXTREMITIES: CCE. NEUROLOGIC: The patient has no focal deficits. ASSESSMENT: 1. End-stage renal disease. 2. Hypertension. 3. Diabetes. 4. Congestive heart failure. PLAN: 1. Continue hemodialysis. 2. Continue current treatment. Diego Barbosa M.D. DR: YESSI JOB#: [id number] CC:
[2017-03-11] MEDS ORDERED: NS 500ML ONE (18:09)
--- NOTE | 2017-03-12 15:28 | Discharge Summary ---
Discharge Summary Hospital Course Date of Admission Feb 22, 2017 at 10:25 Date of Discharge Mar 11, 2017 at 18:10 Admitting Diagnosis HYPOXIA, SEPSIS HPI George Penn is a 61 year old male who was admitted on Feb 22, 2017 at 10:25 for Hypoxia/Sepsis Hospital Course [id number] Discharge Discharge Disposition Patient was discharged to SNF/Subacute Facility(03) Discharge Diagnoses: Sara Pedroza NP Mar 12, 2017 15:28
[2017-03-12] MEDS ORDERED: GLUCERNA1500 ML GT (19:27)
--- NOTE | 2017-03-16 08:30 | Discharge Summary 2 SIG ---
DATE OF ADMISSION: 02/22/2017 DATE OF DISCHARGE: 03/11/2017 CONSULTANTS: 1. Yoandy Zurita M.D. 2. Levy Wolfe M.D. 3. Kamala Leon M.D. 4. Radu Olmedo M.D. 5. Raul Bradley M.D. BRIEF HOSPITAL COURSE: The patient is a 61-year-old male with history of diabetes mellitus and CVA, presented to ED for complaints of shortness of breath and chest congestion. He has history of recent CVA, nonverbal, however, does respond to commands. On evaluation at ED, the patient was febrile, hypoxic, and had poor respiratory effort. Laboratories were significant for leukocytosis and elevated lactate consistent with sepsis diagnosis. Chest x-ray showed left basilar atelectasis. Urinalysis was unremarkable. He had hypernatremia and elevated creatinine and BUN. Creatinine was 2.7 and BUN 100. Sodium was 165 and chloride was 130. He was then admitted for sepsis, hypernatremia, SHANTE on CKD, hypoxia, urinary tract infection, pneumonia, and hyperglycemia. He was seen by Dr. Leon for antibiotic management. He was initially started on cefepime and clindamycin for empiric coverage. He was pancultured. Blood culture did not isolate any growth. Urine culture showed growth of Pseudomonas and blood culture remained negative. Blood sugar was monitored. He was followed up by origination specialist and was given Levemir 11 units b.i.d. and continued on sliding scale of insulin every six hours. He had slight elevation of troponin. Cardiac enzymes were monitored. Elevation in troponin was secondary to severe renal failure and dehydration. Echocardiogram done showed ejection fraction of 50%. He is status post dual-chamber defibrillator implantation based on chest x-ray. Interrogation was done showed normal function. The patient is status post [employer] defibrillator implantation. He remained without any chest pain. He had dysphagia and failed swallow evaluation. He underwent PEG tube placement by Dr. Olmedo on 03/10/2017. He was recommended to have abdominal binder and elevate the head of the bed all the times. He was then started on tube feeding and was tolerating tube feeding well. He was given bowel regimen consisting of Colace and MiraLAX. Hepatitis panel was negative. He had worsening of kidney function. Advised to avoid nephrotoxins. On 02/26/2017, he underwent placement of right transjugular dialysis catheter and he was eventually started on hemodialysis. On 03/09/2017, since the patient is regularly doing long-term dialysis, a tunneled transjugular catheter was placed. He was seen by Dr. Paredes. 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 Color flow duplex revealed occlusion of the superficial femoral artery to the popliteal artery. The proximal posterior tibial artery and anterior tibial artery appeared to be occluded. He was continued on aspirin and he was eventually discharged to [facility]. FINAL DIAGNOSES: 1. End-stage renal disease, on hemodialysis. 2. Hypertension. 3. Diabetes. 4. Healthcare-associated pneumonia. 5. Urinary tract infection with Pseudomonas. 6. Sepsis, resolved on vancomycin. 7. Acute kidney injury due to sepsis. 8. Hyperglycemia. 9. Dysphagia due to recent stroke, status post percutaneous endoscopic gastrostomy tube placement. 10. Hypernatremia. 11. Uncontrolled diabetes, type 2. 12. Troponin leak due to renal failure. 13. Status post [employer] implantable cardioverter-defibrillator pacemaker. 14. Cardiomyopathy. 15. Dysphagia due to recent stroke. 16. Acute kidney injury on chronic kidney disease. DISPOSITION: The patient was discharged to [facility]. Arranged outpatient hemodialysis with Abisai viramontes. DISCHARGE MEDICATIONS: Refer to medication list. Yoandy Zurita M.D. I have been assigned to dictate discharge summary on this account and I was not involved in the patient's management. Sara Pedroza N.P. DR: CONSUELO JOB#: [id number] CC: NOY
--- NOTE | 2017-03-17 09:00 | Consultation ---
DATE OF CONSULTATION: 02/26/2017 VASCULAR SURGERY CONSULTATION CONSULTING PHYSICIAN: Rafa Paredes M.D. REFERRING PHYSICIAN: Yoandy Raymond M.D. REASON FOR EVALUATION: Permanent access for hemodialysis. HISTORY OF PRESENT COMPLAINT: This is a 61-year-old male, who suffers from stroke and left chest AICD defibrillator. The patient was found to have worsening renal failure. The patient is currently on dialysis through right internal jugular temporary Taran catheter. Vascular Surgery is consulted for evaluation and placement of tunneled PermCath and possible AV shunt placement. The patient is currently confused. All the history is obtained from medical records. PAST MEDICAL HISTORY: As above, history of renal failure, left chest AICD defibrillator, cardiomyopathy, stroke, diabetes mellitus, hypertension, contractures, and arterial occlusive disease. MEDICATIONS: See attached MAR. ALLERGIES: No known drug allergies. SOCIAL HISTORY: Unobtainable. FAMILY HISTORY: Unobtainable. REVIEW OF SYSTEMS: Unobtainable due to altered mental status. PHYSICAL EXAMINATION: VITAL SIGNS: The patient is afebrile at 96.4, heart rate 75, respiratory rate 20, blood pressure 98/34, and saturation is 95% on 6 liters with Venturi mask. GENERAL: The patient is confused and contracted. He has a mid chest dual-chamber intracardiac device defibrillator. LUNGS: Clear to auscultation. HEART: Regular. ABDOMEN: Soft and nontender. EXTREMITIES: He has a right IJ Taran catheter. He has palpable femoral pulses. His feet are warm with intact pedal Dopplers. He does have lower extremity edema and contractures. LABORATORY DATA: His laboratories revealed BUN of 120, creatinine 4.4, estimated GFR is 16.7 mm/min, sodium 149, potassium 3.6, and chloride 117. CO2 is 19. PTT is 29, INR is 1.0. WBC 13.6, hemoglobin 13.8, and platelet count is 150,000. IMPRESSION: 1. Renal failure requiring access for hemodialysis. 2. History of heart failure, automatic implanted cardioverter-defibrillator on the left chest. 3. History of stroke, nonambulatory with arm and leg contractures. PLAN AND RECOMMENDATIONS: We will obtain arm and leg duplex/ medical optimization progress. Will schedule for a tunneled permcath and right arm AV shunt is indicated and cleared by [facility]al and Medical Service. Continue DVT and decubitus precaution. Optimize nutrition. The patient may need a feeding gastrostomy tube. Rafa Paredes M.D. DR: HOMA JOB#: [id number] CC: Rafa Paredes M.D.; Fax#: [phone] YOANDY RAYMOND M.D. ; FAX#: [phone] SIVA ANSARI M.D.; FAX#: [phone] NOY
== END 2017-03-11 18:10 | DRG 720 ==
LOC: EDBD 09:25 → EDBEDREQ 09:47 → EMR 09:53 → 2E 10:25 → EDBEDREQ 11:37
PROC: 05HM33Z Insertion of Infusion Device into Right Internal Jugular Vein, Percutaneous Approach (ICD-10-PCS; 2017-02-26)
PROC: 5A1D70Z Performance of Urinary Filtration, Intermittent, Less than 6 Hours Per Day (ICD-10-PCS; 2017-02-28)
PROC: 0DH63UZ Insertion of Feeding Device into Stomach, Percutaneous Approach (ICD-10-PCS; 2017-03-02 12:44)
PROC: 05HM33Z Insertion of Infusion Device into Right Internal Jugular Vein, Percutaneous Approach (ICD-10-PCS; principal; 2017-03-09)
DX: A41.9 Sepsis, unspecified organism (principal); I13.2 Hypertensive heart and chronic kidney disease with heart failure and with stage 5 chronic kidney disease, or end stage renal disease; N17.9 Acute kidney failure, unspecified; J18.9 Pneumonia, unspecified organism; E87.0 Hyperosmolality and hypernatremia; N18.6 End stage renal disease; I42.9 Cardiomyopathy, unspecified; L89.152 Pressure ulcer of sacral region, stage 2; R09.02 Hypoxemia; I69.391 Dysphagia following cerebral infarction; R13.10 Dysphagia, unspecified; N39.0 Urinary tract infection, site not specified; R65.20 Severe sepsis without septic shock; E11.22 Type 2 diabetes mellitus with diabetic chronic kidney disease; E11.65 Type 2 diabetes mellitus with hyperglycemia; I50.9 Heart failure, unspecified; Z99.2 Dependence on renal dialysis; E86.0 Dehydration
CPT/HCPCS: 36415; 36569; 71010; 74000; 74230; 76000; 76937; 80048; 80053; 80202; 81003; 82550; 82553; 82565; 82962; 83605; 83735; 83880; 84100; 84132; 84439; 84443; 84484; 84520; 85007; 85025; 85610; 85730; 86706; 86707; 86803; 87040; 87086; 87181; 87324; 93005; 93306; 93930; 93970; 94003; 94150; 94664; 94760; 99285; J1815; S0077; S5561

== ENCOUNTER 2017-03-12 18:44 | Emergency (ER) | payer OTHER ==
[~2017-03-12] VITALS: Ht 182.9 cm; Wt 81.6 kg
[~2017-03-12 18:44] MED LIST changes: +ACETAMINOPHEN325 M1 ORAL; +METFORMIN HCL1000 M1 ORAL; +METFORMIN HCL500 M1 ORAL; +NOVOLOG SS
--- NOTE | 2017-03-12 19:11 | Emergency Room Report ---
History of Present Illness General Chief Complaint: Abnormal Labs Source: Medical Record, EMS Present Illness HPI [id number] sent from SNF by Dr Barbosa for "emergency dialysis" for abnormal labs. HPI otherwise limited as patient non-verbal Was admitted to [place] earlier this month for HCAP/Pseudomonas-UTI. However Blood Cx from that visit were negative Allergies: Coded Allergies: No Known Allergies (Unverified , 11/15/15) Patient History Past Medical History: renal disease, dialysis Past Surgical History: unable to obtain Pertinent Family History: unable to obtain Social History: Denies: smoking, alcohol use, drug use Immunizations: UTD Reviewed Nursing Documentation: PMH: Agreed, PSxH: Agreed Nursing Documentation-PMH Past Medical History: No History, Except For Hx Hypertension: Yes Hx Pacemaker: Yes Hx Diabetes: Yes Hx Cancer: No Hx Gastrointestinal Problems: Yes - Pancreatitis Hx Neurological Problems: No Hx Cerebrovascular Accident: Yes Review of Systems All Other Systems: limited - nonverbal at baseline Physical Exam Vital Signs Date Time Temp Pulse Resp B/P (MAP) Pulse Ox O2 Delivery O2 Flow Rate FiO2 03/12/17 18:43 97.2 98 20 102/80 94 Room Air Sp02 EP Interpretation: reviewed, normal General Appearance: normal inspection, well appearing, no apparent distress, alert, non-toxic Head: normocephalic, atraumatic Eyes: bilateral eye PERRL, bilateral eye EOMI ENT: normal ENT inspection, normal pharynx, no angioedema, TMs + canals normal , uvula midline, moist mucus membranes Neck: normal inspection, full range of motion, supple, thyroid normal, no meningismus, no bony tend Respiratory: normal inspection, lungs clear, normal breath sounds, no rhonchi, no respiratory distress, no retraction, no accessory muscle use, no wheezing, speaking full sentences Cardiovascular #1: regular rate, rhythm, no edema, no JVD, normal capillary refill Gastrointestinal: normal inspection, normal bowel sounds, non tender, soft, no mass, no peritonitis, non-distended, no guarding, no hernia, no pulsatile mass Genitourinary: no CVA tenderness Musculoskeletal: normal inspection, back normal, normal range of motion, no calf tenderness, pelvis stable, Layton's Sign negative Neurologic: normal inspection, alert, responsive, parts sales advisor III-XII nml as tested, motor strength/tone normal, cerebellar normal, normal gait, speech normal Psychiatric: normal inspection, judgement/insight normal, mood/affect normal, no suicidal/homicidal ideation, no delusions Skin: normal inspection, normal color, no rash Lymphatic: normal inspection, no adenopathy Medical Decision Making Diagnostic Impression: Primary Impression: Abnormal laboratory test result Additional Impression: CKD (chronic kidney disease) Qualified Codes: N18.9 - Chronic kidney disease, unspecified ER Course Vital signs are stable, afebrile CMP: Serum creatinine consistent with known Ckd, potassium level is normal [facility] nurse called, stated that she just dialyze patient yesterday, and would not be coming to [place] to dialyze him today. I followed up with PMD Dr Barbosa and wool sorter Dr Kraus that CMP was normal and that I would be sending patient back to SNF. Mild leuks 12k, but afebrile, vitals stable, no sign of infection DC back to SNF EKG Diagnostic Results Rate: normal Rhythm: NSR ST Segments: no acute changes ASA given to the pt in ED: No Rhythm Strip Diag. Results EP Interpretation: yes Rate: 95 Rhythm: NSR, no PVC's, no ectopy Last Vital Signs Date Time Temp Pulse Resp B/P (MAP) Pulse Ox O2 Delivery O2 Flow Rate FiO2 03/12/17 18:43 97.2 98 20 102/80 94 Room Air Status: improved Disposition: [facility] SNF Condition: Stable KAREN DOLAN M.D. Mar 12, 2017 19:11
[2017-03-12 19:17] VITALS: BP 101/81
[2017-03-12] MEDS ORDERED: GLUCERNA1500 ML GT (19:27)
[2017-03-12 20:06] LABS: BASOPHILS % (AUTO) 0.9 % (0.0-2.0); EOSINOPHILS % (AUTO) 0.4 % (0.0-3.0); LYMPHOCYTES % (AUTO) 16.9 % (20.0-45.0); MEAN CORPUSCULAR HEMOGLOBIN 26.5 PG (27.0-31.0); MEAN CORPUSCULAR HGB CONC 29.8 G/DL (32.0-36.0); MEAN CORPUSCULAR VOLUME 89 FL (80-99); MEAN PLATELET VOLUME 5.5 FL (6.5-10.1); NEUTROPHILS % (AUTO) 74.8 % (45.0-75.0); PLATELET COUNT 354 K/UL (150-450); RED BLOOD COUNT 5.26 M/UL (4.70-6.10); WHITE BLOOD COUNT 12.5 K/UL (4.8-10.8)
[2017-03-12 20:24] LABS: ANION GAP 8 mmol/L (5-15); CALCIUM 8.1 MG/DL (8.5-10.1); CARBON DIOXIDE 30 MMOL/L (21-32); CHLORIDE 102 MMOL/L (98-107); CREATININE 2.9 MG/DL (0.55-1.30); GLOMERULAR FILTRATION RATE 27.1 mL/min (>60); SODIUM 140 MMOL/L (136-145)
[2017-03-12 20:37] LABS: ALANINE AMINOTRANSFERASE 20 U/L (12-78); ASPARTATE AMINO TRANSFERASE 17 U/L (15-37); TOTAL PROTEIN 8.2 G/DL (6.4-8.2)
[2017-03-12 20:38] LABS: ALBUMIN/GLOBULIN RATIO 0.3 (1.0-2.7)
[2017-03-12 21:04] VITALS: BP 108/75
[2017-03-12 22:11] VITALS: BP 111/82
[2017-03-12 22:22] VITALS: BP 111/82
--- NOTE | 2017-03-14 15:07 | Cardiology Report ---
APPROVED REPORT EKG Measurement Heart [id number] ME 138P2 [id number] Sinus rhythm with occasional premature ventricular complexes Left axis deviation Anterior infarct, age undetermined Abnormal ECG
== END 2017-03-12 22:24 ==
LOC: EDBD 18:44 → EMR 19:30 → CANBEDREQ 20:57 → EMR 22:24
DX: E11.22 Type 2 diabetes mellitus with diabetic chronic kidney disease (principal); I12.0 Hypertensive chronic kidney disease with stage 5 chronic kidney disease or end stage renal disease; N18.6 End stage renal disease; Z99.2 Dependence on renal dialysis
CPT/HCPCS: 36415; 80053; 83880; 85025; 93005; 99284

== ENCOUNTER 2017-03-14 15:43 | Emergency (ER) | payer OTHER ==
[~2017-03-14] VITALS: Ht 172.7 cm; Wt 90.7 kg
[~2017-03-14 15:43] MED LIST changes: +GLUCERNA1500 ML GT
--- NOTE | 2017-03-14 16:12 | Emergency Room Report ---
History of Present Illness General Chief Complaint: General Complaint Source: Medical Record Present Illness HPI 61-year-old male, history of diabetes, stroke, bedbound nonverbal, end-stage renal disease, on dialysis, sent in for dialysis. No other history is to be is able to be obtained from patient Allergies: Coded Allergies: No Known Allergies (Unverified , 11/15/15) Patient History Past Medical History: see triage record Past Surgical History: none Pertinent Family History: none Reviewed Nursing Documentation: PMH: Agreed, PSxH: Agreed Nursing Documentation-PMH Hx Cardiac Problems: Yes - pacemaker Hx Hypertension: No Hx Pacemaker: Yes Hx Diabetes: Yes Hx Cancer: No Hx Dialysis: No Review of Systems All Other Systems: limited - nonverbal Physical Exam Vital Signs Date Time Temp Pulse Resp B/P (MAP) Pulse Ox O2 Delivery O2 Flow Rate FiO2 03/14/17 15:44 98.1 100 16 112/91 98 Room Air Sp02 EP Interpretation: reviewed, normal General Appearance: other - Chronically ill-appearing, elderly male, bedbound nonverbal Head: normocephalic, atraumatic Eyes: bilateral eye normal inspection, bilateral eye PERRL, bilateral eye EOMI ENT: normal ENT inspection, moist mucus membranes Neck: normal inspection, supple, no bony tend Respiratory: normal inspection, chest non-tender, lungs clear, normal breath sounds, no respiratory distress Cardiovascular #1: normal inspection, regular rate, rhythm, other - dialysis port R chest Cardiovascular #2: 2+ radial (R), 2+ radial (L) Gastrointestinal: other - peg tube in place, nontender abdomen, ND Genitourinary: no CVA tenderness Musculoskeletal: normal inspection, back normal, normal range of motion, non- tender Neurologic: other - nonverbal Psychiatric: other - nonverbal Skin: normal inspection, normal color, no rash, warm/dry, well hydrated, normal turgor Medical Decision Making Diagnostic Impression: Primary Impression: ESRD (end stage renal disease) on dialysis ER Course 61-year-old male, end-stage renal disease, diabetes, stroke, bedbound, nonverbal , presenting from group home for dialysis DDX: End-stage renal disease rule out wedgelike disturbance, dehydration Plan: Obtain labs, ua, EKG, CXR Admit for dialysis ER course: Patient has been monitored during ED stay, HD stable Labs are significant for a creatinine of 3.0, BUN is 60, no hyperkalemia Patient has not been in any respiratory distress There is no need for emergent dialysis Patient would have required to be transferred to an outside hospital for hospitalization, I spoke with patient's primary care Dr. Dr. Barbosa, since there is no need for emergent dialysis patient will because her back to the SNF Disposition: Patient is to be transferred to SNF Please note that this Emergency Department Report was dictated using [employer] apprentice technology software, occasionally this can lead to erroneous entry secondary to interpretation by the dictation equipment. EKG Diagnostic Results EP Interpretation: Yes Rate: normal Rhythm: NSR ST Segments: No acute changes ASA given to patient: No Rhythm Strip EP Interpretation: Yes Rate: 90 Rhythm: NSR, no PVCs, no ectopy Chest X-ray CXR: Ordered: Yes 1 view Indication: Altered mental status EP interpretation: Yes Interpretation: No consolidation, no effusion, no PTX, PPM noted L chest, dialysis cath noted Impression: No acute disease Electronically signed by Natanael Quiros MD Laboratory Tests Test 03/14/17 16:15 White Blood Count 11.9 K/UL (4.8-10.8) H Red Blood Count 4.78 M/UL (4.70-6.10) Hemoglobin 13.2 G/DL (14.2-18.0) L Hematocrit 42.6 % (42.0-52.0) Mean Corpuscular Volume 89 FL (80-99) Mean Corpuscular Hemoglobin 27.6 PG (27.0-31.0) Mean Corpuscular Hemoglobin Concent 31.0 G/DL (32.0-36.0) L Red Cell Distribution Width 13.1 % (11.6-14.8) Platelet Count 410 K/UL (150-450) Mean Platelet Volume 5.7 FL (6.5-10.1) L Neutrophils (%) (Auto) 79.0 % (45.0-75.0) H Lymphocytes (%) (Auto) 13.7 % (20.0-45.0) L Monocytes (%) (Auto) 6.3 % (1.0-10.0) Eosinophils (%) (Auto) 0.2 % (0.0-3.0) Basophils (%) (Auto) 0.7 % (0.0-2.0) Sodium Level 140 MMOL/L (136-145) Potassium Level 5.1 MMOL/L (3.5-5.1) Chloride Level 103 MMOL/L (98-107) Carbon Dioxide Level 29 MMOL/L (21-32) Anion Gap 8 mmol/L (5-15) Blood Urea Nitrogen 60 mg/dL (7-18) H Creatinine 3.0 MG/DL (0.55-1.30) H Estimate Glomerular Filtration Rate 26.1 mL/min (>60) Glucose Level 291 MG/DL (74-106) H Calcium Level 8.2 MG/DL (8.5-10.1) L Total Bilirubin 0.7 MG/DL (0.2-1.0) Aspartate Amino Transferase (AST) 24 U/L (15-37) Alanine Aminotransferase (ALT) 24 U/L (12-78) Alkaline Phosphatase 84 U/L (46-116) Troponin I 0.000 ng/mL (0.000-0.056) Pro-B-Type Natriuretic Peptide 1086 pg/mL (0-125) H Total Protein 8.1 G/DL (6.4-8.2) Albumin 1.9 G/DL (3.4-5.0) L Globulin 6.2 g/dL Albumin/Globulin Ratio 0.3 (1.0-2.7) L Last Vital Signs Date Time Temp Pulse Resp B/P (MAP) Pulse Ox O2 Delivery O2 Flow Rate FiO2 03/14/17 15:44 98.1 100 16 112/91 98 Room Air Disposition: XFER SNF Condition: Stable Natanael Quiros M.D. Mar 14, 2017 16:12
[2017-03-14 16:24] LABS: BASOPHILS % (AUTO) 0.7 % (0.0-2.0); EOSINOPHILS % (AUTO) 0.2 % (0.0-3.0); LYMPHOCYTES % (AUTO) 13.7 % (20.0-45.0); MEAN CORPUSCULAR HEMOGLOBIN 27.6 PG (27.0-31.0); MEAN CORPUSCULAR VOLUME 89 FL (80-99); MEAN PLATELET VOLUME 5.7 FL (6.5-10.1); MONOCYTES % (AUTO) 6.3 % (1.0-10.0); PLATELET COUNT 410 K/UL (150-450); RED BLOOD COUNT 4.78 M/UL (4.70-6.10); RED CELL DISTRIBUTION WIDTH 13.1 % (11.6-14.8); WHITE BLOOD COUNT 11.9 K/UL (4.8-10.8)
[2017-03-14 16:50] LABS: ANION GAP 8 mmol/L (5-15); CALCIUM 8.2 MG/DL (8.5-10.1); CARBON DIOXIDE 29 MMOL/L (21-32); CHLORIDE 103 MMOL/L (98-107); GLOMERULAR FILTRATION RATE 26.1 mL/min (>60); POTASSIUM 5.1 MMOL/L (3.5-5.1); SODIUM 140 MMOL/L (136-145)
[2017-03-14 17:02] LABS: ALANINE AMINOTRANSFERASE 24 U/L (12-78); ALBUMIN/GLOBULIN RATIO 0.3 (1.0-2.7); ASPARTATE AMINO TRANSFERASE 24 U/L (15-37); TOTAL PROTEIN 8.1 G/DL (6.4-8.2)
[2017-03-14 17:57] VITALS: BP 103/79
[2017-03-14 19:17] VITALS: BP 142/101
[2017-03-14 21:00] VITALS: BP 123/65
[2017-03-14 23:16] VITALS: BP 122/82
[2017-03-14 23:22] VITALS: BP 122/82
--- NOTE | 2017-03-15 10:01 | Diagnostic Imaging Report ---
Indication: Reason For Exam: PAIN Technique: XRAY Chest 1v Comparison:03/08/2017 Findings: The cardioesophageal silhouette is unchanged. A pacemaker is again noted. Right jugular dialysis catheter has been removed and a tunneled dialysis catheter has been placed with the tip at superior cavoatrial junction.. Lungs are clear. No pleural fluid. No congestive heart failure. The aorta is elongated. Impression: Removal of the temporary dialysis catheter and placement of a tunneled dialysis catheter via the right internal jugular vein. Tip is in the superior cavoatrial junction. Left pacemaker. Atherosclerotic change.
--- NOTE | 2017-03-15 19:15 | Cardiology Report ---
APPROVED REPORT EKG Measurement Heart [id number] 140P52 [id number] Normal sinus rhythm Left axis deviation Nonspecific ST and T wave abnormality Abnormal ECG
== END 2017-03-14 23:30 ==
LOC: EDBEDREQ 15:57 → EMR 15:59 → CANBEDREQ 18:10 → EMR 23:30
DX: N18.6 End stage renal disease (principal); Z99.2 Dependence on renal dialysis; E11.9 Type 2 diabetes mellitus without complications; Z95.0 Presence of cardiac pacemaker
CPT/HCPCS: 36415; 71010; 80053; 83880; 84484; 85025; 93005; 99284

== ENCOUNTER 2017-03-17 13:42 | Emergency (ER) | payer OTHER ==
[~2017-03-17] VITALS: Ht 175.3 cm; Wt 79.4 kg
[2017-03-17 14:00] VITALS: BP 111/90
[2017-03-17] MEDS ORDERED: ALBUTEROL SULF8.5 GM INH (14:03)
[2017-03-17] MEDS ORDERED: HEPARIN SO5000 UNIT2 SUBQ (14:03)
[2017-03-17] MEDS ORDERED: CEFEPIME-D1 GM/50 ML IVPB (14:03)
[2017-03-17] MEDS ORDERED: LANTUS SOL100 UNIT/1 SUBQ (14:03)
[2017-03-17 14:21] LABS: ABG BASE EXCESS 2.5; ABG PCO2 33.2 mmHg (35.0-45.0)
[2017-03-17 14:22] LABS: ABG ALLEN TEST POSITIVE
--- NOTE | 2017-03-17 14:44 | Emergency Room Report ---
History of Present Illness General Chief Complaint: General Complaint Source: Patient Present Illness HPI 61-year-old male history of CVA, nonverbal, end-stage renal disease on dialysis with right-sided dialysis port, diabetes, sent in for dialysis. Patient is coming from [facility], sent in for dialysis however unknown when his last dialysis was. Patient was seen in the emergency room on March 14 for dialysis however there is no urgent need for dialysis at that time and patient was sent back to the halfway Allergies: Coded Allergies: No Known Allergies (Unverified , 11/15/15) Patient History Past Medical History: see triage record Past Surgical History: unable to obtain Pertinent Family History: unable to obtain Reviewed Nursing Documentation: PMH: Agreed, PSxH: Agreed Nursing Documentation-PMH Hx Cardiac Problems: Yes - pacemaker Hx Hypertension: No Hx Pacemaker: Yes Hx Diabetes: Yes Hx Cancer: No Hx Dialysis: No Review of Systems All Other Systems: limited - nonverbal Physical Exam Vital Signs Date Time Temp Pulse Resp B/P (MAP) Pulse Ox O2 Delivery O2 Flow Rate FiO2 03/17/17 13:39 96.6 108 26 105/82 94 Room Air Sp02 EP Interpretation: reviewed, normal General Appearance: other - Chronically ill appearing middle aged male, lower extremities contracted, responds but arouses to pain, otherwise sleeping and not in acute distress Head: normocephalic, atraumatic Eyes: bilateral eye normal inspection, bilateral eye PERRL, bilateral eye EOMI ENT: normal ENT inspection, normal pharynx, normal voice, moist mucus membranes Neck: normal inspection, full range of motion, supple Respiratory: normal inspection, lungs clear, normal breath sounds, no respiratory distress, no retraction, no wheezing, speaking full sentences, chest symmetrical Cardiovascular #1: normal inspection, regular rate, rhythm, no edema, normal capillary refill Cardiovascular #2: 2+ radial (R), 2+ radial (L) Gastrointestinal: soft, non-distended, no guarding, other - +peg tube, no grimace to deep palpation of abdomen Genitourinary: no CVA tenderness Musculoskeletal: other - contracted lower ext Neurologic: other - Responds to pain, does not follow commands Psychiatric: other - nonverbal Skin: normal inspection, normal color, no rash, warm/dry, well hydrated, normal turgor Medical Decision Making Diagnostic Impression: Primary Impression: ESRD (end stage renal disease) on dialysis Additional Impression: Hyperkalemia ER Course 61-year-old male with end-stage renal disease sent in for dialysis DDX: Need for dialysis, rule out severe electrolyte disturbance such as hyperkalemia , fluid overload Plan: Obtain labs, ua, EKG, CXR ER course: Patient has been monitored during ED stay slight hypoxia, on 2L NC. hyperkalemic, treated with insulin/dextrose, sodium bicarb, calcium not in resp distress Disposition: Patient is to be transferred to outside hospital for further care 2/ to insurance purposes D/W hospitalist Dr Tompkins who is covering for Dr Lao. Please note that this Emergency Department Report was dictated using [employer] technology software, occasionally this can lead to erroneous entry secondary to interpretation by the dictation equipment. EKG Diagnostic Results EP Interpretation: Yes Rate: Tachycardic Rhythm: NSR ST Segments: TWI aVL ASA given to patient: No Rhythm Strip EP Interpretation: Yes Rate: 105 Rhythm: NSR, no PVCs, no ectopy Chest X-ray CXR: Ordered: Yes 1 view Indication: Altered mental status EP interpretation: Yes Interpretation: No consolidation, no effusion, no PTX, cardiomegaly with mild pulm vasc congestion, PPM noted, R sided dialysis port noted Impression: cardiomegaly, pulm vasc congestion Electronically signed by Natanael Quiros MD Laboratory Tests Test 03/17/17 14:15 03/17/17 15:20 Arterial Blood pH 7.490 (7.350-7.450) Arterial Blood Partial Pressure CO2 33.2 mmHg (35.0-45.0) L Arterial Blood Partial Pressure O2 56.7 mmHg (75.0-100.0) L Arterial Blood HCO3 25.2 mmol/L (22.0-26.0) Arterial Blood Oxygen Saturation 91.5 % (92.0-98.0) L Arterial Blood Base Excess 2.5 Nilo Test Positive White Blood Count 13.1 K/UL (4.8-10.8) H Red Blood Count 5.14 M/UL (4.70-6.10) Hemoglobin 14.0 G/DL (14.2-18.0) L Hematocrit 46.1 % (42.0-52.0) Mean Corpuscular Volume 90 FL (80-99) Mean Corpuscular Hemoglobin 27.2 PG (27.0-31.0) Mean Corpuscular Hemoglobin Concent 30.3 G/DL (32.0-36.0) L Red Cell Distribution Width 13.2 % (11.6-14.8) Platelet Count 565 K/UL (150-450) H Mean Platelet Volume 6.0 FL (6.5-10.1) L Neutrophils (%) (Auto) 71.7 % (45.0-75.0) Lymphocytes (%) (Auto) 17.9 % (20.0-45.0) L Monocytes (%) (Auto) 8.4 % (1.0-10.0) Eosinophils (%) (Auto) 0.8 % (0.0-3.0) Basophils (%) (Auto) 1.2 % (0.0-2.0) Sodium Level 148 MMOL/L (136-145) H Potassium Level 5.6 MMOL/L (3.5-5.1) H Chloride Level 108 MMOL/L (98-107) H Carbon Dioxide Level 29 MMOL/L (21-32) Anion Gap 11 mmol/L (5-15) Blood Urea Nitrogen 77 mg/dL (7-18) H Creatinine 3.2 MG/DL (0.55-1.30) H Estimate Glomerular Filtration Rate 24.2 mL/min (>60) Glucose Level 194 MG/DL (74-106) H Calcium Level 9.1 MG/DL (8.5-10.1) Total Bilirubin 0.4 MG/DL (0.2-1.0) Aspartate Amino Transferase (AST) 32 U/L (15-37) Alanine Aminotransferase (ALT) 45 U/L (12-78) Alkaline Phosphatase 92 U/L (46-116) Troponin I 0.017 ng/mL (0.000-0.056) Pro-B-Type Natriuretic Peptide 1705 pg/mL (0-125) H Total Protein 8.6 G/DL (6.4-8.2) H Albumin 1.8 G/DL (3.4-5.0) L Globulin 6.8 g/dL Albumin/Globulin Ratio 0.3 (1.0-2.7) L Last Vital Signs Date Time Temp Pulse Resp B/P (MAP) Pulse Ox O2 Delivery O2 Flow Rate FiO2 03/17/17 13:39 96.6 108 26 105/82 94 Room Air Disposition: ADMITTED INPATIENT Condition: Serious Natanael Quiros M.D. Mar 17, 2017 14:44
--- NOTE | 2017-03-17 15:03 | Diagnostic Imaging Report ---
Indication: Dyspnea Comparison: 03/14/2017 A single view chest radiograph was obtained. Findings: Pacemaker in permacath again noted. Heart is enlarged. Lungs remain clear with normal vascularity. IMPRESSION: No acute disease
[2017-03-17 15:48] LABS: BASOPHILS % (AUTO) 1.2 % (0.0-2.0); EOSINOPHILS % (AUTO) 0.8 % (0.0-3.0); LYMPHOCYTES % (AUTO) 17.9 % (20.0-45.0); MEAN CORPUSCULAR HEMOGLOBIN 27.2 PG (27.0-31.0); MEAN CORPUSCULAR HGB CONC 30.3 G/DL (32.0-36.0); MEAN CORPUSCULAR VOLUME 90 FL (80-99); MONOCYTES % (AUTO) 8.4 % (1.0-10.0); NEUTROPHILS % (AUTO) 71.7 % (45.0-75.0); PLATELET COUNT 565 K/UL (150-450); RED BLOOD COUNT 5.14 M/UL (4.70-6.10); RED CELL DISTRIBUTION WIDTH 13.2 % (11.6-14.8); WHITE BLOOD COUNT 13.1 K/UL (4.8-10.8)
[2017-03-17 16:01] LABS: ANION GAP 11 mmol/L (5-15); CALCIUM 9.1 MG/DL (8.5-10.1); CARBON DIOXIDE 29 MMOL/L (21-32); CHLORIDE 108 MMOL/L (98-107); CREATININE 3.2 MG/DL (0.55-1.30); GLOMERULAR FILTRATION RATE 24.2 mL/min (>60); POTASSIUM 5.6 MMOL/L (3.5-5.1); SODIUM 148 MMOL/L (136-145)
[2017-03-17 16:12] LABS: ALANINE AMINOTRANSFERASE 45 U/L (12-78); ALBUMIN/GLOBULIN RATIO 0.3 (1.0-2.7); ASPARTATE AMINO TRANSFERASE 32 U/L (15-37); TOTAL PROTEIN 8.6 G/DL (6.4-8.2)
[2017-03-17] MEDS ORDERED: Calcium Gluconate 1gm/10ml vial IVP ONE (16:15)
[2017-03-17] MEDS ORDERED: Sodium Bicarbonate 50ml Carp IV ONE (16:15)
[2017-03-17 16:37] VITALS: BP 117/81
[2017-03-17 18:45] VITALS: BP 115/84
[2017-03-17 19:00] VITALS: BP 114/68
[2017-03-17 19:44] VITALS: BP 114/68
--- NOTE | 2017-03-30 00:21 | Cardiology Report ---
APPROVED REPORT EKG Measurement Heart [id number] MD 132P8 [id number] Sinus tachycardia Left axis deviation Nonspecific ST abnormality Abnormal ECG
== END 2017-03-17 20:00 | disposition other institution (70) ==
LOC: EDBD 13:42 → EDBEDREQ 14:36 → EMR 14:42
DX: N18.6 End stage renal disease (principal); Z99.2 Dependence on renal dialysis; E11.9 Type 2 diabetes mellitus without complications; Z95.0 Presence of cardiac pacemaker; E87.5 Hyperkalemia
CPT/HCPCS: 36415; 36600; 71010; 80053; 82803; 83880; 84484; 85025; 93005; 96374; 96375; 99285; J0610; J1815

== ENCOUNTER 2017-03-21 02:06 | Emergency (ER) | payer OTHER ==
[~2017-03-21] VITALS: Ht 175.3 cm; Wt 81.6 kg
[~2017-03-21 02:06] MED LIST changes: +ALBUTEROL SULF8.5 GM INH; +CEFEPIME-D1 GM/50 ML IVPB; +HEPARIN SO5000 UNIT2 SUBQ; +LANTUS SOL100 UNIT/1 SUBQ
[2017-03-21 02:55] VITALS: BP 102/72
[2017-03-21] MEDS ORDERED: NOVOLOG100 UNIT/4 SQ (02:59)
[2017-03-21] MEDS ORDERED: VITAMIN C250 MG ORAL (02:59)
[2017-03-21 03:31] LABS: BASOPHILS % (AUTO) 0.5 % (0.0-2.0); HEMATOCRIT 43.4 % (42.0-52.0); HEMOGLOBIN 13.4 G/DL (14.2-18.0); LYMPHOCYTES % (AUTO) 15.4 % (20.0-45.0); MEAN CORPUSCULAR VOLUME 90 FL (80-99); MONOCYTES % (AUTO) 4.4 % (1.0-10.0); NEUTROPHILS % (AUTO) 79.7 % (45.0-75.0); PLATELET COUNT 582 K/UL (150-450); RED BLOOD COUNT 4.83 M/UL (4.70-6.10); RED CELL DISTRIBUTION WIDTH 13.5 % (11.6-14.8); WHITE BLOOD COUNT 17.3 K/UL (4.8-10.8)
[2017-03-21 03:36] LABS: ANION GAP 15 mmol/L (5-15); BLOOD UREA NITROGEN 109 mg/dL (7-18); CALCIUM 8.7 MG/DL (8.5-10.1); CARBON DIOXIDE 27 MMOL/L (21-32); CHLORIDE 113 MMOL/L (98-107); CREATININE 4.3 MG/DL (0.55-1.30); SODIUM 155 MMOL/L (136-145)
[2017-03-21 03:55] VITALS: BP 95/71
[2017-03-21] MEDS ORDERED: Sodium Chloride 500ML 500 ML IV ONE (04:30)
[2017-03-21 04:55] VITALS: BP 94/72
--- NOTE | 2017-03-21 05:18 | Emergency Room Report ---
History of Present Illness General Chief Complaint: Altered Level of Consciousness Source: Medical Record Present Illness HPI Is a 61-year-old male whose initial patient. He is bed bound. He has a history of diabetes, high blood pressure, renal failure on hemodialysis. He presents with chief complaint of altered mental status. No more so from his baseline. This is according to nursing staff. He's been here several time this month her ready for various complaint leg abnormal labs altered mental status. There was no fever or chills. No nausea no vomiting. Allergies: Coded Allergies: No Known Allergies (Unverified , 11/15/15) Patient History Past Medical History: see triage record, old chart reviewed, DM, HTN, renal disease, dialysis Past Surgical History: other Pertinent Family History: none Social History: Denies: smoking Immunizations: other Reviewed Nursing Documentation: PMH: Agreed, PSxH: Agreed Nursing Documentation-PMH Hx Cardiac Problems: Yes - pacemaker Hx Hypertension: No Hx Pacemaker: Yes - ESRD, dialysis M-W-F Hx Diabetes: Yes Hx Cancer: No Hx Dialysis: No Review of Systems Eye: Denies: eye pain, blurred vision ENT: Denies: ear pain, nose congestion, throat swelling Respiratory: Denies: cough, shortness of breath Cardiovascular: Denies: chest pain, palpitations Gastrointestinal: Denies: abdominal pain, diarrhea, nausea, vomiting Musculoskeletal: Denies: back pain, joint pain Skin: Denies: rash Neurological: Denies: headache, numbness Endocrine: Denies: increased thirst, increased urine Hematologic/Lymphatic: Denies: easy bruising All Other Systems: negative except mentioned in HPI Physical Exam Vital Signs Date Time Temp Pulse Resp B/P (MAP) Pulse Ox O2 Delivery O2 Flow Rate FiO2 03/21/17 02:42 110 16 96/72 98 Nasal Cannula 2.0 03/21/17 02:55 97.8 vitals tachycardia Sp02 EP Interpretation: reviewed, normal General Appearance: well appearing, cachetic, Chronically Ill Head: normocephalic, atraumatic Eyes: bilateral eye PERRL, bilateral eye EOMI ENT: hearing grossly normal, dry mucus membranes Neck: full range of motion, supple, no meningismus Respiratory: chest non-tender, lungs clear, normal breath sounds Cardiovascular #1: regular rate, rhythm, no murmur Gastrointestinal: normal bowel sounds, non tender, no mass, no organomegaly, no bruit, non-distended Musculoskeletal: back normal, normal range of motion Neurologic: other - Contracted Psychiatric: mood/affect normal Skin: warm/dry Medical Decision Making Diagnostic Impression: Primary Impression: Encephalopathy acute Additional Impressions: UTI (urinary tract infection) Qualified Codes: N30.00 - Acute cystitis without hematuria Acute kidney injury Hyperglycemia due to type 2 diabetes mellitus Qualified Codes: E11.65 - Type 2 diabetes mellitus with hyperglycemia Proteinuria Qualified Codes: R80.9 - Proteinuria, unspecified Dehydration ER Course The patient without altered mental status secondary to dehydration and UTI. He grew out Pseudomonas couple weeks ago. Pain sensitive. We'll put him on Rocephin. The room a small amount of IV fluid. No evidence of pneumonia. Status improved. I discussed the case with Dr. Garcia who accepted pt for transfer to [facility] Laboratory Tests Test 03/21/17 02:50 03/21/17 05:25 White Blood Count 17.3 K/UL (4.8-10.8) H Red Blood Count 4.83 M/UL (4.70-6.10) Hemoglobin 13.4 G/DL (14.2-18.0) L Hematocrit 43.4 % (42.0-52.0) Mean Corpuscular Volume 90 FL (80-99) Mean Corpuscular Hemoglobin 27.8 PG (27.0-31.0) Mean Corpuscular Hemoglobin Concent 30.9 G/DL (32.0-36.0) L Red Cell Distribution Width 13.5 % (11.6-14.8) Platelet Count 582 K/UL (150-450) H Mean Platelet Volume 6.7 FL (6.5-10.1) Neutrophils (%) (Auto) 79.7 % (45.0-75.0) H Lymphocytes (%) (Auto) 15.4 % (20.0-45.0) L Monocytes (%) (Auto) 4.4 % (1.0-10.0) Eosinophils (%) (Auto) 0.0 % (0.0-3.0) Basophils (%) (Auto) 0.5 % (0.0-2.0) Sodium Level 155 MMOL/L (136-145) H Potassium Level 4.0 MMOL/L (3.5-5.1) Chloride Level 113 MMOL/L (98-107) H Carbon Dioxide Level 27 MMOL/L (21-32) Anion Gap 15 mmol/L (5-15) Blood Urea Nitrogen 109 mg/dL (7-18) H Creatinine 4.3 MG/DL (0.55-1.30) H Estimat Glomerular Filtration Rate 17.2 mL/min (>60) Glucose Level 335 MG/DL (74-106) H Calcium Level 8.7 MG/DL (8.5-10.1) Troponin I 0.042 ng/mL (0.000-0.056) Urine Color Yellow Urine Appearance Very cloudy Urine pH 5 (4.5-8.0) Urine Specific [place] 1.025 (1.005-1.035) Urine Protein 4+ (NEGATIVE) H Urine Glucose (UA) 2+ (NEGATIVE) H Urine Ketones Negative (NEGATIVE) Urine Occult Blood 4+ (NEGATIVE) H Urine Nitrite Negative (NEGATIVE) Urine Bilirubin Negative (NEGATIVE) Urine Urobilinogen Normal MG/DL (0.0-1.0) Urine Leukocyte Esterase 1+ (NEGATIVE) H Urine RBC 2-4 /HPF (0 - 0) H Urine WBC 2-4 /HPF (0 - 0) Urine Squamous Epithelial Cells Occasional /LPF Urine Amorphous Sediment Many /LPF (NONE) H Urine Bacteria Few /HPF (NONE) Urine Coarse Granular Casts 5-10 /LPF (NONE) H Lab Results Impression labs leukocytosis EKG Diagnostic Results Rate: tachycardiac Rhythm: NSR ST Segments: no acute changes Rhythm Strip Diag. Results Rhythm Strip Time: 05:23 EP Interpretation: yes Rate: 93 Rhythm: NSR, no PVC's, no ectopy Chest X-Ray Diagnostic Results Chest X-Ray Diagnostic Results : Chest X-Ray Ordered: Yes # of Views/Limited/Complete: 1 View Indication: Shortness of Breath EP Interpretation: Yes Interpretation: no consolidation, no effusion, no pneumothorax, no acute cardiopulmonary disease Impression: No acute disease Electronically Signed by: Moe Winters MD Last Vital Signs Date Time Temp Pulse Resp B/P (MAP) Pulse Ox O2 Delivery O2 Flow Rate FiO2 03/21/17 04:55 97.9 92 20 94/72 98 Nasal Cannula 3.0 Status: improved Disposition: XFER SHT-TRM HOSP Condition: Stable Referrals: [facility],REFERRING (PCP) MOE WINTERS M.D. Mar 21, 2017 05:18
[2017-03-21 06:03] LABS: APPEARANCE,URINE VERY CLOUDY; BILIRUBIN, URINE NEGATIVE (NEGATIVE); GLUCOSE, URINE (UA) 2+ (NEGATIVE); KETONES,URINE NEGATIVE (NEGATIVE); LEUKOCYTE ESTERASE ,URINE 1+ (NEGATIVE); NITRITE,URINE NEGATIVE (NEGATIVE); PH,URINE 5 (4.5-8.0); PROTEIN,URINE 4+ (NEGATIVE); UROBILINOGEN,URINE NORMAL MG/DL (0.0-1.0)
[2017-03-21 06:05] VITALS: BP 94/72
[2017-03-21 06:18] LABS: COLOR,URINE YELLOW
[2017-03-21] MEDS ORDERED: cefTRIAXone 1 GM in NS 55 ML IVPB ONE (06:45)
[2017-03-21 07:00] VITALS: BP 112/76
[2017-03-21 07:38] VITALS: BP 112/76
--- NOTE | 2017-03-21 10:21 | Diagnostic Imaging Report ---
Indication: Chest pain. Altered mental status. Technique: XRAY Chest 1v Comparison: 03/10/1717 Findings: Heart is enlarged but stable. Left chest dual-lead AICD unchanged in position. Right IJ tunneled dialysis catheter unchanged. Mild central pulmonary vascular congestion. No focal airspace consolidation, pleural effusion or pneumothorax. No acute osseous abnormality seen. Impression: Cardiomegaly with mild central pulmonary vascular congestion.
--- NOTE | 2017-03-24 19:25 | Cardiology Report ---
APPROVED REPORT EKG Measurement Heart [id number] GA [id number] Atrial tachycardia Left axis deviation Anterior infarct, age undetermined Abnormal ECG
== END 2017-03-21 07:38 | disposition short-term general hospital (02) ==
LOC: EDBD 02:06 → EMR 03:22
DX: G93.40 Encephalopathy, unspecified (principal); N39.0 Urinary tract infection, site not specified; E11.65 Type 2 diabetes mellitus with hyperglycemia; N17.9 Acute kidney failure, unspecified; R80.9 Proteinuria, unspecified; E86.0 Dehydration; I12.0 Hypertensive chronic kidney disease with stage 5 chronic kidney disease or end stage renal disease; N18.6 End stage renal disease; Z99.2 Dependence on renal dialysis; Z95.0 Presence of cardiac pacemaker
CPT/HCPCS: 36415; 71010; 80048; 81003; 84484; 85025; 93005; 96374; 96375; 99285; J0696; J7040